=== PATIENT | male | born 1940 | race Caucasian/White ===

== ENCOUNTER → 2018-03-04 12:34 | Outpatient (CLI) | payer MEDICARE, OTHER, SELFPAY ==
[2018-03-04 13:47] LABS: Alanine Aminotransferase 23 IU/L (21-72); Albumin 4.6 g/dL (3.5-5.0); Albumin Globulin Ratio 1.2 (1.0-2.8); Alkaline Phosphatase 116 U/L (38-126); Aspartate Aminotransferase 23 IU/L (17-59); BUN Creatinine Ratio 22.9 (6-22); Bilirubin Total 0.7 mg/dL (0.2-1.3); Calcium 9.7 mg/dL (8.4-10.2); Estimated Glomerular Filt Rate > 60.0 mL/min (>60); Globulin 3.7 g/dL (1.7-4.1); Glucose 103 mg/dL (80-110); HEMOLYSIS 37 (0-50); Sodium 141 mmol/L (137-145); Total Protein 8.3 g/dL (6.3-8.2)
== END ==
PROVIDERS: Family Provider Family Medicine; PCP Family Medicine; Visit Provider Internal Medicine Hematology & Oncology
DX: C61 Malignant neoplasm of prostate (principal)
CPT/HCPCS: 80053; 84153

== ENCOUNTER → 2018-06-02 14:11 | Outpatient (CLI) | payer MEDICARE, OTHER, SELFPAY ==
[2018-06-02 14:32] LABS: Add Manual Diff / Slide Review NO; Basophils Percent Auto 0.5 % (0-2); Eosinophils Percent Auto 0.3 % (2-4); Hematocrit 40.7 % (41-53); Hemoglobin 13.4 g/dL (13.5-17.5); Lymphocytes Percent Auto 27.8 % (25-40); Mean Corpuscular HGB Conc 32.9 % (30-36); Mean Corpuscular Hemoglobin 27.4 PG (26-34); Mean Corpuscular Volume 83.4 fL (80-100); Monocytes Percent Auto 8.3 % (3-14); Neutrophils Absolute Auto 7200 /uL (3000-5900); Neutrophils Percent Auto 63.1 % (50-75); Platelet Count 360 X10^3/uL (150-400); Red Blood Cell Count 4.88 X10^6/uL (4.5-5.9); Red Cell Distribution Width 14.8 % (11.6-14.8); White Blood Cell Count 11.4 X10^3/uL (4.5-11.0)
[2018-06-02 15:26] LABS: Alanine Aminotransferase 16 IU/L (21-72); Albumin 4.4 g/dL (3.5-5.0); Albumin Globulin Ratio 1.2 (1.0-2.8); Alkaline Phosphatase 127 U/L (38-126); Aspartate Aminotransferase 19 IU/L (17-59); BUN Creatinine Ratio 21.3 (6-22); Bilirubin Total 0.3 mg/dL (0.2-1.3); Blood Urea Nitrogen 17 mg/dL (9-20); Calcium 9.3 mg/dL (8.4-10.2); Carbon Dioxide 27 mmol/L (22-32); Chloride 101 mmol/L (98-107); Estimated Glomerular Filt Rate > 60.0 mL/min (>60); Globulin 3.6 g/dL (1.7-4.1); Glucose 83 mg/dL (80-110); HEMOLYSIS < 15 (0-50); Potassium 4.1 mmol/L (3.4-5.1); Sodium 140 mmol/L (137-145)
[2018-06-06 15:59] LABS: Albumin 3.7 g/dL (3.8-4.8); Alpha 1 Globulin 0.4 g/dL (0.2-0.3); Alpha 2 Globulin 1.1 g/dL (0.5-0.9); Beta 1 Globulin 0.6 g/dL (0.4-0.6); Protein, Total 7.3 g/dL (6.1-8.1)
== END ==
PROVIDERS: Internal Medicine Hematology & Oncology; Family Provider Family Medicine; PCP Family Medicine; Visit Provider Nurse Practitioner Gerontology
DX: C61 Malignant neoplasm of prostate (principal)
CPT/HCPCS: 36415; 80053; 84153; 84155; 84165; 85025

== ENCOUNTER → 2018-06-25 10:56 | Outpatient (CLI) | payer MEDICARE, OTHER, SELFPAY ==
--- NOTE | 2018-06-25 11:04 | DI.NM.S_ITS ---
PROCEDURE: [place] BONE SCAN WHOLE BODY RADIOPHARMACEUTICAL: 21.5 mCi Tc-99m MDP IV. INDICATIONS: PROSTATE CANCER TECHNIQUE: Delayed whole-body scintigrams were obtained approximately 3-4 hours after intravenous injection of radiotracer. Anterior and posterior views were acquired from vertex to feet. COMPARISON: [facility], CT, CT HARVEY, 11/04/2017, 15:06. [place], [place], BONE SCAN WHOLE BODY, 07/27/2016, 13:03. [place], BONE SCAN WHOLE BODY, 12/28/2016, 14:29. [facility], CT, CHEST/ABD/PEL WITH CONTRAST, 10/09/2017, 12:02. [place], BONE SCAN WHOLE BODY, 10/09/2017, 14:55. FINDINGS: Again noted are foci of increased uptake involving the right distal clavicle, T8 vertebral body, right sacrum consistent with metastasis. The right sacral lesion is more intense. The right clavicular lesion and lesion involving the T8 vertebra are stable. Increased activity in left eighth and ninth ribs are again noted, which was seen on prior examinations and thought to be most likely related to rib fracture. No lesions are identified in skull, sternum, scapulae, bony pelvis, and visualized shafts of the long bones. There is increased uptake in cervical, thoracic and lumbar spine with distribution indistinguishable from degenerative disc and facet disease; early metastasis to spine could be obscured by degenerative changes. There are foci of increased periarticular activity involving shoulders bilaterally, wrists and hands bilaterally, right knee and both feet, compatible with degenerative/arthritic changes. There is normal soft tissue uptake. IMPRESSION: 1. Suspicious bone lesions are again noted involving the distal right clavicle, T8 vertebral body and the right sacrum. The right sacral lesion appears more intense compared to the last exam. The right distal clavicular lesion and T8 lesion are stable. 2. Suspect rib fractures involving the left eighth and ninth ribs. Dictated by: Heidi Latif M.D. on 06/25/2018 at 17:34 Approved by: Heidi Latif M.D. on 06/26/2018 at 11:56
[2018-06-25 12:09] LABS: Add Manual Diff / Slide Review NO; Basophils Percent Auto 0.8 % (0-2); Eosinophils Percent Auto 0.2 % (2-4); Hematocrit 42.5 % (41-53); Lymphocytes Percent Auto 23.3 % (25-40); Mean Corpuscular HGB Conc 32.9 % (30-36); Mean Corpuscular Hemoglobin 27.4 PG (26-34); Mean Corpuscular Volume 83.3 fL (80-100); Monocytes Percent Auto 9.9 % (3-14); Neutrophils Absolute Auto 6700 /uL (3000-5900); Neutrophils Percent Auto 65.8 % (50-75); Platelet Count 330 X10^3/uL (150-400); Red Cell Distribution Width 15.1 % (11.6-14.8); White Blood Cell Count 10.3 X10^3/uL (4.5-11.0)
[2018-06-25 12:26] LABS: Alanine Aminotransferase 18 IU/L (21-72); Albumin 4.6 g/dL (3.5-5.0); Albumin Globulin Ratio 1.4 (1.0-2.8); Alkaline Phosphatase 121 U/L (38-126); Aspartate Aminotransferase 18 IU/L (17-59); Bilirubin Total 0.5 mg/dL (0.2-1.3); Blood Urea Nitrogen 18 mg/dL (9-20); Calcium 10.2 mg/dL (8.4-10.2); Carbon Dioxide 27 mmol/L (22-32); Chloride 103 mmol/L (98-107); Estimated Glomerular Filt Rate > 60.0 mL/min (>60); Globulin 3.2 g/dL (1.7-4.1); Glucose 106 mg/dL (80-110); HEMOLYSIS < 15 (0-50); Potassium 4.8 mmol/L (3.4-5.1); Sodium 144 mmol/L (137-145); Total Protein 7.8 g/dL (6.3-8.2)
== END ==
PROVIDERS: Family Provider Family Medicine; PCP Family Medicine; Visit Provider Nurse Practitioner Gerontology
DX: C61 Malignant neoplasm of prostate (principal); M89.9 Disorder of bone, unspecified
CPT/HCPCS: 36415; 78306; 80053; 84153; 85025; A9503

== ENCOUNTER → 2018-08-26 12:24 | Outpatient (CLI) | payer MEDICARE, OTHER, SELFPAY ==
[2018-08-26 13:56] LABS: Alanine Aminotransferase 18 IU/L (21-72); Albumin 4.7 g/dL (3.5-5.0); Albumin Globulin Ratio 1.5 (1.0-2.8); Alkaline Phosphatase 97 U/L (38-126); Aspartate Aminotransferase 23 IU/L (17-59); BUN Creatinine Ratio 15.6 (6-22); Bilirubin Total 0.5 mg/dL (0.2-1.3); Blood Urea Nitrogen 14 mg/dL (9-20); Calcium 9.4 mg/dL (8.4-10.2); Carbon Dioxide 26 mmol/L (22-32); Chloride 101 mmol/L (98-107); Estimated Glomerular Filt Rate > 60.0 mL/min (>60); Globulin 3.2 g/dL (1.7-4.1); Glucose 98 mg/dL (80-110); HEMOLYSIS < 15 (0-50); Potassium 4.4 mmol/L (3.4-5.1); Sodium 143 mmol/L (137-145); Total Protein 7.9 g/dL (6.3-8.2)
[2018-08-26 13:58] LABS: Add Manual Diff / Slide Review NO; Basophils Percent Auto 0.5 % (0-2); Eosinophils Percent Auto 0.3 % (2-4); Hematocrit 42.1 % (41-53); Hemoglobin 13.7 g/dL (13.5-17.5); Mean Corpuscular HGB Conc 32.6 % (30-36); Mean Corpuscular Hemoglobin 27.7 PG (26-34); Mean Corpuscular Volume 84.7 fL (80-100); Monocytes Percent Auto 9.4 % (3-14); Neutrophils Absolute Auto 7900 /uL (3000-5900); Neutrophils Percent Auto 70.8 % (50-75); Platelet Count 319 X10^3/uL (150-400); Red Blood Cell Count 4.97 X10^6/uL (4.5-5.9); Red Cell Distribution Width 14.6 % (11.6-14.8); White Blood Cell Count 11.1 X10^3/uL (4.5-11.0)
== END ==
PROVIDERS: Family Provider Family Medicine; PCP Family Medicine
DX: C61 Malignant neoplasm of prostate (principal); M81.0 Age-related osteoporosis without current pathological fracture; Z87.891 Personal history of nicotine dependence
CPT/HCPCS: 36415; 77080; 80053; 84153; 85025

== ENCOUNTER → 2018-10-24 12:47 | Outpatient (CLI) | payer MEDICARE, OTHER, SELFPAY ==
--- NOTE | 2018-10-24 14:21 | DI.CT.S_ITS ---
PROCEDURE: CT ABDOMEN PELVIS W CON INDICATIONS: Kidney cancer TECHNIQUE: After the administration of oral and intravenous contrast, 5 mm thick sections acquired from the diaphragms to the symphysis. 5 mm thick coronal and sagittal reformats were performed. For radiation dose reduction, the following was used: automated exposure control, adjustment of mA and/or kV according to patient size. COMPARISON: [facility], CT, CHEST/ABD/PEL WITH CONTRAST, 10/09/2017, 12:02. FINDINGS: Image quality: Excellent. ABDOMEN: Lung bases: Mild bibasilar dependent atelectasis are noted posteriorly. Heart size is mildly enlarged, no pericardial effusion. Solid organs: Liver is normal in size and enhancement. Mild hepatic steatosis is seen. Gallbladder is distended and is within normal limits.. Biliary system is non-dilated. Pancreas enhances normally. Spleen is normal in size and enhancement. No adrenal nodules. Left kidney is normal in size and enhancement, without hydronephrosis. Small left renal cortical cyst is again seen and unchanged. Again noted are 2 exophytic renal masses involving posterior cortex of upper pole right kidney and posterior lateral cortex of mid pole right kidney with surrounding fatty halo suggestive of prior ablation. Both lesions now measures approximately 1.5 cm in size and are significantly smaller compared to 2.6 and 2.4 cm in size on previous study. No hydronephrosis is seen. Tiny nonobstructing 2-3 mm right renal calculi are seen. Peritoneum and bowel: Stomach, small bowel, and colon loops are normal in caliber and wall thickness. No free fluid or air. Small hiatal hernia is seen. Sigmoid diverticulosis is noted, no CT evidence of acute diverticulitis. Nodes and vessels: No retroperitoneal or mesenteric adenopathy. Aorta and inferior vena cava are normal in caliber. Miscellaneous: No ventral hernias. PELVIS: Genitourinary: Very mild diffuse bladder wall thickening is seen, no discrete bladder wall mass is identified. There is prior prostatectomy. Miscellaneous: No inguinal hernias or adenopathy. Bones: No definite lytic or blastic bony lesion is identified. Possible metastatic lesion involving the right sacrum is not definitely appreciated on this study. No vertebral body compression fractures. IMPRESSION: 1. Interval further decrease in size of patient's known exophytic right renal masses as described above consistent with treated tumors from previous ablation. No evidence of local recurrence is seen. 2. No gross metastatic disease is seen in abdomen or pelvis. 3. No definite lytic or blastic bony lesion is seen. No obvious sacral lesion is noted. Dictated by: Romel Leal M.D. on 10/24/2018 at 16:57 Approved by: Romel Leal M.D. on 10/24/2018 at 16:58
== END ==
PROVIDERS: PCP Family Medicine
DX: C61 Malignant neoplasm of prostate (principal); N17.9 Acute kidney failure, unspecified; Z85.528 Personal history of other malignant neoplasm of kidney
CPT/HCPCS: 74177; Q9967

== ENCOUNTER → 2018-12-17 16:00 | Outpatient (CLI) | payer MEDICARE, OTHER, SELFPAY | PROVIDERS: Family Provider Family Medicine; PCP Family Medicine | DX: C61 Malignant neoplasm of prostate (principal) | CPT/HCPCS: 36415; 80053; 84153; 85025 ==

== ENCOUNTER → 2019-04-09 08:50 | Outpatient (CLI) | payer MEDICARE, OTHER, SELFPAY ==
--- NOTE | 2019-04-09 08:54 | DI.NM.S_ITS ---
PROCEDURE: [place] BONE SCAN WHOLE BODY RADIOPHARMACEUTICAL: 21.9 mCi Tc-99m MDP IV. INDICATIONS: f/u prostate cancer TECHNIQUE: Delayed whole-body scintigrams were obtained approximately 3-4 hours after intravenous injection of radiotracer. Anterior and posterior views were acquired from vertex to feet. COMPARISON: [facility], CT, CT ABDOMEN PELVIS W CON, 10/24/2018, 14:19. [facility], CT, CHEST/ABD/PEL WITH CONTRAST, 10/09/2017, 12:02. [place], [place], BONE SCAN WHOLE BODY, 10/09/2017, 14:55. [place], [place], [place] CONSULT OUTPATIENT PLANNING, 11/06/2017, 13:07. [place], [place] BONE SCAN WHOLE BODY, 06/25/2018, 14:17. [facility], CT, CT ABDOMEN PELVIS W CON, 04/09/2019, 10:32. FINDINGS: There are foci of increased uptake involving the right distal clavicle, T8 vertebra, sacrum, and right anterior seventh rib, consistent with metastasis. The right seventh rib lesion is new. The T8 lesion and right sacral lesion demonstrate increased size and intensity. The right clavicular lesion appears less conspicuous. Previously seen left eighth and ninth rib lesions no longer take up MDP, consistent with healed fractures. IMPRESSION: Overall worsening of disease since the last bone scan. Dictated by: Heidi Latif M.D. on 04/09/2019 at 13:55 Approved by: Heidi Latif M.D. on 04/09/2019 at 14:06
--- NOTE | 2019-04-09 09:40 | DI.CT.S_ITS ---
PROCEDURE: CT ABDOMEN PELVIS W CON INDICATIONS: Restaging prostate cancer TECHNIQUE: After the administration of oral and intravenous contrast, 5 mm thick sections acquired from the diaphragms to the symphysis. 5 mm thick coronal and sagittal reformats were performed. For radiation dose reduction, the following was used: automated exposure control, adjustment of mA and/or kV according to patient size. COMPARISON: Outside Facility, [place], CT ABDOMEN W/WO CONTRAST, 10/21/2015, 12:54. Outside Facility, [place], CT ABDOMEN WITH CONTRAST, 07/24/2016, 13:49. [facility], CT, KIDNEY/ URETER/BLADDER, 01/25/2017, 11:15. [facility], CT, CHEST/ABD/PEL WITH CONTRAST, 10/09/2017, 12:02. [facility], [place], [place] BONE SCAN WHOLE BODY, 04/09/2019, 12:27. [facility], CT, CT ABDOMEN PELVIS W CON, 10/24/2018, 14:19. FINDINGS: Image quality: Excellent. ABDOMEN: Lung bases: Lung bases are clear. Heart size is normal. Solid organs: Liver is normal in size and enhancement. Gallbladder is free of calculus or inflammation. Biliary system is non-dilated. Pancreas enhances normally. Spleen is normal in size and enhancement. No adrenal nodules. Kidneys are asymmetric in size and enhancement, with the postprocedural distortion of the right renal cortex at its upper margin and its upper lateral margin suggestive of prior possible ablation of renal tumors in those areas, without hydronephrosis. Peritoneum and bowel: Stomach, small bowel, and colon loops are normal in caliber and wall thickness. No free fluid or air. Nodes and vessels: No retroperitoneal or mesenteric adenopathy. Aorta and inferior vena cava are normal in caliber. Miscellaneous: No ventral hernias. PELVIS: Genitourinary: Bladder wall thickness is normal. Miscellaneous: No inguinal hernias or adenopathy. Bones: No suspicious bony lesions. No vertebral body compression fractures. IMPRESSION: No adenopathy is seen, no osteoblastic bone lesion is identified over the visualized axial and appendicular skeleton. The right kidney is relatively small when compared to the normal appearing left kidney in this patient who appears to have undergone prior possible ablation procedures for 2 separate masses involving the right kidney with reference to the prior earliest available CT scanning from October of 2015. Please correlate clinically. There is no evidence of adenopathy or osseous metastatic disease related to the clinically reported prior prostate carcinoma. Dictated by: Domingo Esquivel M.D. on 04/09/2019 at 13:55 Approved by: Domingo Esquivel M.D. on 04/09/2019 at 14:04
== END ==
PROVIDERS: Family Provider Family Medicine; PCP Family Medicine
DX: C61 Malignant neoplasm of prostate (principal); M89.9 Disorder of bone, unspecified
CPT/HCPCS: 36415; 74177; 78306; 80053; 84153; 85025; A9503; Q9967

== ENCOUNTER → 2019-04-09 09:00 | Outpatient (CLI) | payer MEDICARE, OTHER, SELFPAY ==
[2019-04-09 09:18] LABS: Add Manual Diff / Slide Review NO; Basophils Absolute Auto 100 /uL (0-100); Basophils Percent Auto 0.7 % (0-2); Eosinophils Absolute Auto 100 /uL (0-450); Eosinophils Percent Auto 0.7 % (2-4); Hematocrit 40.5 % (41-53); Hemoglobin 13.5 g/dL (13.5-17.5); Lymphocytes Absolute Auto 2300 /uL (1100-4500); Lymphocytes Percent Auto 26.3 % (25-40); Mean Corpuscular HGB Conc 33.4 % (30-36); Mean Corpuscular Hemoglobin 28.6 PG (26-34); Mean Corpuscular Volume 85.9 fL (80-100); Monocytes Absolute Auto 800 /uL (0-900); Monocytes Percent Auto 9.5 % (3-14); Neutrophils Absolute Auto 5400 /uL (1500-7000); Neutrophils Percent Auto 62.8 % (50-75); Platelet Count 310 X10^3/uL (150-400); Red Blood Cell Count 4.72 X10^6/uL (4.5-5.9); Red Cell Distribution Width 14.5 % (11.6-14.8); White Blood Cell Count 8.7 X10^3/uL (4.5-11.0)
[2019-04-09 09:32] LABS: Alanine Aminotransferase 14 IU/L (21-72); Albumin 4.5 g/dL (3.5-5.0); Albumin Globulin Ratio 1.3 (1.0-2.8); Alkaline Phosphatase 90 U/L (38-126); Aspartate Aminotransferase 18 IU/L (17-59); BUN Creatinine Ratio 21.3 (6-22); Bilirubin Total 0.4 mg/dL (0.2-1.3); Blood Urea Nitrogen 17 mg/dL (9-20); Calcium 9.2 mg/dL (8.4-10.2); Carbon Dioxide 21 mmol/L (22-32); Chloride 106 mmol/L (98-107); Estimated Glomerular Filt Rate > 60.0 mL/min (>60); Globulin 3.6 g/dL (1.7-4.1); Glucose 103 mg/dL (80-110); HEMOLYSIS < 15 (0-50); Potassium 4.2 mmol/L (3.4-5.1); Sodium 141 mmol/L (137-145); Total Protein 8.1 g/dL (6.3-8.2)
[2019-04-09 10:01] LABS: Prostate Specific Antigen 5.42 ng/mL (0.10-4.00)
== END ==
PROVIDERS: Family Provider Family Medicine; PCP Family Medicine
DX: C61 Malignant neoplasm of prostate (principal)
CPT/HCPCS: 36415; 80053; 84153; 85025

== ENCOUNTER → 2019-07-20 13:51 | Outpatient (CLI) | payer MEDICARE, OTHER, SELFPAY ==
[2019-07-20 14:15] LABS: Add Manual Diff / Slide Review NO; Basophils Absolute Auto 100 /uL (0-100); Basophils Percent Auto 0.6 % (0-2); Eosinophils Absolute Auto 0 /uL (0-450); Eosinophils Percent Auto 0.2 % (2-4); Hematocrit 41.4 % (41-53); Hemoglobin 13.5 g/dL (13.5-17.5); Lymphocytes Absolute Auto 1200 /uL (1100-4500); Lymphocytes Percent Auto 13.6 % (25-40); Mean Corpuscular HGB Conc 32.7 % (30-36); Mean Corpuscular Volume 88.7 fL (80-100); Monocytes Absolute Auto 900 /uL (0-900); Monocytes Percent Auto 10.8 % (3-14); Neutrophils Absolute Auto 6400 /uL (1500-7000); Neutrophils Percent Auto 74.8 % (50-75); Platelet Count 271 X10^3/uL (150-400); Red Blood Cell Count 4.67 X10^6/uL (4.5-5.9); Red Cell Distribution Width 14.5 % (11.6-14.8); White Blood Cell Count 8.6 X10^3/uL (4.5-11.0)
[2019-07-20 14:26] LABS: Alanine Aminotransferase 18 IU/L (21-72); Albumin 4.4 g/dL (3.5-5.0); Albumin Globulin Ratio 1.3 (1.0-2.8); Alkaline Phosphatase 77 U/L (38-126); Aspartate Aminotransferase 25 IU/L (17-59); BUN Creatinine Ratio 21.1 (6-22); Bilirubin Total 0.4 mg/dL (0.2-1.3); Blood Urea Nitrogen 19 mg/dL (9-20); Calcium 9.4 mg/dL (8.4-10.2); Carbon Dioxide 26 mmol/L (22-32); Chloride 101 mmol/L (98-107); Estimated Glomerular Filt Rate > 60.0 mL/min (>60); Globulin 3.3 g/dL (1.7-4.1); Glucose 113 mg/dL (80-110); HEMOLYSIS < 15 (0-50); Potassium 4.1 mmol/L (3.4-5.1); Sodium 139 mmol/L (137-145); Total Protein 7.7 g/dL (6.3-8.2)
[2019-07-20 14:57] LABS: Prostate Specific Antigen 4.17 ng/mL (0.10-4.00)
== END ==
PROVIDERS: PCP Family Medicine
DX: C61 Malignant neoplasm of prostate (principal)
CPT/HCPCS: 36415; 80053; 84153; 85025

== ENCOUNTER → 2019-12-16 13:36 | Outpatient (CLI) | payer MEDICARE, OTHER, SELFPAY ==
[2019-12-16 13:55] LABS: Add Manual Diff / Slide Review NO; Basophils Absolute Auto 100 /uL (0-100); Eosinophils Absolute Auto 0 /uL (0-450); Eosinophils Percent Auto 0.4 % (2-4); Hemoglobin 14.6 g/dL (13.5-17.5); Lymphocytes Absolute Auto 1500 /uL (1100-4500); Lymphocytes Percent Auto 16.7 % (25-40); Mean Corpuscular HGB Conc 33.8 % (30-36); Mean Corpuscular Hemoglobin 29.2 PG (26-34); Mean Corpuscular Volume 86.5 fL (80-100); Monocytes Absolute Auto 900 /uL (0-900); Monocytes Percent Auto 9.9 % (3-14); Neutrophils Absolute Auto 6500 /uL (1500-7000); Platelet Count 288 X10^3/uL (150-400); Red Blood Cell Count 4.98 X10^6/uL (4.5-5.9)
[2019-12-16 14:06] LABS: Alanine Aminotransferase 21 IU/L (<50); Albumin 4.8 g/dL (3.5-5.0); Albumin Globulin Ratio 1.3 (1.0-2.8); Alkaline Phosphatase 84 U/L (38-126); Aspartate Aminotransferase 29 IU/L (17-59); Bilirubin Total 0.5 mg/dL (0.2-1.3); Blood Urea Nitrogen 18 mg/dL (9-20); Calcium 9.9 mg/dL (8.4-10.2); Carbon Dioxide 26 mmol/L (22-32); Chloride 101 mmol/L (98-107); Estimated Glomerular Filt Rate > 60.0 mL/min (>60); Globulin 3.7 g/dL (1.7-4.1); Glucose 112 mg/dL (80-110); HEMOLYSIS < 15 (0-50); Potassium 4.7 mmol/L (3.4-5.1); Sodium 141 mmol/L (137-145); Total Protein 8.5 g/dL (6.3-8.2)
[2019-12-16 14:36] LABS: Prostate Specific Antigen 3.64 ng/mL (0.10-4.00)
== END ==
PROVIDERS: PCP Family Medicine; Referring Provider Internal Medicine Hematology & Oncology; Visit Provider Internal Medicine Hematology & Oncology
DX: C61 Malignant neoplasm of prostate (principal)
CPT/HCPCS: 36415; 80053; 84153; 85025

== ENCOUNTER → 2020-03-08 13:23 | Outpatient (CLI) | payer MEDICARE, OTHER, SELFPAY ==
[2020-03-08 14:41] LABS: Add Manual Diff / Slide Review NO; Basophils Absolute Auto 0 /uL (0-100); Basophils Percent Auto 0.5 % (0-2); Eosinophils Absolute Auto 0 /uL (0-450); Eosinophils Percent Auto 0.3 % (2-4); Hematocrit 39.8 % (41-53); Hemoglobin 13.3 g/dL (13.5-17.5); Lymphocytes Absolute Auto 1300 /uL (1100-4500); Lymphocytes Percent Auto 15.4 % (25-40); Mean Corpuscular HGB Conc 33.4 % (30-36); Mean Corpuscular Hemoglobin 29.3 PG (26-34); Mean Corpuscular Volume 87.9 fL (80-100); Monocytes Absolute Auto 1000 /uL (0-900); Monocytes Percent Auto 11.5 % (3-14); Neutrophils Absolute Auto 6100 /uL (1500-7000); Neutrophils Percent Auto 72.3 % (50-75); Platelet Count 293 X10^3/uL (150-400); Red Blood Cell Count 4.53 X10^6/uL (4.5-5.9); Red Cell Distribution Width 15.5 % (11.6-14.8); White Blood Cell Count 8.4 X10^3/uL (4.5-11.0)
[2020-03-08 14:53] LABS: Alanine Aminotransferase 17 IU/L (<50); Albumin 4.4 g/dL (3.5-5.0); Albumin Globulin Ratio 1.4 (1.0-2.8); Alkaline Phosphatase 93 U/L (38-126); Aspartate Aminotransferase 24 IU/L (17-59); BUN Creatinine Ratio 19.4 (6-22); Bilirubin Total 0.4 mg/dL (0.2-1.3); Blood Urea Nitrogen 18 mg/dL (9-20); Calcium 9.7 mg/dL (8.4-10.2); Carbon Dioxide 23 mmol/L (22-32); Chloride 103 mmol/L (98-107); Estimated Glomerular Filt Rate > 60.0 mL/min (>60); Globulin 3.2 g/dL (1.7-4.1); Glucose 100 mg/dL (80-110); HEMOLYSIS < 15 (0-50); Potassium 4.4 mmol/L (3.4-5.1); Sodium 139 mmol/L (137-145); Total Protein 7.6 g/dL (6.3-8.2)
[2020-03-08 15:23] LABS: Prostate Specific Antigen 5.08 ng/mL (0.10-4.00)
== END ==
PROVIDERS: PCP Family Medicine; Referring Provider Internal Medicine Hematology & Oncology; Visit Provider Internal Medicine Hematology & Oncology
DX: C61 Malignant neoplasm of prostate (principal)
CPT/HCPCS: 36415; 80053; 84153; 85025

== ENCOUNTER → 2020-10-31 09:00 | Outpatient (CLI) | payer MEDICARE, OTHER, SELFPAY ==
--- NOTE | 2020-10-31 09:03 | DI.NM.S_ITS ---
PROCEDURE: [place] BONE SCAN WHOLE BODY RADIOPHARMACEUTICAL: 21.8 mCi Tc-99m MDP IV. INDICATIONS: Prostate CA, increasing PSA, right-sided low back pain TECHNIQUE: Delayed whole-body scintigrams were obtained approximately 3-4 hours after intravenous injection of radiotracer. Anterior and posterior views were acquired from vertex to feet. COMPARISON: [facility], CT, CT ABDOMEN PELVIS W CON, 04/09/2019, 10:32. [place], [place] CONSULT OUTPATIENT PLANNING, 11/06/2017, 13:07. [place], [place] BONE SCAN WHOLE BODY, 06/25/2018, 14:17. [place], [place], BONE SCAN WHOLE BODY, 10/09/2017, 14:55. [place], [place], BONE SCAN WHOLE BODY, 12/28/2016, 14:29. [place], [place], BONE SCAN WHOLE BODY, 07/27/2016, 13:03. [place], [place] BONE SCAN WHOLE BODY, 04/09/2019, 12:27. [facility], CT, CT CHEST ABD PEL W CON, 10/31/2020, 10:24. FINDINGS: There are multiple foci of abnormal uptake involving the skull, cervical spine (T7), thoracic spine (T3, T8 and T12), lumbar spine (L3, ?L5), multiple ribs bilaterally, left distal clavicle or acromion, left iliac bone, the proximal right femur, and mid to distal left femoral shaft, consistent with metastases. Compared with the last bone scan, majority of the bone lesions are new except the lesions in T8 and the right anterior 7th rib. IMPRESSION: Significant worsening of osseous metastasis. Dictated by: Heidi Latif M.D. on 10/31/2020 at 14:38 Approved by: Heidi Latif M.D. on 10/31/2020 at 17:29
--- NOTE | 2020-10-31 10:10 | DI.CT.S_ITS ---
PROCEDURE: CT CHEST ABD PEL W CON INDICATIONS: Prostate CA, increasing PSA, right-sided low back pain TECHNIQUE: After the administration of oral and intravenous contrast, 5 mm thick sections acquired from the lung apices to the symphysis. 5 mm coronal and sagittal reformats were performed, with additional 7 mm coronal MIP reformats through the lungs. For radiation dose reduction, the following was used: automated exposure control, adjustment of mA and/or kV according to patient size. COMPARISON: [facility], CT, CT ABDOMEN PELVIS W CON, 04/09/2019, 10:32. [facility], CT, KIDNEY/ URETER/BLADDER, 01/25/2017, 11:15. [facility], CT, CHEST/ABD/PEL WITH CONTRAST, 10/09/2017, 12:02. FINDINGS: Image quality: Excellent. CHEST: Lungs and pleura: Since the prior CT of the chest in 2016 the patient has developed bronchiectasis in the right lower lobe medially in the azygoesophageal recess. No pleural effusions or pneumothorax. Subpleural peripheral airspace opacities are new compared to the prior CT. No focal consolidation or mass. Mediastinum: Heart size is normal. No pericardial effusion. No mediastinal adenopathy by size criteria. The thoracic aorta has atherosclerotic calcifications with no aneurysmal dilatation. Esophagus is normal in caliber. There is a small hiatal hernia. Chest wall: No axillary or supraclavicular adenopathy by size criteria. Thyroid gland is normal . ABDOMEN: Solid organs: Liver: The liver has no mass or intrahepatic biliary ductal dilatation. The portal vein and hepatic veins are patent. Biliary: The gallbladder has no gallstones, pericholecystic fluid, gallbladder wall thickening, or surrounding inflammatory change. Pancreas: The pancreas has no mass or ductal dilatation. There is no surrounding inflammation. Spleen: Normal size. There are no masses. Adrenals: No hypertrophy or nodules. Kidneys: The left kidney has a normal appearance. Postprocedural changes of the right kidney are seen, likely related to a prior ablation or partial resection. Bowel: There is a small hiatal hernia. The esophagus is otherwise normal with a normal caliber. The small bowel has a normal caliber and appearance. The terminal ileum is normal. The large bowel has a normal caliber and appearance. The appendix is normal. No free fluid or air. Nodes and vessels: No retroperitoneal or mesenteric adenopathy by size criteria. Aorta and inferior vena cava are normal in size. Abdominal wall: No abdominal wall mass or hernia. PELVIS: Genitourinary: The bladder has no wall thickening or mass. No bladder calcifications. Miscellaneous: No inguinal hernias or adenopathy. BONES: C7, T1, T3, L3, and the lower sacrum have areas of new sclerosis. Multiple ribs have new areas of sclerosis. The left hemipelvis has new areas of sclerosis. These findings are consistent with . . . . IMPRESSION: 1. Multiple vertebral, rib, and left hemipelvis sclerotic osseous lesions consistent with prostate metastatic disease. 2. Interval development of right medial basilar bronchiectasis and diffuse peripheral ground-glass opacities. This is new compared to the prior CT on 04/09/2019 and is likely due to interval development of an atypical infectious process such as MARYAM, post infectious pulmonary parenchymal changes, among other allergic, autoimmune, and atypical processes. If the patient is symptomatic, bronchoscopy might be helpful. Dictated by: Kaleb Andrews M.D. on 10/31/2020 at 11:06 Approved by: Kaleb Andrews M.D. on 10/31/2020 at 11:32
== END ==
PROVIDERS: PCP Family Medicine; Referring Provider Family Medicine; Visit Provider Internal Medicine
DX: C61 Malignant neoplasm of prostate (principal); C79.51 Secondary malignant neoplasm of bone; R97.21 Rising PSA following treatment for malignant neoplasm of prostate; M54.5 Low back pain; J47.9 Bronchiectasis, uncomplicated
CPT/HCPCS: 71260; 74177; 78306; A9503; Q9967

== ENCOUNTER → 2020-12-24 11:02 | Outpatient (CLI) | payer MEDICARE, OTHER, SELFPAY ==
[2020-12-24 11:53] LABS: Add Manual Diff / Slide Review NO; Basophils Absolute Auto 0 /uL (0-100); Basophils Percent Auto 0.5 % (0-2); Eosinophils Absolute Auto 100 /uL (0-450); Hematocrit 40.1 % (41-53); Hemoglobin 13.1 g/dL (13.5-17.5); Lymphocytes Absolute Auto 1300 /uL (1100-4500); Lymphocytes Percent Auto 20.1 % (25-40); Mean Corpuscular HGB Conc 32.7 % (30-36); Mean Corpuscular Hemoglobin 28.9 PG (26-34); Mean Corpuscular Volume 88.4 fL (80-100); Monocytes Absolute Auto 600 /uL (0-900); Monocytes Percent Auto 9.5 % (3-14); Neutrophils Absolute Auto 4500 /uL (1500-7000); Neutrophils Percent Auto 68.9 % (50-75); Platelet Count 297 X10^3/uL (150-400); Red Blood Cell Count 4.53 X10^6/uL (4.5-5.9); Red Cell Distribution Width 15.2 % (11.6-14.8); White Blood Cell Count 6.5 X10^3/uL (4.5-11.0)
[2020-12-24 12:07] LABS: Alanine Aminotransferase 12 IU/L (<50); Albumin 4.4 g/dL (3.5-5.0); Albumin Globulin Ratio 1.3 (1.0-2.8); Alkaline Phosphatase 77 U/L (38-126); Aspartate Aminotransferase 22 IU/L (17-59); BUN Creatinine Ratio 22.1 (6-22); Bilirubin Total 0.4 mg/dL (0.2-1.3); Blood Urea Nitrogen 17 mg/dL (9-20); Calcium 9.2 mg/dL (8.4-10.2); Carbon Dioxide 22 mmol/L (22-32); Chloride 103 mmol/L (98-107); Estimated Glomerular Filt Rate > 60.0 mL/min (>60); Globulin 3.4 g/dL (1.7-4.1); Glucose 110 mg/dL (80-110); HEMOLYSIS < 15 (0-50); Potassium 3.9 mmol/L (3.4-5.1); Sodium 137 mmol/L (137-145); Total Protein 7.8 g/dL (6.3-8.2)
== END ==
PROVIDERS: PCP Family Medicine; Referring Provider Internal Medicine; Visit Provider Internal Medicine
DX: C61 Malignant neoplasm of prostate (principal)
CPT/HCPCS: 36415; 80053; 84153; 85025

== ENCOUNTER → 2021-01-03 15:41 | Outpatient (CLI) | payer MEDICARE, OTHER, SELFPAY ==
[2021-01-03 16:08] LABS: COVID19 -Nasal RAPID Negative (Negative)
== END ==
PROVIDERS: PCP Family Medicine; Visit Provider Specialist
DX: Z20.822 Contact with and (suspected) exposure to COVID-19 (principal)
CPT/HCPCS: 87635

== ENCOUNTER 2021-01-04 07:17 | Day surgery (SDC) | payer MEDICARE, OTHER, SELFPAY ==
[2021-01-04] VITALS (7 sets, daily range): BP systolic 133–164; BP diastolic 76–86; PULSE 70–94; RESP 10–16; TEMP 35.8–36.4; O2SAT 95–99; BMI 29.9
--- NOTE | 2021-01-04 | DI.RAD.S_ITS ---
PROCEDURE: XR CHEST 1V INDICATIONS: PORT PLACEMENT TECHNIQUE: One view of the chest was acquired. COMPARISON: [facility], CT, CHEST/ABD/PEL WITH CONTRAST, 10/09/2017, 12:02. [facility], CT, CT CHEST ABD PEL W CON, 10/31/2020, 10:24. FINDINGS: Surgical changes and devices: Left-sided port with the catheter tip projecting over the superior 1/3 of the SVC. Lungs and pleura: Patchy mild airspace opacity bilaterally. This was also seen on CT from October 2020. No pleural effusions or pneumothorax. Mediastinum: Mediastinal contours appear normal. Heart size is normal. Bones and chest wall: Right sclerotic rib lesion is again seen. Overlying soft tissues appear unremarkable. IMPRESSION: Left-sided port with the catheter tip projecting over the superior 1/3 of the SVC. No pneumothorax. Mild patchy airspace opacity bilaterally. This was also seen on prior CT from October 2020. Suspect infectious/inflammatory etiology. Sclerotic right rib lesion is again seen. Dictated by: Shade Fenton M.D. on 01/04/2021 at 10:42 Approved by: Shade Fenton M.D. on 01/04/2021 at 10:46
[2021-01-04] MEDS: LACTATED RINGERS 1,000 ML 42 ML IV (09:00)
--- NOTE | 2021-01-04 09:21 | P.HP_ITS ---
History of Present Illness History of Present Illness Date Patient Seen: 01/04/21 Time Patient Seen: 09:05 Chief complaint: SDC Narrative: Patient is a gentleman with metastatic prostate cancer who will begin chemotherapy soon. I was asked to place a Port-A-Cath. Patient History Medical History (Updated 01/04/21 @ 09:23 by Js Julio MD) Hypertension Family & Social History Social History: household members spouse Tobacco & Substance use: Smoking Status Former smoker alcohol intake former Substance Use Type does not use Meds Home Medications and Allergies Home Medications Medication Instructions Recorded Confirmed Type Artificial Tears(pvalch-povid) 1 drp OPHTH PRN PRN #30 ml 07/23/16 01/04/21 History PreserVision AREDS-2 1 ea PO BID #0 07/23/16 01/04/21 History allopurinol See Rx Instructions .ROUTE 07/23/16 01/04/21 History .COMPLEX #30 tab cholecalciferol (vitamin D3) 2,000 iu PO BID #0 07/23/16 01/04/21 History [Vitamin D3] hydrochlorothiazide See Rx Instructions .ROUTE 06/05/17 01/04/21 History .COMPLEX #0 hydrocortisone [Hydrocream] 1 appful TOPICAL QDAY PRN #0 12/30/17 01/04/21 History atorvastatin 10 mg PO DAILY 10/28/18 01/04/21 History Lupron Depot (6 Month) 30 mg [id number] 04/22/19 01/04/21 History psyllium [Fiber Smooth] 1 tbsp PO DAILY 09/16/19 01/04/21 History acetaminophen 325 - 650 mg PO Q6HP PRN 12/29/19 01/04/21 History enzalutamide 160 mg PO Q24H #120 cap 04/05/20 01/04/21 Rx omega-3 fatty acids [[place] 3] 1,000 mg PO BID 11/01/20 01/04/21 History ondansetron HCl 8 mg PO Q8H PRN #30 tab 12/27/20 01/04/21 Rx prednisone 10 mg PO DAILY #30 tab 12/27/20 01/04/21 Rx Allergies Allergy/AdvReac Type Severity Reaction Status Date / Time No Known Drug Allergies Allergy Verified 01/04/21 07:43 Review of Systems Review of Systems Narrative: Patient has postnasal drip. Causes and cough. No recent infections in his lungs. No heart problems he is aware of. Does have a history kidney stones. ROS: Yes All systems reviewed with the patient and are negative except as otherwise documented Exam Vital Signs (past 8 hours): - 01/04/21 07:59 Temperature 97.6 F Pulse Rate 94 H Respiratory Rate 16 Blood Pressure 164/86 H Pulse Oximetry 99 Oxygen Delivery Method Room Air Narrative Exam Narrative: Pleasant cooperative patient no apparent distress. Lungs are clear to auscultation. No rales or rhonchi. Heart regular rate and rhythm no murmur gallop. Abdomen is soft nontender without mass. No obvious hernias. Patient is alert and oriented x3. Assessment & Plan Assessment & Plan narrative: Patient with metastatic prostate cancer about to begin chemotherapy. I have talked to him about placement of a port. Uses left side is he is right-side dominant. The skin over the areas fine. The nature of the port in the operation the risks of bleeding infection which is ongoing, lung collapse and DVT with possible PE were all discussed. He appears to understand wishes to proceed. Quality MIPS - Admit Advanced Care Plan / Current Medications Measures: #47 ? Advanced Care Plan Clinician documentation instruction: document at admission. [] I confirmed that the patient's Advance Care Plan is present, code status is documented, or surrogate decision maker is listed in the patient?s medical record. [SATISFIES MIPS PERFORMANCE] If Yes, Stop Here [] The patient?s Advance Care plan is not present because: (select) [MIPS PERFORMANCE EXCEPTION/EXCLUSION] [] I confirmed today that the patient does not wish or was not able to name a surrogate decision maker or provide an Advance Care Plan. [] Hospice care is currently being provided or has been provided this calendar year [] I did NOT confirm today the presence of an Advance Care Plan or surrogate decision maker documented within the patient's medical record. [DOES NOT SATISFY MIPS PERFORMANCE] #130 - Documentation of Current Medications in the Medical Record Clinician documentation instruction: use macro the first time you see a patient. [] I have utilized all available immediate resources to obtain, update, or review the patient?s current medications. [SATISFIES MIPS PERFORMANCE] If Yes, Stop Here [] The patient is not eligible for medication reconciliation; the patient is in an emergent medical situation where delaying treatment would jeopardize the patient?s health. [MIPS PERFORMANCE EXCEPTION/EXCLUSION] [] I did NOT confirm, update or review the patient's current list of medications today. [DOES NOT SATISFY MIPS PERFORMANCE] MIPS - CL Central Venous Catheter Placement Measure: #76 ? Prevention of Central Venous Catheter (CVC) ? Related Bloodstream Infection Clinician documentation instruction: use macro every time you place a central line. [] All elements of Maximal Sterile Barrier Technique, including hand hygiene, skin prep, and sterile ultrasound technique (if used) were followed. [SATISFIES MIPS PERFORMANCE] If Yes, Stop Here [] If ?No?, the medical reason all elements were NOT used for medical reason [] (ex. emergent condition). [] Maximal Sterile Barrier Technique was not followed, no reason provided [DOES NOT SATISFY MIPS PERFORMANCE] MIPS - DC Heart Failure Measures: #5 - Heart Failure (HF): Angiotensin-Converting Enzyme (MARGO) Inhibitor or Angiotensin Receptor Siobhan (ARB) Therapy for Left Ventricular Systolic Dysfunction (LVSD) and #8 - Heart Failure (HF): Beta-Siobhan Therapy for Left Ventricular Systolic Dysfunction (LVSD) Clinician documentation instruction: use macro at every CHF discharge. [] The patient has current or prior documentation of left ventricular ejection fraction (LVEF) less than 40%, or moderate or severely depressed left ventricular systolic function. Answer both: [SATISFIES MIPS PERFORMANCE] [] The patient was prescribed or already taking an Angiotensin-Converting Enzyme (MARGO) Inhibitor, or Angiotensin Receptor Siobhan (ARB). [] The patient was prescribed or already taking a beta-siobhan. If Yes to Both, Stop Here [] Patient not prescribed/taking: [MIPS PERFORMANCE EXCEPTION/EXCLUSION] [] MARGO or ARB for medical/patient/system reason(s) including [] (ex. allergy, intolerance, contraindication) [] Beta-siobhan for medical/patient/system reason(s) including [] (ex. allergy, intolerance, contraindication) [] Patient not prescribed/taking: [DOES NOT SATISFY MIPS PERFORMANCE] [] MARGO or ARB, no reason given [] Beta-siobhan, no reason given
--- NOTE | 2021-01-04 09:25 | PM.PREOP ---
Pre-operative Note COVID-19 COVID-19 status: Negative Result date/Date tested (Pos, Neg/Pending): 01/03/21 Interval Note History & Physical reviewed/Exam performed by Physician: Yes Changes to H&P: No
[2021-01-04] MEDS: CEFAZOLIN 2 GM/100 ML FROZ.PIGGY IV (09:29)
[2021-01-04] MEDS: LIDOCAINE 1% 30 ML INJ (10:06)
[2021-01-04] MEDS: HEPARIN 5,000 UNIT, SODIUM CHLORIDE 0.9% 50 ML IV (10:08)
--- NOTE | 2021-01-04 10:33 | P.OP_ITS ---
Operative Date/Time/Diagnoses Date of procedure: 01/04/21 Time of procedure: 10:33 Pre-op diagnosis: Metastatic prostate cancer Post-op diagnosis: same Procedure & Clinicians Procedure: Placement of left subclavian Port-A-Cath Same procedure as scheduled: Yes Indications: Need for IV access for chemotherapy Surgeon: Js Julio Click Yes if Unassisted: Yes Anesthesia Type: General Operative Notes Findings: Tip in the SVC. No evidence of pneumothorax. Closure Type: primary Specimen(s): none sent Prosthetic devices, grafts, tissues, transplants, or devices: Regular Port-A-Cath Applied: catheter Estimated Blood Loss (mL): 5 Blood products transfused: none Procedure in detail: Patient was placed supine on the operating room table and underwent general LMA anesthesia. He was prepped and draped in the usual fashion. Local anesthetic was infiltrated in field block fashion teeth left clavicle. Transverse incision was made. Pocket was created inferior to the incision to hold the port. Needle was inserted into the subclavian vein and a guidewire passed. The needle was removed. Fluoroscopy revealed that the wire was going in the appropriate direction. Catheter was put together with the port and tapered to appropriate length. Dilator and introducer were passed over the guidewire and the guidewire and dilator removed leaving the introducer in place. Catheter was passed through the introducer which was then peeled away. The port was then aspirated and flushed with heparinized saline. It was fixed to the chest wall was sutures of 2-0 silk. The subQ was closed with interrupted 3- 0 Vicryl and skin was closed with 4-0 Vicryl subcuticular stitch and Steri- Strips. Dressing was applied the patient was awakened extubated and taken the recovery room good condition. Complications: none Post-operative Condition: stable Disposition: PACU
== END 2021-01-04 11:09 | disposition home or self-care (01) ==
PROVIDERS: PCP Family Medicine; Referring Provider Specialist; Visit Provider Specialist
PROC: (CPT 36561; principal; 2021-01-04 08:45)
DX: C61 Malignant neoplasm of prostate (principal); I10 Essential (primary) hypertension
CPT/HCPCS: 36561; 71045; C1788; J0690; J1100; J1644; J2250; J2405; J2704; J3010

== ENCOUNTER → 2021-05-18 09:11 | Outpatient (CLI) | payer MEDICARE, OTHER, SELFPAY ==
--- NOTE | 2021-05-18 09:14 | DI.NM.S_ITS ---
PROCEDURE: [place] BONE SCAN WHOLE BODY RADIOPHARMACEUTICAL: 20.6 mCi Tc-99m MDP IV. INDICATIONS: prostate cancer restaging TECHNIQUE: Delayed whole-body scintigrams were obtained approximately 3-4 hours after intravenous injection of radiotracer. Anterior and posterior views were acquired from vertex to feet. COMPARISON: [place], [place], [place] BONE SCAN WHOLE BODY, 10/31/2020, 13:03. FINDINGS: Multifocal hypermetabolic foci within the bilateral ribs, and femora, consistent with metastatic disease, as before. Presumably degenerative uptake of radiotracer at the bilateral shoulder joints. Hypermetabolic focus within the left pelvis posteriorly, as before. IMPRESSION: No significant change in moderate degree of bony metastatic disease. Dictated by: Anayeli Friedman M.D. on 05/18/2021 at 14:04 Approved by: Anayeli Friedman M.D. on 05/18/2021 at 14:05
--- NOTE | 2021-05-18 11:22 | DI.CT.S_ITS ---
PROCEDURE: CT CHEST ABD PEL W CON INDICATIONS: prostate cancer post treatmetn evaluation TECHNIQUE: After the administration of oral and intravenous contrast, axial sections acquired from the supraclavicular neck to the pubic symphysis. Coronal and sagittal reformats were performed. For radiation dose reduction, the following was used: automated exposure control, adjustment of mA and/or kV according to patient size. COMPARISON: [facility], CT, CT ABDOMEN PELVIS W CON, 04/09/2019, 10:32. CT, CT ABDOMEN PELVIS W CON, 10/24/2018, 14:19. Outside Facility, RG, CT ABDOMEN WITH CONTRAST, 07/24/2016, 13:49. [facility], CT, CT CHEST ABD PEL W CON, 10/31/2020, 10:24. [facility], CT, CHEST/ABD/PEL WITH CONTRAST, 10/09/2017, 12:02. FINDINGS: Image quality: Excellent. CHEST: Lower Neck: No enlarged lymph nodes. Thyroid: Within normal limits. Axillae: No enlarged lymph nodes. Chest Wall: Unremarkable. Lungs and Airways: No consolidation or suspicious nodules. Stable appearing cylindrical and varicoid bronchiectasis seen at the medial right lung base and to a lesser degree extending into the right middle lobe. Minimal alveolar scarring appears present bilaterally, consistent with post inflammatory change. Pleura: No pneumothorax or pleural effusions. Heart: Heart size is normal. No pericardial effusion. Thoracic Vessels: The aorta and pulmonary arteries demonstrate normal size. Mediastinum and Ada: No enlarged lymph nodes. Esophagus: No wall thickening. No hiatal hernia. ABDOMEN: Liver: Unremarkable. Gallbladder: Unremarkable. Biliary ducts: Unremarkable. Pancreas: Unremarkable. Spleen: Unremarkable. Adrenal Glands: Unremarkable. Kidneys and Ureters: Distortion at the posterior border of the right kidney is present, showing evolution of postprocedural change at 2 separate posterior right renal cortex margins. This has diminished in size from the findings of 2016 and 2017. . Note is made of a small nonobstructive calculus within the lower 3rd collecting system of the right kidney. No adjacent inflammation is found. Stomach and Bowel: Stomach, small bowel loops, and colon are unremarkable. Peritoneum: No abnormal intraperitoneal fluid. No free air. Ventral Wall: No hernia. Abdominal Nodes: No retroperitoneal or mesenteric adenopathy by size criteria. Vessels: Aorta and inferior vena cava are normal in size. PELVIS: Pelvic Organs: There is significant change in appearance of the prostate region, where asymmetric slight increased radiodensity at the right posterior prostate was present in September of 2017 but this area now shows a posterior extension of soft tissue measuring approximately 3.1 cm transverse and 4.5 cm AP abutting and possibly invading the right lateral lower rectal wall in that area (please refer to prior 2017 series 2, image 118 versus current series 3, image 116). Bladder: Unremarkable. Pelvic Nodes: No enlarged lymph nodes. Miscellaneous: No inguinal hernias are seen. Bones: Multifocal osteoblastic metastatic bone lesions involving the spine and ribs, and portions of the pelvis, have not appreciably worsened from the comparison study 10/31/20. IMPRESSION: 1. Stable appearance of right lower lobe and right middle lobe medial cylindrical and varicoid bronchiectasis, and also stable appearance of a small degree of alveolar scarring likely reflecting prior inflammatory events within the lungs bilaterally. No pulmonary metastatic disease is seen. 2. The right posterior renal cortex is distorted by prior treatment for reported renal cell carcinoma. A growing mass lesion in this area is not seen. The postoperative change has diminished in size over multiple years and no new lesion is suspected. 3. There is a significant concern for presence of recurrent a mass lesion at the prostate bed, on the right. An ovoid soft tissue mass in this area impinges against the right lateral wall of the low rectum and is likely a manifestation of recurrent tumor in this area. MR scanning with contrast is recommended targeted to this area to provide best anatomic detail. 4. Osteoblastic bone lesions have been present over time to include the spine, ribs and portions of the pelvis. The pattern of metastatic disease does not appear to have worsened from October of this year. Dictated by: Domingo Esquivel M.D. on 05/18/2021 at 15:48 Approved by: Domingo Esquivel M.D. on 05/18/2021 at 16:06
== END ==
PROVIDERS: PCP Family Medicine; Referring Provider Internal Medicine Medical Oncology; Visit Provider Internal Medicine Medical Oncology
DX: C61 Malignant neoplasm of prostate (principal); C79.51 Secondary malignant neoplasm of bone; J47.9 Bronchiectasis, uncomplicated
CPT/HCPCS: 71260; 74177; 78306; A9503

== ENCOUNTER 2021-11-28 16:23 | Observation (INO) | payer MEDICARE, OTHER, SELFPAY ==
[2021-11-28] VITALS (19 sets, daily range): BP systolic 103–181; BP diastolic 52–86; PULSE 78–107; RESP 14–26; TEMP 36.4–36.5; O2SAT 97–100; BMI 29.7
--- NOTE | 2021-11-28 16:31 | DI.RAD.S_ITS ---
PROCEDURE: XR CHEST 1V INDICATIONS: chest pain TECHNIQUE: One view of the chest was acquired. COMPARISON: [facility], CT, CT CHEST ABD PEL W CON, 05/18/2021, 10:19. [facility], CR, XR CHEST 1V, 01/04/2021, 10:28. FINDINGS: Surgical changes and devices: There is a stable left-sided chest port. Lungs and pleura: Low lung volumes are noted. This causes a crowded appearance to the lung markings and limits evaluation. Generalized interstitial prominence can be seen. Mediastinum: Mediastinal contours appear normal. Heart size is mildly to moderate enlarged. Atherosclerotic calcification of the aortic arch is noted. Bones and chest wall: The previously seen bone lesions are not well seen by plain film. Age-appropriate bony degenerative changes are seen. Overlying soft tissues appear unremarkable. IMPRESSION: Low lung volumes with interstitial prominence. Please consider pulmonary edema in this patient with cardiomegaly. Differential diagnosis would include atypical infiltrate (including COVID pneumonia) however. Dictated by: Parker Mercedes M.D. on 11/28/2021 at 16:03 Approved by: Parker Mercedes M.D. on 11/28/2021 at 16:08
[2021-11-28] MEDS: ASPIRIN 81 MG CHEW TAB 324 MG PO (16:40)
--- NOTE | 2021-11-28 16:44 | ED.CHESTPAIN ---
HPI - Chest Pain <Orville Ch PA-C - Last Filed: 11/30/21 12:04> General Chief Complaint: Chest Pain Stated Complaint: CHEST PAIN Time Seen by Provider: 11/28/21 16:43 Source: patient Mode of arrival: Ambulatory History of Present Illness HPI narrative: 81-year-old male who presents to the ED complaining of left-sided chest pain that started around 12:00 p.m. today. He reports he was drinking coffee with his friends socially visiting and the pain started has gotten progressively worse over the last few hours he denies any syncope denies any diaphoresis he denies any nausea vomiting diarrhea any fever cough congestion no associated shortness of breath pain is constant nothing seems to make it better nothing seems to make it worse he describes the pain to be a heaviness pressure sensation. He denies any prior cardiac history. Related Data Home Medications Medication Instructions Recorded Confirmed allopurinol 300 mg tablet See Rx Instructions .ROUTE 07/23/16 11/28/21 .COMPLEX #30 tab cholecalciferol (vitamin D3) 50 2,000 iu PO BID #0 07/23/16 11/28/21 mcg (2,000 unit) capsule (Vitamin D3) polyvinyl alcohol-povidone 0.5 1 drp OPHTH PRN PRN #30 ml 07/23/16 11/28/21 %-0.6 % eye drops (Artificial Tears (polyvinyl alcohol/povidone)) vit C 250 mg-vit E 90 mg-zinc 40 1 ea PO BID #0 07/23/16 11/28/21 mg-copper 1 [id number] capsule (PreserVision AREDS-2) hydrochlorothiazide 25 mg tablet See Rx Instructions .ROUTE 06/05/17 11/28/21 .COMPLEX #0 hydrocortisone 1 % topical cream 1 appful TOPICAL QDAY PRN #0 12/30/17 11/28/21 (Hydrocream) atorvastatin 10 mg tablet 10 mg PO DAILY 10/28/18 11/28/21 Lupron Depot (6 Month) 30 mg [id number] 04/22/19 11/28/21 acetaminophen 325 mg tablet 325 - 650 mg PO Q6HP PRN 12/29/19 11/28/21 omega-3 fatty acids 1,000 mg PO BID 11/01/20 11/28/21 denosumab 120 mg/1.7 mL (70 mg/mL) 120 mg SUBCUT Q4W 11/28/21 11/28/21 subcutaneous solution (Xgeva) Allergies Allergy/AdvReac Type Severity Reaction Status Date / Time No Known Drug Allergies Allergy Verified 01/04/21 07:43 Review of Systems <Orville Ch PA-C - Last Filed: 11/30/21 12:04> Review of Systems ROS Unobtainable: All systems reviewed & are unremarkable except as noted in HPI and below Constitutional Constitutional: Denies chills, Denies fatigue, Denies fever(s), Denies frequent falls, Denies lethargy and Denies weakness Eyes Eyes: Denies change in vision, Denies eye discharge, Denies irritation and Denies loss of vision ENT Ears, Nose, Mouth, and Throat: Denies change in voice, Denies dizziness, Denies neck pain, Denies sore throat and Denies throat swelling Cardiovascular Cardiovascular: Reports as per HPI, Reports chest pain, Denies irregular heart rhythm, Denies lightheadedness, Denies palpitations, Denies dyspnea, Denies dyspnea on exertion and Denies orthopnea Respiratory Respiratory: Denies cough, Denies dyspnea, Denies dyspnea on exertion and Denies wheezing Gastrointestinal Gastrointestinal: Denies abdominal pain, Denies change in bowel habits, Denies diarrhea, Denies nausea and Denies vomiting Genitourinary Genitourinary: Denies hematuria, Denies flank pain, Denies urinary incontinence and Denies urinary urgency Musculoskeletal Musculoskeletal: Denies back pain, Denies muscle weakness, Denies neck pain, Denies numbness and Denies tingling Integumentary/Breasts Skin/Breast: Denies pruritus, Denies erythema, Denies rash and Denies wounds Neurologic Neurologic: Denies behavioral changes, Denies confusion, Denies dizziness, Denies frequent falls, Denies loss of vision, Denies numbness, Denies tingling and Denies weakness Psychiatric Psychiatric: Denies anxiety, Denies behavioral changes, Denies confusion, Denies depression, Denies homicidal ideation and Denies suicidal ideation Endocrine Endocrine: Denies fatigue, Denies flushing and Denies palpitations Hematologic/Lymphatic Hematologic/Lymphatic: Denies easy bruising Allergic/Immunologic Allergic/Immunologic: Denies urticaria, Denies throat swelling and Denies wheezing Patient History <Orville Ch PA-C - Last Filed: 11/30/21 12:04> Medical History (Updated 11/28/21 @ 23:33 by SANDIP Sommer) Acute renal failure 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 History of kidney cancer Hypertension Recurrent prostate cancer Vomiting Surgical History (Updated 11/28/21 @ 23:33 by SANDIP Sommer) History of transurethral resection of prostate Family History (Updated 11/28/21 @ 23:34 by SANDIP Sommer) Father Myocardial infarction Mother Small cell lung cancer in adult Sister Cancer of kidney Social History household members: spouse Smoking Status: Former smoker alcohol intake: current Smoking Status: Former smoker Substance Use Type: does not use Exam <Orville Ch PA-C - Last Filed: 11/30/21 12:04> Initial Vital Signs Initial Vital Signs: Vital Signs Temperature 97.7 F 11/28/21 16:26 Pulse Rate 107 H 11/28/21 16:26 Respiratory Rate 22 11/28/21 16:26 Blood Pressure 181/86 H 11/28/21 16:26 Pulse Oximetry 99 11/28/21 16:26 Const General: cooperative, healthy appearing and comfortable Nutritional Appearance: average body habitus Orientation: Orientation [facility] Head: normal to inspection Ears: hearing grossly normal bilaterally Nose: external nose normal, nares normal and nasal mucous membranes and turbinates normal Face and sinus: normal facial exam and face symmetric Mouth: oral mucosae normal Teeth and gingiva: dentition normal Eyes General: appearance normal, both eyes and all related structures Pupils: PERRL Chest Chest: normal inspection of the chest and normal palpation of entire chest wall Resp Effort & Inspection: normal respiratory effort and able to speak in complete sentences Auscultation: clear to auscultation bilaterally Percussion: percussion normal Cardio Palpation: normal PMI Rate: regular rate Rhythm: regular rhythm Heart Sounds: S1 normal and S2 normal GI Inspection: normal to inspection Palpation: soft Percussion: normal to percussion Auscultation: normal bowel sounds <Jay Garcia DO - Last Filed: 11/29/21 07:31> Initial Vital Signs Initial Vital Signs: Vital Signs Temperature 97.7 F 11/28/21 16:26 Pulse Rate 107 H 11/28/21 16:26 Respiratory Rate 11/28/21 16:26 Blood Pressure 181/86 H 11/28/21 16:26 Pulse Oximetry 99 11/28/21 16:26 <Sherlyn Moscoso DO - Last Filed: 11/29/21 03:43> Initial Vital Signs Initial Vital Signs: Vital Signs Temperature 97.7 F 11/28/21 16:26 Pulse Rate 107 H 11/28/21 16:26 Respiratory Rate 11/28/21 16:26 Blood Pressure 181/86 H 11/28/21 16:26 Pulse Oximetry 99 11/28/21 16:26 Scores <Orville Ch PA-C - Last Filed: 11/30/21 12:04> PERC Score Age greater than or equal to 50 years: Yes Heart rate greater than or equal to 100 bpm: Yes Room Air O2 Sat less than 95%: No Unilateral leg swelling: No Recent trauma or surgery: No Hemoptysis: No Prior PE or DVT: No Hormone Use: No Total PERC Score: 2 Wells' Criteria for PE Clinical signs and symptoms of DVT: No PE is #1 Dx or equally likely: No Heart rate > 100: Yes Immobilization at least 3 days or surg in previous 4 weeks: No History of PE or DVT: No Hemoptysis: No Malignancy w/Treatment within 6 months or palliative: No Wells' PE Score total: 1.5 <Jay Garcia DO - Last Filed: 11/29/21 07:31> PERC Score Total PERC Score: 2 Wells' Criteria for PE Wells' PE Score total: 1.5 <Sherlyn Moscoso DO - Last Filed: 11/29/21 03:43> PERC Score Total PERC Score: 2 Wells' Criteria for PE Wells' PE Score total: 1.5 Course <ASHLY Cortez Last Filed: 11/30/21 12:04> Orders Ordered: Acetaminophen (Acetaminophen 325 Mg Tablet) 650 mg PO Q6HR PRN PRN Reason: Fever/Mild Pain (1-3) Allopurinol (Allopurinol 300 Mg Tablet) 300 mg PO SEEINSTR [facility] Artificial Tears (Polyvinyl Alcohol Drops) 1 drops EYE-BOTH PRN PRN PRN Reason: Dry Eye(s) Aspirin (Aspirin Ec 81 Mg Tablet) 81 mg PO DAILY [facility] Last Admin: 11/30/21 10:10 Dose: 81 mg Documented by: Admin: 11/29/21 09:25 Dose: 81 mg Documented by: JENNI Atorvastatin Calcium (Atorvastatin 20 Mg Tablet) 40 mg PO BEDTIME [facility] Last Admin: 11/29/21 20:51 Dose: 40 mg Documented by: NOLBERTO Enoxaparin Sodium (Enoxaparin 40 Mg/0.4 Ml Syringe) 40 mg SUBCUT DAILY [facility] Last Admin: 11/30/21 10:09 Dose: 40 mg Documented by: Admin: 11/29/21 09:25 Dose: 40 mg Documented by: JENNI Lutein (Vit C/E/Zn/Coppr/Lutein/Zeaxan Capsule) 1 cap PO BID [facility] Last Admin: 11/30/21 10:09 Dose: 1 cap Documented by: Admin: 11/29/21 20:51 Dose: 1 cap Documented by: Admin: 11/29/21 09:25 Dose: 1 cap Documented by: JENNI Morphine Sulfate (Morphine 2 Mg/Ml Inj) 2 mg IV Q5MIN PRN PRN Reason: Chest Pain Naloxone HCl (Naloxone 0.4 Mg/Ml Vial) 0.2 mg IV Q2MIN PRN PRN Reason: Opiate Reversal Nitroglycerin (Nitroglycerin 0.4 Mg Sl Tab) 0.4 mg SL [id number] PRN PRN Reason: Chest Pain Nitroglycerin (Nitroglycerin 0.4 Mg Sl Tab) 0.4 mg SL [id number] PRN PRN Reason: Chest Pain Stored In Pharmacy 0 each PO . [facility] Ondansetron HCl (Ondansetron 4 Mg/2 Ml Inj) 4 mg IV Q6HR PRN PRN Reason: Nausea And Vomiting Sodium Chloride (Sodium Chloride 0.9% Flush) 10 ml IV PRN PRN PRN Reason: Flush Sodium Chloride (Sodium Chloride 0.9% Flush) 10 ml IV BID [facility] Last Admin: 11/30/21 10:11 Dose: 10 ml Documented by: Admin: 11/29/21 20:51 Dose: 10 ml Documented by: NOLBERTO Discontinued Medications Aspirin (Aspirin 81 Mg Chew Tab) 324 mg PO NOW ONE Stop: 11/28/21 16:32 Last Admin: 11/28/21 16:40 Dose: 324 mg Documented by: SHARON Aspirin (Aspirin 81 Mg Chew Tab) 324 mg PO NOW ONE Stop: 11/28/21 16:48 Last Admin: 11/28/21 17:26 Dose: Not Given Documented by: SHARON Nitroglycerin (Nitroglycerin 0.4 Mg Sl Tab) 0.4 mg SL [id number] PRN PRN Reason: Chest Pain Last Admin: 11/28/21 17:31 Dose: 0.4 mg Documented by: Admin: 11/28/21 17:15 Dose: 0.4 mg Documented by: Admin: 11/28/21 17:00 Dose: 0.4 mg Documented by: SHARON Vital Signs Vital signs: Vital Signs - 8 hr 11/28/21 19:45 11/28/21 20:00 11/28/21 20:15 Pulse Rate 85 86 86 Respiratory Rate 17 16 17 Pulse Oximetry 99 99 98 11/28/21 20:30 11/28/21 20:45 11/28/21 21:00 Pulse Rate 84 83 83 Respiratory Rate 15 15 14 Pulse Oximetry 98 98 98 <Jay Garcia DO - Last Filed: 11/29/21 07:31> Orders Ordered: Acetaminophen (Acetaminophen 325 Mg Tablet) 650 mg PO Q6HR PRN PRN Reason: Fever/Mild Pain (1-3) Allopurinol (Allopurinol 300 Mg Tablet) 300 mg PO SEEINSTR [facility] Artificial Tears (Polyvinyl Alcohol Drops) 1 drops EYE-BOTH PRN PRN PRN Reason: Dry Eye(s) Aspirin (Aspirin Ec 81 Mg Tablet) 81 mg PO DAILY [facility] Last Admin: 11/30/21 10:10 Dose: 81 mg Documented by: Admin: 11/29/21 09:25 Dose: 81 mg Documented by: JENNI Atorvastatin Calcium (Atorvastatin 20 Mg Tablet) 40 mg PO BEDTIME [facility] Last Admin: 11/29/21 20:51 Dose: 40 mg Documented by: NOLBERTO Enoxaparin Sodium (Enoxaparin 40 Mg/0.4 Ml Syringe) 40 mg SUBCUT DAILY [facility] Last Admin: 11/30/21 10:09 Dose: 40 mg Documented by: Admin: 11/29/21 09:25 Dose: 40 mg Documented by: JENIN Lutein (Vit C/E/Zn/Coppr/Lutein/Zeaxan Capsule) 1 cap PO BID [facility] Last Admin: 11/30/21 10:09 Dose: 1 cap Documented by: Admin: 11/29/21 20:51 Dose: 1 cap Documented by: Admin: 11/29/21 09:25 Dose: 1 cap Documented by: JENNI Morphine Sulfate (Morphine 2 Mg/Ml Inj) 2 mg IV Q5MIN PRN PRN Reason: Chest Pain Naloxone HCl (Naloxone 0.4 Mg/Ml Vial) 0.2 mg IV Q2MIN PRN PRN Reason: Opiate Reversal Nitroglycerin (Nitroglycerin 0.4 Mg Sl Tab) 0.4 mg SL [id number] PRN PRN Reason: Chest Pain Nitroglycerin (Nitroglycerin 0.4 Mg Sl Tab) 0.4 mg SL [id number] PRN PRN Reason: Chest Pain Stored In Pharmacy 0 each PO . [facility] Ondansetron HCl (Ondansetron 4 Mg/2 Ml Inj) 4 mg IV Q6HR PRN PRN Reason: Nausea And Vomiting Sodium Chloride (Sodium Chloride 0.9% Flush) 10 ml IV PRN PRN PRN Reason: Flush Sodium Chloride (Sodium Chloride 0.9% Flush) 10 ml IV BID [facility] Last Admin: 11/30/21 10:11 Dose: 10 ml Documented by: Admin: 11/29/21 20:51 Dose: 10 ml Documented by: NOLBERTO Discontinued Medications Aspirin (Aspirin 81 Mg Chew Tab) 324 mg PO NOW ONE Stop: 11/28/21 16:32 Last Admin: 11/28/21 16:40 Dose: 324 mg Documented by: SHARON Aspirin (Aspirin 81 Mg Chew Tab) 324 mg PO NOW ONE Stop: 11/28/21 16:48 Last Admin: 11/28/21 17:26 Dose: Not Given Documented by: SHARON Nitroglycerin (Nitroglycerin 0.4 Mg Sl Tab) 0.4 mg SL [id number] PRN PRN Reason: Chest Pain Last Admin: 11/28/21 17:31 Dose: 0.4 mg Documented by: Admin: 11/28/21 17:15 Dose: 0.4 mg Documented by: Admin: 11/28/21 17:00 Dose: 0.4 mg Documented by: SHARON Vital Signs Vital signs: Vital Signs - 8 hr 11/28/21 19:45 11/28/21 20:00 11/28/21 20:15 Pulse Rate 85 86 86 Respiratory Rate 17 16 17 Pulse Oximetry 99 99 98 11/28/21 20:30 11/28/21 20:45 11/28/21 21:00 Pulse Rate 84 83 83 Respiratory Rate 15 15 14 Pulse Oximetry 98 98 98 <Sherlyn Moscoso, - Last Filed: 11/29/21 03:43> Orders Ordered: Acetaminophen (Acetaminophen 325 Mg Tablet) 650 mg PO Q6HR PRN PRN Reason: Fever/Mild Pain (1-3) Allopurinol (Allopurinol 300 Mg Tablet) 300 mg PO SEEINSTR [facility] Artificial Tears (Polyvinyl Alcohol Drops) 1 drops EYE-BOTH PRN PRN PRN Reason: Dry Eye(s) Aspirin (Aspirin Ec 81 Mg Tablet) 81 mg PO DAILY [facility] Last Admin: 11/30/21 10:10 Dose: 81 mg Documented by: Admin: 11/29/21 09:25 Dose: 81 mg Documented by: JENNI Atorvastatin Calcium (Atorvastatin 20 Mg Tablet) 40 mg PO BEDTIME [facility] Last Admin: 11/29/21 20:51 Dose: 40 mg Documented by: NOLBERTO Enoxaparin Sodium (Enoxaparin 40 Mg/0.4 Ml Syringe) 40 mg SUBCUT DAILY [facility] Last Admin: 11/30/21 10:09 Dose: 40 mg Documented by: Admin: 11/29/21 09:25 Dose: 40 mg Documented by: JENNI Lutein (Vit C/E/Zn/Coppr/Lutein/Zeaxan Capsule) 1 cap PO BID [facility] Last Admin: 11/30/21 10:09 Dose: 1 cap Documented by: Admin: 11/29/21 20:51 Dose: 1 cap Documented by: Admin: 11/29/21 09:25 Dose: 1 cap Documented by: JENNI Morphine Sulfate (Morphine 2 Mg/Ml Inj) 2 mg IV Q5MIN PRN PRN Reason: Chest Pain Naloxone HCl (Naloxone 0.4 Mg/Ml Vial) 0.2 mg IV Q2MIN PRN PRN Reason: Opiate Reversal Nitroglycerin (Nitroglycerin 0.4 Mg Sl Tab) 0.4 mg SL [id number] PRN PRN Reason: Chest Pain Nitroglycerin (Nitroglycerin 0.4 Mg Sl Tab) 0.4 mg SL [id number] PRN PRN Reason: Chest Pain Stored In Pharmacy 0 each PO . [facility] Ondansetron HCl (Ondansetron 4 Mg/2 Ml Inj) 4 mg IV Q6HR PRN PRN Reason: Nausea And Vomiting Sodium Chloride (Sodium Chloride 0.9% Flush) 10 ml IV PRN PRN PRN Reason: Flush Sodium Chloride (Sodium Chloride 0.9% Flush) 10 ml IV BID [facility] Last Admin: 11/30/21 10:11 Dose: 10 ml Documented by: Admin: 11/29/21 20:51 Dose: 10 ml Documented by: NOLBERTO Discontinued Medications Aspirin (Aspirin 81 Mg Chew Tab) 324 mg PO NOW ONE Stop: 11/28/21 16:32 Last Admin: 11/28/21 16:40 Dose: 324 mg Documented by: SHARON Aspirin (Aspirin 81 Mg Chew Tab) 324 mg PO NOW ONE Stop: 11/28/21 16:48 Last Admin: 11/28/21 17:26 Dose: Not Given Documented by: SHARON Nitroglycerin (Nitroglycerin 0.4 Mg Sl Tab) 0.4 mg SL [id number] PRN PRN Reason: Chest Pain Last Admin: 11/28/21 17:31 Dose: 0.4 mg Documented by: Admin: 11/28/21 17:15 Dose: 0.4 mg Documented by: Admin: 11/28/21 17:00 Dose: 0.4 mg Documented by: SHARON Consultations Consultation #1: Dr. Euceda, recommends trending of troponins, echo in the a.m. and stress testing. Time: 20:55 Consultation #2: NICKI Manjarrez, accepts for observation. Discussed recommendations from cardiology. Vital Signs Vital signs: Vital Signs - 8 hr 11/28/21 19:45 11/28/21 20:00 11/28/21 20:15 Pulse Rate 85 86 86 Respiratory Rate 17 16 17 Pulse Oximetry 99 99 98 11/28/21 20:30 11/28/21 20:45 11/28/21 21:00 Pulse Rate 84 83 83 Respiratory Rate 15 15 14 Pulse Oximetry 98 98 98 MDM - Chest Pain <Orville Ch PA-C - Last Filed: 11/30/21 12:04> Lab Data Result diagrams: 11/30/21 07:06 11/30/21 07:06 Labs: Lab Results 11/28/21 11/28/21 11/28/21 Range/Units 16:40 16:40 16:40 WBC 12.6 H (4.5-11.0) X10^3/uL RBC 4.76 (4.5-5.9) X10^6/uL Hgb 13.2 L (13.5-17.5) g/dL Hct 40.3 L (41-53) % MCV 84.6 (80-100) fL MCH 27.8 (26-34) PG MCHC 32.8 (30-36) % RDW 16.5 H (11.6-14.8) % Plt Count 238 (150-400) X10^3/uL Neut % (Auto) 82.7 H (50-75) % Lymph % (Auto) 7.4 L (25-40) % Norman % (Auto) 9.4 (3-14) % Eos % (Auto) 0.1 L (2-4) % Baso % (Auto) 0.4 (0-2) % Neut # (Auto) 80765 H (3640-1156) /uL Lymph # (Auto) 900 L (4857-6965) /uL Norman # (Auto) 1200 H (0-900) /uL Eos # (Auto) 0 (0-450) /uL Baso # (Auto) 0 (0-100) /uL PT 11.7 (10.1-12.7) SECONDS INR 1.0 (0.9-1.3) APTT 37 H (26.4-36.2) SECONDS D-Dimer (<230) ng/mL Sodium 140 (137-145) mmol/L Potassium 3.7 (3.4-5.1) mmol/L Chloride 100 (98-107) mmol/L Carbon Dioxide 32 (22-32) mmol/L BUN 18 (9-20) mg/dL Creatinine 1.03 (0.66-1.25) mg/dL Estimated GFR > 60.0 (>60) mL/min BUN/Creatinine Ratio 17.5 (6-22) Glucose 108 (80-110) mg/dL Hemoglobin A1c (4.0-6.0) % Calcium 9.4 (8.4-10.2) mg/dL Magnesium 2.0 (1.6-2.3) mg/dL Total Bilirubin 0.5 (0.2-1.3) mg/dL AST 25 (17-59) IU/L ALT 15 (<50) IU/L Alkaline Phosphatase 104 (38-126) U/L Total Creatine Kinase 51 L (55-170) U/L CK-MB (CK-2) TNP CK-MB (CK-2) Rel Index TNP Troponin I < 0.012 (0.01-0.034) ng/mL NT-Pro-B Natriuret Pep 92 (<450) pg/mL Total Protein 8.0 (6.3-8.2) g/dL Albumin 4.6 (3.5-5.0) g/dL Globulin 3.4 (1.7-4.1) g/dL Albumin/Globulin Ratio 1.4 (1.0-2.8) Lipase 92 (23-300) U/L SARS-CoV-2 (PCR) (Negative) 11/28/21 11/28/21 11/28/21 Range/Units 16:40 16:40 17:21 WBC (4.5-11.0) X10^3/uL RBC (4.5-5.9) X10^6/uL Hgb (13.5-17.5) g/dL Hct (41-53) % MCV (80-100) fL MCH (26-34) PG MCHC (30-36) % RDW (11.6-14.8) % Plt Count (150-400) X10^3/uL Neut % (Auto) (50-75) % Lymph % (Auto) (25-40) % Norman % (Auto) (3-14) % Eos % (Auto) (2-4) % Baso % (Auto) (0-2) % Neut # (Auto) (6215-8868) /uL Lymph # (Auto) (1351-9909) /uL Norman # (Auto) (0-900) /uL Eos # (Auto) (0-450) /uL Baso # (Auto) (0-100) /uL PT (10.1-12.7) SECONDS INR (0.9-1.3) APTT (26.4-36.2) SECONDS D-Dimer 563 H (<230) ng/mL Sodium (137-145) mmol/L Potassium (3.4-5.1) mmol/L Chloride (98-107) mmol/L Carbon Dioxide (22-32) mmol/L BUN (9-20) mg/dL Creatinine (0.66-1.25) mg/dL Estimated GFR (>60) mL/min BUN/Creatinine Ratio (6-22) Glucose (80-110) mg/dL Hemoglobin A1c 5.7 (4.0-6.0) % Calcium (8.4-10.2) mg/dL Magnesium (1.6-2.3) mg/dL Total Bilirubin (0.2-1.3) mg/dL AST (17-59) IU/L ALT (<50) IU/L Alkaline Phosphatase (38-126) U/L Total Creatine Kinase (55-170) U/L CK-MB (CK-2) CK-MB (CK-2) Rel Index Troponin I (0.01-0.034) ng/mL NT-Pro-B Natriuret Pep (<450) pg/mL Total Protein (6.3-8.2) g/dL Albumin (3.5-5.0) g/dL Globulin (1.7-4.1) g/dL Albumin/Globulin Ratio (1.0-2.8) Lipase (23-300) U/L SARS-CoV-2 (PCR) Negative (Negative) 11/28/21 Range/Units 19:37 WBC (4.5-11.0) X10^3/uL RBC (4.5-5.9) X10^6/uL Hgb (13.5-17.5) g/dL Hct (41-53) % MCV (80-100) fL MCH (26-34) PG MCHC (30-36) % RDW (11.6-14.8) % Plt Count (150-400) X10^3/uL Neut % (Auto) (50-75) % Lymph % (Auto) (25-40) % Norman % (Auto) (3-14) % Eos % (Auto) (2-4) % Baso % (Auto) (0-2) % Neut # (Auto) (5993-0862) /uL Lymph # (Auto) (9835-8543) /uL Norman # (Auto) (0-900) /uL Eos # (Auto) (0-450) /uL Baso # (Auto) (0-100) /uL PT (10.1-12.7) SECONDS INR (0.9-1.3) APTT (26.4-36.2) SECONDS D-Dimer (<230) ng/mL Sodium (137-145) mmol/L Potassium (3.4-5.1) mmol/L Chloride (98-107) mmol/L Carbon Dioxide (22-32) mmol/L BUN (9-20) mg/dL Creatinine (0.66-1.25) mg/dL Estimated GFR (>60) mL/min BUN/Creatinine Ratio (6-22) Glucose (80-110) mg/dL Hemoglobin A1c (4.0-6.0) % Calcium (8.4-10.2) mg/dL Magnesium (1.6-2.3) mg/dL Total Bilirubin (0.2-1.3) mg/dL AST (17-59) IU/L ALT (<50) IU/L Alkaline Phosphatase (38-126) U/L Total Creatine Kinase 45 L (55-170) U/L CK-MB (CK-2) TNP CK-MB (CK-2) Rel Index TNP Troponin I < 0.012 (0.01-0.034) ng/mL NT-Pro-B Natriuret Pep (<450) pg/mL Total Protein (6.3-8.2) g/dL Albumin (3.5-5.0) g/dL Globulin (1.7-4.1) g/dL Albumin/Globulin Ratio (1.0-2.8) Lipase (23-300) U/L SARS-CoV-2 (PCR) (Negative) <Jay Garcia DO - Last Filed: 11/29/21 07:31> Lab Data Labs: Lab Results 11/28/21 11/28/21 11/28/21 Range/Units 16:40 16:40 16:40 WBC 12.6 H (4.5-11.0) X10^3/uL RBC 4.76 (4.5-5.9) X10^6/uL Hgb 13.2 L (13.5-17.5) g/dL Hct 40.3 L (41-53) % MCV 84.6 (80-100) fL MCH 27.8 (26-34) PG MCHC 32.8 (30-36) % RDW 16.5 H (11.6-14.8) % Plt Count 238 (150-400) X10^3/uL Neut % (Auto) 82.7 H (50-75) % Lymph % (Auto) 7.4 L (25-40) % Norman % (Auto) 9.4 (3-14) % Eos % (Auto) 0.1 L (2-4) % Baso % (Auto) 0.4 (0-2) % Neut # (Auto) 93060 H (2548-3373) /uL Lymph # (Auto) 900 L (5429-2225) /uL Norman # (Auto) 1200 H (0-900) /uL Eos # (Auto) 0 (0-450) /uL Baso # (Auto) 0 (0-100) /uL PT 11.7 (10.1-12.7) SECONDS INR 1.0 (0.9-1.3) APTT 37 H (26.4-36.2) SECONDS D-Dimer (<230) ng/mL Sodium 140 (137-145) mmol/L Potassium 3.7 (3.4-5.1) mmol/L Chloride 100 (98-107) mmol/L Carbon Dioxide 32 (22-32) mmol/L BUN 18 (9-20) mg/dL Creatinine 1.03 (0.66-1.25) mg/dL Estimated GFR > 60.0 (>60) mL/min BUN/Creatinine Ratio 17.5 (6-22) Glucose 108 (80-110) mg/dL Hemoglobin A1c (4.0-6.0) % Calcium 9.4 (8.4-10.2) mg/dL Magnesium 2.0 (1.6-2.3) mg/dL Total Bilirubin 0.5 (0.2-1.3) mg/dL AST 25 (17-59) IU/L ALT 15 (<50) IU/L Alkaline Phosphatase 104 (38-126) U/L Total Creatine Kinase 51 L (55-170) U/L CK-MB (CK-2) TNP CK-MB (CK-2) Rel Index TNP Troponin I < 0.012 (0.01-0.034) ng/mL NT-Pro-B Natriuret Pep 92 (<450) pg/mL Total Protein 8.0 (6.3-8.2) g/dL Albumin 4.6 (3.5-5.0) g/dL Globulin 3.4 (1.7-4.1) g/dL Albumin/Globulin Ratio 1.4 (1.0-2.8) Lipase 92 (23-300) U/L SARS-CoV-2 (PCR) (Negative) 11/28/21 11/28/21 11/28/21 Range/Units 16:40 16:40 17:21 WBC (4.5-11.0) X10^3/uL RBC (4.5-5.9) X10^6/uL Hgb (13.5-17.5) g/dL Hct (41-53) % MCV (80-100) fL MCH (26-34) PG MCHC (30-36) % RDW (11.6-14.8) % Plt Count (150-400) X10^3/uL Neut % (Auto) (50-75) % Lymph % (Auto) (25-40) % Norman % (Auto) (3-14) % Eos % (Auto) (2-4) % Baso % (Auto) (0-2) % Neut # (Auto) (1749-8491) /uL Lymph # (Auto) (7749-7690) /uL Norman # (Auto) (0-900) /uL Eos # (Auto) (0-450) /uL Baso # (Auto) (0-100) /uL PT (10.1-12.7) SECONDS INR (0.9-1.3) APTT (26.4-36.2) SECONDS D-Dimer 563 H (<230) ng/mL Sodium (137-145) mmol/L Potassium (3.4-5.1) mmol/L Chloride (98-107) mmol/L Carbon Dioxide (22-32) mmol/L BUN (9-20) mg/dL Creatinine (0.66-1.25) mg/dL Estimated GFR (>60) mL/min BUN/Creatinine Ratio (6-22) Glucose (80-110) mg/dL Hemoglobin A1c 5.7 (4.0-6.0) % Calcium (8.4-10.2) mg/dL Magnesium (1.6-2.3) mg/dL Total Bilirubin (0.2-1.3) mg/dL AST (17-59) IU/L ALT (<50) IU/L Alkaline Phosphatase (38-126) U/L Total Creatine Kinase (55-170) U/L CK-MB (CK-2) CK-MB (CK-2) Rel Index Troponin I (0.01-0.034) ng/mL NT-Pro-B Natriuret Pep (<450) pg/mL Total Protein (6.3-8.2) g/dL Albumin (3.5-5.0) g/dL Globulin (1.7-4.1) g/dL Albumin/Globulin Ratio (1.0-2.8) Lipase (23-300) U/L SARS-CoV-2 (PCR) Negative (Negative) 11/28/21 Range/Units 19:37 WBC (4.5-11.0) X10^3/uL RBC (4.5-5.9) X10^6/uL Hgb (13.5-17.5) g/dL Hct (41-53) % MCV (80-100) fL MCH (26-34) PG MCHC (30-36) % RDW (11.6-14.8) % Plt Count (150-400) X10^3/uL Neut % (Auto) (50-75) % Lymph % (Auto) (25-40) % Norman % (Auto) (3-14) % Eos % (Auto) (2-4) % Baso % (Auto) (0-2) % Neut # (Auto) (4344-5154) /uL Lymph # (Auto) (5775-7248) /uL Norman # (Auto) (0-900) /uL Eos # (Auto) (0-450) /uL Baso # (Auto) (0-100) /uL PT (10.1-12.7) SECONDS INR (0.9-1.3) APTT (26.4-36.2) SECONDS D-Dimer (<230) ng/mL Sodium (137-145) mmol/L Potassium (3.4-5.1) mmol/L Chloride (98-107) mmol/L Carbon Dioxide (22-32) mmol/L BUN (9-20) mg/dL Creatinine (0.66-1.25) mg/dL Estimated GFR (>60) mL/min BUN/Creatinine Ratio (6-22) Glucose (80-110) mg/dL Hemoglobin A1c (4.0-6.0) % Calcium (8.4-10.2) mg/dL Magnesium (1.6-2.3) mg/dL Total Bilirubin (0.2-1.3) mg/dL AST (17-59) IU/L ALT (<50) IU/L Alkaline Phosphatase (38-126) U/L Total Creatine Kinase 45 L (55-170) U/L CK-MB (CK-2) TNP CK-MB (CK-2) Rel Index TNP Troponin I < 0.012 (0.01-0.034) ng/mL NT-Pro-B Natriuret Pep (<450) pg/mL Total Protein (6.3-8.2) g/dL Albumin (3.5-5.0) g/dL Globulin (1.7-4.1) g/dL Albumin/Globulin Ratio (1.0-2.8) Lipase (23-300) U/L SARS-CoV-2 (PCR) (Negative) <Sherlyn Moscoso, DO - Last Filed: 11/29/21 03:43> Lab Data Labs: Lab Results 11/28/21 11/28/21 11/28/21 Range/Units 16:40 16:40 16:40 WBC 12.6 H (4.5-11.0) X10^3/uL RBC 4.76 (4.5-5.9) X10^6/uL Hgb 13.2 L (13.5-17.5) g/dL Hct 40.3 L (41-53) % MCV 84.6 (80-100) fL MCH 27.8 (26-34) PG MCHC 32.8 (30-36) % RDW 16.5 H (11.6-14.8) % Plt Count 238 (150-400) X10^3/uL Neut % (Auto) 82.7 H (50-75) % Lymph % (Auto) 7.4 L (25-40) % Norman % (Auto) 9.4 (3-14) % Eos % (Auto) 0.1 L (2-4) % Baso % (Auto) 0.4 (0-2) % Neut # (Auto) 81024 H (8408-9087) /uL Lymph # (Auto) 900 L (4599-0233) /uL Norman # (Auto) 1200 H (0-900) /uL Eos # (Auto) 0 (0-450) /uL Baso # (Auto) 0 (0-100) /uL PT 11.7 (10.1-12.7) SECONDS INR 1.0 (0.9-1.3) APTT 37 H (26.4-36.2) SECONDS D-Dimer (<230) ng/mL Sodium 140 (137-145) mmol/L Potassium 3.7 (3.4-5.1) mmol/L Chloride 100 (98-107) mmol/L Carbon Dioxide 32 (22-32) mmol/L BUN 18 (9-20) mg/dL Creatinine 1.03 (0.66-1.25) mg/dL Estimated GFR > 60.0 (>60) mL/min BUN/Creatinine Ratio 17.5 (6-22) Glucose 108 (80-110) mg/dL Hemoglobin A1c (4.0-6.0) % Calcium 9.4 (8.4-10.2) mg/dL Magnesium 2.0 (1.6-2.3) mg/dL Total Bilirubin 0.5 (0.2-1.3) mg/dL AST 25 (17-59) IU/L ALT 15 (<50) IU/L Alkaline Phosphatase 104 (38-126) U/L Total Creatine Kinase 51 L (55-170) U/L CK-MB (CK-2) TNP CK-MB (CK-2) Rel Index TNP Troponin I < 0.012 (0.01-0.034) ng/mL NT-Pro-B Natriuret Pep 92 (<450) pg/mL Total Protein 8.0 (6.3-8.2) g/dL Albumin 4.6 (3.5-5.0) g/dL Globulin 3.4 (1.7-4.1) g/dL Albumin/Globulin Ratio 1.4 (1.0-2.8) Lipase 92 (23-300) U/L SARS-CoV-2 (PCR) (Negative) 11/28/21 11/28/21 11/28/21 Range/Units 16:40 16:40 17:21 WBC (4.5-11.0) X10^3/uL RBC (4.5-5.9) X10^6/uL Hgb (13.5-17.5) g/dL Hct (41-53) % MCV (80-100) fL MCH (26-34) PG MCHC (30-36) % RDW (11.6-14.8) % Plt Count (150-400) X10^3/uL Neut % (Auto) (50-75) % Lymph % (Auto) (25-40) % Norman % (Auto) (3-14) % Eos % (Auto) (2-4) % Baso % (Auto) (0-2) % Neut # (Auto) (0105-0388) /uL Lymph # (Auto) (4560-6846) /uL Norman # (Auto) (0-900) /uL Eos # (Auto) (0-450) /uL Baso # (Auto) (0-100) /uL PT (10.1-12.7) SECONDS INR (0.9-1.3) APTT (26.4-36.2) SECONDS D-Dimer 563 H (<230) ng/mL Sodium (137-145) mmol/L Potassium (3.4-5.1) mmol/L Chloride (98-107) mmol/L Carbon Dioxide (22-32) mmol/L BUN (9-20) mg/dL Creatinine (0.66-1.25) mg/dL Estimated GFR (>60) mL/min BUN/Creatinine Ratio (6-22) Glucose (80-110) mg/dL Hemoglobin A1c 5.7 (4.0-6.0) % Calcium (8.4-10.2) mg/dL Magnesium (1.6-2.3) mg/dL Total Bilirubin (0.2-1.3) mg/dL AST (17-59) IU/L ALT (<50) IU/L Alkaline Phosphatase (38-126) U/L Total Creatine Kinase (55-170) U/L CK-MB (CK-2) CK-MB (CK-2) Rel Index Troponin I (0.01-0.034) ng/mL NT-Pro-B Natriuret Pep (<450) pg/mL Total Protein (6.3-8.2) g/dL Albumin (3.5-5.0) g/dL Globulin (1.7-4.1) g/dL Albumin/Globulin Ratio (1.0-2.8) Lipase (23-300) U/L SARS-CoV-2 (PCR) Negative (Negative) 11/28/21 Range/Units 19:37 WBC (4.5-11.0) X10^3/uL RBC (4.5-5.9) X10^6/uL Hgb (13.5-17.5) g/dL Hct (41-53) % MCV (80-100) fL MCH (26-34) PG MCHC (30-36) % RDW (11.6-14.8) % Plt Count (150-400) X10^3/uL Neut % (Auto) (50-75) % Lymph % (Auto) (25-40) % Norman % (Auto) (3-14) % Eos % (Auto) (2-4) % Baso % (Auto) (0-2) % Neut # (Auto) (6604-5002) /uL Lymph # (Auto) (6577-6127) /uL Norman # (Auto) (0-900) /uL Eos # (Auto) (0-450) /uL Baso # (Auto) (0-100) /uL PT (10.1-12.7) SECONDS INR (0.9-1.3) APTT (26.4-36.2) SECONDS D-Dimer (<230) ng/mL Sodium (137-145) mmol/L Potassium (3.4-5.1) mmol/L Chloride (98-107) mmol/L Carbon Dioxide (22-32) mmol/L BUN (9-20) mg/dL Creatinine (0.66-1.25) mg/dL Estimated GFR (>60) mL/min BUN/Creatinine Ratio (6-22) Glucose (80-110) mg/dL Hemoglobin A1c (4.0-6.0) % Calcium (8.4-10.2) mg/dL Magnesium (1.6-2.3) mg/dL Total Bilirubin (0.2-1.3) mg/dL AST (17-59) IU/L ALT (<50) IU/L Alkaline Phosphatase (38-126) U/L Total Creatine Kinase 45 L (55-170) U/L CK-MB (CK-2) TNP CK-MB (CK-2) Rel Index TNP Troponin I < 0.012 (0.01-0.034) ng/mL NT-Pro-B Natriuret Pep (<450) pg/mL Total Protein (6.3-8.2) g/dL Albumin (3.5-5.0) g/dL Globulin (1.7-4.1) g/dL Albumin/Globulin Ratio (1.0-2.8) Lipase (23-300) U/L SARS-CoV-2 (PCR) (Negative) Imaging Data CT scan - chest: Radiologist's Impression: Launch?[place] [address] CT Scan Report Signed Patient: Harley Beard MR#: [id number] : 1940 Acct:[id number] Age/Sex: 81 / M Date of Service: 11/28/21 Loc: ED Accession Number: [id number] ?? Procedure: CT angio chest PE protocol Ordering Provider: Orville Ch P.A-C PROCEDURE:? CT ANGIO CHEST PE PROTOCOL ? INDICATIONS:? chest pain ? TECHNIQUE:? After the administration of intravenous contrast, 2 mm thick sections acquired from the pulmonary apices to the posterior costophrenic angles.? 3-dimensional maximum intensity projection (MIP) coronal and sagittal reformats were then acquired through the thorax.? For radiation dose reduction, the following was used:? automated exposure control, adjustment of mA and/or kV according to patient size.? ? COMPARISON:? [facility], CT, CT CHEST ABD PEL W CON, 05/18/2021, 10:19. ? FINDINGS:? Image quality:? Excellent.? ? Pulmonary arteries:? Pulmonary arteries are normal in size, and demonstrate no intraluminal filling defects to suggest central pulmonary embolism.? ? Lungs and pleura:? Scattered chronic reticular markings and bronchiectasis in both lungs do not appear significantly changed when compared to the CT from 05/18/2021 given differences in level of inspiration.? Low lung volumes are noted on the current exam.? No acute consolidation is seen. ? Mediastinum:? Heart size is mildly enlarged, without pericardial effusion.? Moderate coronary artery calcifications.? No mediastinal or hilar adenopathy.? Thoracic aorta is normal in caliber and enhancement.? Esophagus is normal in caliber, without hiatal hernia.? ? Bones and chest wall:? Mild bilateral gynecomastia.? 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 Bilateral healed rib fractures are seen.? No axillary or supraclavicular adenopathy.? ? Abdomen:? Visualized upper abdominal solid organs appear normal in the early arterial phase of enhancement.? ? IMPRESSION:? 1. No acute pulmonary embolus. 2. Stable chronic reticulations and bronchiectasis in both lungs.? Mildly low lung volumes are seen. 3. Mild cardiomegaly.? Coronary artery atherosclerotic calcifications are present. 4. 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 ? ? Dictated by: Oscar Hendrickson M.D. on 11/28/2021 at 19:50 ? ? Approved by: Oscar Hendrickson M.D. on 11/28/2021 at 19:57?? ECG Data Attestation: I personally reviewed and interpreted this ECG as follows: Interpretation: Sinus rhythm, rate of 90 6p are 176 QRS of 90 QTC 459. Q-waves in 3 and AVF. Patient appears up some depression in 1 aVL. No elevation appreciated. EKG 2. Does not show any new acute changes but has persistent ST depression in 1 in aVL. As well as Q-waves in 3 and AVF. MDM Narrative Medical decision making narrative: Patient signed out to to myself by CJ Ch/Jose. Patient seen and evaluated. Accepted by hospitalist. Patient came in with complaint of chest pain, had improvement with nitro. Patient does not have known coronary artery disease but does have a history of prostate cancer receives Lupron. CTA shows no PE or clear cause of chest pain. Troponin x2 were negative but EKG does show Q-waves as well as ST depression no dynamic changes and no elevation. Case discussed with cardiology who recommends serial troponins, echo in the a.m. and stress testing. Patient excepted by hospitalist. Discharge Plan Departure Patient Disposition: Admitted as Observation Clinical Impression: Chest pain Admit Date/Time: 11/28/21 21:02 Admit Provider: Melinda Manjarrez
[2021-11-28 17:00] LABS: Add Manual Diff / Slide Review NO; Basophils Absolute Auto 0 /uL (0-100); Basophils Percent Auto 0.4 % (0-2); Eosinophils Absolute Auto 0 /uL (0-450); Eosinophils Percent Auto 0.1 % (2-4); Hematocrit 40.3 % (41-53); Hemoglobin 13.2 g/dL (13.5-17.5); Lymphocytes Absolute Auto 900 /uL (1100-4500); Lymphocytes Percent Auto 7.4 % (25-40); Mean Corpuscular HGB Conc 32.8 % (30-36); Mean Corpuscular Hemoglobin 27.8 PG (26-34); Mean Corpuscular Volume 84.6 fL (80-100); Monocytes Absolute Auto 1200 /uL (0-900); Monocytes Percent Auto 9.4 % (3-14); Neutrophils Absolute Auto 10400 /uL (1500-7000); Neutrophils Percent Auto 82.7 % (50-75); Platelet Count 238 X10^3/uL (150-400); Red Blood Cell Count 4.76 X10^6/uL (4.5-5.9); Red Cell Distribution Width 16.5 % (11.6-14.8); White Blood Cell Count 12.6 X10^3/uL (4.5-11.0)
[2021-11-28] MEDS: NITROGLYCERIN 0.4 MG SL TAB SL ×3 (17:00→17:31)
[2021-11-28 17:15] LABS: Alanine Aminotransferase 15 IU/L (<50); Albumin 4.6 g/dL (3.5-5.0); Albumin Globulin Ratio 1.4 (1.0-2.8); Alkaline Phosphatase 104 U/L (38-126); Aspartate Aminotransferase 25 IU/L (17-59); BUN Creatinine Ratio 17.5 (6-22); Bilirubin Total 0.5 mg/dL (0.2-1.3); Blood Urea Nitrogen 18 mg/dL (9-20); Calcium 9.4 mg/dL (8.4-10.2); Carbon Dioxide 32 mmol/L (22-32); Chloride 100 mmol/L (98-107); Creatine Kinase 51 U/L (55-170); Estimated Glomerular Filt Rate > 60.0 mL/min (>60); Globulin 3.4 g/dL (1.7-4.1); Glucose 108 mg/dL (80-110); HEMOLYSIS < 15 (0-50); Lipase 92 U/L (23-300); Potassium 3.7 mmol/L (3.4-5.1); Sodium 140 mmol/L (137-145)
[2021-11-28 17:16] LABS: Prothrombin Time 11.7 SECONDS (10.1-12.7)
[2021-11-28 17:18] LABS: PTT Partial Thromboplastin Tim 37 SECONDS (26.4-36.2)
[2021-11-28 17:27] LABS: NT-proBNP (BNP-Adult 18+) 92 pg/mL (<450); Troponin I < 0.012 ng/mL (0.01-0.034)
[2021-11-28 17:49] LABS: COVID19 -Nasal RAPID Negative (Negative)
[2021-11-28 18:01] LABS: D Dimer 563 ng/mL (<230)
--- NOTE | 2021-11-28 19:03 | DI.CT.S_ITS ---
PROCEDURE: CT ANGIO CHEST PE PROTOCOL INDICATIONS: chest pain TECHNIQUE: After the administration of intravenous contrast, 2 mm thick sections acquired from the pulmonary apices to the posterior costophrenic angles. 3-dimensional maximum intensity projection (MIP) coronal and sagittal reformats were then acquired through the thorax. For radiation dose reduction, the following was used: automated exposure control, adjustment of mA and/or kV according to patient size. COMPARISON: [facility], CT, CT CHEST ABD PEL W CON, 05/18/2021, 10:19. FINDINGS: Image quality: Excellent. Pulmonary arteries: Pulmonary arteries are normal in size, and demonstrate no intraluminal filling defects to suggest central pulmonary embolism. Lungs and pleura: Scattered chronic reticular markings and bronchiectasis in both lungs do not appear significantly changed when compared to the CT from 05/18/2021 given differences in level of inspiration. Low lung volumes are noted on the current exam. No acute consolidation is seen. Mediastinum: Heart size is mildly enlarged, without pericardial effusion. Moderate coronary artery calcifications. No mediastinal or hilar adenopathy. Thoracic aorta is normal in caliber and enhancement. Esophagus is normal in caliber, without hiatal hernia. Bones and chest wall: Mild bilateral gynecomastia. 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 Bilateral healed rib fractures are seen. No axillary or supraclavicular adenopathy. Abdomen: Visualized upper abdominal solid organs appear normal in the early arterial phase of enhancement. IMPRESSION: 1. No acute pulmonary embolus. 2. Stable chronic reticulations and bronchiectasis in both lungs. Mildly low lung volumes are seen. 3. Mild cardiomegaly. Coronary artery atherosclerotic calcifications are present. 4. Diffuse osteoblastic metastases have mildly increased in size and number when compared to the CT from 05/18/2021. Dictated by: Oscar Hendrickson M.D. on 11/28/2021 at 19:50 Approved by: Oscar Hendrickson M.D. on 11/28/2021 at 19:57
[2021-11-28 20:08] LABS: Creatine Kinase 45 U/L (55-170)
[2021-11-28 20:20] LABS: Troponin I < 0.012 ng/mL (0.01-0.034)
--- NOTE | 2021-11-28 22:20 | DI.ECHO.S_ITS ---
[facility] +---------+ : : [address] : : : : [id number] : : : : Phone: [phone] Echocardiogram Report + + :Name: RAMON BECKFORD Study Date: 11/29/2021 Height: 70 in : :[facility] ReadingLocation: Weight: 207 lb : : Gender: Male BSA: 2.1 m2 : :: 1940 Age: 81 yrs BP: 129/79 mmHg: :Reason For Study: CHEST PAIN : :Ordering Physician: Lavon COATSformed By: Renata Mcdonald : :Referring: KAMI COATS : + + Interpretation Summary The ejection fraction is estimated to be 55-60%. There are no obvious focal wall motion abnormalities noted but poor endocardial definition reduces the sensitivity for the detection of such. There is no hemodynamically significant valvular aortic stenosis. There is no pericardial effusion. Procedure: A two-dimensional transthoracic echocardiogram with color flow and Doppler was performed. There is no prior echocardiogram noted for this patient. The study quality was technically difficult. A contrast injection of Definity was performed to improve assessment of LV function. The patient was in sinus rhythm with heart rates between 74-79 bpm during the exam. Left Ventricle: The left ventricle is normal in size and wall thickness. The ejection fraction is estimated to be 55-60%. There are no obvious focal wall motion abnormalities noted but poor endocardial definition reduces the sensitivity for the detection of such. Right Ventricle: The right ventricle is normal in size and function. Atria: The left atrial size is normal. Right atrial size is normal. There is no Doppler evidence for an interatrial shunt. Mitral Valve: The mitral valve is normal in structure and function. There is trace mitral regurgitation. Aortic Valve: The aortic valve is mildly calcified. There is mildly reduced leaflet mobility. There is no hemodynamically significant valvular aortic stenosis. No aortic regurgitation is present. Tricuspid Valve: The tricuspid valve is normal in structure and function. There is trace tricuspid regurgitation. The right ventricular systolic pressure is estimated to be at least 21 mmHg based on an estimated right atrial pressure of 3 mm Hg. Pulmonic Valve: The pulmonic valve is not well visualized. There is no pulmonic valvular regurgitation. Great Vessels: The aortic root is normal size. The dimensions of the ascending aorta are normal. The IVC is of normal diameter and collapses greater than 50% with a sniff. This suggests a low right atrial pressure of 3 mm Hg. Pericardium/ Pleura There is no pericardial effusion. There is no pleural effusion. MMode/2D Measurements & Calculations LVIDd: 4.2 cm LVOT diam: 2.1 cm LVIDs: 3.0 cm Ao root diam: 2.9 cm FS: 28.5 % asc Aorta Diam: 3.1 cm IVSd: 0.73 cm Ao Arch Diam (Prox Trans): 2.2 cm LVPWd: 1.1 cm LV carbone. diameter/BSA (cm/m^2): 2.0 LV sys. diameter/BSA (cm/m^2): 1.4 LA A2 area: 18.8 cm2 RA long axis: 4.8 cm LA A4 area: 16.0 cm2 RA area: 11.2 cm2 LA length (vol): 4.5 cm RA vol: 21.9 ml LA vol: 56.5 ml RA : 10.3 ml/m2 LA vol index: 26.7 ml/m2 IVC diam: 1.4 cm RVD1 (basal): 3.4 cm TAPSE: 1.9 cm Doppler Measurements & Calculations Ao V2 max: 170.4 cm/sec LVOT Max Alonso: 105.7 cm/sec Ao V2 mean: 116.1 cm/sec LV V1 max P.5 mmHg Ao max P.6 mmHg LV V1 VTI: 20.8 cm Ao mean P.1 mmHg JOE(I,D): 1.9 cm2 Ao V2 VTI: 37.1 cm JOE(V,D): 2.1 cm2 sev ratio: 0.56 JOE indexed to BSA (cm^2/m^2): 0.91 MV E max alonso: 81.4 cm/sec TR max alonso: 210.0 cm/sec MV A max alonso: 81.8 cm/sec TR max P.6 mmHg MV E/A: 1.00 PA V2 max: 94.6 cm/sec Med Peak E' Alonso: 5.5 cm/sec PA V2 mean: 64.0 cm/sec E/E' med: 14.9 PA mean P.9 mmHg Lat Peak E' Alonso: 8.3 cm/sec PA pr(Accel): 37.9 mmHg E/E' lat: 9.8 E/e' average: 12.3 MV dec time: 0.22 sec SVLVOT): 71.2 ml Reading Physician:09:54 AM
--- NOTE | 2021-11-28 23:20 | P.HP_ITS ---
History of Present Illness History of Present Illness Date Patient Seen: 11/28/21 Time Patient Seen: 22:00 Chief complaint: CHEST PAIN Narrative: Harley Beard is an 81-year-old male, currently undergoing treatment for prostate cancer, dyslipidemia, and a history of tumors on his kidney who presented with what ended up being chest pain for the past day. He states that it started in the morning with an itch or tickling sensation on his chest, then it spread and became a day a dull pain or ache. He then stated that the pain radiated from both ears to the bottom of the sternum. He denies having any jaw pain and states it is more of a constant dull ache as opposed to throbbing. He denies any sweats but did have chills, denies nausea vomiting or shortness of breath. He states that when he breathes deeply it made things worse. Now he states that the pain feels like a band across his chest. He does have bilateral upper and lower extremity tingling which is chronic and longstanding. Due to the patient's current malignancy status, they did a CTA of his chest which indicated the following: ? 1. No acute pulmonary embolus. 2. Stable chronic reticulations and bronchiectasis in both lungs.? Mildly low lung volumes are seen. 3. Mild cardiomegaly.? Coronary artery atherosclerotic calcifications are present. 4. 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 He is afebrile, blood pressure 132/74, heart rate 92, respiratory rate 18, oxygen saturation of 100% on room air, he weighs 94 kg with a BMI of 29.7. He does have a mildly elevated white count of 12.6, his hemoglobin is 13.2 and hematocrit 40.3, does have a left shift of 10,400 neutrophils, platelet count 238, D-dimer was mildly elevated at 563 though the age adjusted believe it is normal chemistries are within normal limits, proBNP was within normal limits and COVID-19 PCR is negative. 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 History of kidney cancer Hypertension Recurrent prostate cancer Vomiting Surgical History (Updated 11/28/21 @ 23:33 by SANDIP Sommer) History of transurethral resection of prostate Family & Social History Family History (Updated 11/28/21 @ 23:34 by SANDIP Sommer) Father Myocardial infarction Mother Small cell lung cancer in adult Sister Cancer of kidney Social History: household members spouse Prior Living Arrangements House Safety & Behavioral: Feels Safe in Current Yes Environment Been Physically Hurt or No Threatened By a Person Suicidal Ideation Description None Suicide Plan Description No Plan Tobacco & Substance use: Smoking Status Former smoker alcohol intake current alcohol intake frequency holiday/special occasion Substance Use Type does not use Meds Home Medications and Allergies Home Medications Medication Instructions Recorded Confirmed Type allopurinol 300 mg tablet See Rx Instructions .ROUTE 07/23/16 11/28/21 History .COMPLEX #30 tab cholecalciferol (vitamin D3) 50 2,000 iu PO BID #0 07/23/16 11/28/21 History mcg (2,000 unit) capsule (Vitamin D3) polyvinyl alcohol-povidone 0.5 1 drp OPHTH PRN PRN #30 ml 07/23/16 11/28/21 History %-0.6 % eye drops (Artificial Tears (polyvinyl alcohol/povidone)) vit C 250 mg-vit E 90 mg-zinc 40 1 ea PO BID #0 07/23/16 11/28/21 History mg-copper 1 ly-lcfcjw-[id number] capsule (PreserVision AREDS-2) hydrochlorothiazide 25 mg tablet See Rx Instructions .ROUTE 06/05/17 11/28/21 History .COMPLEX #0 hydrocortisone 1 % topical cream 1 appful TOPICAL QDAY PRN #0 12/30/17 11/28/21 History (Hydrocream) atorvastatin 10 mg tablet 10 mg PO DAILY 10/28/18 11/28/21 History Lupron Depot (6 Month) 30 mg [id number] 04/22/19 11/28/21 History acetaminophen 325 mg tablet 325 - 650 mg PO Q6HP PRN 12/29/19 11/28/21 History omega-3 fatty acids 1,000 mg PO BID 11/01/20 11/28/21 History denosumab 120 mg/1.7 mL (70 mg/mL) 120 mg SUBCUT Q4W 11/28/21 11/28/21 History subcutaneous solution (Xgeva) Allergies Allergy/AdvReac Type Severity Reaction Status Date / Time No Known Drug Allergies Allergy Verified 01/04/21 07:43 Review of Systems Review of Systems ROS: Yes All systems reviewed with the patient and are negative except as otherwise documented Exam Vital Signs (past 8 hours): - 11/28/21 16:26 11/28/21 17:15 11/28/21 17:31 Temperature 97.7 F Pulse Rate 107 H 78 92 H Respiratory Rate 22 16 Blood Pressure 181/86 H 150/78 H 133/54 L Pulse Oximetry 99 98 11/28/21 17:45 11/28/21 18:00 11/28/21 18:15 Temperature Pulse Rate 93 H 90 87 Respiratory Rate 19 26 H 16 Blood Pressure 116/55 L 106/54 L 108/59 L Pulse Oximetry 97 98 99 11/28/21 18:30 11/28/21 18:45 11/28/21 19:00 Temperature Pulse Rate 85 85 87 Respiratory Rate 19 18 21 Blood Pressure 103/52 L 103/52 L 117/55 L Pulse Oximetry 98 98 98 11/28/21 19:22 11/28/21 19:30 11/28/21 19:45 Temperature Pulse Rate 89 86 85 Respiratory Rate 19 17 Blood Pressure Pulse Oximetry 99 99 11/28/21 20:00 11/28/21 20:15 11/28/21 20:30 Temperature Pulse Rate 86 86 84 Respiratory Rate 16 17 15 Blood Pressure Pulse Oximetry 99 98 98 11/28/21 20:45 11/28/21 21:00 11/28/21 21:15 Temperature Pulse Rate 83 83 86 Respiratory Rate 15 14 23 Blood Pressure Pulse Oximetry 98 98 98 11/28/21 21:25 Temperature 97.5 F L Pulse Rate 92 H Respiratory Rate 18 Blood Pressure 132/74 Pulse Oximetry 100 Oxygen Delivery Method Room Air Narrative Exam Narrative: Gen: Alert, oriented, well-developed 81y.o. male, appears younger than stated age HEENT: normocephalic, atraumatic, conjunctiva clear, sclera non-icteric, oral mucosa pink and moist Neck: supple, full ROM, no JVD, trachea is midline Resp: Lungs CTA, non-labored breathing CV: RRR, bilateral grade 1 to 2/6 systolic murmurs Abd: soft, non-tender, normoactive BTs Skin: no lesions or rashes, dry and intact Neuro: Alert and oriented X 4 w/no focal deficits. Speech clear and coherent. Extremities: moves all 4 extremities, is ambulatory, negative Christen?s sign Psyche: normal mood and affect. Objective Labs Result Diagrams: 11/28/21 16:40 11/28/21 16:40 Labs: Laboratory Results - last 24 hr 11/28/21 11/28/21 11/28/21 16:40 16:40 16:40 WBC 12.6 H RBC 4.76 Hgb 13.2 L Hct 40.3 L MCV 84.6 MCH 27.8 MCHC 32.8 RDW 16.5 H Plt Count 238 Neut % (Auto) 82.7 H Lymph % (Auto) 7.[address] [place] % (Auto) 9.4 Eos % (Auto) 0.1 L Baso % (Auto) 0.4 Neut # (Auto) 38400 H Lymph # (Auto) [address] [place] # (Auto) 1200 H Eos # (Auto) 0 Baso # (Auto) 0 PT 11.7 INR 1.0 APTT 37 H D-Dimer Sodium 140 Potassium 3.7 Chloride 100 Carbon Dioxide 32 BUN 18 Creatinine 1.03 Estimated GFR > 60.0 BUN/Creatinine Ratio 17.5 Glucose 108 Calcium 9.4 Magnesium 2.0 Total Bilirubin 0.5 AST 25 ALT 15 Alkaline Phosphatase 104 Total Creatine Kinase 51 L CK-MB (CK-2) TNP CK-MB (CK-2) Rel Index TNP Troponin I < 0.012 NT-Pro-B Natriuret Pep 92 Total Protein 8.0 Albumin 4.6 Globulin 3.4 Albumin/Globulin Ratio 1.4 Lipase 92 SARS-CoV-2 (PCR) 11/28/21 11/28/21 11/28/21 16:40 17:21 19:37 WBC RBC Hgb Hct MCV MCH MCHC RDW Plt Count Neut % (Auto) Lymph % (Auto) [place] % (Auto) Eos % (Auto) Baso % (Auto) Neut # (Auto) Lymph # (Auto) [place] # (Auto) Eos # (Auto) Baso # (Auto) PT INR APTT D-Dimer 563 H Sodium Potassium Chloride Carbon Dioxide BUN Creatinine Estimated GFR BUN/Creatinine Ratio Glucose Calcium Magnesium Total Bilirubin AST ALT Alkaline Phosphatase Total Creatine Kinase 45 L CK-MB (CK-2) TNP CK-MB (CK-2) Rel Index TNP Troponin I < 0.012 NT-Pro-B Natriuret Pep Total Protein Albumin Globulin Albumin/Globulin Ratio Lipase SARS-CoV-2 (PCR) Negative Assessment & Plan Assessment & Plan narrative: Harley Beard will be placed in observation for further evaluation of chest pain responsive to nitroglycerin. 1. Chest pain r/o ACS, acute, present on admission * Echo in am * Pharmacological stress test * Start ASA 81 mg * Received nitro X 1 in the ED and his symptoms resolved * EKG shows questionable ischemic changes * Trend troponin X 1, 3rd 1 is pending * Given increase in size of bone metastases, pain as a source could be suspect. 2. Hypertension * Start beta-siobhan after he has undergone stress testing 3. HLD * Lipid panel, pending * Increased home dose of atorvastatin from 10 mg p.o. in the evenings to atorvastatin 40 mg po at bedtime 4. Prostate cancer, chronic * Patient uses denosumab, q 4 weeks and is mid-radha * Patient takes lupron q 6 months, unknown when last taken Risk stratification ? Fasting lipid panel scheduled for 0500 labs ? A1c pending VTE Prophylaxis: Wells risk score 1 Enoxaparin 40 mg subQ once daily Bilateral SCDs Patient is placed into observation as his stay is not expected to exceed 2 midnights. FEN: IV fluids: saline lock, diet: heart healthy, labs: CBC, C/BMP, liver enzymes, [facility] None Dispo: home Code status: Limited code, intubation okay as discussed with the patient who identifies as his surrogate and POA. [X] I have utilized all available immediate resources to obtain, update, or review of the patient's current medications COVID-19 COVID-19 status: Negative Result date/Date tested (Pos, Neg/Pending): 11/28/21 Time Spent With Patient Critical Care time: I spent a total of [] minutes of critical care time on this patient's care today; this time is exclusive of procedural time. Scores Mathew' Criteria for PE Clinical signs and symptoms of DVT: No PE is #1 Dx or equally likely: No Heart rate > 100: No Immobilization at least 3 days or surg in previous 4 weeks: No History of PE or DVT: No Hemoptysis: No Malignancy w/Treatment within 6 months or palliative: Yes Mathew' PE Score total: 1 Quality VTE Deep Vein Thrombosis/Pulmonary Embolism Present on Admission: No MIPS - Admit I confirm the patient?s Advance Care Plan is present, Code status is documented, Surrogate decision maker is in patient?s record [If Yes, STOP here]: Yes MIPS - DC The patient has current or prior documentation of left ventricular ejection fraction (LVEF) less than 40%, or moderate or severely depressed left ventricular systolic function.: No
[2021-11-29] VITALS (8 sets, daily range): BP systolic 128–148; BP diastolic 71–83; PULSE 76–87; RESP 14–16; TEMP 36.4–36.9; O2SAT 97–99
--- NOTE | 2021-11-29 | DI.NM.S_ITS ---
PROCEDURE: NM RICHA PERF SPECT R&S PHARM Rest and pharmacological stress myocardial perfusion SPECT with gated imaging and ejection fraction RADIOPHARMACEUTICAL: 11.4 mCi Tc-99m tetrafosmin IV at rest and 25.6 mCi Tc-99m tetrafosmin IV at peak effect of pharmacological stress. [id number] was performed. INDICATIONS: chest pain TECHNIQUE: Radiopharmaceutical was injected at peak stress test, and also at rest. SPECT images were obtained. SPECT myocardial perfusion images were displayed in short axis, horizontal long axis, and vertical long axis views. Gated images were reviewed using [employer] software. COMPARISON: None. CARDIAC STRESS: A pharmacologic stress test was performed under the supervision of an attending staff, using an infusion of lexiscan 0.4mg IV X1. Hemodynamic data: There is normal blood pressure and heart rate response to pharmacologic stress. Symptoms: The patient denied anginal chest pain. Aminophylline: none EKG: No diagnostic changes of ischemia; no ectopy. FINDINGS: Raw data: There is good myocardial uptake of radiotracer. No significant motion artifacts. Jagc-ex-awnyq ratio is 0.33 (normal is less than 0.38 for tetrafosmin tracer). Left ventricle function: Gated images demonstrate normal left ventricular wall thickening. No segmental wall motion abnormalities. No transient ischemic dilation; TID is 1.0 (normal less than 1.3). Left ventricle resting end diastolic volume is 81 mL. Left ventricle stress ejection fraction is 77%; normal range is above 45%. Myocardial perfusion: There is normal distribution of activity in the right and left ventricular myocardium. No fixed or reversible perfusion defects. IMPRESSION: Low risk, normal pharmaceutical nuclear stress test 1) No perfusion evidence of ischemia or infarction. 2) Normal left ventricular size, wall motion, and systolic function (EF post stress 77%). 3) No ECG evidence of ischemia. 4) No angina during the study. 5) No prior nuclear stress test available for comparison. Dictated by: Ced Malhotra MD on 11/30/2021 at 14:13 Approved by: Ced Malhotra MD on 11/30/2021 at 14:15
[2021-11-29 00:10] LABS: Hemoglobin A1C% w Est Avg Glu 5.7 % (4.0-6.0)
[2021-11-29 02:16] LABS: Troponin I < 0.012 ng/mL (0.01-0.034)
[2021-11-29 05:18] LABS: Add Manual Diff / Slide Review NO; Basophils Absolute Auto 0 /uL (0-100); Basophils Percent Auto 0.4 % (0-2); Eosinophils Absolute Auto 0 /uL (0-450); Eosinophils Percent Auto 0.2 % (2-4); Hematocrit 34.9 % (41-53); Hemoglobin 11.7 g/dL (13.5-17.5); Lymphocytes Absolute Auto 800 /uL (1100-4500); Lymphocytes Percent Auto 11.8 % (25-40); Mean Corpuscular HGB Conc 33.4 % (30-36); Mean Corpuscular Hemoglobin 27.9 PG (26-34); Mean Corpuscular Volume 83.4 fL (80-100); Monocytes Absolute Auto 900 /uL (0-900); Monocytes Percent Auto 13.4 % (3-14); Neutrophils Absolute Auto 5000 /uL (1500-7000); Neutrophils Percent Auto 74.2 % (50-75); Platelet Count 208 X10^3/uL (150-400); Red Blood Cell Count 4.18 X10^6/uL (4.5-5.9); Red Cell Distribution Width 16.3 % (11.6-14.8); White Blood Cell Count 6.8 X10^3/uL (4.5-11.0)
[2021-11-29 05:23] LABS: Alanine Aminotransferase 12 IU/L (<50); Albumin 3.9 g/dL (3.5-5.0); Albumin Globulin Ratio 1.4 (1.0-2.8); Alkaline Phosphatase 88 U/L (38-126); Aspartate Aminotransferase 21 IU/L (17-59); BUN Creatinine Ratio 21.1 (6-22); Bilirubin Total 0.5 mg/dL (0.2-1.3); Bilirubin Unconjugated 0.6 mg/dL (0.0-1.1); Blood Urea Nitrogen 16 mg/dL (9-20); Calcium 8.6 mg/dL (8.4-10.2); Carbon Dioxide 26 mmol/L (22-32); Chloride 105 mmol/L (98-107); Estimated Glomerular Filt Rate > 60.0 mL/min (>60); Globulin 2.8 g/dL (1.7-4.1); Glucose 101 mg/dL (80-110); HEMOLYSIS < 15 (0-50); Magnesium 2.1 mg/dL (1.6-2.3); Potassium 3.6 mmol/L (3.4-5.1); Sodium 137 mmol/L (137-145); Total Protein 6.7 g/dL (6.3-8.2)
[2021-11-29 07:57] LABS: Troponin I < 0.012 ng/mL (0.01-0.034)
[2021-11-29] MEDS: ASPIRIN EC 81 MG TABLET PO (09:25)
[2021-11-29] MEDS: VIT C/E/ZN/COPPR/LUTEIN/ZEAXAN CAPSULE 1 CAP PO ×2 (09:25→20:51)
[2021-11-29] MEDS: ENOXAPARIN 40 MG/0.4 ML SYRINGE SUBCUT (09:25)
[2021-11-29 14:13] LABS: Troponin I < 0.012 ng/mL (0.01-0.034)
--- NOTE | 2021-11-29 14:19 | P.PN_ITS ---
Subjective Subjective Interval history: The patient denies any personal hx of MT's. He notes his father of an MT at age 60. His brother developed an MT in his 70's. The patient has a remote tobacco smoking history. He denies ever having a stress test before. Exam Vital Signs (past 8 hours): - 11/29/21 07:46 11/29/21 09:30 11/29/21 11:54 Temperature 97.6 F 97.5 F L Pulse Rate 80 76 Respiratory Rate 16 16 Blood Pressure 129/74 138/75 Pulse Oximetry 97 98 99 Oxygen Delivery Method Room Air Oxygen Flow Rate 0 Const Other: Patient sitting up in bed comfortably upon my entering the room, in no apparent, acute distress. Eyes Other: No scleral icterus appreciated. Neck Other: No carotid bruits appreciated. Chest Other: Reproducible CP with palpation of chest wall. Resp Other: Lungs clear to auscultation bilaterally. Cardio Other: RRR, S1 and S2 heart sounds normal. No extra heart sounds or murmurs appreciated. GI Other: Soft, non-distended, non-tender, bowel sounds present. Skin Other: No grossly abnormal skin lesions appreciated. Extrem Other: Palpable and equally steady radial and dorsalis pedis pulses bilaterally. Objective Labs Result Diagrams: 11/29/21 04:30 11/29/21 04:30 Labs: Laboratory Results - last 24 hr 11/28/21 11/28/21 11/28/21 16:40 16:40 16:40 WBC 12.6 H RBC 4.76 Hgb 13.2 L Hct 40.3 L MCV 84.6 MCH 27.8 MCHC 32.8 RDW 16.5 H Plt Count 238 Neut % (Auto) 82.7 H Lymph % (Auto) 7.4 L [place] % (Auto) 9.4 Eos % (Auto) 0.1 L Baso % (Auto) 0.4 Neut # (Auto) 76405 H Lymph # (Auto) 900 L [place] # (Auto) 1200 H Eos # (Auto) 0 Baso # (Auto) 0 PT 11.7 INR 1.0 APTT 37 H D-Dimer Sodium 140 Potassium 3.7 Chloride 100 Carbon Dioxide 32 BUN 18 Creatinine 1.03 Estimated GFR > 60.0 BUN/Creatinine Ratio 17.5 Glucose 108 Hemoglobin A1c Calcium 9.4 Magnesium 2.0 Total Bilirubin 0.5 Conjugated Bilirubin Unconjugated Bilirubin AST 25 ALT 15 Alkaline Phosphatase 104 Total Creatine Kinase 51 L CK-MB (CK-2) TNP CK-MB (CK-2) Rel Index TNP Troponin I < 0.012 NT-Pro-B Natriuret Pep 92 Total Protein 8.0 Albumin 4.6 Globulin 3.4 Albumin/Globulin Ratio 1.4 Lipase 92 TSH SARS-CoV-2 (PCR) 11/28/21 11/28/21 11/28/21 16:40 16:40 17:21 WBC RBC Hgb Hct MCV MCH MCHC RDW Plt Count Neut % (Auto) Lymph % (Auto) [place] % (Auto) Eos % (Auto) Baso % (Auto) Neut # (Auto) Lymph # (Auto) [place] # (Auto) Eos # (Auto) Baso # (Auto) PT INR APTT D-Dimer 563 H Sodium Potassium Chloride Carbon Dioxide BUN Creatinine Estimated GFR BUN/Creatinine Ratio Glucose Hemoglobin A1c 5.7 Calcium Magnesium Total Bilirubin Conjugated Bilirubin Unconjugated Bilirubin AST ALT Alkaline Phosphatase Total Creatine Kinase CK-MB (CK-2) CK-MB (CK-2) Rel Index Troponin I NT-Pro-B Natriuret Pep Total Protein Albumin Globulin Albumin/Globulin Ratio Lipase TSH SARS-CoV-2 (PCR) Negative 11/28/21 11/29/21 11/29/21 19:37 01:20 04:30 WBC 6.8 RBC 4.18 L Hgb 11.7 L Hct 34.9 L MCV 83.4 MCH 27.9 MCHC 33.4 RDW 16.3 H Plt Count 208 Neut % (Auto) 74.2 Lymph % (Auto) 11.8 L [place] % (Auto) 13.4 Eos % (Auto) 0.2 L Baso % (Auto) 0.4 Neut # (Auto) 5000 Lymph # (Auto) 800 L [place] # (Auto) 900 Eos # (Auto) 0 Baso # (Auto) 0 PT INR APTT D-Dimer Sodium Potassium Chloride Carbon Dioxide BUN Creatinine Estimated GFR BUN/Creatinine Ratio Glucose Hemoglobin A1c Calcium Magnesium Total Bilirubin Conjugated Bilirubin Unconjugated Bilirubin AST ALT Alkaline Phosphatase Total Creatine Kinase 45 L CK-MB (CK-2) TNP CK-MB (CK-2) Rel Index TNP Troponin I < 0.012 < 0.012 NT-Pro-B Natriuret Pep Total Protein Albumin Globulin Albumin/Globulin Ratio Lipase TSH SARS-CoV-2 (PCR) 11/29/21 11/29/21 11/29/21 04:30 04:30 07:24 WBC RBC Hgb Hct MCV MCH MCHC RDW Plt Count Neut % (Auto) Lymph % (Auto) [place] % (Auto) Eos % (Auto) Baso % (Auto) Neut # (Auto) Lymph # (Auto) [place] # (Auto) Eos # (Auto) Baso # (Auto) PT INR APTT D-Dimer Sodium 137 Potassium 3.6 Chloride 105 Carbon Dioxide 26 BUN 16 Creatinine 0.76 Estimated GFR > 60.0 BUN/Creatinine Ratio 21.1 Glucose 101 Hemoglobin A1c Calcium 8.6 Magnesium 2.1 Total Bilirubin 0.5 Conjugated Bilirubin 0.0 Unconjugated Bilirubin 0.6 AST 21 ALT 12 Alkaline Phosphatase 88 Total Creatine Kinase CK-MB (CK-2) CK-MB (CK-2) Rel Index Troponin I < 0.012 NT-Pro-B Natriuret Pep Total Protein 6.7 Albumin 3.9 Globulin 2.8 Albumin/Globulin Ratio 1.4 Lipase TSH 1.90 SARS-CoV-2 (PCR) 11/29/21 13:41 WBC RBC Hgb Hct MCV MCH MCHC RDW Plt Count Neut % (Auto) Lymph % (Auto) [place] % (Auto) Eos % (Auto) Baso % (Auto) Neut # (Auto) Lymph # (Auto) [place] # (Auto) Eos # (Auto) Baso # (Auto) PT INR APTT D-Dimer Sodium Potassium Chloride Carbon Dioxide BUN Creatinine Estimated GFR BUN/Creatinine Ratio Glucose Hemoglobin A1c Calcium Magnesium Total Bilirubin Conjugated Bilirubin Unconjugated Bilirubin AST ALT Alkaline Phosphatase Total Creatine Kinase CK-MB (CK-2) CK-MB (CK-2) Rel Index Troponin I < 0.012 NT-Pro-B Natriuret Pep Total Protein Albumin Globulin Albumin/Globulin Ratio Lipase TSH SARS-CoV-2 (PCR) [facility] Medical History (Updated 11/28/21 @ 23:33 by ASNDIP Sommer) Acute renal failure 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 1. Atypical CP, rule-out ACS, acute, present on admission * Echocardiogram, pharmacologic stress test pending 2. Hypertension * Start beta-siobhan after he has undergone stress testing 3. Hyperlipidemia * Lipid panel, pending * Increased home dose of atorvastatin 4. Prostate cancer, chronic, undergoing active treatment * Patient uses denosumab, every 4 weeks and is mid-cydle * Patient takes lupron every 6 months, unknown when last taken VTE prophylaxis: Lovenox 40 mg daily Code status: Limited code, intubation okay as discussed with the patient?Proxy: as his surrogate and POA I have utilized all available immediate resources to obtain, update, or review of the patient's current medications Time Spent With Patient Critical Care time: I spent a total of [] minutes of critical care time on this patient's care today; this time is exclusive of procedural time. Quality VTE Deep Vein Thrombosis/Pulmonary Embolism Present on Admission: No
--- NOTE | 2021-11-29 15:08 | CM.DANOTE ---
Patient is an 81 yo male who was admitted on 11/28/21 for Chest pain. Pt has [employer] and [employer] for insurance and his PCP is Dr. Davon Oquendo. EMR was reviewed. Per MD, pt currently getting prostrate CA tx and admitted for chest pain r/o and to have Echo and Stress Test prior to d/c. SW met bedside with pt and explained role and he confirms he lives in [place] with his and is independent at baseline and sees Dr. Azevedo Oncologist for his prostrate cancer. Pt has no recent hx of admission to the hospital and denies any hx of HH or SNF. Pt states he has not completed DPOA or living will pwk but informally would be his spouse as they do not have any children or much extended family. Pt preference is home today if possible but now aware that his Echo was completed but not read yet this morning and stress test cannot be completed until tomorrow. Pt states his friend plans to provide transport home at d/c. Plan: SW to follow for Echo results today and stress test tomorrow to confirm safe d/c home and any further identified needs. MEMO Greene Discharge Planning/Care Management CM Discharge Assessment Start: 11/29/21 15:07 Freq: Status: Active Protocol: Document 11/29/21 15:07 BF (Rec: 11/29/21 15:08 [id number]) Discharge Planning Assessment Assigned Mold Maker Helper MEMO Winters DPOA/Assigned Designee Name informally spouse Maria Ines Contact Information [phone] Advance Directives? No Advance Directives on File No History Provided By Patient,Medical Record Has Patient been admitted in last 30 No days? Prior Living Arrangements House Household Members spouse Type of transporation used prior to Drives own vehicle admit Independent with ADL's Yes Is patient alert and oriented? Yes Caregiver for Another No Barriers to Discharge No Discharge Plan Home Transportation Arrangement Friend plans to transport home Referrals Initiated None needed Whiteboard Updated in Patient Room with Yes name and ext. # of Mold Maker Helper Review Status In Process Please Provide Date Initial DC 11/29/21 Assessment Was Performed Next Review Type Continued Stay Review
[2021-11-29] MEDS: ATORVASTATIN 20 MG TABLET 40 MG PO (20:51)
[2021-11-29] MEDS: SODIUM CHLORIDE 0.9% FLUSH 10 ML IV (20:51)
[2021-11-29 21:10] LABS: Troponin I < 0.012 ng/mL (0.01-0.034)
[2021-11-30 04:51] VITALS: BP 133/79; PULSE 78; RESP 18; TEMP 36.4; O2SAT 99
[2021-11-30 07:34] LABS: Add Manual Diff / Slide Review NO; Basophils Absolute Auto 0 /uL (0-100); Basophils Percent Auto 0.4 % (0-2); Eosinophils Absolute Auto 0 /uL (0-450); Eosinophils Percent Auto 0.7 % (2-4); Hematocrit 34.6 % (41-53); Hemoglobin 11.6 g/dL (13.5-17.5); Lymphocytes Absolute Auto 900 /uL (1100-4500); Lymphocytes Percent Auto 13.1 % (25-40); Mean Corpuscular HGB Conc 33.6 % (30-36); Mean Corpuscular Hemoglobin 28.1 PG (26-34); Mean Corpuscular Volume 83.7 fL (80-100); Monocytes Absolute Auto 800 /uL (0-900); Monocytes Percent Auto 12.8 % (3-14); Neutrophils Absolute Auto 4800 /uL (1500-7000); Platelet Count 219 X10^3/uL (150-400); Red Blood Cell Count 4.14 X10^6/uL (4.5-5.9); Red Cell Distribution Width 16.1 % (11.6-14.8); White Blood Cell Count 6.5 X10^3/uL (4.5-11.0)
[2021-11-30 07:45] LABS: Alanine Aminotransferase 11 IU/L (<50); Albumin 3.8 g/dL (3.5-5.0); Albumin Globulin Ratio 1.3 (1.0-2.8); Alkaline Phosphatase 89 U/L (38-126); Aspartate Aminotransferase 20 IU/L (17-59); BUN Creatinine Ratio 25.7 (6-22); Bilirubin Total 0.5 mg/dL (0.2-1.3); Bilirubin Unconjugated 0.5 mg/dL (0.0-1.1); Blood Urea Nitrogen 18 mg/dL (9-20); Calcium 8.8 mg/dL (8.4-10.2); Carbon Dioxide 26 mmol/L (22-32); Chloride 106 mmol/L (98-107); Estimated Glomerular Filt Rate > 60.0 mL/min (>60); Glucose 99 mg/dL (80-110); HEMOLYSIS < 15 (0-50); Magnesium 2.3 mg/dL (1.6-2.3); Potassium 4.2 mmol/L (3.4-5.1); Sodium 138 mmol/L (137-145); Total Protein 6.8 g/dL (6.3-8.2)
[2021-11-30 08:23] VITALS: BP 133/79; PULSE 77; RESP 14; TEMP 36.3; O2SAT 97
[2021-11-30 09:10] VITALS: O2SAT 96
[2021-11-30] MEDS: VIT C/E/ZN/COPPR/LUTEIN/ZEAXAN CAPSULE 1 CAP PO (10:09)
[2021-11-30] MEDS: ENOXAPARIN 40 MG/0.4 ML SYRINGE SUBCUT (10:09)
[2021-11-30] MEDS: ASPIRIN EC 81 MG TABLET PO (10:10)
[2021-11-30] MEDS: SODIUM CHLORIDE 0.9% FLUSH 10 ML IV (10:11)
[2021-11-30 12:00] VITALS: BP 161/78; PULSE 75; RESP 14; TEMP 36.4; O2SAT 99
--- NOTE | 2021-11-30 13:05 | PM.TREADMILL ---
Cardiac Stress Test Report Referral & Results Date Patient Seen: 11/30/21 Time Patient Seen: 13:05 Requesting provider: Melinda Manjarrez Indication: chest pain Rest ECG: Sinus rhythm Procedure Note: After Lexiscan injection had minimal dyspnea and no chest discomfort No significant ST changes after Lexiscan injection No ectopy Impression: Normal Lexiscan injection Please note: Actual ECG tracings can be found in the PACS system.
--- NOTE | 2021-11-30 15:01 | P.PN_ITS ---
Subjective Subjective Interval history: The patient denies any recurrence of his CP overnight or this morning. He reports overall resolution of his symptoms but with occasional right shoulder pain. Exam Vital Signs (past 8 hours): - 11/30/21 08:23 11/30/21 09:10 11/30/21 12:00 Temperature 97.4 F L 97.5 F L Pulse Rate 77 75 Respiratory Rate 14 14 Blood Pressure 133/79 161/78 H Pulse Oximetry 97 96 99 Oxygen Delivery Method Room Air Oxygen Flow Rate 0 Narrative Exam Narrative: Const Other: Patient sitting up in bed comfortably upon my entering the room, in no apparent, acute distress. Eyes Other: No scleral icterus appreciated. Neck Other: No carotid bruits appreciated. Chest Other: Reproducible CP with palpation of chest wall. Resp Other: Lungs clear to auscultation bilaterally. Cardio Other: RRR, S1 and S2 heart sounds normal. No extra heart sounds or murmurs appreciated. GI Other: Soft, non-distended, non-tender, bowel sounds present. Skin Other: No grossly abnormal skin lesions appreciated. Extrem Other: Palpable and equally steady radial and dorsalis pedis pulses bilaterally. Objective Labs Result Diagrams: 11/30/21 07:06 11/30/21 07:06 Labs: Laboratory Results - last 24 hr 11/29/21 11/30/21 11/30/21 20:35 07:06 07:06 WBC 6.5 RBC 4.14 L Hgb 11.6 L Hct 34.6 L MCV 83.7 MCH 28.1 MCHC 33.6 RDW 16.1 H Plt Count 219 Neut % (Auto) 73.0 Lymph % (Auto) 13.1 L [place] % (Auto) 12.8 Eos % (Auto) 0.7 L Baso % (Auto) 0.4 Neut # (Auto) 4800 Lymph # (Auto) 900 L [place] # (Auto) 800 Eos # (Auto) 0 Baso # (Auto) 0 Sodium 138 Potassium 4.2 Chloride 106 Carbon Dioxide 26 BUN 18 Creatinine 0.70 Estimated GFR > 60.0 BUN/Creatinine Ratio 25.7 H Glucose 99 Calcium 8.8 Magnesium 2.3 Total Bilirubin 0.5 Conjugated Bilirubin 0.0 Unconjugated Bilirubin 0.5 AST 20 ALT 11 Alkaline Phosphatase 89 Troponin I < 0.012 Total Protein 6.8 Albumin 3.8 Globulin 3.0 Albumin/Globulin Ratio 1.3 PFSH Medical History (Updated 11/28/21 @ 23:33 by SANDIP Sommer) Acute renal failure 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 1. Atypical CP, rule-out ACS, acute, present on admission * Echocardiogram, pharmacologic stress test pending 2. Hypertension * Start beta-siobhan after he has undergone stress testing 3. Hyperlipidemia * Lipid panel, pending * Increased home dose of atorvastatin 4. Prostate cancer, chronic, undergoing active treatment * Patient uses denosumab, every 4 weeks and is mid-cycle * Patient takes lupron every 6 months, unknown when last taken VTE prophylaxis: Lovenox 40 mg daily Code status: Limited code, intubation OK as discussed with the patient?Proxy: as his surrogate and POA I have utilized all available immediate resources to obtain, update, or review of the patient's current medications Time Spent With Patient Critical Care time: I spent a total of [] minutes of critical care time on this patient's care today; this time is exclusive of procedural time. Quality VTE Deep Vein Thrombosis/Pulmonary Embolism Present on Admission: No MIPS - Admit I confirm the patient?s Advance Care Plan is present, Code status is documented, Surrogate decision maker is in patient?s record [If Yes, STOP here]: Yes
--- NOTE | 2021-11-30 15:43 | P.DS_ITS ---
History of Present Illness History of Present Illness Chief complaint: CHEST PAIN Narrative: Harley Beard is an 81-year-old male, currently undergoing treatment for prostate cancer, dyslipidemia, and a history of tumors on his kidney who presented with what ended up being chest pain for the past day.? He states that it started in the morning with an itch or tickling sensation on his chest, then it spread and became a day a dull pain or ache.? He then stated that the pain radiated from both ears to the bottom of the sternum.? He denies having any jaw pain and states it is more of a constant dull ache as opposed to throbbing.? He denies any sweats but did have chills, denies nausea vomiting or shortness of breath.? He states that when he breathes deeply it made things worse.? Now he states that the pain feels like a band across his chest.? He does have bilateral upper and lower extremity tingling which is chronic and longstanding. Due to the patient's current malignancy status, they did a CTA of his chest which indicated the following: ? 1. No acute pulmonary embolus. 2. Stable chronic reticulations and bronchiectasis in both lungs.? Mildly low lung? volumes are seen. 3. Mild cardiomegaly.? Coronary artery atherosclerotic calcifications are present. 4. 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 He is afebrile, blood pressure 132/74, heart rate 92, respiratory rate 18, oxygen saturation of 100% on room air, he weighs 94 kg with a BMI of 29.7.? He does have a mildly elevated white count of 12.6, his hemoglobin is 13.2 and hematocrit 40.3, does have a left shift of 10,400 neutrophils, platelet count 238, D-dimer was mildly elevated at 563 though the age adjusted believe it is normal chemistries are within normal limits, proBNP was within normal limits and COVID-19 PCR is negative. Written by admitting provider. Discharge Providers Provider Date of admission: 11/28/21 21:02 Discharge Date: 11/30/21 Primary care physician: Davon Oquendo MD Discharge provider: Kennedy Mccrary MD Summary Hospital Course Discharge Diagnosis: Harley Beard was placed in observation for further evaluation of atypical CP. 1. Atypical CP, rule-out ACS, acute, present on admission * Echocardiogram and myocardial perfusion study unremarkable for reversible ischemia 2. Hypertension * Continue home hydrochlorothiazide 25 mg daily 3. Hyperlipidemia * Continue home atorvastatin 4. Prostate cancer, chronic, undergoing active treatment * Patient uses denosumab, every 4 weeks and is mid-cycle * Patient takes lupron every 6 months, unknown when last taken Exam Vital Signs (past 8 hours): - 11/30/21 08:23 11/30/21 09:10 11/30/21 12:00 Temperature 97.4 F L 97.5 F L Pulse Rate 77 75 Respiratory Rate 14 14 Blood Pressure 133/79 161/78 H Pulse Oximetry 97 96 99 Oxygen Delivery Method Room Air Oxygen Flow Rate 0 Objective Labs Result Diagrams: 11/30/21 07:06 11/30/21 07:06 Labs: Laboratory Results - last 24 hr 11/29/21 11/30/21 11/30/21 20:35 07:06 07:06 WBC 6.5 RBC 4.14 L Hgb 11.6 L Hct 34.6 L MCV 83.7 MCH 28.1 MCHC 33.6 RDW 16.1 H Plt Count 219 Neut % (Auto) 73.0 Lymph % (Auto) 13.1 L [place] % (Auto) 12.8 Eos % (Auto) 0.7 L Baso % (Auto) 0.4 Neut # (Auto) 4800 Lymph # (Auto) 900 L [place] # (Auto) 800 Eos # (Auto) 0 Baso # (Auto) 0 Sodium 138 Potassium 4.2 Chloride 106 Carbon Dioxide 26 BUN 18 Creatinine 0.70 Estimated GFR > 60.0 BUN/Creatinine Ratio 25.7 H Glucose 99 Calcium 8.8 Magnesium 2.3 Total Bilirubin 0.5 Conjugated Bilirubin 0.0 Unconjugated Bilirubin 0.5 AST 20 ALT 11 Alkaline Phosphatase 89 Troponin I < 0.012 Total Protein 6.8 Albumin 3.8 Globulin 3.0 Albumin/Globulin Ratio 1.3 PFSH Medical History (Updated 11/28/21 @ 23:33 by SANDIP Sommer) Acute renal failure 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 1. Atypical CP, rule-out ACS, acute, present on admission * Echocardiogram and myocardial perfusion study unremarkable for reversible ischemia 2. Hypertension * Continue home hydrochlorothiazide 25 mg daily 3. Hyperlipidemia * Continue home atorvastatin 4. Prostate cancer, chronic, undergoing active treatment * Patient uses denosumab, every 4 weeks and is mid-cycle * Patient takes lupron every 6 months, unknown when last taken Discharge Plan Discharge Plan Patient Disposition: Home Discharge orders & Medications Prescriptions: Continued allopurinol 300 MG tablet See Rx Instructions .ROUTE .COMPLEX Qty: 30 0RF Label Comments: PT TAKES M,W,F Rx Instructions: 300 mg orally cholecalciferol (vitamin D3) [Vitamin D3] 2,000 UNIT capsule 2,000 iu PO BID Qty: 0 0RF PreserVision AREDS-2 1 EACH capsule 1 ea PO BID Qty: 0 0RF Artificial Tears(pvalch-povid) 15 ML drops 1 drp OPHTH PRN PRN (Reason: DRY EYE) Qty: 30 0RF hydrochlorothiazide 25 MG tablet See Rx Instructions .ROUTE .COMPLEX Qty: 0 0RF Label Comments: PT TAKES M,W,F Rx Instructions: 25 mg orally hydrocortisone [Hydrocream] 1 % Cream 1 appful Topical QDAY PRN (Reason: Rash) Qty: 0 0RF atorvastatin 10 mg Tablet 10 mg PO DAILY 0RF Lupron Dep[place] (6 Month) 30 mg 30 mg [id number] 0RF acetaminophen 325 MG tablet 325 - 650 mg PO Q6HP PRN (Reason: Pain (Scale Score 1-3)) 0RF omega-3 fatty acids Capsule 1,000 mg PO BID 0RF Xgeva 120 mg/1.7 mL (70 mg/mL) Solution 120 mg SUBCUT Q4W 0RF Follow up/Referrals: Davon Oquendo MD [Primary Care Provider] - Discharge Data Primary Care Provider: Davon Oquendo Attending Provider: Manjarrez,Melinda Quality VTE Deep Vein Thrombosis/Pulmonary Embolism Present on Admission: No
--- NOTE | 2021-11-30 17:32 | PC.NURSE ---
Pt is A&OX3, VSS, afebrile on RA. He is NSR with BBB, 1 deg AVB on telemetry. He denies any substernal or chest pain. His Stress test is completed and he is cleared for discharge home this afternoon. He is escorted by the WOOL HANDLER with his friend via wheelchair to private vehicle
== END 2021-11-30 16:20 | disposition home or self-care (01) ==
LOC: ED 20:19 → AC 21:03
PROVIDERS: Emergency Medicine; Physician Assistant; Admitting Provider Nurse Practitioner Family; Emergency Provider Emergency Medicine; PCP Family Medicine; Visit Provider Nurse Practitioner Family
DX: R07.9 Chest pain, unspecified (principal); C61 Malignant neoplasm of prostate; E78.5 Hyperlipidemia, unspecified; I10 Essential (primary) hypertension; N18.9 Chronic kidney disease, unspecified; Z20.822 Contact with and (suspected) exposure to COVID-19
CPT/HCPCS: 36415; 71045; 71275; 78452; 80048; 80053; 80076; 82550; 83036; 83690; 83735; 83880; 84443; 84484; 85025; 85379; 85610; 85730; 87635; 93005; 93010; 93017; 93306; 94762; 96372; 99284; C9803; G0378; A9502; J1650; J2785; Q9957

== ENCOUNTER → 2021-12-06 13:18 | Outpatient (CLI) | payer MEDICARE, OTHER, SELFPAY ==
[2021-11-28 21:05] VITALS: BMI 29.7
--- NOTE | 2021-12-06 | DI.RAD.S_ITS ---
PROCEDURE: XR SHOULDER RT MIN 2V INDICATIONS: RIGHT SHOULDER PAIN TECHNIQUE: 2 views of the shoulder were acquired. COMPARISON: [facility], [place], [place] BONE SCAN WHOLE BODY, 05/18/2021, 12:57. [facility], [place], XR CHEST 1V, 11/28/2021, 16:40. [facility], CT, CT ANGIO CHEST PE PROTOCOL, 11/28/2021, 19:17. FINDINGS: Bones: No fractures or dislocations. There is an unchanged appearance of sclerosis within the distal right clavicle. No pathologic fracture. Acromioclavicular degenerative narrowing are present. Visualized ribs appear intact. Soft tissues: No suspicious soft tissue calcifications. IMPRESSION: Unchanged appearance of sclerosis within the distal right clavicle suspicious for metastatic disease. Dictated by: Tanya Wheatley M.D. on 12/06/2021 at 15:27 Approved by: Tanya Wheatley M.D. on 12/06/2021 at 15:54
== END ==
PROVIDERS: PCP Family Medicine; Referring Provider Family Medicine; Visit Provider Family Medicine
DX: M25.511 Pain in right shoulder (principal)
CPT/HCPCS: 73030

== ENCOUNTER → 2022-03-16 08:56 | Outpatient (CLI) | payer MEDICARE, OTHER, SELFPAY ==
[2021-11-28 21:05] VITALS: BMI 29.7
--- NOTE | 2022-03-16 08:57 | DI.NM.S_ITS ---
PROCEDURE: [place] BONE SCAN WHOLE BODY RADIOPHARMACEUTICAL: 19.9 mCi Tc-99m MDP IV. INDICATIONS: prostate cancer TECHNIQUE: Delayed whole-body scintigrams were obtained approximately 3-4 hours after intravenous injection of radiotracer. Anterior and posterior views were acquired from vertex to feet. COMPARISON: [place], [place], [place] BONE SCAN WHOLE BODY, 05/18/2021, 12:57. FINDINGS: There is an increased, severe degree of multifocal metastatic disease within the calvarium, cervical, thoracic, and lumbar spine, bilateral iliac wings, left clavicle, and bilateral femora. Increased uptake is seen within the right humerus. Kidneys are normal in position. IMPRESSION: Increased, severe degree of bony metastatic disease. Dictated by: Anayeli Friedman M.D. on 03/16/2022 at 13:29 Approved by: Anayeli Friedman M.D. on 03/16/2022 at 13:32
== END ==
PROVIDERS: PCP Family Medicine; Referring Provider Internal Medicine Medical Oncology; Visit Provider Internal Medicine Medical Oncology
DX: C61 Malignant neoplasm of prostate (principal); C79.51 Secondary malignant neoplasm of bone
CPT/HCPCS: 78306; A9503

== ENCOUNTER → 2022-09-24 08:22 | Outpatient (CLI) | payer MEDICARE, OTHER, SELFPAY ==
[2021-11-28 21:05] VITALS: BMI 29.7
--- NOTE | 2022-09-24 | DI.NM.S_ITS ---
PROCEDURE: [place] BONE SCAN WHOLE BODY RADIOPHARMACEUTICAL: 21.2 mCi Tc-99m MDP IV. 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 Anterior and posterior views were acquired from vertex to feet. COMPARISON: [place], [place] BONE SCAN WHOLE BODY, 06/25/2018, 14:17. [place] BONE SCAN WHOLE BODY, 04/09/2019, 12:27. [place] BONE SCAN WHOLE BODY, 10/31/2020, 13:03. [place] BONE SCAN WHOLE BODY, 05/18/2021, 12:57. [facility], CT, CT CHEST ABD PEL W CON, 09/24/2022, 9:16. [place] BONE SCAN WHOLE BODY, 03/16/2022, 12:13. FINDINGS: There are innumerable foci of abnormal uptake involving the skull, cervical, thoracic and lumbar spine, sacrum, sternum, multiple ribs bilaterally, clavicles bilaterally, scapulae bilaterally, bony pelvis, humeri bilaterally and prximal femurs bilaterally, compatible with extensive osseous metastatic disease. Compared to the prior examination, there is slight interval worsening of disease. IMPRESSION: Progressive worsening of metastatic disease. Dictated by: Heidi Latif M.D. on 09/24/2022 at 16:23 Approved by: Heidi Latif M.D. on 09/24/2022 at 16:28
--- NOTE | 2022-09-24 | DI.CT.S_ITS ---
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 Coronal and sagittal reformats were performed. For radiation dose reduction, the following was used: automated exposure control, adjustment of mA and/or kV according to patient size. COMPARISON: [facility], CT, CT CHEST ABD PEL W CON, 10/31/2020, 10:24. [facility], CT, CT ANGIO CHEST PE PROTOCOL, 11/28/2021, 19:17. [facility], CT, CT CHEST ABD PEL W CON, 05/18/2021, 10:19. FINDINGS: Image quality: Excellent. CHEST: Lower Neck: No enlarged lymph nodes. Thyroid: Unremarkable. Axillae: There are bilateral axillary lymph nodes, some of which meet the pathologic size criteria of greater than 1 cm in diameter. These are new when compared with the CT dated November 28, 2021. Chest Wall: There is a left Port-A-Cath, the tip of which is at the confluence of the brachiocephalic veins. Lungs and Airways: Mild interlobular septal thickening is present which appears increased from the study dated November 28, 2021 suggesting mild pulmonary edema. No acute airspace consolidation or new pulmonary mass lesions. Pleura: No pneumothorax or pleural effusions. Heart: Heart size is normal. No pericardial effusion. Thoracic Vessels: The aorta and pulmonary arteries demonstrate normal size. Scattered atheromatous calcifications are present within the aortic arch. Mediastinum and Ada: There is an enlarged pretracheal lymph node which measures 1.2 cm in diameter and is new when compared with the study dated November 28, 2021. No hilar adenopathy. Esophagus: No wall thickening. No hiatal hernia. ABDOMEN: Liver: Unremarkable. Gallbladder: Unremarkable. Biliary ducts: Unremarkable. Pancreas: Unremarkable. Spleen: Unremarkable. Adrenal Glands: Unremarkable. Kidneys and Ureters: Right upper pole centrally hypodense peripherally enhancing exophytic lesion off the upper pole of the right kidney is unchanged from the study dated October 31, 2020. Low-density cortical cysts are present within the left kidney. Nonobstructing calculi are present within the lower pole of the right kidney. Cortical scarring is also present within the midpole of the right kidney. No hydronephrosis. No left nephrolithiasis. Stomach and Bowel: Stomach, small bowel loops, and colon are unremarkable. There are scattered sigmoid diverticula. No evidence for diverticulitis. The appendix is thin walled and gas filled. Peritoneum: No abnormal intraperitoneal fluid. No free air. Ventral Wall: No hernia. Abdominal Nodes: There are multiple enlarged retroperitoneal lymph nodes measuring up to 1.5 cm in short axis diameter. There are bilateral common iliac chain lymph nodes. Vessels: Aorta and inferior vena cava are normal in size. There are scattered atheromatous calcifications throughout the aorta and iliac arteries bilaterally. PELVIS: Pelvic Organs: Unremarkable. Bladder: Decompressed. Pelvic Nodes: 2 soft tissue mass lesions are present within the left aspect of the mesorectal fat (series 2/image 107). More inferiorly, a previously visualized soft tissue mass is slightly decreased in size from the CT dated May 18, 2021. 3 fiducial markers are now present in this region. Miscellaneous: No inguinal hernias are seen. Bones: Multiple sclerotic lesions are redemonstrated. A previously visualized sclerotic lesion within the right anterior 3rd rib now demonstrates an expansile soft tissue mass. A similar lesion is present within the anterior aspect of the left 5th rib which is increased in size when compared with thoracic, lumbar, and sacral spine, many of which are new when compared with the prior chest CT dated September 27, 2022. No compression deformities are visualized. A sclerotic lesion within the sternum has also increased in size. Multiple mixed sclerotic and lytic lesions within the pelvis are also new when compared with the prior CT dated May 18, 2021. IMPRESSION: 1. Multiple findings suggesting progression of disease when compared with the prior CT of the chest abdomen and pelvis dated May 18, [address] dated November 28, 2021. These include: 1. Axillary, mediastinal and retroperitoneal adenopathy. 2. New soft tissue mass within the left mesorectal fat. 3. Extensive new sclerotic and lytic bony metastases as well as some soft tissue expansion of the rib metastases. Dictated by: Sarah Goetz M.D. on 09/24/2022 at 10:14 Approved by: Sarah Goetz M.D. on 09/24/2022 at 10:37
== END ==
PROVIDERS: PCP Family Medicine; Referring Provider Radiology Radiation Oncology; Visit Provider Radiology Radiation Oncology
DX: C61 Malignant neoplasm of prostate (principal); C79.51 Secondary malignant neoplasm of bone; R59.1 Generalized enlarged lymph nodes; R22.2 Localized swelling, mass and lump, trunk
CPT/HCPCS: 71260; 74177; 78306; A9503; Q9967

== ENCOUNTER 2022-10-12 11:17 | Emergency (ER) | payer MEDICARE, OTHER, SELFPAY ==
[2021-11-28 21:05] VITALS: BMI 29.7
[2022-10-12] VITALS (41 sets, daily range): BP systolic 143–172; BP diastolic 63–81; PULSE 82–112; RESP 15–28; TEMP 36.7; O2SAT 92–100; BMI 22.5
--- NOTE | 2022-10-12 12:24 | DI.CT.S_ITS ---
PROCEDURE: CT KIDNEY URETER BLADDER (KUB) INDICATIONS: urinary obstruction? TECHNIQUE: Axial sections were acquired from the lung bases to the pubic symphysis. Coronal and sagittal reformats were performed. For radiation dose reduction, the following was used: automated exposure control, adjustment of mA and/or kV according to patient size. COMPARISON: [facility], CT, CT CHEST ABD PEL W CON, 09/24/2022, 9:16. [facility], CT, KIDNEY/ URETER/BLADDER, 01/25/2017, 11:15. FINDINGS: Image quality: Good Noncontrast imaging is suboptimal for evaluation of the patient's no malignancy. Lower chest: Scattered scarring and atelectasis. Coronary calcifications and valvular/annular calcifications are present. Solid organs: Liver is unremarkable. Gallbladder is unremarkable. No pathologic dilation of the biliary tree or pancreatic duct. No splenomegaly. No adrenal nodules. Unchanged right upper pole low-density renal lesion compared to prior. Moderate right hydronephrosis. There is a nonobstructing stone at the lower pole as previously seen, however in the distal ureter, there is an obstructing 3-4 millimeters stone. The location of obstruction is at the soft tissue masses around the peritoneal reflection. No left hydronephrosis. Under distended bladder wall thickening and perivesicular stranding. Vessels and lymph nodes: No abdominal aortic aneurysm. Retroperitoneal and pelvic adenopathy better assessed on prior imaging. Bowel and peritoneum: No bowel obstruction. No pathologic ascites. There is wall thickening of the rectum, not well evaluated on this study, in addition to perirectal/sigmoid soft tissue mass along the right peritoneal reflection, better characterized on prior imaging. Colonic diverticula. Body wall: Anterior abdominal wall suspected injection granulomas. Pelvis: As above. Prostate radiation markers. Bones: Diffuse metastatic disease. IMPRESSION: New right moderate hydronephrosis secondary to an obstructing distal ureter stone measuring about 4 millimeters. 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 A percutaneous nephrostomy may be necessary for decompression even if the stone passes. Perivesicular stranding, correlate with urinalysis. Diffuse soft tissue and osseous metastatic disease better characterized on prior contrast-enhanced images. Other findings as above. Dictated by: Pernell Hale M.D. on 10/12/2022 at 13:58 Approved by: Pernell Hale M.D. on 10/12/2022 at 14:06
[2022-10-12 13:17] LABS: Appearance Urine UA CLOUDY; Bilirubin Urine UA NEGATIVE (NEGATIVE); Color Urine UA YELLOW; Glucose Urine UA NEGATIVE (Negative); Ketones Urine UA TRACE (NEGATIVE); Leukocyte Esterase Urine UA 2+ (NEGATIVE); Nitrite Urine UA NEGATIVE (Negative); Occult Blood Urine UA 2+ (Negative); Protein Urine UA 2+ (Negative); Specific Gravity Urine UA 1.025 (1.000-1.035); Urobilinogen Urine UA 0.2 E.U./dL (0.2)
[2022-10-12 14:22] LABS: Bacteria Urine Many (>30); Culture Indicated Urine Specimen Cultured; RBC Urine 1-5/HPF (0-5/HPF); Squamous Epithelial Cell Urine None Seen (0-5/HPF); WBC Urine >100/HPF (0-5/HPF)
--- NOTE | 2022-10-12 14:56 | ED.SEPSIS ---
HPI - Sepsis <Jay Garcia DO - Last Filed: 10/16/22 10:33> General Chief Complaint: Urogenital-Male Mode of arrival: Wheelchair Source: patient Limitations: no limitations Evaluation Sepsis Screen: No Definite Risk Sepsis Infection Criteria Present: None Narrative: 82-year-old male former smoker with history of kidney stones and prostate cancer presents with his in the chief complaint of about 1 week of suprapubic discomfort as well as subjective fever and chills. He has had dysuria, frequency and urgency. He denies any dizziness, weakness or lightheadedness. He denies any chest pain or shortness of breath. He denies nausea, vomiting or diarrhea. Review of Systems <Jay Garcia DO - Last Filed: 10/16/22 10:33> Review of Systems Narrative: GENERAL: See HPI HEENT: Denies sinus pain, ear pain, sore throat, difficulty swallowing, dizziness. RESPIRATORY: Denies dyspnea, cough, wheezing, hemoptysis, sputum. CARDIOVASCULAR: Denies chest pain, palpitations, orthopnea, edema, GASTROINTESTINAL: See HPI : See HPI MUSCULOSKELETAL: denies weakness, joint pain, or bony pain SKIN: Denies rash, skin lesions, or other NEUROLOGIC: Denies weakness, headache, numbness, change in speech, confusion, seizures, incoordination. PSYCHIATRIC: No concerning psychosocial issues. 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 History of kidney cancer Hydronephrosis, right Hypertension Recurrent prostate cancer Right ureteral calculus Vomiting Surgical History History of transurethral resection of prostate Family History Father Myocardial infarction Mother Small cell lung cancer in adult Sister Cancer of kidney Social History marital status: number of children: 0 household members: spouse Smoking Status: Former smoker alcohol intake: current Smoking Status: Former smoker alcohol intake frequency: holidays/special occasions only Substance Use Type: does not use Exam <Jay Garcia, DO - Last Filed: 10/16/22 10:33> Narrative Exam Narrative: GENERAL: [82] year old patient appears stated age. Well-developed patient, in mild distress. HEAD: Atraumatic. Normocephalic. EYES: Pupils equal round and reactive. Extraocular motions intact. No scleral icterus. No injection or drainage. ENT: Nose without bleeding, purulent drainage. Throat without erythema, tonsillar hypertrophy or exudate. Airway patent. NECK: Trachea midline. Non tender CARDIOVASCULAR: Regular rate and rhythm without murmurs, gallops, or rubs. RESPIRATORY: Clear to auscultation. Breath sounds equal bilaterally. No wheezes, rales, or rhonchi. GASTROINTESTINAL: Abdomen soft, non-tender, nondistended. EXTREMITIES: No edema or joint tenderness. BACK: Nontender without deformity or crepitance. No flank tenderness. NEURO: AOx3. SKIN: No rash or erythema of visible areas Initial Vital Signs Initial Vital Signs: Vital Signs Temperature 98.1 F 10/12/22 11:57 Pulse Rate 88 10/12/22 11:57 Respiratory Rate 16 10/12/22 11:57 Blood Pressure 152/66 H 10/12/22 11:57 Pulse Oximetry 99 10/12/22 11:57 Oxygen Delivery Method 10/12/22 11:57 <Quinton Solorio, DO - Last Filed: 10/16/22 20:04> Initial Vital Signs Initial Vital Signs: Vital Signs Temperature 98.1 F 10/12/22 11:57 Pulse Rate 88 10/12/22 11:57 Respiratory Rate 16 10/12/22 11:57 Blood Pressure 152/66 H 10/12/22 11:57 Pulse Oximetry 99 10/12/22 11:57 Oxygen Delivery Method 10/12/22 11:57 <Melanie Phoenix, DO - Last Filed: 10/19/22 07:23> Initial Vital Signs Initial Vital Signs: Vital Signs Temperature 98.1 F 10/12/22 11:57 Pulse Rate 88 10/12/22 11:57 Respiratory Rate 16 10/12/22 11:57 Blood Pressure 152/66 H 10/12/22 11:57 Pulse Oximetry 99 10/12/22 11:57 Oxygen Delivery Method 10/12/22 11:57 <Sherlyn Moscoso DO - Last Filed: 10/22/22 07:58> Initial Vital Signs Initial Vital Signs: Vital Signs Temperature 98.1 F 10/12/22 11:57 Pulse Rate 88 10/12/22 11:57 Respiratory Rate 16 10/12/22 11:57 Blood Pressure 152/66 H 10/12/22 11:57 Pulse Oximetry 99 10/12/22 11:57 Oxygen Delivery Method 10/12/22 11:57 <Frankie Turpin MD - Last Filed: 10/24/22 22:11> Initial Vital Signs Initial Vital Signs: Vital Signs Temperature 98.1 F 10/12/22 11:57 Pulse Rate 88 10/12/22 11:57 Respiratory Rate 16 10/12/22 11:57 Blood Pressure 152/66 H 10/12/22 11:57 Pulse Oximetry 99 10/12/22 11:57 Oxygen Delivery Method 10/12/22 11:57 Course <Jay Garcia DO - Last Filed: 10/16/22 10:33> Orders Ordered: Discontinued Medications Acetaminophen (Acetaminophen 325 Mg Tablet) 650 mg PO Q6HR PRN PRN Reason: Pain, Moderate (4-6) Last Admin: 10/13/22 18:09 Dose: 650 mg Documented By: VIVEK Enoxaparin Sodium (Enoxaparin 40 Mg/0.4 Ml Syringe) 40 mg SUBCUT DAILY [facility] Last Admin: 10/15/22 08:46 Dose: 40 mg Documented By: Admin: 10/14/22 08:47 Dose: 40 mg Documented By: Admin: 10/13/22 12:21 Dose: 40 mg Documented By: ATA Ceftriaxone Sodium 2,000 mg/ (Sodium Chloride) 100 mls @ 200 mls/hr IV NOW ONE Stop: 10/12/22 14:58 Last Infusion: 10/12/22 16:04 Dose: 0 mls/hr Documented By: Admin: 10/12/22 15:27 Dose: 200 mls/hr Documented By: DION Ceftriaxone Sodium 1,000 mg/ (Sodium Chloride) 100 mls @ 200 mls/hr IV DAILY [facility] Last Infusion: 10/15/22 09:25 Dose: 0 mls/hr Documented By: Admin: 10/15/22 08:45 Dose: 200 mls/hr Documented By: Infusion: 10/14/22 09:26 Dose: 0 mls/hr Documented By: Admin: 10/14/22 08:47 Dose: 200 mls/hr Documented By: Infusion: 10/13/22 16:40 Dose: 0 mls/hr Documented By: Admin: 10/13/22 16:14 Dose: 200 mls/hr Documented By: ATA Sodium Chloride (Normal Saline 0.9%) 1,000 mls @ 1,000 mls/hr IV BOLUS ONE Stop: 10/13/22 18:24 Last Infusion: 10/13/22 19:39 Dose: 0 mls/hr Documented By: Admin: 10/13/22 18:03 Dose: 1,000 mls/hr Documented By: VIVEK Sodium Chloride (Normal Saline 0.9%) 1,000 mls @ 150 mls/hr IV CONT [facility] Last Infusion: 10/14/22 04:12 Dose: 0 mls/hr Documented By: Admin: 10/13/22 19:46 Dose: 150 mls/hr Documented By: LEEROY Ketorolac Tromethamine (Ketorolac 30 Mg/Ml Vial) 15 mg IV NOW ONE Stop: 10/12/22 15:05 Last Admin: 10/12/22 15:27 Dose: 15 mg Documented By: DION Morphine Sulfate (Morphine 4 Mg/Ml Inj) 4 mg IV NOW ONE Stop: 10/12/22 18:10 Last Admin: 10/12/22 18:22 Dose: 4 mg Documented By: LAURE Morphine Sulfate (Morphine 2 Mg/Ml Inj) 2 mg IV Q4HR PRN PRN Reason: Pain, Moderate (4-6) Last Admin: 10/13/22 18:11 Dose: 2 mg Documented By: VIVEK Tamsulosin HCl (Tamsulosin 0.4 Mg Capsule) 0.4 mg PO NOW ONE Stop: 10/12/22 15:05 Last Admin: 10/12/22 15:27 Dose: 0.4 mg Documented By: DION Consultations Consultation #1: discussed with Dr. Stover, Urology, given patient's history presentation, urine results, elevated lactate and imaging he recommends continued treatment with fluids, antibiotics and transferred to a facility with ability to perform urologic intervention or Interventional Radiology. Vital Signs Vital signs: Vital Signs - 8 hr 10/15/22 06:15 10/15/22 06:30 10/15/22 06:45 Pulse Rate 96 H 90 92 H Respiratory Rate 23 19 Blood Pressure Pulse Oximetry 98 98 97 10/15/22 07:00 10/15/22 07:00 10/15/22 07:15 Pulse Rate 84 87 Respiratory Rate 16 21 Blood Pressure 144/67 H Pulse Oximetry 97 98 10/15/22 07:30 10/15/22 07:45 10/15/22 08:00 Pulse Rate 90 97 H Respiratory Rate 17 25 H Blood Pressure 162/74 H Pulse Oximetry 98 97 10/15/22 08:00 10/15/22 08:15 10/15/22 08:30 Pulse Rate 90 90 94 H Respiratory Rate 17 19 22 Blood Pressure Pulse Oximetry 10/15/22 08:45 10/15/22 09:00 10/15/22 09:15 Pulse Rate 96 H 93 H 89 Respiratory Rate 13 17 15 Blood Pressure Pulse Oximetry 10/15/22 09:30 10/15/22 09:45 10/15/22 10:00 Pulse Rate 91 H 88 Respiratory Rate 19 17 Blood Pressure 145/68 H Pulse Oximetry 10/15/22 10:00 10/15/22 10:18 10/15/22 10:30 Pulse Rate 92 H 98 H 86 Respiratory Rate 17 22 18 Blood Pressure Pulse Oximetry 10/15/22 10:45 10/15/22 11:00 10/15/22 11:15 Pulse Rate 85 86 100 H Respiratory Rate 16 16 33 H Blood Pressure Pulse Oximetry 10/15/22 11:30 10/15/22 11:45 10/15/22 12:00 Pulse Rate 85 84 91 H Respiratory Rate 16 16 39 H Blood Pressure Pulse Oximetry 10/15/22 12:15 10/15/22 12:30 10/15/22 12:45 Pulse Rate 89 89 91 H Respiratory Rate 19 17 18 Blood Pressure Pulse Oximetry 10/15/22 13:00 10/15/22 13:15 Pulse Rate 90 90 Respiratory Rate 23 16 Blood Pressure Pulse Oximetry <Quinton Solorio DO - Last Filed: 10/16/22 20:04> Orders Ordered: Discontinued Medications Acetaminophen (Acetaminophen 325 Mg Tablet) 650 mg PO Q6HR PRN PRN Reason: Pain, Moderate (4-6) Last Admin: 10/13/22 18:09 Dose: 650 mg Documented By: VIVEK Enoxaparin Sodium (Enoxaparin 40 Mg/0.4 Ml Syringe) 40 mg SUBCUT DAILY [facility] Last Admin: 10/15/22 08:46 Dose: 40 mg Documented By: MLKvng Admin: 10/14/22 08:47 Dose: 40 mg Documented By: Admin: 10/13/22 12:21 Dose: 40 mg Documented By: ATA Ceftriaxone Sodium 2,000 mg/ (Sodium Chloride) 100 mls @ 200 mls/hr IV NOW ONE Stop: 10/12/22 14:58 Last Infusion: 10/12/22 16:04 Dose: 0 mls/hr Documented By: Admin: 10/12/22 15:27 Dose: 200 mls/hr Documented By: DION Ceftriaxone Sodium 1,000 mg/ (Sodium Chloride) 100 mls @ 200 mls/hr IV DAILY [facility] Last Infusion: 10/15/22 09:25 Dose: 0 mls/hr Documented By: Admin: 10/15/22 08:45 Dose: 200 mls/hr Documented By: MLKvng Infusion: 10/14/22 09:26 Dose: 0 mls/hr Documented By: Admin: 10/14/22 08:47 Dose: 200 mls/hr Documented By: Infusion: 10/13/22 16:40 Dose: 0 mls/hr Documented By: Admin: 10/13/22 16:14 Dose: 200 mls/hr Documented By: ATA Sodium Chloride (Normal Saline 0.9%) 1,000 mls @ 1,000 mls/hr IV BOLUS ONE Stop: 10/13/22 18:24 Last Infusion: 10/13/22 19:39 Dose: 0 mls/hr Documented By: Admin: 10/13/22 18:03 Dose: 1,000 mls/hr Documented By: VVIEK Sodium Chloride (Normal Saline 0.9%) 1,000 mls @ 150 mls/hr IV CONT [facility] Last Infusion: 10/14/22 04:12 Dose: 0 mls/hr Documented By: Admin: 10/13/22 19:46 Dose: 150 mls/hr Documented By: LEEROY Ketorolac Tromethamine (Ketorolac 30 Mg/Ml Vial) 15 mg IV NOW ONE Stop: 10/12/22 15:05 Last Admin: 10/12/22 15:27 Dose: 15 mg Documented By: DION Morphine Sulfate (Morphine 4 Mg/Ml Inj) 4 mg IV NOW ONE Stop: 10/12/22 18:10 Last Admin: 10/12/22 18: Dose: 4 mg Documented By: LAURE Morphine Sulfate (Morphine 2 Mg/Ml Inj) 2 mg IV Q4HR PRN PRN Reason: Pain, Moderate (4-6) Last Admin: 10/13/22 18:11 Dose: 2 mg Documented By: VIVEK Tamsulosin HCl (Tamsulosin 0.4 Mg Capsule) 0.4 mg PO NOW ONE Stop: 10/12/22 15:05 Last Admin: 10/12/22 15:27 Dose: 0.4 mg Documented By: DION Vital Signs Vital signs: Vital Signs - 8 hr 10/15/22 06:15 10/15/22 06:30 10/15/22 06:45 Pulse Rate 96 H 90 92 H Respiratory Rate 23 19 Blood Pressure Pulse Oximetry 98 98 97 10/15/22 07:00 10/15/22 07:00 10/15/22 07:15 Pulse Rate 84 87 Respiratory Rate 16 21 Blood Pressure 144/67 H Pulse Oximetry 97 98 10/15/22 07:30 10/15/22 07:45 10/15/22 08:00 Pulse Rate 90 97 H Respiratory Rate 17 25 H Blood Pressure 162/74 H Pulse Oximetry 98 97 10/15/22 08:00 10/15/22 08:15 10/15/22 08:30 Pulse Rate 90 90 94 H Respiratory Rate 17 19 22 Blood Pressure Pulse Oximetry 10/15/22 08:45 10/15/22 09:00 10/15/22 09:15 Pulse Rate 96 H 93 H 89 Respiratory Rate 13 17 15 Blood Pressure Pulse Oximetry 10/15/22 09:30 10/15/22 09:45 10/15/22 10:00 Pulse Rate 91 H 88 Respiratory Rate 19 17 Blood Pressure 145/68 H Pulse Oximetry 10/15/22 10:00 10/15/22 10:18 10/15/22 10:30 Pulse Rate 92 H 98 H 86 Respiratory Rate 17 22 18 Blood Pressure Pulse Oximetry 10/15/22 10:45 10/15/22 11:00 10/15/22 11:15 Pulse Rate 85 86 100 H Respiratory Rate 16 16 33 H Blood Pressure Pulse Oximetry 10/15/22 11:30 10/15/22 11:45 10/15/22 12:00 Pulse Rate 85 84 91 H Respiratory Rate 16 16 39 H Blood Pressure Pulse Oximetry 10/15/22 12:15 10/15/22 12:30 10/15/22 12:45 Pulse Rate 89 89 91 H Respiratory Rate 19 17 18 Blood Pressure Pulse Oximetry 10/15/22 13:00 10/15/22 13:15 Pulse Rate 90 90 Respiratory Rate 23 16 Blood Pressure Pulse Oximetry <Melanie Phoenix, DO - Last Filed: 10/19/22 07:23> Orders Ordered: Discontinued Medications Acetaminophen (Acetaminophen 325 Mg Tablet) 650 mg PO Q6HR PRN PRN Reason: Pain, Moderate (4-6) Last Admin: 10/13/22 18:09 Dose: 650 mg Documented By: VIVEK Enoxaparin Sodium (Enoxaparin 40 Mg/0.4 Ml Syringe) 40 mg SUBCUT DAILY [facility] Last Admin: 10/15/22 08:46 Dose: 40 mg Documented By: Admin: 10/14/22 08:47 Dose: 40 mg Documented By: Admin: 10/13/22 12:21 Dose: 40 mg Documented By: ATA Ceftriaxone Sodium 2,000 mg/ (Sodium Chloride) 100 mls @ 200 mls/hr IV NOW ONE Stop: 10/12/22 14:58 Last Infusion: 10/12/22 16:04 Dose: 0 mls/hr Documented By: Admin: 10/12/22 15:27 Dose: 200 mls/hr Documented By: DION Ceftriaxone Sodium 1,000 mg/ (Sodium Chloride) 100 mls @ 200 mls/hr IV DAILY [facility] Last Infusion: 10/15/22 09:25 Dose: 0 mls/hr Documented By: Admin: 10/15/22 08:45 Dose: 200 mls/hr Documented By: Infusion: 10/14/22 09:26 Dose: 0 mls/hr Documented By: Admin: 10/14/22 08:47 Dose: 200 mls/hr Documented By: Infusion: 10/13/22 16:40 Dose: 0 mls/hr Documented By: Admin: 10/13/22 16:14 Dose: 200 mls/hr Documented By: ATA Sodium Chloride (Normal Saline 0.9%) 1,000 mls @ 1,000 mls/hr IV BOLUS ONE Stop: 10/13/22 18:24 Last Infusion: 10/13/22 19:39 Dose: 0 mls/hr Documented By: Admin: 10/13/22 18:03 Dose: 1,000 mls/hr Documented By: VIVEK Sodium Chloride (Normal Saline 0.9%) 1,000 mls @ 150 mls/hr IV CONT [facility] Last Infusion: 10/14/22 04:12 Dose: 0 mls/hr Documented By: Admin: 10/13/22 19:46 Dose: 150 mls/hr Documented By: LEEROY Ketorolac Tromethamine (Ketorolac 30 Mg/Ml Vial) 15 mg IV NOW ONE Stop: 10/12/22 15:05 Last Admin: 10/12/22 15:27 Dose: 15 mg Documented By: DION Morphine Sulfate (Morphine 4 Mg/Ml Inj) 4 mg IV NOW ONE Stop: 10/12/22 18:10 Last Admin: 10/12/22 18:22 Dose: 4 mg Documented By: LAURE Morphine Sulfate (Morphine 2 Mg/Ml Inj) 2 mg IV Q4HR PRN PRN Reason: Pain, Moderate (4-6) Last Admin: 10/13/22 18:11 Dose: 2 mg Documented By: VIVEK Tamsulosin HCl (Tamsulosin 0.4 Mg Capsule) 0.4 mg PO NOW ONE Stop: 10/12/22 15:05 Last Admin: 10/12/22 15:27 Dose: 0.4 mg Documented By: DION Vital Signs Vital signs: Vital Signs - 8 hr 10/15/22 06:15 10/15/22 06:30 10/15/22 06:45 Pulse Rate 96 H 90 92 H Respiratory Rate 23 19 Blood Pressure Pulse Oximetry 98 98 97 10/15/22 07:00 10/15/22 07:00 10/15/22 07:15 Pulse Rate 84 87 Respiratory Rate 16 21 Blood Pressure 144/67 H Pulse Oximetry 97 98 10/15/22 07:30 10/15/22 07:45 10/15/22 08:00 Pulse Rate 90 97 H Respiratory Rate 17 25 H Blood Pressure 162/74 H Pulse Oximetry 98 97 10/15/22 08:00 10/15/22 08:15 10/15/22 08:30 Pulse Rate 90 90 94 H Respiratory Rate 17 19 22 Blood Pressure Pulse Oximetry 10/15/22 08:45 10/15/22 09:00 10/15/22 09:15 Pulse Rate 96 H 93 H 89 Respiratory Rate 13 17 15 Blood Pressure Pulse Oximetry 10/15/22 09:30 10/15/22 09:45 10/15/22 10:00 Pulse Rate 91 H 88 Respiratory Rate 19 17 Blood Pressure 145/68 H Pulse Oximetry 10/15/22 10:00 10/15/22 10:18 10/15/22 10:30 Pulse Rate 92 H 98 H 86 Respiratory Rate 17 22 18 Blood Pressure Pulse Oximetry 10/15/22 10:45 10/15/22 11:00 10/15/22 11:15 Pulse Rate 85 86 100 H Respiratory Rate 16 16 33 H Blood Pressure Pulse Oximetry 10/15/22 11:30 10/15/22 11:45 10/15/22 12:00 Pulse Rate 85 84 91 H Respiratory Rate 16 16 39 H Blood Pressure Pulse Oximetry 10/15/22 12:15 10/15/22 12:30 10/15/22 12:45 Pulse Rate 89 89 91 H Respiratory Rate 19 17 18 Blood Pressure Pulse Oximetry 10/15/22 13:00 10/15/22 13:15 Pulse Rate 90 90 Respiratory Rate 23 16 Blood Pressure Pulse Oximetry <Sherlyn Moscoso, DO - Last Filed: 10/22/22 07:58> Orders Ordered: Discontinued Medications Acetaminophen (Acetaminophen 325 Mg Tablet) 650 mg PO Q6HR PRN PRN Reason: Pain, Moderate (4-6) Last Admin: 10/13/22 18:09 Dose: 650 mg Documented By: VIVEK Enoxaparin Sodium (Enoxaparin 40 Mg/0.4 Ml Syringe) 40 mg SUBCUT DAILY [facility] Last Admin: 10/15/22 08:46 Dose: 40 mg Documented By: Admin: 10/14/22 08:47 Dose: 40 mg Documented By: Admin: 10/13/22 12:21 Dose: 40 mg Documented By: ATA Ceftriaxone Sodium 2,000 mg/ (Sodium Chloride) 100 mls @ 200 mls/hr IV NOW ONE Stop: 10/12/22 14:58 Last Infusion: 10/12/22 16:04 Dose: 0 mls/hr Documented By: Admin: 10/12/22 15:27 Dose: 200 mls/hr Documented By: DION Ceftriaxone Sodium 1,000 mg/ (Sodium Chloride) 100 mls @ 200 mls/hr IV DAILY [facility] Last Infusion: 10/15/22 09:25 Dose: 0 mls/hr Documented By: MLvKng Admin: 10/15/22 08:45 Dose: 200 mls/hr Documented By: Infusion: 10/14/22 09:26 Dose: 0 mls/hr Documented By: Admin: 10/14/22 08:47 Dose: 200 mls/hr Documented By: Infusion: 10/13/22 16:40 Dose: 0 mls/hr Documented By: MLKvng Admin: 10/13/22 16:14 Dose: 200 mls/hr Documented By: ATA Sodium Chloride (Normal Saline 0.9%) 1,000 mls @ 1,000 mls/hr IV BOLUS ONE Stop: 10/13/22 18:24 Last Infusion: 10/13/22 19:39 Dose: 0 mls/hr Documented By: Admin: 10/13/22 18:03 Dose: 1,000 mls/hr Documented By: VIVEK Sodium Chloride (Normal Saline 0.9%) 1,000 mls @ 150 mls/hr IV CONT [facility] Last Infusion: 10/14/22 04:12 Dose: 0 mls/hr Documented By: Admin: 10/13/22 19:46 Dose: 150 mls/hr Documented By: LEEROY Ketorolac Tromethamine (Ketorolac 30 Mg/Ml Vial) 15 mg IV NOW ONE Stop: 10/12/22 15:05 Last Admin: 10/12/22 15:27 Dose: 15 mg Documented By: DION Morphine Sulfate (Morphine 4 Mg/Ml Inj) 4 mg IV NOW ONE Stop: 10/12/22 18:10 Last Admin: 10/12/22 18:22 Dose: 4 mg Documented By: LAURE Morphine Sulfate (Morphine 2 Mg/Ml Inj) 2 mg IV Q4HR PRN PRN Reason: Pain, Moderate (4-6) Last Admin: 10/13/22 18:11 Dose: 2 mg Documented By: VIVEK Tamsulosin HCl (Tamsulosin 0.4 Mg Capsule) 0.4 mg PO NOW ONE Stop: 10/12/22 15:05 Last Admin: 10/12/22 15:27 Dose: 0.4 mg Documented By: CTS Vital Signs Vital signs: Vital Signs - 8 hr 10/15/22 06:15 10/15/22 06:30 10/15/22 06:45 Pulse Rate 96 H 90 92 H Respiratory Rate 23 19 Blood Pressure Pulse Oximetry 98 98 97 10/15/22 07:00 10/15/22 07:00 10/15/22 07:15 Pulse Rate 84 87 Respiratory Rate 16 21 Blood Pressure 144/67 H Pulse Oximetry 97 98 10/15/22 07:30 10/15/22 07:45 10/15/22 08:00 Pulse Rate 90 97 H Respiratory Rate 17 25 H Blood Pressure 162/74 H Pulse Oximetry 98 97 10/15/22 08:00 10/15/22 08:15 10/15/22 08:30 Pulse Rate 90 90 94 H Respiratory Rate 17 19 22 Blood Pressure Pulse Oximetry 10/15/22 08:45 10/15/22 09:00 10/15/22 09:15 Pulse Rate 96 H 93 H 89 Respiratory Rate 13 17 15 Blood Pressure Pulse Oximetry 10/15/22 09:30 10/15/22 09:45 10/15/22 10:00 Pulse Rate 91 H 88 Respiratory Rate 19 17 Blood Pressure 145/68 H Pulse Oximetry 10/15/22 10:00 10/15/22 10:18 10/15/22 10:30 Pulse Rate 92 H 98 H 86 Respiratory Rate 17 22 18 Blood Pressure Pulse Oximetry 10/15/22 10:45 10/15/22 11:00 10/15/22 11:15 Pulse Rate 85 86 100 H Respiratory Rate 16 16 33 H Blood Pressure Pulse Oximetry 10/15/22 11:30 10/15/22 11:45 10/15/22 12:00 Pulse Rate 85 84 91 H Respiratory Rate 16 16 39 H Blood Pressure Pulse Oximetry 10/15/22 12:15 10/15/22 12:30 10/15/22 12:45 Pulse Rate 89 89 91 H Respiratory Rate 19 17 18 Blood Pressure Pulse Oximetry 10/15/22 13:00 10/15/22 13:15 Pulse Rate 90 90 Respiratory Rate 23 16 Blood Pressure Pulse Oximetry <Frankie Turpin MD - Last Filed: 10/24/22 22:11> Course Course Narrative: October 15, 2022 at 7:[address] Moscoso, patient is on waiting list for transfer for urological needs. Labs are pending this morning. One of 2 blood cultures is positive. Patient currently on cefepime. May need to call Urology for update today as patient will be on 3rd dose of antibiotics. Has been hemodynamically stable. Pain is controlled. Exam is reassuring. Orders Ordered: Discontinued Medications Acetaminophen (Acetaminophen 325 Mg Tablet) 650 mg PO Q6HR PRN PRN Reason: Pain, Moderate (4-6) Last Admin: 10/13/22 18:09 Dose: 650 mg Documented By: VIVEK Enoxaparin Sodium (Enoxaparin 40 Mg/0.4 Ml Syringe) 40 mg SUBCUT DAILY [facility] Last Admin: 10/15/22 08:46 Dose: 40 mg Documented By: MLKvng Admin: 10/14/22 08:47 Dose: 40 mg Documented By: Admin: 10/13/22 12:21 Dose: 40 mg Documented By: ATA Ceftriaxone Sodium 2,000 mg/ (Sodium Chloride) 100 mls @ 200 mls/hr IV NOW ONE Stop: 10/12/22 14:58 Last Infusion: 10/12/22 16:04 Dose: 0 mls/hr Documented By: Admin: 10/12/22 15:27 Dose: 200 mls/hr Documented By: CTS Ceftriaxone Sodium 1,000 mg/ (Sodium Chloride) 100 mls @ 200 mls/hr IV DAILY [facility] Last Infusion: 10/15/22 09:25 Dose: 0 mls/hr Documented By: Admin: 10/15/22 08:45 Dose: 200 mls/hr Documented By: Infusion: 10/14/22 09:26 Dose: 0 mls/hr Documented By: Admin: 10/14/22 08:47 Dose: 200 mls/hr Documented By: Infusion: 10/13/22 16:40 Dose: 0 mls/hr Documented By: Admin: 10/13/22 16:14 Dose: 200 mls/hr Documented By: ATA Sodium Chloride (Normal Saline 0.9%) 1,000 mls @ 1,000 mls/hr IV BOLUS ONE Stop: 10/13/22 18:24 Last Infusion: 10/13/22 19:39 Dose: 0 mls/hr Documented By: Admin: 10/13/22 18:03 Dose: 1,000 mls/hr Documented By: VIVEK Sodium Chloride (Normal Saline 0.9%) 1,000 mls @ 150 mls/hr IV CONT [facility] Last Infusion: 10/14/22 04:12 Dose: 0 mls/hr Documented By: Admin: 10/13/22 19:46 Dose: 150 mls/hr Documented By: LEEROY Ketorolac Tromethamine (Ketorolac 30 Mg/Ml Vial) 15 mg IV NOW ONE Stop: 10/12/22 15:05 Last Admin: 10/12/22 15:27 Dose: 15 mg Documented By: DION Morphine Sulfate (Morphine 4 Mg/Ml Inj) 4 mg IV NOW ONE Stop: 10/12/22 18:10 Last Admin: 10/12/22 18:22 Dose: 4 mg Documented By: LAURE Morphine Sulfate (Morphine 2 Mg/Ml Inj) 2 mg IV Q4HR PRN PRN Reason: Pain, Moderate (4-6) Last Admin: 10/13/22 18:11 Dose: 2 mg Documented By: VIVEK Tamsulosin HCl (Tamsulosin 0.4 Mg Capsule) 0.4 mg PO NOW ONE Stop: 10/12/22 15:05 Last Admin: 10/12/22 15:27 Dose: 0.4 mg Documented By: DION Vital Signs Vital signs: Vital Signs - 8 hr 10/15/22 06:15 10/15/22 06:30 10/15/22 06:45 Pulse Rate 96 H 90 92 H Respiratory Rate 23 19 Blood Pressure Pulse Oximetry 98 98 97 10/15/22 07:00 10/15/22 07:00 10/15/22 07:15 Pulse Rate 84 87 Respiratory Rate 16 21 Blood Pressure 144/67 H Pulse Oximetry 97 98 10/15/22 07:30 10/15/22 07:45 10/15/22 08:00 Pulse Rate 90 97 H Respiratory Rate 17 25 H Blood Pressure 162/74 H Pulse Oximetry 98 97 10/15/22 08:00 10/15/22 08:15 10/15/22 08:30 Pulse Rate 90 90 94 H Respiratory Rate 17 19 22 Blood Pressure Pulse Oximetry 10/15/22 08:45 10/15/22 09:00 10/15/22 09:15 Pulse Rate 96 H 93 H 89 Respiratory Rate 13 17 15 Blood Pressure Pulse Oximetry 10/15/22 09:30 10/15/22 09:45 10/15/22 10:00 Pulse Rate 91 H 88 Respiratory Rate 19 17 Blood Pressure 145/68 H Pulse Oximetry 10/15/22 10:00 10/15/22 10:18 10/15/22 10:30 Pulse Rate 92 H 98 H 86 Respiratory Rate 17 22 18 Blood Pressure Pulse Oximetry 10/15/22 10:45 10/15/22 11:00 10/15/22 11:15 Pulse Rate 85 86 100 H Respiratory Rate 16 16 33 H Blood Pressure Pulse Oximetry 10/15/22 11:30 10/15/22 11:45 10/15/22 12:00 Pulse Rate 85 84 91 H Respiratory Rate 16 16 39 H Blood Pressure Pulse Oximetry 10/15/22 12:15 10/15/22 12:30 10/15/22 12:45 Pulse Rate 89 89 91 H Respiratory Rate 19 17 18 Blood Pressure Pulse Oximetry 10/15/22 13:00 10/15/22 13:15 Pulse Rate 90 90 Respiratory Rate 23 16 Blood Pressure Pulse Oximetry Sepsis Evaluation (ED) <Jay Garcia DO - Last Filed: 10/16/22 10:33> Triage Screening Sepsis Screen: No Definite Risk Level 1 - Infection Sepsis Infection Criteria Present: None Response It is my opinion that his patient have a likely infectious etiology for meeting sepsis criteria: Does Fluid calculation based on 30 mL/kg within 1hr of criteria: ABW used Antibiotics initiated within 1 hr of Sepis dx: Yes Tissue Perfusion Reassessed within 6 hrs of infusion start time: No MDM - Sepsis <DO Josh Damian Last Filed: 10/16/22 10:33> Lab Data Result diagrams: 10/15/22 08:10 10/15/22 08:10 Labs: Lab Results 10/12/22 10/12/22 10/12/22 Range/Units 12:49 14:35 14:35 WBC (4.5-11.0) X10^3/uL RBC (4.5-5.9) X10^6/uL Hgb (13.5-17.5) g/dL Hct (41-53) % MCV (80-100) fL MCH (26-34) PG MCHC (30-36) % RDW (11.6-14.8) % Plt Count (150-400) X10^3/uL Neut % (Auto) (50-75) % Lymph % (Auto) (25-40) % Luna % (Auto) (3-14) % Eos % (Auto) (2-4) % Baso % (Auto) (0-2) % Neut # (Auto) (0789-5942) /uL Lymph # (Auto) (4233-9428) /uL Luna # (Auto) (0-900) /uL Eos # (Auto) (0-450) /uL Baso # (Auto) (0-100) /uL Total Counted Seg Neutrophils % (38-70) % Band Neutrophils % (3-7) % Lymphocytes % (Manual) (25-45) % Atypical Lymphs % ( - 0) % Monocytes % (Manual) (2-11) % Eosinophils % (Manual) (2-4) % Neutrophils # (Manual) (5740-5843) /uL WBC Morphology Comment Platelet Estimate RBC Morphology Hypochromasia Anisocytosis Microcytosis Sodium (137-145) mmol/L Potassium (3.4-5.1) mmol/L Chloride (98-107) mmol/L Carbon Dioxide (22-32) mmol/L BUN (9-20) mg/dL Creatinine (0.66-1.25) mg/dL Estimated GFR (>60) mL/min BUN/Creatinine Ratio (6-22) Glucose (80-110) mg/dL Lactate (0.7-2.1) mmol/L Calcium (8.4-10.2) mg/dL Magnesium (1.6-2.3) mg/dL Total Bilirubin (0.2-1.3) mg/dL AST (17-59) IU/L ALT (<50) IU/L Alkaline Phosphatase (38-126) U/L Total Creatine Kinase 99 (55-170) U/L CK-MB (CK-2) TNP CK-MB (CK-2) Rel Index TNP Troponin I < 0.012 (0.01-0.034) ng/mL C-Reactive Protein (<1.0) mg/dL Total Protein (6.3-8.2) g/dL Albumin (3.5-5.0) g/dL Globulin (1.7-4.1) g/dL Albumin/Globulin Ratio (1.0-2.8) Lipase (23-300) U/L Urine Color Yellow Urine Appearance Cloudy Urine pH 6.0 (4.5-8.0) Ur Specific [place] 1.025 (1.000-1.035) Urine Protein 2+ H (Negative) Urine Glucose (UA) Negative (Negative) g/dL Urine Ketones Trace H (NEGATIVE) Urine Occult Blood 2+ H (Negative) Urine Nitrate Negative (Negative) Urine Bilirubin Negative (NEGATIVE) Urine Urobilinogen 0.2 (0.2) E.U./dL Ur Leukocyte Esterase 2+ H (NEGATIVE) Urine RBC 1-5/hpf (0-5/HPF) Urine WBC >100/hpf H (0-5/HPF) Ur Squamous Epith Cells None seen (0-5/HPF) Urine Bacteria Many (>30) H (None) Ur Culture Indicated? Specimen cultured A. baumannii (PCR) Not detected (Not Detect) Natali albicans (PCR) Not detected (Not Detect) C. glabrata (PCR) Not detected (Not Detect) C. krusei (PCR) Not detected (Not Detect) C. parapsilosis (PCR) Not detected (Not Detect) C. tropicalis (PCR) Not detected (Not Detect) SARS-CoV-2 (PCR) (Negative) Enterobacteriac sp PCR Not detected (Not Detect) E. cloacae complex PCR Not detected (Not Detect) Enterococcus sp PCR Not detected (Not Detect) E. coli (PCR) Not detected (Not Detect) H. influenzae (PCR) Not detected (Not Detect) Influenza A (RT-PCR) (NEGATIVE) Influenza B (RT-PCR) (NEGATIVE) Klebsiella oxytoca PCR Not detected (Not Detect) Klebsiella pneumoniae Not detected (Not Detect) List. monocytogenes PCR Not detected (Not Detect) N. meningitidis (PCR) Not detected (Not Detect) Proteus species (PCR) Not detected (Not Detect) RSV (PCR) (Negative) Serratia marcescens PCR Not detected (Not Detect) Staphylococcus sp PCR Detected H (Not Detect) Staph aureus (PCR) Not detected (Not Detect) mecA-Methicil Res Gene Not detected (Not Detect) Streptococcus sp PCR Not detected (Not Detect) Group A Strep (PCR) Not detected (Not Detect) Strep agalactiae (PCR) Not detected (Not Detect) Strep pneumoniae (PCR) Not detected (Not Detect) P. aeruginosa (PCR) Not detected (Not Detect) Saritha/B-Vanco Res Genes Not Reportable KPC-Carbap Res Gene PCR Not Reportable 10/12/22 10/12/22 10/12/22 Range/Units 14:52 14:52 14:52 WBC 8.2 (4.5-11.0) X10^3/uL RBC 3.87 L (4.5-5.9) X10^6/uL Hgb 9.7 L (13.5-17.5) g/dL Hct 29.4 L (41-53) % MCV 76.0 L (80-100) fL MCH 25.0 L (26-34) PG MCHC 32.9 (30-36) % RDW 20.6 H (11.6-14.8) % Plt Count 290 (150-400) X10^3/uL Neut % (Auto) 82.1 H (50-75) % Lymph % (Auto) 6.8 L (25-40) % Luna % (Auto) 10.3 (3-14) % Eos % (Auto) 0.2 L (2-4) % Baso % (Auto) 0.6 (0-2) % Neut # (Auto) 6800 (0788-4064) /uL Lymph # (Auto) 600 L (0838-2939) /uL Luna # (Auto) 800 (0-900) /uL Eos # (Auto) 0 (0-450) /uL Baso # (Auto) 100 (0-100) /uL Total Counted Seg Neutrophils % (38-70) % Band Neutrophils % (3-7) % Lymphocytes % (Manual) (25-45) % Atypical Lymphs % ( - 0) % Monocytes % (Manual) (2-11) % Eosinophils % (Manual) (2-4) % Neutrophils # (Manual) (1458-3404) /uL WBC Morphology Comment Platelet Estimate Adequate on smear RBC Morphology See below Hypochromasia Anisocytosis 1+ H Microcytosis Sodium 136 L (137-145) mmol/L Potassium 3.9 (3.4-5.1) mmol/L Chloride 99 (98-107) mmol/L Carbon Dioxide 24 (22-32) mmol/L BUN 11 (9-20) mg/dL Creatinine 0.52 L (0.66-1.25) mg/dL Estimated GFR > 60 (>60) mL/min BUN/Creatinine Ratio 21.2 (6-22) Glucose 102 (80-110) mg/dL Lactate 2.4 H (0.7-2.1) mmol/L Calcium 7.7 L (8.4-10.2) mg/dL Magnesium 2.5 H (1.6-2.3) mg/dL Total Bilirubin 0.3 (0.2-1.3) mg/dL AST 34 (17-59) IU/L ALT 24 (<50) IU/L Alkaline Phosphatase 252 H (38-126) U/L Total Creatine Kinase (55-170) U/L CK-MB (CK-2) CK-MB (CK-2) Rel Index Troponin I (0.01-0.034) ng/mL C-Reactive Protein 5.1 H (<1.0) mg/dL Total Protein 6.7 (6.3-8.2) g/dL Albumin 3.5 (3.5-5.0) g/dL Globulin 3.2 (1.7-4.1) g/dL Albumin/Globulin Ratio 1.1 (1.0-2.8) Lipase 56 (23-300) U/L Urine Color Urine Appearance Urine pH (4.5-8.0) Ur Specific [place] (1.000-1.035) Urine Protein (Negative) Urine Glucose (UA) (Negative) g/dL Urine Ketones (NEGATIVE) Urine Occult Blood (Negative) Urine Nitrate (Negative) Urine Bilirubin (NEGATIVE) Urine Urobilinogen (0.2) E.U./dL Ur Leukocyte Esterase (NEGATIVE) Urine RBC (0-5/HPF) Urine WBC (0-5/HPF) Ur Squamous Epith Cells (0-5/HPF) Urine Bacteria (None) Ur Culture Indicated? A. baumannii (PCR) (Not Detect) Natali albicans (PCR) (Not Detect) C. glabrata (PCR) (Not Detect) C. krusei (PCR) (Not Detect) C. parapsilosis (PCR) (Not Detect) C. tropicalis (PCR) (Not Detect) SARS-CoV-2 (PCR) (Negative) Enterobacteriac sp PCR (Not Detect) E. cloacae complex PCR (Not Detect) Enterococcus sp PCR (Not Detect) E. coli (PCR) (Not Detect) H. influenzae (PCR) (Not Detect) Influenza A (RT-PCR) (NEGATIVE) Influenza B (RT-PCR) (NEGATIVE) Klebsiella oxytoca PCR (Not Detect) Klebsiella pneumoniae (Not Detect) List. monocytogenes PCR (Not Detect) N. meningitidis (PCR) (Not Detect) Proteus species (PCR) (Not Detect) RSV (PCR) (Negative) Serratia marcescens PCR (Not Detect) Staphylococcus sp PCR (Not Detect) Staph aureus (PCR) (Not Detect) mecA-Methicil Res Gene (Not Detect) Streptococcus sp PCR (Not Detect) Group A Strep (PCR) (Not Detect) Strep agalactiae (PCR) (Not Detect) Strep pneumoniae (PCR) (Not Detect) P. aeruginosa (PCR) (Not Detect) Saritha/B-Vanco Res Genes KPC-Carbap Res Gene PCR 10/12/22 10/12/22 10/13/22 Range/Units 14:52 17:45 09:20 WBC Cancelled (4.5-11.0) X10^3/uL RBC Cancelled (4.5-5.9) X10^6/uL Hgb Cancelled (13.5-17.5) g/dL Hct Cancelled (41-53) % MCV Cancelled (80-100) fL MCH Cancelled (26-34) PG MCHC Cancelled (30-36) % RDW Cancelled (11.6-14.8) % Plt Count Cancelled (150-400) X10^3/uL Neut % (Auto) Cancelled (50-75) % Lymph % (Auto) Cancelled (25-40) % Luna % (Auto) Cancelled (3-14) % Eos % (Auto) Cancelled (2-4) % Baso % (Auto) Cancelled (0-2) % Neut # (Auto) Cancelled (3617-0308) /uL Lymph # (Auto) Cancelled (3696-5735) /uL Luna # (Auto) Cancelled (0-900) /uL Eos # (Auto) Cancelled (0-450) /uL Baso # (Auto) Cancelled (0-100) /uL Total Counted Seg Neutrophils % (38-70) % Band Neutrophils % (3-7) % Lymphocytes % (Manual) (25-45) % Atypical Lymphs % ( - 0) % Monocytes % (Manual) (2-11) % Eosinophils % (Manual) (2-4) % Neutrophils # (Manual) (9242-4910) /uL WBC Morphology Comment Platelet Estimate RBC Morphology Hypochromasia Anisocytosis Microcytosis Sodium (137-145) mmol/L Potassium (3.4-5.1) mmol/L Chloride (98-107) mmol/L Carbon Dioxide (22-32) mmol/L BUN (9-20) mg/dL Creatinine (0.66-1.25) mg/dL Estimated GFR (>60) mL/min BUN/Creatinine Ratio (6-22) Glucose (80-110) mg/dL Lactate 2.2 H (0.7-2.1) mmol/L Calcium (8.4-10.2) mg/dL Magnesium (1.6-2.3) mg/dL Total Bilirubin (0.2-1.3) mg/dL AST (17-59) IU/L ALT (<50) IU/L Alkaline Phosphatase (38-126) U/L Total Creatine Kinase (55-170) U/L CK-MB (CK-2) CK-MB (CK-2) Rel Index Troponin I (0.01-0.034) ng/mL C-Reactive Protein (<1.0) mg/dL Total Protein (6.3-8.2) g/dL Albumin (3.5-5.0) g/dL Globulin (1.7-4.1) g/dL Albumin/Globulin Ratio (1.0-2.8) Lipase (23-300) U/L Urine Color Urine Appearance Urine pH (4.5-8.0) Ur Specific [place] (1.000-1.035) Urine Protein (Negative) Urine Glucose (UA) (Negative) g/dL Urine Ketones (NEGATIVE) Urine Occult Blood (Negative) Urine Nitrate (Negative) Urine Bilirubin (NEGATIVE) Urine Urobilinogen (0.2) E.U./dL Ur Leukocyte Esterase (NEGATIVE) Urine RBC (0-5/HPF) Urine WBC (0-5/HPF) Ur Squamous Epith Cells (0-5/HPF) Urine Bacteria (None) Ur Culture Indicated? A. baumannii (PCR) (Not Detect) Natali albicans (PCR) (Not Detect) C. glabrata (PCR) (Not Detect) C. krusei (PCR) (Not Detect) C. parapsilosis (PCR) (Not Detect) C. tropicalis (PCR) (Not Detect) SARS-CoV-2 (PCR) Negative (Negative) Enterobacteriac sp PCR (Not Detect) E. cloacae complex PCR (Not Detect) Enterococcus sp PCR (Not Detect) E. coli (PCR) (Not Detect) H. influenzae (PCR) (Not Detect) Influenza A (RT-PCR) Flu a negative (NEGATIVE) Influenza B (RT-PCR) Flu b negative (NEGATIVE) Klebsiella oxytoca PCR (Not Detect) Klebsiella pneumoniae (Not Detect) List. monocytogenes PCR (Not Detect) N. meningitidis (PCR) (Not Detect) Proteus species (PCR) (Not Detect) RSV (PCR) Negative (Negative) Serratia marcescens PCR (Not Detect) Staphylococcus sp PCR (Not Detect) Staph aureus (PCR) (Not Detect) mecA-Methicil Res Gene (Not Detect) Streptococcus sp PCR (Not Detect) Group A Strep (PCR) (Not Detect) Strep agalactiae (PCR) (Not Detect) Strep pneumoniae (PCR) (Not Detect) P. aeruginosa (PCR) (Not Detect) Saritha/B-Vanco Res Genes KPC-Carbap Res Gene PCR 10/13/22 10/13/22 10/13/22 Range/Units 09:20 09:20 14:30 WBC 9.5 (4.5-11.0) X10^3/uL RBC 3.49 L (4.5-5.9) X10^6/uL Hgb 8.5 L (13.5-17.5) g/dL Hct 26.4 L (41-53) % MCV 75.6 L (80-100) fL MCH 24.4 L (26-34) PG MCHC 32.3 (30-36) % RDW 20.5 H (11.6-14.8) % Plt Count 269 (150-400) X10^3/uL Neut % (Auto) 81.0 H (50-75) % Lymph % (Auto) 5.4 L (25-40) % Luna % (Auto) 13.1 (3-14) % Eos % (Auto) 0.1 L (2-4) % Baso % (Auto) 0.4 (0-2) % Neut # (Auto) 7700 H (9679-0635) /uL Lymph # (Auto) 500 L (1031-4561) /uL Luna # (Auto) 1200 H (0-900) /uL Eos # (Auto) 0 (0-450) /uL Baso # (Auto) 0 (0-100) /uL Total Counted Seg Neutrophils % (38-70) % Band Neutrophils % (3-7) % Lymphocytes % (Manual) (25-45) % Atypical Lymphs % ( - 0) % Monocytes % (Manual) (2-11) % Eosinophils % (Manual) (2-4) % Neutrophils # (Manual) (9706-4786) /uL WBC Morphology Comment Platelet Estimate RBC Morphology See below Hypochromasia Anisocytosis 2+ H Microcytosis 1+ H Sodium Cancelled (137-145) mmol/L Potassium Cancelled (3.4-5.1) mmol/L Chloride Cancelled (98-107) mmol/L Carbon Dioxide Cancelled (22-32) mmol/L BUN Cancelled (9-20) mg/dL Creatinine Cancelled (0.66-1.25) mg/dL Estimated GFR Cancelled (>60) mL/min BUN/Creatinine Ratio Cancelled (6-22) Glucose Cancelled (80-110) mg/dL Lactate Cancelled (0.7-2.1) mmol/L Calcium Cancelled (8.4-10.2) mg/dL Magnesium (1.6-2.3) mg/dL Total Bilirubin (0.2-1.3) mg/dL AST (17-59) IU/L ALT (<50) IU/L Alkaline Phosphatase (38-126) U/L Total Creatine Kinase (55-170) U/L CK-MB (CK-2) CK-MB (CK-2) Rel Index Troponin I (0.01-0.034) ng/mL C-Reactive Protein (<1.0) mg/dL Total Protein (6.3-8.2) g/dL Albumin (3.5-5.0) g/dL Globulin (1.7-4.1) g/dL Albumin/Globulin Ratio (1.0-2.8) Lipase (23-300) U/L Urine Color Urine Appearance Urine pH (4.5-8.0) Ur Specific [place] (1.000-1.035) Urine Protein (Negative) Urine Glucose (UA) (Negative) g/dL Urine Ketones (NEGATIVE) Urine Occult Blood (Negative) Urine Nitrate (Negative) Urine Bilirubin (NEGATIVE) Urine Urobilinogen (0.2) E.U./dL Ur Leukocyte Esterase (NEGATIVE) Urine RBC (0-5/HPF) Urine WBC (0-5/HPF) Ur Squamous Epith Cells (0-5/HPF) Urine Bacteria (None) Ur Culture Indicated? A. baumannii (PCR) (Not Detect) Natali albicans (PCR) (Not Detect) C. glabrata (PCR) (Not Detect) C. krusei (PCR) (Not Detect) C. parapsilosis (PCR) (Not Detect) C. tropicalis (PCR) (Not Detect) SARS-CoV-2 (PCR) (Negative) Enterobacteriac sp PCR (Not Detect) E. cloacae complex PCR (Not Detect) Enterococcus sp PCR (Not Detect) E. coli (PCR) (Not Detect) H. influenzae (PCR) (Not Detect) Influenza A (RT-PCR) (NEGATIVE) Influenza B (RT-PCR) (NEGATIVE) Klebsiella oxytoca PCR (Not Detect) Klebsiella pneumoniae (Not Detect) List. monocytogenes PCR (Not Detect) N. meningitidis (PCR) (Not Detect) Proteus species (PCR) (Not Detect) RSV (PCR) (Negative) Serratia marcescens PCR (Not Detect) Staphylococcus sp PCR (Not Detect) Staph aureus (PCR) (Not Detect) mecA-Methicil Res Gene (Not Detect) Streptococcus sp PCR (Not Detect) Group A Strep (PCR) (Not Detect) Strep agalactiae (PCR) (Not Detect) Strep pneumoniae (PCR) (Not Detect) P. aeruginosa (PCR) (Not Detect) Saritha/B-Vanco Res Genes KPC-Carbap Res Gene PCR 10/13/22 10/13/22 10/13/22 Range/Units 14:30 14:30 17:30 WBC (4.5-11.0) X10^3/uL RBC (4.5-5.9) X10^6/uL Hgb (13.5-17.5) g/dL Hct (41-53) % MCV (80-100) fL MCH (26-34) PG MCHC (30-36) % RDW (11.6-14.8) % Plt Count (150-400) X10^3/uL Neut % (Auto) (50-75) % Lymph % (Auto) (25-40) % Luna % (Auto) (3-14) % Eos % (Auto) (2-4) % Baso % (Auto) (0-2) % Neut # (Auto) (1740-6700) /uL Lymph # (Auto) (1686-6452) /uL Luna # (Auto) (0-900) /uL Eos # (Auto) (0-450) /uL Baso # (Auto) (0-100) /uL Total Counted Seg Neutrophils % (38-70) % Band Neutrophils % (3-7) % Lymphocytes % (Manual) (25-45) % Atypical Lymphs % ( - 0) % Monocytes % (Manual) (2-11) % Eosinophils % (Manual) (2-4) % Neutrophils # (Manual) (7788-1573) /uL WBC Morphology Comment Platelet Estimate RBC Morphology Hypochromasia Anisocytosis Microcytosis Sodium 130 L (137-145) mmol/L Potassium 4.0 (3.4-5.1) mmol/L Chloride 96 L (98-107) mmol/L Carbon Dioxide 22 (22-32) mmol/L BUN 10 (9-20) mg/dL Creatinine 0.53 L (0.66-1.25) mg/dL Estimated GFR > 60 (>60) mL/min BUN/Creatinine Ratio 18.9 (6-22) Glucose 104 (80-110) mg/dL Lactate 3.1 H 2.6 H (0.7-2.1) mmol/L Calcium 7.0 L (8.4-10.2) mg/dL Magnesium (1.6-2.3) mg/dL Total Bilirubin (0.2-1.3) mg/dL AST (17-59) IU/L ALT (<50) IU/L Alkaline Phosphatase (38-126) U/L Total Creatine Kinase (55-170) U/L CK-MB (CK-2) CK-MB (CK-2) Rel Index Troponin I (0.01-0.034) ng/mL C-Reactive Protein (<1.0) mg/dL Total Protein (6.3-8.2) g/dL Albumin (3.5-5.0) g/dL Globulin (1.7-4.1) g/dL Albumin/Globulin Ratio (1.0-2.8) Lipase (23-300) U/L Urine Color Urine Appearance Urine pH (4.5-8.0) Ur Specific [place] (1.000-1.035) Urine Protein (Negative) Urine Glucose (UA) (Negative) g/dL Urine Ketones (NEGATIVE) Urine Occult Blood (Negative) Urine Nitrate (Negative) Urine Bilirubin (NEGATIVE) Urine Urobilinogen (0.2) E.U./dL Ur Leukocyte Esterase (NEGATIVE) Urine RBC (0-5/HPF) Urine WBC (0-5/HPF) Ur Squamous Epith Cells (0-5/HPF) Urine Bacteria (None) Ur Culture Indicated? A. baumannii (PCR) (Not Detect) Natali albicans (PCR) (Not Detect) C. glabrata (PCR) (Not Detect) C. krusei (PCR) (Not Detect) C. parapsilosis (PCR) (Not Detect) C. tropicalis (PCR) (Not Detect) SARS-CoV-2 (PCR) (Negative) Enterobacteriac sp PCR (Not Detect) E. cloacae complex PCR (Not Detect) Enterococcus sp PCR (Not Detect) E. coli (PCR) (Not Detect) H. influenzae (PCR) (Not Detect) Influenza A (RT-PCR) (NEGATIVE) Influenza B (RT-PCR) (NEGATIVE) Klebsiella oxytoca PCR (Not Detect) Klebsiella pneumoniae (Not Detect) List. monocytogenes PCR (Not Detect) N. meningitidis (PCR) (Not Detect) Proteus species (PCR) (Not Detect) RSV (PCR) (Negative) Serratia marcescens PCR (Not Detect) Staphylococcus sp PCR (Not Detect) Staph aureus (PCR) (Not Detect) mecA-Methicil Res Gene (Not Detect) Streptococcus sp PCR (Not Detect) Group A Strep (PCR) (Not Detect) Strep agalactiae (PCR) (Not Detect) Strep pneumoniae (PCR) (Not Detect) P. aeruginosa (PCR) (Not Detect) Saritha/B-Vanco Res Genes KPC-Carbap Res Gene PCR 10/13/22 10/14/22 10/14/22 Range/Units 18:37 08:42 08:42 WBC 7.8 (4.5-11.0) X10^3/uL RBC 3.49 L (4.5-5.9) X10^6/uL Hgb 8.3 L 8.6 L (13.5-17.5) g/dL Hct 25.1 L 26.6 L (41-53) % MCV 76.1 L (80-100) fL MCH 24.5 L (26-34) PG MCHC 32.2 (30-36) % RDW 21.0 H (11.6-14.8) % Plt Count 274 (150-400) X10^3/uL Neut % (Auto) 79.9 H (50-75) % Lymph % (Auto) 7.0 L (25-40) % Luna % (Auto) 12.3 (3-14) % Eos % (Auto) 0.2 L (2-4) % Baso % (Auto) 0.6 (0-2) % Neut # (Auto) 6300 (6931-2960) /uL Lymph # (Auto) 500 L (0600-6621) /uL Luna # (Auto) 1000 H (0-900) /uL Eos # (Auto) 0 (0-450) /uL Baso # (Auto) 0 (0-100) /uL Total Counted Seg Neutrophils % (38-70) % Band Neutrophils % (3-7) % Lymphocytes % (Manual) (25-45) % Atypical Lymphs % ( - 0) % Monocytes % (Manual) (2-11) % Eosinophils % (Manual) (2-4) % Neutrophils # (Manual) (1442-2548) /uL WBC Morphology Comment Platelet Estimate RBC Morphology See below Hypochromasia Anisocytosis 2+ H Microcytosis 1+ H Sodium 134 L (137-145) mmol/L Potassium 3.6 (3.4-5.1) mmol/L Chloride 101 (98-107) mmol/L Carbon Dioxide 21 L (22-32) mmol/L BUN 8 L (9-20) mg/dL Creatinine 0.45 L (0.66-1.25) mg/dL Estimated GFR > 60 (>60) mL/min BUN/Creatinine Ratio 17.8 (6-22) Glucose 102 (80-110) mg/dL Lactate (0.7-2.1) mmol/L Calcium 6.7 L (8.4-10.2) mg/dL Magnesium (1.6-2.3) mg/dL Total Bilirubin (0.2-1.3) mg/dL AST (17-59) IU/L ALT (<50) IU/L Alkaline Phosphatase (38-126) U/L Total Creatine Kinase (55-170) U/L CK-MB (CK-2) CK-MB (CK-2) Rel Index Troponin I (0.01-0.034) ng/mL C-Reactive Protein (<1.0) mg/dL Total Protein (6.3-8.2) g/dL Albumin (3.5-5.0) g/dL Globulin (1.7-4.1) g/dL Albumin/Globulin Ratio (1.0-2.8) Lipase (23-300) U/L Urine Color Urine Appearance Urine pH (4.5-8.0) Ur Specific [place] (1.000-1.035) Urine Protein (Negative) Urine Glucose (UA) (Negative) g/dL Urine Ketones (NEGATIVE) Urine Occult Blood (Negative) Urine Nitrate (Negative) Urine Bilirubin (NEGATIVE) Urine Urobilinogen (0.2) E.U./dL Ur Leukocyte Esterase (NEGATIVE) Urine RBC (0-5/HPF) Urine WBC (0-5/HPF) Ur Squamous Epith Cells (0-5/HPF) Urine Bacteria (None) Ur Culture Indicated? A. baumannii (PCR) (Not Detect) Natali albicans (PCR) (Not Detect) C. glabrata (PCR) (Not Detect) C. krusei (PCR) (Not Detect) C. parapsilosis (PCR) (Not Detect) C. tropicalis (PCR) (Not Detect) SARS-CoV-2 (PCR) (Negative) Enterobacteriac sp PCR (Not Detect) E. cloacae complex PCR (Not Detect) Enterococcus sp PCR (Not Detect) E. coli (PCR) (Not Detect) H. influenzae (PCR) (Not Detect) Influenza A (RT-PCR) (NEGATIVE) Influenza B (RT-PCR) (NEGATIVE) Klebsiella oxytoca PCR (Not Detect) Klebsiella pneumoniae (Not Detect) List. monocytogenes PCR (Not Detect) N. meningitidis (PCR) (Not Detect) Proteus species (PCR) (Not Detect) RSV (PCR) (Negative) Serratia marcescens PCR (Not Detect) Staphylococcus sp PCR (Not Detect) Staph aureus (PCR) (Not Detect) mecA-Methicil Res Gene (Not Detect) Streptococcus sp PCR (Not Detect) Group A Strep (PCR) (Not Detect) Strep agalactiae (PCR) (Not Detect) Strep pneumoniae (PCR) (Not Detect) P. aeruginosa (PCR) (Not Detect) Saritha/B-Vanco Res Genes KPC-Carbap Res Gene PCR 10/14/22 10/14/22 10/14/22 Range/Units 08:42 18:30 18:30 WBC 7.9 (4.5-11.0) X10^3/uL RBC 3.53 L (4.5-5.9) X10^6/uL Hgb 8.7 L (13.5-17.5) g/dL Hct 26.9 L (41-53) % MCV 76.1 L (80-100) fL MCH 24.7 L (26-34) PG MCHC 32.4 (30-36) % RDW 20.7 H (11.6-14.8) % Plt Count 279 (150-400) X10^3/uL Neut % (Auto) 78.7 H (50-75) % Lymph % (Auto) 8.8 L (25-40) % Luna % (Auto) 11.7 (3-14) % Eos % (Auto) 0.3 L (2-4) % Baso % (Auto) 0.5 (0-2) % Neut # (Auto) 6200 (4656-4552) /uL Lymph # (Auto) 700 L (8125-0652) /uL Luna # (Auto) 900 (0-900) /uL Eos # (Auto) 0 (0-450) /uL Baso # (Auto) 0 (0-100) /uL Total Counted Seg Neutrophils % (38-70) % Band Neutrophils % (3-7) % Lymphocytes % (Manual) (25-45) % Atypical Lymphs % ( - 0) % Monocytes % (Manual) (2-11) % Eosinophils % (Manual) (2-4) % Neutrophils # (Manual) (5214-9895) /uL WBC Morphology Comment Not Reportable Platelet Estimate RBC Morphology See below Hypochromasia 1+ H Anisocytosis 1+ H Microcytosis Sodium 133 L (137-145) mmol/L Potassium 4.4 (3.4-5.1) mmol/L Chloride 99 (98-107) mmol/L Carbon Dioxide 22 (22-32) mmol/L BUN 13 (9-20) mg/dL Creatinine 0.49 L (0.66-1.25) mg/dL Estimated GFR > 60 (>60) mL/min BUN/Creatinine Ratio 26.5 H (6-22) Glucose 109 (80-110) mg/dL Lactate 1.9 (0.7-2.1) mmol/L Calcium 7.9 L (8.4-10.2) mg/dL Magnesium (1.6-2.3) mg/dL Total Bilirubin 0.2 (0.2-1.3) mg/dL AST 44 (17-59) IU/L ALT 23 (<50) IU/L Alkaline Phosphatase 240 H (38-126) U/L Total Creatine Kinase (55-170) U/L CK-MB (CK-2) CK-MB (CK-2) Rel Index Troponin I (0.01-0.034) ng/mL C-Reactive Protein (<1.0) mg/dL Total Protein 6.2 L (6.3-8.2) g/dL Albumin 3.1 L (3.5-5.0) g/dL Globulin 3.1 (1.7-4.1) g/dL Albumin/Globulin Ratio 1.0 (1.0-2.8) Lipase (23-300) U/L Urine Color Urine Appearance Urine pH (4.5-8.0) Ur Specific [place] (1.000-1.035) Urine Protein (Negative) Urine Glucose (UA) (Negative) g/dL Urine Ketones (NEGATIVE) Urine Occult Blood (Negative) Urine Nitrate (Negative) Urine Bilirubin (NEGATIVE) Urine Urobilinogen (0.2) E.U./dL Ur Leukocyte Esterase (NEGATIVE) Urine RBC (0-5/HPF) Urine WBC (0-5/HPF) Ur Squamous Epith Cells (0-5/HPF) Urine Bacteria (None) Ur Culture Indicated? A. baumannii (PCR) (Not Detect) Natali albicans (PCR) (Not Detect) C. glabrata (PCR) (Not Detect) C. krusei (PCR) (Not Detect) C. parapsilosis (PCR) (Not Detect) C. tropicalis (PCR) (Not Detect) SARS-CoV-2 (PCR) (Negative) Enterobacteriac sp PCR (Not Detect) E. cloacae complex PCR (Not Detect) Enterococcus sp PCR (Not Detect) E. coli (PCR) (Not Detect) H. influenzae (PCR) (Not Detect) Influenza A (RT-PCR) (NEGATIVE) Influenza B (RT-PCR) (NEGATIVE) Klebsiella oxytoca PCR (Not Detect) Klebsiella pneumoniae (Not Detect) List. monocytogenes PCR (Not Detect) N. meningitidis (PCR) (Not Detect) Proteus species (PCR) (Not Detect) RSV (PCR) (Negative) Serratia marcescens PCR (Not Detect) Staphylococcus sp PCR (Not Detect) Staph aureus (PCR) (Not Detect) mecA-Methicil Res Gene (Not Detect) Streptococcus sp PCR (Not Detect) Group A Strep (PCR) (Not Detect) Strep agalactiae (PCR) (Not Detect) Strep pneumoniae (PCR) (Not Detect) P. aeruginosa (PCR) (Not Detect) Saritha/B-Vanco Res Genes KPC-Carbap Res Gene PCR 10/15/22 10/15/22 Range/Units 08:10 08:10 WBC 8.9 (4.5-11.0) X10^3/uL RBC 3.49 L (4.5-5.9) X10^6/uL Hgb 8.5 L (13.5-17.5) g/dL Hct 26.7 L (41-53) % MCV 76.6 L (80-100) fL MCH 24.4 L (26-34) PG MCHC 31.8 (30-36) % RDW 21.3 H (11.6-14.8) % Plt Count 310 (150-400) X10^3/uL Neut % (Auto) Not Reportable (50-75) % Lymph % (Auto) Not Reportable (25-40) % Luna % (Auto) Not Reportable (3-14) % Eos % (Auto) Not Reportable (2-4) % Baso % (Auto) Not Reportable (0-2) % Neut # (Auto) (0481-6402) /uL Lymph # (Auto) Not Reportable (6471-0741) /uL Luna # (Auto) Not Reportable (0-900) /uL Eos # (Auto) (0-450) /uL Baso # (Auto) Not Reportable (0-100) /uL Total Counted 100 Seg Neutrophils % 66.0 (38-70) % Band Neutrophils % 9.0 H (3-7) % Lymphocytes % (Manual) 16.0 L (25-45) % Atypical Lymphs % 2.0 H ( - 0) % Monocytes % (Manual) 6.0 (2-11) % Eosinophils % (Manual) 1.0 L (2-4) % Neutrophils # (Manual) 6675 H (1426-4697) /uL WBC Morphology Comment Platelet Estimate RBC Morphology Not Reportable Hypochromasia Anisocytosis 2+ H Microcytosis Sodium 133 L (137-145) mmol/L Potassium 4.0 (3.4-5.1) mmol/L Chloride 99 (98-107) mmol/L Carbon Dioxide 22 (22-32) mmol/L BUN 9 (9-20) mg/dL Creatinine 0.44 L (0.66-1.25) mg/dL Estimated GFR > 60 (>60) mL/min BUN/Creatinine Ratio 20.5 (6-22) Glucose 93 (80-110) mg/dL Lactate (0.7-2.1) mmol/L Calcium 7.6 L (8.4-10.2) mg/dL Magnesium (1.6-2.3) mg/dL Total Bilirubin 0.3 (0.2-1.3) mg/dL AST 39 (17-59) IU/L ALT 22 (<50) IU/L Alkaline Phosphatase 223 H (38-126) U/L Total Creatine Kinase (55-170) U/L CK-MB (CK-2) CK-MB (CK-2) Rel Index Troponin I (0.01-0.034) ng/mL C-Reactive Protein (<1.0) mg/dL Total Protein 6.1 L (6.3-8.2) g/dL Albumin 3.1 L (3.5-5.0) g/dL Globulin 3.0 (1.7-4.1) g/dL Albumin/Globulin Ratio 1.0 (1.0-2.8) Lipase (23-300) U/L Urine Color Urine Appearance Urine pH (4.5-8.0) Ur Specific [place] (1.000-1.035) Urine Protein (Negative) Urine Glucose (UA) (Negative) g/dL Urine Ketones (NEGATIVE) Urine Occult Blood (Negative) Urine Nitrate (Negative) Urine Bilirubin (NEGATIVE) Urine Urobilinogen (0.2) E.U./dL Ur Leukocyte Esterase (NEGATIVE) Urine RBC (0-5/HPF) Urine WBC (0-5/HPF) Ur Squamous Epith Cells (0-5/HPF) Urine Bacteria (None) Ur Culture Indicated? A. baumannii (PCR) (Not Detect) Natali albicans (PCR) (Not Detect) C. glabrata (PCR) (Not Detect) C. krusei (PCR) (Not Detect) C. parapsilosis (PCR) (Not Detect) C. tropicalis (PCR) (Not Detect) SARS-CoV-2 (PCR) (Negative) Enterobacteriac sp PCR (Not Detect) E. cloacae complex PCR (Not Detect) Enterococcus sp PCR (Not Detect) E. coli (PCR) (Not Detect) H. influenzae (PCR) (Not Detect) Influenza A (RT-PCR) (NEGATIVE) Influenza B (RT-PCR) (NEGATIVE) Klebsiella oxytoca PCR (Not Detect) Klebsiella pneumoniae (Not Detect) List. monocytogenes PCR (Not Detect) N. meningitidis (PCR) (Not Detect) Proteus species (PCR) (Not Detect) RSV (PCR) (Negative) Serratia marcescens PCR (Not Detect) Staphylococcus sp PCR (Not Detect) Staph aureus (PCR) (Not Detect) mecA-Methicil Res Gene (Not Detect) Streptococcus sp PCR (Not Detect) Group A Strep (PCR) (Not Detect) Strep agalactiae (PCR) (Not Detect) Strep pneumoniae (PCR) (Not Detect) P. aeruginosa (PCR) (Not Detect) Saritha/B-Vanco Res Genes KPC-Carbap Res Gene PCR Urine Dip Bedside Urine Glucose Negative Bedside Urine Bilirubin - Negative Bedside Urine Ketone - Negative Urine Specific [place] 1.025 Bedside Urine Occult Blood +/- Bedside Urine pH 6 Bedside Urine Protein +++ 300 Bedside Urine Urobilinogen - Negative Bedside Urine Nitrite - Negative Bedside Urine Leukocytes ++ [address] scan - abdomen/pelvis: Radiologist's Impression: [address] [address] [address] Scan Report Signed Patient: Harley Beard MR#: [id number] : 1940 Acct:[id number] Age/Sex: 82 / M Date of Service: 10/12/22 Loc: ED Accession Number: [id number] ?? Procedure: CT kidney ureter bladder (KUB) Ordering Provider: Linesy Munguia PROCEDURE:? CT KIDNEY URETER BLADDER (KUB) ? INDICATIONS:? urinary obstruction? ? TECHNIQUE:? Axial sections were acquired from the lung bases to the pubic symphysis.? Coronal and sagittal reformats were performed.? For radiation dose reduction, the following was used: ?automated exposure control, adjustment of mA and/or kV according to patient size.? ? COMPARISON:? [facility], CT, CT CHEST ABD PEL W CON, 09/24/2022, 9:16.? [facility], CT, KIDNEY/ URETER/BLADDER, 01/25/2017, 11:15. ? FINDINGS:? Image quality:? Good Noncontrast imaging is suboptimal for evaluation of the patient's no malignancy. ? Lower chest:? Scattered scarring and atelectasis.? Coronary calcifications and valvular/annular calcifications are present. ? Solid organs:? Liver is unremarkable.? Gallbladder is unremarkable.? No pathologic dilation of the biliary tree or pancreatic duct.? No splenomegaly.? No adrenal nodules.? ? Unchanged right upper pole low-density renal lesion compared to prior.? Moderate right hydronephrosis.? There is a nonobstructing stone at the lower pole as previously seen, however in the distal ureter, there is an obstructing 3-4 millimeters stone.? The location of obstruction is at the soft tissue masses around the peritoneal reflection. No left hydronephrosis. Under distended bladder wall thickening and perivesicular stranding. ? Vessels and lymph nodes:? No abdominal aortic aneurysm.? Retroperitoneal and pelvic adenopathy better assessed on prior imaging. ? Bowel and peritoneum:? No bowel obstruction.? No pathologic ascites.? There is wall thickening of the rectum, not well evaluated on this study, in addition to perirectal/sigmoid soft tissue mass along the right peritoneal reflection, better characterized on prior imaging.? Colonic diverticula. ? Body wall:? Anterior abdominal wall suspected injection granulomas. ? Pelvis:? As above.? Prostate radiation markers. ? Bones:? Diffuse metastatic disease. ? IMPRESSION:? New right moderate hydronephrosis secondary to an obstructing distal ureter stone measuring about 4 millimeters.? The level of obstruction also involves the malignant soft tissue mass adjacent to the sigmoid colon along the peritoneal reflection, which may also contribute to the hydronephrosis.? A percutaneous nephrostomy may be necessary for decompression even if the stone passes. Perivesicular stranding, correlate with urinalysis. ? Diffuse soft tissue and osseous metastatic disease better characterized on prior contrast-enhanced images.? Other findings as above. ? Dictated by: Pernell Hale M.D. on 10/12/2022 at 13:58 ? ? Approved by: Pernell Hale M.D. on 10/12/2022 at 14:06 ? [facility] [place] Narrative Medical decision making narrative: 82-year-old male with history of prostate CA and kidney stones presents with about a week of increasing suprapubic discomfort and classic urinary symptoms including dysuria, frequency and urgency. He is had fever and shaking chills and meets septic criteria. He has been hemodynamically stable but urine is very convincing in the setting of a CT KUB demonstrating stone with hydronephrosis. I have discussed with on-call Urology at the [facility] who sure the opinion that in addition to fluid resuscitation antibiotics patient will need to be transferred to a facility with Urology and likely Interventional Radiology. Patient and family are aware of the diagnosis and plan, patient will be signed out to Dr. Solorio for final disposition. We are currently waiting call back from [facility] <Quinton Solorio, DO - Last Filed: 10/16/22 20:04> Lab Data Labs: Lab Results 10/12/22 10/12/22 10/12/22 Range/Units 12:49 14:35 14:35 WBC (4.5-11.0) X10^3/uL RBC (4.5-5.9) X10^6/uL Hgb (13.5-17.5) g/dL Hct (41-53) % MCV (80-100) fL MCH (26-34) PG MCHC (30-36) % RDW (11.6-14.8) % Plt Count (150-400) X10^3/uL Neut % (Auto) (50-75) % Lymph % (Auto) (25-40) % Luna % (Auto) (3-14) % Eos % (Auto) (2-4) % Baso % (Auto) (0-2) % Neut # (Auto) (9435-1345) /uL Lymph # (Auto) (8230-2149) /uL Luna # (Auto) (0-900) /uL Eos # (Auto) (0-450) /uL Baso # (Auto) (0-100) /uL Total Counted Seg Neutrophils % (38-70) % Band Neutrophils % (3-7) % Lymphocytes % (Manual) (25-45) % Atypical Lymphs % ( - 0) % Monocytes % (Manual) (2-11) % Eosinophils % (Manual) (2-4) % Neutrophils # (Manual) (7132-3978) /uL WBC Morphology Comment Platelet Estimate RBC Morphology Hypochromasia Anisocytosis Microcytosis Sodium (137-145) mmol/L Potassium (3.4-5.1) mmol/L Chloride (98-107) mmol/L Carbon Dioxide (22-32) mmol/L BUN (9-20) mg/dL Creatinine (0.66-1.25) mg/dL Estimated GFR (>60) mL/min BUN/Creatinine Ratio (6-22) Glucose (80-110) mg/dL Lactate (0.7-2.1) mmol/L Calcium (8.4-10.2) mg/dL Magnesium (1.6-2.3) mg/dL Total Bilirubin (0.2-1.3) mg/dL AST (17-59) IU/L ALT (<50) IU/L Alkaline Phosphatase (38-126) U/L Total Creatine Kinase 99 (55-170) U/L CK-MB (CK-2) TNP CK-MB (CK-2) Rel Index TNP Troponin I < 0.012 (0.01-0.034) ng/mL C-Reactive Protein (<1.0) mg/dL Total Protein (6.3-8.2) g/dL Albumin (3.5-5.0) g/dL Globulin (1.7-4.1) g/dL Albumin/Globulin Ratio (1.0-2.8) Lipase (23-300) U/L Urine Color Yellow Urine Appearance Cloudy Urine pH 6.0 (4.5-8.0) Ur Specific [place] 1.025 (1.000-1.035) Urine Protein 2+ H (Negative) Urine Glucose (UA) Negative (Negative) g/dL Urine Ketones Trace H (NEGATIVE) Urine Occult Blood 2+ H (Negative) Urine Nitrate Negative (Negative) Urine Bilirubin Negative (NEGATIVE) Urine Urobilinogen 0.2 (0.2) E.U./dL Ur Leukocyte Esterase 2+ H (NEGATIVE) Urine RBC 1-5/hpf (0-5/HPF) Urine WBC >100/hpf H (0-5/HPF) Ur Squamous Epith Cells None seen (0-5/HPF) Urine Bacteria Many (>30) H (None) Ur Culture Indicated? Specimen cultured A. baumannii (PCR) Not detected (Not Detect) Natali albicans (PCR) Not detected (Not Detect) C. glabrata (PCR) Not detected (Not Detect) C. krusei (PCR) Not detected (Not Detect) C. parapsilosis (PCR) Not detected (Not Detect) C. tropicalis (PCR) Not detected (Not Detect) SARS-CoV-2 (PCR) (Negative) Enterobacteriac sp PCR Not detected (Not Detect) E. cloacae complex PCR Not detected (Not Detect) Enterococcus sp PCR Not detected (Not Detect) E. coli (PCR) Not detected (Not Detect) H. influenzae (PCR) Not detected (Not Detect) Influenza A (RT-PCR) (NEGATIVE) Influenza B (RT-PCR) (NEGATIVE) Klebsiella oxytoca PCR Not detected (Not Detect) Klebsiella pneumoniae Not detected (Not Detect) List. monocytogenes PCR Not detected (Not Detect) N. meningitidis (PCR) Not detected (Not Detect) Proteus species (PCR) Not detected (Not Detect) RSV (PCR) (Negative) Serratia marcescens PCR Not detected (Not Detect) Staphylococcus sp PCR Detected H (Not Detect) Staph aureus (PCR) Not detected (Not Detect) mecA-Methicil Res Gene Not detected (Not Detect) Streptococcus sp PCR Not detected (Not Detect) Group A Strep (PCR) Not detected (Not Detect) Strep agalactiae (PCR) Not detected (Not Detect) Strep pneumoniae (PCR) Not detected (Not Detect) P. aeruginosa (PCR) Not detected (Not Detect) Saritha/B-Vanco Res Genes Not Reportable KPC-Carbap Res Gene PCR Not Reportable 10/12/22 10/12/22 10/12/22 Range/Units 14:52 14:52 14:52 WBC 8.2 (4.5-11.0) X10^3/uL RBC 3.87 L (4.5-5.9) X10^6/uL Hgb 9.7 L (13.5-17.5) g/dL Hct 29.4 L (41-53) % MCV 76.0 L (80-100) fL MCH 25.0 L (26-34) PG MCHC 32.9 (30-36) % RDW 20.6 H (11.6-14.8) % Plt Count 290 (150-400) X10^3/uL Neut % (Auto) 82.1 H (50-75) % Lymph % (Auto) 6.8 L (25-40) % Luna % (Auto) 10.3 (3-14) % Eos % (Auto) 0.2 L (2-4) % Baso % (Auto) 0.6 (0-2) % Neut # (Auto) 6800 (1525-2083) /uL Lymph # (Auto) 600 L (7077-9689) /uL Luna # (Auto) 800 (0-900) /uL Eos # (Auto) 0 (0-450) /uL Baso # (Auto) 100 (0-100) /uL Total Counted Seg Neutrophils % (38-70) % Band Neutrophils % (3-7) % Lymphocytes % (Manual) (25-45) % Atypical Lymphs % ( - 0) % Monocytes % (Manual) (2-11) % Eosinophils % (Manual) (2-4) % Neutrophils # (Manual) (7439-6205) /uL WBC Morphology Comment Platelet Estimate Adequate on smear RBC Morphology See below Hypochromasia Anisocytosis 1+ H Microcytosis Sodium 136 L (137-145) mmol/L Potassium 3.9 (3.4-5.1) mmol/L Chloride 99 (98-107) mmol/L Carbon Dioxide 24 (22-32) mmol/L BUN 11 (9-20) mg/dL Creatinine 0.52 L (0.66-1.25) mg/dL Estimated GFR > 60 (>60) mL/min BUN/Creatinine Ratio 21.2 (6-22) Glucose 102 (80-110) mg/dL Lactate 2.4 H (0.7-2.1) mmol/L Calcium 7.7 L (8.4-10.2) mg/dL Magnesium 2.5 H (1.6-2.3) mg/dL Total Bilirubin 0.3 (0.2-1.3) mg/dL AST 34 (17-59) IU/L ALT 24 (<50) IU/L Alkaline Phosphatase 252 H (38-126) U/L Total Creatine Kinase (55-170) U/L CK-MB (CK-2) CK-MB (CK-2) Rel Index Troponin I (0.01-0.034) ng/mL C-Reactive Protein 5.1 H (<1.0) mg/dL Total Protein 6.7 (6.3-8.2) g/dL Albumin 3.5 (3.5-5.0) g/dL Globulin 3.2 (1.7-4.1) g/dL Albumin/Globulin Ratio 1.1 (1.0-2.8) Lipase 56 (23-300) U/L Urine Color Urine Appearance Urine pH (4.5-8.0) Ur Specific [place] (1.000-1.035) Urine Protein (Negative) Urine Glucose (UA) (Negative) g/dL Urine Ketones (NEGATIVE) Urine Occult Blood (Negative) Urine Nitrate (Negative) Urine Bilirubin (NEGATIVE) Urine Urobilinogen (0.2) E.U./dL Ur Leukocyte Esterase (NEGATIVE) Urine RBC (0-5/HPF) Urine WBC (0-5/HPF) Ur Squamous Epith Cells (0-5/HPF) Urine Bacteria (None) Ur Culture Indicated? A. baumannii (PCR) (Not Detect) Natali albicans (PCR) (Not Detect) C. glabrata (PCR) (Not Detect) C. krusei (PCR) (Not Detect) C. parapsilosis (PCR) (Not Detect) C. tropicalis (PCR) (Not Detect) SARS-CoV-2 (PCR) (Negative) Enterobacteriac sp PCR (Not Detect) E. cloacae complex PCR (Not Detect) Enterococcus sp PCR (Not Detect) E. coli (PCR) (Not Detect) H. influenzae (PCR) (Not Detect) Influenza A (RT-PCR) (NEGATIVE) Influenza B (RT-PCR) (NEGATIVE) Klebsiella oxytoca PCR (Not Detect) Klebsiella pneumoniae (Not Detect) List. monocytogenes PCR (Not Detect) N. meningitidis (PCR) (Not Detect) Proteus species (PCR) (Not Detect) RSV (PCR) (Negative) Serratia marcescens PCR (Not Detect) Staphylococcus sp PCR (Not Detect) Staph aureus (PCR) (Not Detect) mecA-Methicil Res Gene (Not Detect) Streptococcus sp PCR (Not Detect) Group A Strep (PCR) (Not Detect) Strep agalactiae (PCR) (Not Detect) Strep pneumoniae (PCR) (Not Detect) P. aeruginosa (PCR) (Not Detect) Saritha/B-Vanco Res Genes KPC-Carbap Res Gene PCR 10/12/22 10/12/22 10/13/22 Range/Units 14:52 17:45 09:20 WBC Cancelled (4.5-11.0) X10^3/uL RBC Cancelled (4.5-5.9) X10^6/uL Hgb Cancelled (13.5-17.5) g/dL Hct Cancelled (41-53) % MCV Cancelled (80-100) fL MCH Cancelled (26-34) PG MCHC Cancelled (30-36) % RDW Cancelled (11.6-14.8) % Plt Count Cancelled (150-400) X10^3/uL Neut % (Auto) Cancelled (50-75) % Lymph % (Auto) Cancelled (25-40) % Luna % (Auto) Cancelled (3-14) % Eos % (Auto) Cancelled (2-4) % Baso % (Auto) Cancelled (0-2) % Neut # (Auto) Cancelled (2474-6317) /uL Lymph # (Auto) Cancelled (4893-3487) /uL Luna # (Auto) Cancelled (0-900) /uL Eos # (Auto) Cancelled (0-450) /uL Baso # (Auto) Cancelled (0-100) /uL Total Counted Seg Neutrophils % (38-70) % Band Neutrophils % (3-7) % Lymphocytes % (Manual) (25-45) % Atypical Lymphs % ( - 0) % Monocytes % (Manual) (2-11) % Eosinophils % (Manual) (2-4) % Neutrophils # (Manual) (3433-8413) /uL WBC Morphology Comment Platelet Estimate RBC Morphology Hypochromasia Anisocytosis Microcytosis Sodium (137-145) mmol/L Potassium (3.4-5.1) mmol/L Chloride (98-107) mmol/L Carbon Dioxide (22-32) mmol/L BUN (9-20) mg/dL Creatinine (0.66-1.25) mg/dL Estimated GFR (>60) mL/min BUN/Creatinine Ratio (6-22) Glucose (80-110) mg/dL Lactate 2.2 H (0.7-2.1) mmol/L Calcium (8.4-10.2) mg/dL Magnesium (1.6-2.3) mg/dL Total Bilirubin (0.2-1.3) mg/dL AST (17-59) IU/L ALT (<50) IU/L Alkaline Phosphatase (38-126) U/L Total Creatine Kinase (55-170) U/L CK-MB (CK-2) CK-MB (CK-2) Rel Index Troponin I (0.01-0.034) ng/mL C-Reactive Protein (<1.0) mg/dL Total Protein (6.3-8.2) g/dL Albumin (3.5-5.0) g/dL Globulin (1.7-4.1) g/dL Albumin/Globulin Ratio (1.0-2.8) Lipase (23-300) U/L Urine Color Urine Appearance Urine pH (4.5-8.0) Ur Specific [place] (1.000-1.035) Urine Protein (Negative) Urine Glucose (UA) (Negative) g/dL Urine Ketones (NEGATIVE) Urine Occult Blood (Negative) Urine Nitrate (Negative) Urine Bilirubin (NEGATIVE) Urine Urobilinogen (0.2) E.U./dL Ur Leukocyte Esterase (NEGATIVE) Urine RBC (0-5/HPF) Urine WBC (0-5/HPF) Ur Squamous Epith Cells (0-5/HPF) Urine Bacteria (None) Ur Culture Indicated? A. baumannii (PCR) (Not Detect) Natali albicans (PCR) (Not Detect) C. glabrata (PCR) (Not Detect) C. krusei (PCR) (Not Detect) C. parapsilosis (PCR) (Not Detect) C. tropicalis (PCR) (Not Detect) SARS-CoV-2 (PCR) Negative (Negative) Enterobacteriac sp PCR (Not Detect) E. cloacae complex PCR (Not Detect) Enterococcus sp PCR (Not Detect) E. coli (PCR) (Not Detect) H. influenzae (PCR) (Not Detect) Influenza A (RT-PCR) Flu a negative (NEGATIVE) Influenza B (RT-PCR) Flu b negative (NEGATIVE) Klebsiella oxytoca PCR (Not Detect) Klebsiella pneumoniae (Not Detect) List. monocytogenes PCR (Not Detect) N. meningitidis (PCR) (Not Detect) Proteus species (PCR) (Not Detect) RSV (PCR) Negative (Negative) Serratia marcescens PCR (Not Detect) Staphylococcus sp PCR (Not Detect) Staph aureus (PCR) (Not Detect) mecA-Methicil Res Gene (Not Detect) Streptococcus sp PCR (Not Detect) Group A Strep (PCR) (Not Detect) Strep agalactiae (PCR) (Not Detect) Strep pneumoniae (PCR) (Not Detect) P. aeruginosa (PCR) (Not Detect) Saritha/B-Vanco Res Genes KPC-Carbap Res Gene PCR 10/13/22 10/13/22 10/13/22 Range/Units 09:20 09:20 14:30 WBC 9.5 (4.5-11.0) X10^3/uL RBC 3.49 L (4.5-5.9) X10^6/uL Hgb 8.5 L (13.5-17.5) g/dL Hct 26.4 L (41-53) % MCV 75.6 L (80-100) fL MCH 24.4 L (26-34) PG MCHC 32.3 (30-36) % RDW 20.5 H (11.6-14.8) % Plt Count 269 (150-400) X10^3/uL Neut % (Auto) 81.0 H (50-75) % Lymph % (Auto) 5.4 L (25-40) % Luna % (Auto) 13.1 (3-14) % Eos % (Auto) 0.1 L (2-4) % Baso % (Auto) 0.4 (0-2) % Neut # (Auto) 7700 H (6964-9459) /uL Lymph # (Auto) 500 L (8300-7113) /uL Luna # (Auto) 1200 H (0-900) /uL Eos # (Auto) 0 (0-450) /uL Baso # (Auto) 0 (0-100) /uL Total Counted Seg Neutrophils % (38-70) % Band Neutrophils % (3-7) % Lymphocytes % (Manual) (25-45) % Atypical Lymphs % ( - 0) % Monocytes % (Manual) (2-11) % Eosinophils % (Manual) (2-4) % Neutrophils # (Manual) (1465-7160) /uL WBC Morphology Comment Platelet Estimate RBC Morphology See below Hypochromasia Anisocytosis 2+ H Microcytosis 1+ H Sodium Cancelled (137-145) mmol/L Potassium Cancelled (3.4-5.1) mmol/L Chloride Cancelled (98-107) mmol/L Carbon Dioxide Cancelled (22-32) mmol/L BUN Cancelled (9-20) mg/dL Creatinine Cancelled (0.66-1.25) mg/dL Estimated GFR Cancelled (>60) mL/min BUN/Creatinine Ratio Cancelled (6-22) Glucose Cancelled (80-110) mg/dL Lactate Cancelled (0.7-2.1) mmol/L Calcium Cancelled (8.4-10.2) mg/dL Magnesium (1.6-2.3) mg/dL Total Bilirubin (0.2-1.3) mg/dL AST (17-59) IU/L ALT (<50) IU/L Alkaline Phosphatase (38-126) U/L Total Creatine Kinase (55-170) U/L CK-MB (CK-2) CK-MB (CK-2) Rel Index Troponin I (0.01-0.034) ng/mL C-Reactive Protein (<1.0) mg/dL Total Protein (6.3-8.2) g/dL Albumin (3.5-5.0) g/dL Globulin (1.7-4.1) g/dL Albumin/Globulin Ratio (1.0-2.8) Lipase (23-300) U/L Urine Color Urine Appearance Urine pH (4.5-8.0) Ur Specific [place] (1.000-1.035) Urine Protein (Negative) Urine Glucose (UA) (Negative) g/dL Urine Ketones (NEGATIVE) Urine Occult Blood (Negative) Urine Nitrate (Negative) Urine Bilirubin (NEGATIVE) Urine Urobilinogen (0.2) E.U./dL Ur Leukocyte Esterase (NEGATIVE) Urine RBC (0-5/HPF) Urine WBC (0-5/HPF) Ur Squamous Epith Cells (0-5/HPF) Urine Bacteria (None) Ur Culture Indicated? A. baumannii (PCR) (Not Detect) Natali albicans (PCR) (Not Detect) C. glabrata (PCR) (Not Detect) C. krusei (PCR) (Not Detect) C. parapsilosis (PCR) (Not Detect) C. tropicalis (PCR) (Not Detect) SARS-CoV-2 (PCR) (Negative) Enterobacteriac sp PCR (Not Detect) E. cloacae complex PCR (Not Detect) Enterococcus sp PCR (Not Detect) E. coli (PCR) (Not Detect) H. influenzae (PCR) (Not Detect) Influenza A (RT-PCR) (NEGATIVE) Influenza B (RT-PCR) (NEGATIVE) Klebsiella oxytoca PCR (Not Detect) Klebsiella pneumoniae (Not Detect) List. monocytogenes PCR (Not Detect) N. meningitidis (PCR) (Not Detect) Proteus species (PCR) (Not Detect) RSV (PCR) (Negative) Serratia marcescens PCR (Not Detect) Staphylococcus sp PCR (Not Detect) Staph aureus (PCR) (Not Detect) mecA-Methicil Res Gene (Not Detect) Streptococcus sp PCR (Not Detect) Group A Strep (PCR) (Not Detect) Strep agalactiae (PCR) (Not Detect) Strep pneumoniae (PCR) (Not Detect) P. aeruginosa (PCR) (Not Detect) Saritha/B-Vanco Res Genes KPC-Carbap Res Gene PCR 10/13/22 10/13/22 10/13/22 Range/Units 14:30 14:30 17:30 WBC (4.5-11.0) X10^3/uL RBC (4.5-5.9) X10^6/uL Hgb (13.5-17.5) g/dL Hct (41-53) % MCV (80-100) fL MCH (26-34) PG MCHC (30-36) % RDW (11.6-14.8) % Plt Count (150-400) X10^3/uL Neut % (Auto) (50-75) % Lymph % (Auto) (25-40) % Luna % (Auto) (3-14) % Eos % (Auto) (2-4) % Baso % (Auto) (0-2) % Neut # (Auto) (2525-6124) /uL Lymph # (Auto) (5730-1891) /uL Luna # (Auto) (0-900) /uL Eos # (Auto) (0-450) /uL Baso # (Auto) (0-100) /uL Total Counted Seg Neutrophils % (38-70) % Band Neutrophils % (3-7) % Lymphocytes % (Manual) (25-45) % Atypical Lymphs % ( - 0) % Monocytes % (Manual) (2-11) % Eosinophils % (Manual) (2-4) % Neutrophils # (Manual) (7212-2596) /uL WBC Morphology Comment Platelet Estimate RBC Morphology Hypochromasia Anisocytosis Microcytosis Sodium 130 L (137-145) mmol/L Potassium 4.0 (3.4-5.1) mmol/L Chloride 96 L (98-107) mmol/L Carbon Dioxide 22 (22-32) mmol/L BUN 10 (9-20) mg/dL Creatinine 0.53 L (0.66-1.25) mg/dL Estimated GFR > 60 (>60) mL/min BUN/Creatinine Ratio 18.9 (6-22) Glucose 104 (80-110) mg/dL Lactate 3.1 H 2.6 H (0.7-2.1) mmol/L Calcium 7.0 L (8.4-10.2) mg/dL Magnesium (1.6-2.3) mg/dL Total Bilirubin (0.2-1.3) mg/dL AST (17-59) IU/L ALT (<50) IU/L Alkaline Phosphatase (38-126) U/L Total Creatine Kinase (55-170) U/L CK-MB (CK-2) CK-MB (CK-2) Rel Index Troponin I (0.01-0.034) ng/mL C-Reactive Protein (<1.0) mg/dL Total Protein (6.3-8.2) g/dL Albumin (3.5-5.0) g/dL Globulin (1.7-4.1) g/dL Albumin/Globulin Ratio (1.0-2.8) Lipase (23-300) U/L Urine Color Urine Appearance Urine pH (4.5-8.0) Ur Specific [place] (1.000-1.035) Urine Protein (Negative) Urine Glucose (UA) (Negative) g/dL Urine Ketones (NEGATIVE) Urine Occult Blood (Negative) Urine Nitrate (Negative) Urine Bilirubin (NEGATIVE) Urine Urobilinogen (0.2) E.U./dL Ur Leukocyte Esterase (NEGATIVE) Urine RBC (0-5/HPF) Urine WBC (0-5/HPF) Ur Squamous Epith Cells (0-5/HPF) Urine Bacteria (None) Ur Culture Indicated? A. baumannii (PCR) (Not Detect) Natali albicans (PCR) (Not Detect) C. glabrata (PCR) (Not Detect) C. krusei (PCR) (Not Detect) C. parapsilosis (PCR) (Not Detect) C. tropicalis (PCR) (Not Detect) SARS-CoV-2 (PCR) (Negative) Enterobacteriac sp PCR (Not Detect) E. cloacae complex PCR (Not Detect) Enterococcus sp PCR (Not Detect) E. coli (PCR) (Not Detect) H. influenzae (PCR) (Not Detect) Influenza A (RT-PCR) (NEGATIVE) Influenza B (RT-PCR) (NEGATIVE) Klebsiella oxytoca PCR (Not Detect) Klebsiella pneumoniae (Not Detect) List. monocytogenes PCR (Not Detect) N. meningitidis (PCR) (Not Detect) Proteus species (PCR) (Not Detect) RSV (PCR) (Negative) Serratia marcescens PCR (Not Detect) Staphylococcus sp PCR (Not Detect) Staph aureus (PCR) (Not Detect) mecA-Methicil Res Gene (Not Detect) Streptococcus sp PCR (Not Detect) Group A Strep (PCR) (Not Detect) Strep agalactiae (PCR) (Not Detect) Strep pneumoniae (PCR) (Not Detect) P. aeruginosa (PCR) (Not Detect) Saritha/B-Vanco Res Genes KPC-Carbap Res Gene PCR 10/13/22 10/14/22 10/14/22 Range/Units 18:37 08:42 08:42 WBC 7.8 (4.5-11.0) X10^3/uL RBC 3.49 L (4.5-5.9) X10^6/uL Hgb 8.3 L 8.6 L (13.5-17.5) g/dL Hct 25.1 L 26.6 L (41-53) % MCV 76.1 L (80-100) fL MCH 24.5 L (26-34) PG MCHC 32.2 (30-36) % RDW 21.0 H (11.6-14.8) % Plt Count 274 (150-400) X10^3/uL Neut % (Auto) 79.9 H (50-75) % Lymph % (Auto) 7.0 L (25-40) % Luna % (Auto) 12.3 (3-14) % Eos % (Auto) 0.2 L (2-4) % Baso % (Auto) 0.6 (0-2) % Neut # (Auto) 6300 (3469-7208) /uL Lymph # (Auto) 500 L (7048-4671) /uL Luna # (Auto) 1000 H (0-900) /uL Eos # (Auto) 0 (0-450) /uL Baso # (Auto) 0 (0-100) /uL Total Counted Seg Neutrophils % (38-70) % Band Neutrophils % (3-7) % Lymphocytes % (Manual) (25-45) % Atypical Lymphs % ( - 0) % Monocytes % (Manual) (2-11) % Eosinophils % (Manual) (2-4) % Neutrophils # (Manual) (7434-7639) /uL WBC Morphology Comment Platelet Estimate RBC Morphology See below Hypochromasia Anisocytosis 2+ H Microcytosis 1+ H Sodium 134 L (137-145) mmol/L Potassium 3.6 (3.4-5.1) mmol/L Chloride 101 (98-107) mmol/L Carbon Dioxide 21 L (22-32) mmol/L BUN 8 L (9-20) mg/dL Creatinine 0.45 L (0.66-1.25) mg/dL Estimated GFR > 60 (>60) mL/min BUN/Creatinine Ratio 17.8 (6-22) Glucose 102 (80-110) mg/dL Lactate (0.7-2.1) mmol/L Calcium 6.7 L (8.4-10.2) mg/dL Magnesium (1.6-2.3) mg/dL Total Bilirubin (0.2-1.3) mg/dL AST (17-59) IU/L ALT (<50) IU/L Alkaline Phosphatase (38-126) U/L Total Creatine Kinase (55-170) U/L CK-MB (CK-2) CK-MB (CK-2) Rel Index Troponin I (0.01-0.034) ng/mL C-Reactive Protein (<1.0) mg/dL Total Protein (6.3-8.2) g/dL Albumin (3.5-5.0) g/dL Globulin (1.7-4.1) g/dL Albumin/Globulin Ratio (1.0-2.8) Lipase (23-300) U/L Urine Color Urine Appearance Urine pH (4.5-8.0) Ur Specific [place] (1.000-1.035) Urine Protein (Negative) Urine Glucose (UA) (Negative) g/dL Urine Ketones (NEGATIVE) Urine Occult Blood (Negative) Urine Nitrate (Negative) Urine Bilirubin (NEGATIVE) Urine Urobilinogen (0.2) E.U./dL Ur Leukocyte Esterase (NEGATIVE) Urine RBC (0-5/HPF) Urine WBC (0-5/HPF) Ur Squamous Epith Cells (0-5/HPF) Urine Bacteria (None) Ur Culture Indicated? A. baumannii (PCR) (Not Detect) Natali albicans (PCR) (Not Detect) C. glabrata (PCR) (Not Detect) C. krusei (PCR) (Not Detect) C. parapsilosis (PCR) (Not Detect) C. tropicalis (PCR) (Not Detect) SARS-CoV-2 (PCR) (Negative) Enterobacteriac sp PCR (Not Detect) E. cloacae complex PCR (Not Detect) Enterococcus sp PCR (Not Detect) E. coli (PCR) (Not Detect) H. influenzae (PCR) (Not Detect) Influenza A (RT-PCR) (NEGATIVE) Influenza B (RT-PCR) (NEGATIVE) Klebsiella oxytoca PCR (Not Detect) Klebsiella pneumoniae (Not Detect) List. monocytogenes PCR (Not Detect) N. meningitidis (PCR) (Not Detect) Proteus species (PCR) (Not Detect) RSV (PCR) (Negative) Serratia marcescens PCR (Not Detect) Staphylococcus sp PCR (Not Detect) Staph aureus (PCR) (Not Detect) mecA-Methicil Res Gene (Not Detect) Streptococcus sp PCR (Not Detect) Group A Strep (PCR) (Not Detect) Strep agalactiae (PCR) (Not Detect) Strep pneumoniae (PCR) (Not Detect) P. aeruginosa (PCR) (Not Detect) Saritha/B-Vanco Res Genes KPC-Carbap Res Gene PCR 10/14/22 10/14/22 10/14/22 Range/Units 08:42 18:30 18:30 WBC 7.9 (4.5-11.0) X10^3/uL RBC 3.53 L (4.5-5.9) X10^6/uL Hgb 8.7 L (13.5-17.5) g/dL Hct 26.9 L (41-53) % MCV 76.1 L (80-100) fL MCH 24.7 L (26-34) PG MCHC 32.4 (30-36) % RDW 20.7 H (11.6-14.8) % Plt Count 279 (150-400) X10^3/uL Neut % (Auto) 78.7 H (50-75) % Lymph % (Auto) 8.8 L (25-40) % Luna % (Auto) 11.7 (3-14) % Eos % (Auto) 0.3 L (2-4) % Baso % (Auto) 0.5 (0-2) % Neut # (Auto) 6200 (9523-2906) /uL Lymph # (Auto) 700 L (6654-5772) /uL Luna # (Auto) 900 (0-900) /uL Eos # (Auto) 0 (0-450) /uL Baso # (Auto) 0 (0-100) /uL Total Counted Seg Neutrophils % (38-70) % Band Neutrophils % (3-7) % Lymphocytes % (Manual) (25-45) % Atypical Lymphs % ( - 0) % Monocytes % (Manual) (2-11) % Eosinophils % (Manual) (2-4) % Neutrophils # (Manual) (6971-3716) /uL WBC Morphology Comment Not Reportable Platelet Estimate RBC Morphology See below Hypochromasia 1+ H Anisocytosis 1+ H Microcytosis Sodium 133 L (137-145) mmol/L Potassium 4.4 (3.4-5.1) mmol/L Chloride 99 (98-107) mmol/L Carbon Dioxide 22 (22-32) mmol/L BUN 13 (9-20) mg/dL Creatinine 0.49 L (0.66-1.25) mg/dL Estimated GFR > 60 (>60) mL/min BUN/Creatinine Ratio 26.5 H (6-22) Glucose 109 (80-110) mg/dL Lactate 1.9 (0.7-2.1) mmol/L Calcium 7.9 L (8.4-10.2) mg/dL Magnesium (1.6-2.3) mg/dL Total Bilirubin 0.2 (0.2-1.3) mg/dL AST 44 (17-59) IU/L ALT 23 (<50) IU/L Alkaline Phosphatase 240 H (38-126) U/L Total Creatine Kinase (55-170) U/L CK-MB (CK-2) CK-MB (CK-2) Rel Index Troponin I (0.01-0.034) ng/mL C-Reactive Protein (<1.0) mg/dL Total Protein 6.2 L (6.3-8.2) g/dL Albumin 3.1 L (3.5-5.0) g/dL Globulin 3.1 (1.7-4.1) g/dL Albumin/Globulin Ratio 1.0 (1.0-2.8) Lipase (23-300) U/L Urine Color Urine Appearance Urine pH (4.5-8.0) Ur Specific [place] (1.000-1.035) Urine Protein (Negative) Urine Glucose (UA) (Negative) g/dL Urine Ketones (NEGATIVE) Urine Occult Blood (Negative) Urine Nitrate (Negative) Urine Bilirubin (NEGATIVE) Urine Urobilinogen (0.2) E.U./dL Ur Leukocyte Esterase (NEGATIVE) Urine RBC (0-5/HPF) Urine WBC (0-5/HPF) Ur Squamous Epith Cells (0-5/HPF) Urine Bacteria (None) Ur Culture Indicated? A. baumannii (PCR) (Not Detect) Natali albicans (PCR) (Not Detect) C. glabrata (PCR) (Not Detect) C. krusei (PCR) (Not Detect) C. parapsilosis (PCR) (Not Detect) C. tropicalis (PCR) (Not Detect) SARS-CoV-2 (PCR) (Negative) Enterobacteriac sp PCR (Not Detect) E. cloacae complex PCR (Not Detect) Enterococcus sp PCR (Not Detect) E. coli (PCR) (Not Detect) H. influenzae (PCR) (Not Detect) Influenza A (RT-PCR) (NEGATIVE) Influenza B (RT-PCR) (NEGATIVE) Klebsiella oxytoca PCR (Not Detect) Klebsiella pneumoniae (Not Detect) List. monocytogenes PCR (Not Detect) N. meningitidis (PCR) (Not Detect) Proteus species (PCR) (Not Detect) RSV (PCR) (Negative) Serratia marcescens PCR (Not Detect) Staphylococcus sp PCR (Not Detect) Staph aureus (PCR) (Not Detect) mecA-Methicil Res Gene (Not Detect) Streptococcus sp PCR (Not Detect) Group A Strep (PCR) (Not Detect) Strep agalactiae (PCR) (Not Detect) Strep pneumoniae (PCR) (Not Detect) P. aeruginosa (PCR) (Not Detect) Saritha/B-Vanco Res Genes KPC-Carbap Res Gene PCR 10/15/22 10/15/22 Range/Units 08:10 08:10 WBC 8.9 (4.5-11.0) X10^3/uL RBC 3.49 L (4.5-5.9) X10^6/uL Hgb 8.5 L (13.5-17.5) g/dL Hct 26.7 L (41-53) % MCV 76.6 L (80-100) fL MCH 24.4 L (26-34) PG MCHC 31.8 (30-36) % RDW 21.3 H (11.6-14.8) % Plt Count 310 (150-400) X10^3/uL Neut % (Auto) Not Reportable (50-75) % Lymph % (Auto) Not Reportable (25-40) % Luna % (Auto) Not Reportable (3-14) % Eos % (Auto) Not Reportable (2-4) % Baso % (Auto) Not Reportable (0-2) % Neut # (Auto) (9050-3139) /uL Lymph # (Auto) Not Reportable (4669-6215) /uL Luna # (Auto) Not Reportable (0-900) /uL Eos # (Auto) (0-450) /uL Baso # (Auto) Not Reportable (0-100) /uL Total Counted 100 Seg Neutrophils % 66.0 (38-70) % Band Neutrophils % 9.0 H (3-7) % Lymphocytes % (Manual) 16.0 L (25-45) % Atypical Lymphs % 2.0 H ( - 0) % Monocytes % (Manual) 6.0 (2-11) % Eosinophils % (Manual) 1.0 L (2-4) % Neutrophils # (Manual) 6675 H (4374-6691) /uL WBC Morphology Comment Platelet Estimate RBC Morphology Not Reportable Hypochromasia Anisocytosis 2+ H Microcytosis Sodium 133 L (137-145) mmol/L Potassium 4.0 (3.4-5.1) mmol/L Chloride 99 (98-107) mmol/L Carbon Dioxide 22 (22-32) mmol/L BUN 9 (9-20) mg/dL Creatinine 0.44 L (0.66-1.25) mg/dL Estimated GFR > 60 (>60) mL/min BUN/Creatinine Ratio 20.5 (6-22) Glucose 93 (80-110) mg/dL Lactate (0.7-2.1) mmol/L Calcium 7.6 L (8.4-10.2) mg/dL Magnesium (1.6-2.3) mg/dL Total Bilirubin 0.3 (0.2-1.3) mg/dL AST 39 (17-59) IU/L ALT 22 (<50) IU/L Alkaline Phosphatase 223 H (38-126) U/L Total Creatine Kinase (55-170) U/L CK-MB (CK-2) CK-MB (CK-2) Rel Index Troponin I (0.01-0.034) ng/mL C-Reactive Protein (<1.0) mg/dL Total Protein 6.1 L (6.3-8.2) g/dL Albumin 3.1 L (3.5-5.0) g/dL Globulin 3.0 (1.7-4.1) g/dL Albumin/Globulin Ratio 1.0 (1.0-2.8) Lipase (23-300) U/L Urine Color Urine Appearance Urine pH (4.5-8.0) Ur Specific [place] (1.000-1.035) Urine Protein (Negative) Urine Glucose (UA) (Negative) g/dL Urine Ketones (NEGATIVE) Urine Occult Blood (Negative) Urine Nitrate (Negative) Urine Bilirubin (NEGATIVE) Urine Urobilinogen (0.2) E.U./dL Ur Leukocyte Esterase (NEGATIVE) Urine RBC (0-5/HPF) Urine WBC (0-5/HPF) Ur Squamous Epith Cells (0-5/HPF) Urine Bacteria (None) Ur Culture Indicated? A. baumannii (PCR) (Not Detect) Natali albicans (PCR) (Not Detect) C. glabrata (PCR) (Not Detect) C. krusei (PCR) (Not Detect) C. parapsilosis (PCR) (Not Detect) C. tropicalis (PCR) (Not Detect) SARS-CoV-2 (PCR) (Negative) Enterobacteriac sp PCR (Not Detect) E. cloacae complex PCR (Not Detect) Enterococcus sp PCR (Not Detect) E. coli (PCR) (Not Detect) H. influenzae (PCR) (Not Detect) Influenza A (RT-PCR) (NEGATIVE) Influenza B (RT-PCR) (NEGATIVE) Klebsiella oxytoca PCR (Not Detect) Klebsiella pneumoniae (Not Detect) List. monocytogenes PCR (Not Detect) N. meningitidis (PCR) (Not Detect) Proteus species (PCR) (Not Detect) RSV (PCR) (Negative) Serratia marcescens PCR (Not Detect) Staphylococcus sp PCR (Not Detect) Staph aureus (PCR) (Not Detect) mecA-Methicil Res Gene (Not Detect) Streptococcus sp PCR (Not Detect) Group A Strep (PCR) (Not Detect) Strep agalactiae (PCR) (Not Detect) Strep pneumoniae (PCR) (Not Detect) P. aeruginosa (PCR) (Not Detect) Saritha/B-Vanco Res Genes KPC-Carbap Res Gene PCR Urine Dip Bedside Urine Glucose Negative Bedside Urine Bilirubin - Negative Bedside Urine Ketone - Negative Urine Specific [place] 1.025 Bedside Urine Occult Blood +/- Bedside Urine pH 6 Bedside Urine Protein +++ 300 Bedside Urine Urobilinogen - Negative Bedside Urine Nitrite - Negative Bedside Urine Leukocytes ++ 125 Esterase Imaging Data repeat CT abd/pelvis: Radiologist's Impression: [address] [address] [address] Scan Report Signed Patient: Harley Beard MR#: [id number] : 1940 Acct:[id number] Age/Sex: 82 / M Date of Service: 10/13/22 Loc: ED Accession Number: [id number] ?? Procedure: CT abdomen pelvis w con Ordering Provider: Melanie Phoenix D.O. PROCEDURE:? CT ABDOMEN PELVIS W CON ? INDICATIONS:? h/h drop right kidney stone ? TECHNIQUE:? After the administration of intravenous contrast, axial sections acquired from the lung bases to the pubic symphysis.? Coronal and sagittal reformats were performed.? For radiation dose reduction, the following was used:? automated exposure control, adjustment of mA and/or kV according to patient size.? ? COMPARISON:? [facility], CT, CT KIDNEY URETER BLADDER (KUB), 10/12/2022, 13:14. ? FINDINGS:? Right ureteral calculus is unchanged in size and position.? Right hydroureteronephrosis is also unchanged.? No new abnormality in the remainder of the exam. ? ? IMPRESSION:? No significant change from previous exam.? Mid right ureteral calculus and right hydroureteronephrosis are similar.? ? ? Dictated by: Herberth Bowers M.D. on 10/13/2022 at 18:40 ? ? Approved by: Herberth Bowers M.D. on 10/13/2022 at 18:42?? MDM Narrative Medical decision making narrative: 82-year-old male with history of prostate CA and kidney stones presents with about a week of increasing suprapubic discomfort and classic urinary symptoms including dysuria, frequency and urgency. He is had fever and shaking chills and meets septic criteria. He has been hemodynamically stable but urine is very convincing in the setting of a CT KUB demonstrating stone with hydronephrosis. I have discussed with on-call Urology at the [facility] who sure the opinion that in addition to fluid resuscitation antibiotics patient will need to be transferred to a facility with Urology and likely Interventional Radiology. Patient and family are aware of the diagnosis and plan, patient will be signed out to Dr. Solorio for final disposition. We are currently waiting call back from [facility] Dr Solorio: overnight 10/12-10/13 received turned over. Review patient's history and physical exam and workup up to this point. Reviewed his radiologic studies. Patient is stable. Received antibiotics. [facility] states that they can not take the patient's secondary to crowding. Attempted to contact multiple other places with urologic capability however there still is no bed availability. Morning labs ordered. Antibiotics scheduled. Will continue to monitor. Care turned over to Dr. Phoenix at change of shift to continue to observe until disposition can be made. 10/13/22 [place]-patient signed out to me by Dr. Solorio. I have seen evaluated patient myself. He has been up to the restroom multiple times. Awaiting placement for presumed sepsis obstructing kidney stone. Patient remains afebrile here in the emergency department. Urinalysis does show Gram-negative bacilli. He is no leukocytosis he is hemodynamically stable. 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 Patient is on multiple wait lists. Urology is not available here at this hospital of [facility] neurology has already been consulted. Patient overall appears well. Blood work this morning is stable. At this time due to critical bed shortage the stability of the patient we will go ahead and order him diet Lovenox for DVT prophylaxis. He is getting Rocephin daily for infection. Awaiting for culture and sensitivity. Dr solorio 10/13-10/14: Assumed care of patient. Reviewed patient's [address] scan this evening is the same as prior. He continues to be stable. Continues to be on antibiotics. Is on DVT prophylaxis. Continues to need transfer for urologic intervention that we do not have available here at this facility. There was no bed availability. We will continue to keep an emergency department. Care turned over to Dr. Phoenix to disposition. <Melanie Phoenix, DO - Last Filed: 10/19/22 07:23> Lab Data Labs: Lab Results 10/12/22 10/12/22 10/12/22 Range/Units 12:49 14:35 14:35 WBC (4.5-11.0) X10^3/uL RBC (4.5-5.9) X10^6/uL Hgb (13.5-17.5) g/dL Hct (41-53) % MCV (80-100) fL MCH (26-34) PG MCHC (30-36) % RDW (11.6-14.8) % Plt Count (150-400) X10^3/uL Neut % (Auto) (50-75) % Lymph % (Auto) (25-40) % Luna % (Auto) (3-14) % Eos % (Auto) (2-4) % Baso % (Auto) (0-2) % Neut # (Auto) (7598-5947) /uL Lymph # (Auto) (4488-1689) /uL Luna # (Auto) (0-900) /uL Eos # (Auto) (0-450) /uL Baso # (Auto) (0-100) /uL Total Counted Seg Neutrophils % (38-70) % Band Neutrophils % (3-7) % Lymphocytes % (Manual) (25-45) % Atypical Lymphs % ( - 0) % Monocytes % (Manual) (2-11) % Eosinophils % (Manual) (2-4) % Neutrophils # (Manual) (4804-0582) /uL WBC Morphology Comment Platelet Estimate RBC Morphology Hypochromasia Anisocytosis Microcytosis Sodium (137-145) mmol/L Potassium (3.4-5.1) mmol/L Chloride (98-107) mmol/L Carbon Dioxide (22-32) mmol/L BUN (9-20) mg/dL Creatinine (0.66-1.25) mg/dL Estimated GFR (>60) mL/min BUN/Creatinine Ratio (6-22) Glucose (80-110) mg/dL Lactate (0.7-2.1) mmol/L Calcium (8.4-10.2) mg/dL Magnesium (1.6-2.3) mg/dL Total Bilirubin (0.2-1.3) mg/dL AST (17-59) IU/L ALT (<50) IU/L Alkaline Phosphatase (38-126) U/L Total Creatine Kinase 99 (55-170) U/L CK-MB (CK-2) TNP CK-MB (CK-2) Rel Index TNP Troponin I < 0.012 (0.01-0.034) ng/mL C-Reactive Protein (<1.0) mg/dL Total Protein (6.3-8.2) g/dL Albumin (3.5-5.0) g/dL Globulin (1.7-4.1) g/dL Albumin/Globulin Ratio (1.0-2.8) Lipase (23-300) U/L Urine Color Yellow Urine Appearance Cloudy Urine pH 6.0 (4.5-8.0) Ur Specific [place] 1.025 (1.000-1.035) Urine Protein 2+ H (Negative) Urine Glucose (UA) Negative (Negative) g/dL Urine Ketones Trace H (NEGATIVE) Urine Occult Blood 2+ H (Negative) Urine Nitrate Negative (Negative) Urine Bilirubin Negative (NEGATIVE) Urine Urobilinogen 0.2 (0.2) E.U./dL Ur Leukocyte Esterase 2+ H (NEGATIVE) Urine RBC 1-5/hpf (0-5/HPF) Urine WBC >100/hpf H (0-5/HPF) Ur Squamous Epith Cells None seen (0-5/HPF) Urine Bacteria Many (>30) H (None) Ur Culture Indicated? Specimen cultured A. baumannii (PCR) Not detected (Not Detect) Natali albicans (PCR) Not detected (Not Detect) C. glabrata (PCR) Not detected (Not Detect) C. krusei (PCR) Not detected (Not Detect) C. parapsilosis (PCR) Not detected (Not Detect) C. tropicalis (PCR) Not detected (Not Detect) SARS-CoV-2 (PCR) (Negative) Enterobacteriac sp PCR Not detected (Not Detect) E. cloacae complex PCR Not detected (Not Detect) Enterococcus sp PCR Not detected (Not Detect) E. coli (PCR) Not detected (Not Detect) H. influenzae (PCR) Not detected (Not Detect) Influenza A (RT-PCR) (NEGATIVE) Influenza B (RT-PCR) (NEGATIVE) Klebsiella oxytoca PCR Not detected (Not Detect) Klebsiella pneumoniae Not detected (Not Detect) List. monocytogenes PCR Not detected (Not Detect) N. meningitidis (PCR) Not detected (Not Detect) Proteus species (PCR) Not detected (Not Detect) RSV (PCR) (Negative) Serratia marcescens PCR Not detected (Not Detect) Staphylococcus sp PCR Detected H (Not Detect) Staph aureus (PCR) Not detected (Not Detect) mecA-Methicil Res Gene Not detected (Not Detect) Streptococcus sp PCR Not detected (Not Detect) Group A Strep (PCR) Not detected (Not Detect) Strep agalactiae (PCR) Not detected (Not Detect) Strep pneumoniae (PCR) Not detected (Not Detect) P. aeruginosa (PCR) Not detected (Not Detect) Saritha/B-Vanco Res Genes Not Reportable KPC-Carbap Res Gene PCR Not Reportable 10/12/22 10/12/22 10/12/22 Range/Units 14:52 14:52 14:52 WBC 8.2 (4.5-11.0) X10^3/uL RBC 3.87 L (4.5-5.9) X10^6/uL Hgb 9.7 L (13.5-17.5) g/dL Hct 29.4 L (41-53) % MCV 76.0 L (80-100) fL MCH 25.0 L (26-34) PG MCHC 32.9 (30-36) % RDW 20.6 H (11.6-14.8) % Plt Count 290 (150-400) X10^3/uL Neut % (Auto) 82.1 H (50-75) % Lymph % (Auto) 6.8 L (25-40) % Luna % (Auto) 10.3 (3-14) % Eos % (Auto) 0.2 L (2-4) % Baso % (Auto) 0.6 (0-2) % Neut # (Auto) 6800 (1217-1774) /uL Lymph # (Auto) 600 L (9567-1000) /uL Luna # (Auto) 800 (0-900) /uL Eos # (Auto) 0 (0-450) /uL Baso # (Auto) 100 (0-100) /uL Total Counted Seg Neutrophils % (38-70) % Band Neutrophils % (3-7) % Lymphocytes % (Manual) (25-45) % Atypical Lymphs % ( - 0) % Monocytes % (Manual) (2-11) % Eosinophils % (Manual) (2-4) % Neutrophils # (Manual) (9130-1233) /uL WBC Morphology Comment Platelet Estimate Adequate on smear RBC Morphology See below Hypochromasia Anisocytosis 1+ H Microcytosis Sodium 136 L (137-145) mmol/L Potassium 3.9 (3.4-5.1) mmol/L Chloride 99 (98-107) mmol/L Carbon Dioxide 24 (22-32) mmol/L BUN 11 (9-20) mg/dL Creatinine 0.52 L (0.66-1.25) mg/dL Estimated GFR > 60 (>60) mL/min BUN/Creatinine Ratio 21.2 (6-22) Glucose 102 (80-110) mg/dL Lactate 2.4 H (0.7-2.1) mmol/L Calcium 7.7 L (8.4-10.2) mg/dL Magnesium 2.5 H (1.6-2.3) mg/dL Total Bilirubin 0.3 (0.2-1.3) mg/dL AST 34 (17-59) IU/L ALT 24 (<50) IU/L Alkaline Phosphatase 252 H (38-126) U/L Total Creatine Kinase (55-170) U/L CK-MB (CK-2) CK-MB (CK-2) Rel Index Troponin I (0.01-0.034) ng/mL C-Reactive Protein 5.1 H (<1.0) mg/dL Total Protein 6.7 (6.3-8.2) g/dL Albumin 3.5 (3.5-5.0) g/dL Globulin 3.2 (1.7-4.1) g/dL Albumin/Globulin Ratio 1.1 (1.0-2.8) Lipase 56 (23-300) U/L Urine Color Urine Appearance Urine pH (4.5-8.0) Ur Specific [place] (1.000-1.035) Urine Protein (Negative) Urine Glucose (UA) (Negative) g/dL Urine Ketones (NEGATIVE) Urine Occult Blood (Negative) Urine Nitrate (Negative) Urine Bilirubin (NEGATIVE) Urine Urobilinogen (0.2) E.U./dL Ur Leukocyte Esterase (NEGATIVE) Urine RBC (0-5/HPF) Urine WBC (0-5/HPF) Ur Squamous Epith Cells (0-5/HPF) Urine Bacteria (None) Ur Culture Indicated? A. baumannii (PCR) (Not Detect) Natali albicans (PCR) (Not Detect) C. glabrata (PCR) (Not Detect) C. krusei (PCR) (Not Detect) C. parapsilosis (PCR) (Not Detect) C. tropicalis (PCR) (Not Detect) SARS-CoV-2 (PCR) (Negative) Enterobacteriac sp PCR (Not Detect) E. cloacae complex PCR (Not Detect) Enterococcus sp PCR (Not Detect) E. coli (PCR) (Not Detect) H. influenzae (PCR) (Not Detect) Influenza A (RT-PCR) (NEGATIVE) Influenza B (RT-PCR) (NEGATIVE) Klebsiella oxytoca PCR (Not Detect) Klebsiella pneumoniae (Not Detect) List. monocytogenes PCR (Not Detect) N. meningitidis (PCR) (Not Detect) Proteus species (PCR) (Not Detect) RSV (PCR) (Negative) Serratia marcescens PCR (Not Detect) Staphylococcus sp PCR (Not Detect) Staph aureus (PCR) (Not Detect) mecA-Methicil Res Gene (Not Detect) Streptococcus sp PCR (Not Detect) Group A Strep (PCR) (Not Detect) Strep agalactiae (PCR) (Not Detect) Strep pneumoniae (PCR) (Not Detect) P. aeruginosa (PCR) (Not Detect) Saritha/B-Vanco Res Genes KPC-Carbap Res Gene PCR 10/12/22 10/12/22 10/13/22 Range/Units 14:52 17:45 09:20 WBC Cancelled (4.5-11.0) X10^3/uL RBC Cancelled (4.5-5.9) X10^6/uL Hgb Cancelled (13.5-17.5) g/dL Hct Cancelled (41-53) % MCV Cancelled (80-100) fL MCH Cancelled (26-34) PG MCHC Cancelled (30-36) % RDW Cancelled (11.6-14.8) % Plt Count Cancelled (150-400) X10^3/uL Neut % (Auto) Cancelled (50-75) % Lymph % (Auto) Cancelled (25-40) % Luna % (Auto) Cancelled (3-14) % Eos % (Auto) Cancelled (2-4) % Baso % (Auto) Cancelled (0-2) % Neut # (Auto) Cancelled (2512-7354) /uL Lymph # (Auto) Cancelled (6635-6883) /uL Luna # (Auto) Cancelled (0-900) /uL Eos # (Auto) Cancelled (0-450) /uL Baso # (Auto) Cancelled (0-100) /uL Total Counted Seg Neutrophils % (38-70) % Band Neutrophils % (3-7) % Lymphocytes % (Manual) (25-45) % Atypical Lymphs % ( - 0) % Monocytes % (Manual) (2-11) % Eosinophils % (Manual) (2-4) % Neutrophils # (Manual) (1679-7954) /uL WBC Morphology Comment Platelet Estimate RBC Morphology Hypochromasia Anisocytosis Microcytosis Sodium (137-145) mmol/L Potassium (3.4-5.1) mmol/L Chloride (98-107) mmol/L Carbon Dioxide (22-32) mmol/L BUN (9-20) mg/dL Creatinine (0.66-1.25) mg/dL Estimated GFR (>60) mL/min BUN/Creatinine Ratio (6-22) Glucose (80-110) mg/dL Lactate 2.2 H (0.7-2.1) mmol/L Calcium (8.4-10.2) mg/dL Magnesium (1.6-2.3) mg/dL Total Bilirubin (0.2-1.3) mg/dL AST (17-59) IU/L ALT (<50) IU/L Alkaline Phosphatase (38-126) U/L Total Creatine Kinase (55-170) U/L CK-MB (CK-2) CK-MB (CK-2) Rel Index Troponin I (0.01-0.034) ng/mL C-Reactive Protein (<1.0) mg/dL Total Protein (6.3-8.2) g/dL Albumin (3.5-5.0) g/dL Globulin (1.7-4.1) g/dL Albumin/Globulin Ratio (1.0-2.8) Lipase (23-300) U/L Urine Color Urine Appearance Urine pH (4.5-8.0) Ur Specific [place] (1.000-1.035) Urine Protein (Negative) Urine Glucose (UA) (Negative) g/dL Urine Ketones (NEGATIVE) Urine Occult Blood (Negative) Urine Nitrate (Negative) Urine Bilirubin (NEGATIVE) Urine Urobilinogen (0.2) E.U./dL Ur Leukocyte Esterase (NEGATIVE) Urine RBC (0-5/HPF) Urine WBC (0-5/HPF) Ur Squamous Epith Cells (0-5/HPF) Urine Bacteria (None) Ur Culture Indicated? A. baumannii (PCR) (Not Detect) Natali albicans (PCR) (Not Detect) C. glabrata (PCR) (Not Detect) C. krusei (PCR) (Not Detect) C. parapsilosis (PCR) (Not Detect) C. tropicalis (PCR) (Not Detect) SARS-CoV-2 (PCR) Negative (Negative) Enterobacteriac sp PCR (Not Detect) E. cloacae complex PCR (Not Detect) Enterococcus sp PCR (Not Detect) E. coli (PCR) (Not Detect) H. influenzae (PCR) (Not Detect) Influenza A (RT-PCR) Flu a negative (NEGATIVE) Influenza B (RT-PCR) Flu b negative (NEGATIVE) Klebsiella oxytoca PCR (Not Detect) Klebsiella pneumoniae (Not Detect) List. monocytogenes PCR (Not Detect) N. meningitidis (PCR) (Not Detect) Proteus species (PCR) (Not Detect) RSV (PCR) Negative (Negative) Serratia marcescens PCR (Not Detect) Staphylococcus sp PCR (Not Detect) Staph aureus (PCR) (Not Detect) mecA-Methicil Res Gene (Not Detect) Streptococcus sp PCR (Not Detect) Group A Strep (PCR) (Not Detect) Strep agalactiae (PCR) (Not Detect) Strep pneumoniae (PCR) (Not Detect) P. aeruginosa (PCR) (Not Detect) Saritha/B-Vanco Res Genes KPC-Carbap Res Gene PCR 10/13/22 10/13/22 10/13/22 Range/Units 09:20 09:20 14:30 WBC 9.5 (4.5-11.0) X10^3/uL RBC 3.49 L (4.5-5.9) X10^6/uL Hgb 8.5 L (13.5-17.5) g/dL Hct 26.4 L (41-53) % MCV 75.6 L (80-100) fL MCH 24.4 L (26-34) PG MCHC 32.3 (30-36) % RDW 20.5 H (11.6-14.8) % Plt Count 269 (150-400) X10^3/uL Neut % (Auto) 81.0 H (50-75) % Lymph % (Auto) 5.4 L (25-40) % Luna % (Auto) 13.1 (3-14) % Eos % (Auto) 0.1 L (2-4) % Baso % (Auto) 0.4 (0-2) % Neut # (Auto) 7700 H (4842-9659) /uL Lymph # (Auto) 500 L (3361-9637) /uL Luna # (Auto) 1200 H (0-900) /uL Eos # (Auto) 0 (0-450) /uL Baso # (Auto) 0 (0-100) /uL Total Counted Seg Neutrophils % (38-70) % Band Neutrophils % (3-7) % Lymphocytes % (Manual) (25-45) % Atypical Lymphs % ( - 0) % Monocytes % (Manual) (2-11) % Eosinophils % (Manual) (2-4) % Neutrophils # (Manual) (9563-7415) /uL WBC Morphology Comment Platelet Estimate RBC Morphology See below Hypochromasia Anisocytosis 2+ H Microcytosis 1+ H Sodium Cancelled (137-145) mmol/L Potassium Cancelled (3.4-5.1) mmol/L Chloride Cancelled (98-107) mmol/L Carbon Dioxide Cancelled (22-32) mmol/L BUN Cancelled (9-20) mg/dL Creatinine Cancelled (0.66-1.25) mg/dL Estimated GFR Cancelled (>60) mL/min BUN/Creatinine Ratio Cancelled (6-22) Glucose Cancelled (80-110) mg/dL Lactate Cancelled (0.7-2.1) mmol/L Calcium Cancelled (8.4-10.2) mg/dL Magnesium (1.6-2.3) mg/dL Total Bilirubin (0.2-1.3) mg/dL AST (17-59) IU/L ALT (<50) IU/L Alkaline Phosphatase (38-126) U/L Total Creatine Kinase (55-170) U/L CK-MB (CK-2) CK-MB (CK-2) Rel Index Troponin I (0.01-0.034) ng/mL C-Reactive Protein (<1.0) mg/dL Total Protein (6.3-8.2) g/dL Albumin (3.5-5.0) g/dL Globulin (1.7-4.1) g/dL Albumin/Globulin Ratio (1.0-2.8) Lipase (23-300) U/L Urine Color Urine Appearance Urine pH (4.5-8.0) Ur Specific [place] (1.000-1.035) Urine Protein (Negative) Urine Glucose (UA) (Negative) g/dL Urine Ketones (NEGATIVE) Urine Occult Blood (Negative) Urine Nitrate (Negative) Urine Bilirubin (NEGATIVE) Urine Urobilinogen (0.2) E.U./dL Ur Leukocyte Esterase (NEGATIVE) Urine RBC (0-5/HPF) Urine WBC (0-5/HPF) Ur Squamous Epith Cells (0-5/HPF) Urine Bacteria (None) Ur Culture Indicated? A. baumannii (PCR) (Not Detect) Natali albicans (PCR) (Not Detect) C. glabrata (PCR) (Not Detect) C. krusei (PCR) (Not Detect) C. parapsilosis (PCR) (Not Detect) C. tropicalis (PCR) (Not Detect) SARS-CoV-2 (PCR) (Negative) Enterobacteriac sp PCR (Not Detect) E. cloacae complex PCR (Not Detect) Enterococcus sp PCR (Not Detect) E. coli (PCR) (Not Detect) H. influenzae (PCR) (Not Detect) Influenza A (RT-PCR) (NEGATIVE) Influenza B (RT-PCR) (NEGATIVE) Klebsiella oxytoca PCR (Not Detect) Klebsiella pneumoniae (Not Detect) List. monocytogenes PCR (Not Detect) N. meningitidis (PCR) (Not Detect) Proteus species (PCR) (Not Detect) RSV (PCR) (Negative) Serratia marcescens PCR (Not Detect) Staphylococcus sp PCR (Not Detect) Staph aureus (PCR) (Not Detect) mecA-Methicil Res Gene (Not Detect) Streptococcus sp PCR (Not Detect) Group A Strep (PCR) (Not Detect) Strep agalactiae (PCR) (Not Detect) Strep pneumoniae (PCR) (Not Detect) P. aeruginosa (PCR) (Not Detect) Saritha/B-Vanco Res Genes KPC-Carbap Res Gene PCR 10/13/22 10/13/22 10/13/22 Range/Units 14:30 14:30 17:30 WBC (4.5-11.0) X10^3/uL RBC (4.5-5.9) X10^6/uL Hgb (13.5-17.5) g/dL Hct (41-53) % MCV (80-100) fL MCH (26-34) PG MCHC (30-36) % RDW (11.6-14.8) % Plt Count (150-400) X10^3/uL Neut % (Auto) (50-75) % Lymph % (Auto) (25-40) % Luna % (Auto) (3-14) % Eos % (Auto) (2-4) % Baso % (Auto) (0-2) % Neut # (Auto) (5351-0211) /uL Lymph # (Auto) (5570-8490) /uL Luna # (Auto) (0-900) /uL Eos # (Auto) (0-450) /uL Baso # (Auto) (0-100) /uL Total Counted Seg Neutrophils % (38-70) % Band Neutrophils % (3-7) % Lymphocytes % (Manual) (25-45) % Atypical Lymphs % ( - 0) % Monocytes % (Manual) (2-11) % Eosinophils % (Manual) (2-4) % Neutrophils # (Manual) (7639-2693) /uL WBC Morphology Comment Platelet Estimate RBC Morphology Hypochromasia Anisocytosis Microcytosis Sodium 130 L (137-145) mmol/L Potassium 4.0 (3.4-5.1) mmol/L Chloride 96 L (98-107) mmol/L Carbon Dioxide 22 (22-32) mmol/L BUN 10 (9-20) mg/dL Creatinine 0.53 L (0.66-1.25) mg/dL Estimated GFR > 60 (>60) mL/min BUN/Creatinine Ratio 18.9 (6-22) Glucose 104 (80-110) mg/dL Lactate 3.1 H 2.6 H (0.7-2.1) mmol/L Calcium 7.0 L (8.4-10.2) mg/dL Magnesium (1.6-2.3) mg/dL Total Bilirubin (0.2-1.3) mg/dL AST (17-59) IU/L ALT (<50) IU/L Alkaline Phosphatase (38-126) U/L Total Creatine Kinase (55-170) U/L CK-MB (CK-2) CK-MB (CK-2) Rel Index Troponin I (0.01-0.034) ng/mL C-Reactive Protein (<1.0) mg/dL Total Protein (6.3-8.2) g/dL Albumin (3.5-5.0) g/dL Globulin (1.7-4.1) g/dL Albumin/Globulin Ratio (1.0-2.8) Lipase (23-300) U/L Urine Color Urine Appearance Urine pH (4.5-8.0) Ur Specific [place] (1.000-1.035) Urine Protein (Negative) Urine Glucose (UA) (Negative) g/dL Urine Ketones (NEGATIVE) Urine Occult Blood (Negative) Urine Nitrate (Negative) Urine Bilirubin (NEGATIVE) Urine Urobilinogen (0.2) E.U./dL Ur Leukocyte Esterase (NEGATIVE) Urine RBC (0-5/HPF) Urine WBC (0-5/HPF) Ur Squamous Epith Cells (0-5/HPF) Urine Bacteria (None) Ur Culture Indicated? A. baumannii (PCR) (Not Detect) Natali albicans (PCR) (Not Detect) C. glabrata (PCR) (Not Detect) C. krusei (PCR) (Not Detect) C. parapsilosis (PCR) (Not Detect) C. tropicalis (PCR) (Not Detect) SARS-CoV-2 (PCR) (Negative) Enterobacteriac sp PCR (Not Detect) E. cloacae complex PCR (Not Detect) Enterococcus sp PCR (Not Detect) E. coli (PCR) (Not Detect) H. influenzae (PCR) (Not Detect) Influenza A (RT-PCR) (NEGATIVE) Influenza B (RT-PCR) (NEGATIVE) Klebsiella oxytoca PCR (Not Detect) Klebsiella pneumoniae (Not Detect) List. monocytogenes PCR (Not Detect) N. meningitidis (PCR) (Not Detect) Proteus species (PCR) (Not Detect) RSV (PCR) (Negative) Serratia marcescens PCR (Not Detect) Staphylococcus sp PCR (Not Detect) Staph aureus (PCR) (Not Detect) mecA-Methicil Res Gene (Not Detect) Streptococcus sp PCR (Not Detect) Group A Strep (PCR) (Not Detect) Strep agalactiae (PCR) (Not Detect) Strep pneumoniae (PCR) (Not Detect) P. aeruginosa (PCR) (Not Detect) Saritha/B-Vanco Res Genes KPC-Carbap Res Gene PCR 10/13/22 10/14/22 10/14/22 Range/Units 18:37 08:42 08:42 WBC 7.8 (4.5-11.0) X10^3/uL RBC 3.49 L (4.5-5.9) X10^6/uL Hgb 8.3 L 8.6 L (13.5-17.5) g/dL Hct 25.1 L 26.6 L (41-53) % MCV 76.1 L (80-100) fL MCH 24.5 L (26-34) PG MCHC 32.2 (30-36) % RDW 21.0 H (11.6-14.8) % Plt Count 274 (150-400) X10^3/uL Neut % (Auto) 79.9 H (50-75) % Lymph % (Auto) 7.0 L (25-40) % Luna % (Auto) 12.3 (3-14) % Eos % (Auto) 0.2 L (2-4) % Baso % (Auto) 0.6 (0-2) % Neut # (Auto) 6300 (3506-3919) /uL Lymph # (Auto) 500 L (3769-1402) /uL Luna # (Auto) 1000 H (0-900) /uL Eos # (Auto) 0 (0-450) /uL Baso # (Auto) 0 (0-100) /uL Total Counted Seg Neutrophils % (38-70) % Band Neutrophils % (3-7) % Lymphocytes % (Manual) (25-45) % Atypical Lymphs % ( - 0) % Monocytes % (Manual) (2-11) % Eosinophils % (Manual) (2-4) % Neutrophils # (Manual) (2779-2903) /uL WBC Morphology Comment Platelet Estimate RBC Morphology See below Hypochromasia Anisocytosis 2+ H Microcytosis 1+ H Sodium 134 L (137-145) mmol/L Potassium 3.6 (3.4-5.1) mmol/L Chloride 101 (98-107) mmol/L Carbon Dioxide 21 L (22-32) mmol/L BUN 8 L (9-20) mg/dL Creatinine 0.45 L (0.66-1.25) mg/dL Estimated GFR > 60 (>60) mL/min BUN/Creatinine Ratio 17.8 (6-22) Glucose 102 (80-110) mg/dL Lactate (0.7-2.1) mmol/L Calcium 6.7 L (8.4-10.2) mg/dL Magnesium (1.6-2.3) mg/dL Total Bilirubin (0.2-1.3) mg/dL AST (17-59) IU/L ALT (<50) IU/L Alkaline Phosphatase (38-126) U/L Total Creatine Kinase (55-170) U/L CK-MB (CK-2) CK-MB (CK-2) Rel Index Troponin I (0.01-0.034) ng/mL C-Reactive Protein (<1.0) mg/dL Total Protein (6.3-8.2) g/dL Albumin (3.5-5.0) g/dL Globulin (1.7-4.1) g/dL Albumin/Globulin Ratio (1.0-2.8) Lipase (23-300) U/L Urine Color Urine Appearance Urine pH (4.5-8.0) Ur Specific [place] (1.000-1.035) Urine Protein (Negative) Urine Glucose (UA) (Negative) g/dL Urine Ketones (NEGATIVE) Urine Occult Blood (Negative) Urine Nitrate (Negative) Urine Bilirubin (NEGATIVE) Urine Urobilinogen (0.2) E.U./dL Ur Leukocyte Esterase (NEGATIVE) Urine RBC (0-5/HPF) Urine WBC (0-5/HPF) Ur Squamous Epith Cells (0-5/HPF) Urine Bacteria (None) Ur Culture Indicated? A. baumannii (PCR) (Not Detect) Natali albicans (PCR) (Not Detect) C. glabrata (PCR) (Not Detect) C. krusei (PCR) (Not Detect) C. parapsilosis (PCR) (Not Detect) C. tropicalis (PCR) (Not Detect) SARS-CoV-2 (PCR) (Negative) Enterobacteriac sp PCR (Not Detect) E. cloacae complex PCR (Not Detect) Enterococcus sp PCR (Not Detect) E. coli (PCR) (Not Detect) H. influenzae (PCR) (Not Detect) Influenza A (RT-PCR) (NEGATIVE) Influenza B (RT-PCR) (NEGATIVE) Klebsiella oxytoca PCR (Not Detect) Klebsiella pneumoniae (Not Detect) List. monocytogenes PCR (Not Detect) N. meningitidis (PCR) (Not Detect) Proteus species (PCR) (Not Detect) RSV (PCR) (Negative) Serratia marcescens PCR (Not Detect) Staphylococcus sp PCR (Not Detect) Staph aureus (PCR) (Not Detect) mecA-Methicil Res Gene (Not Detect) Streptococcus sp PCR (Not Detect) Group A Strep (PCR) (Not Detect) Strep agalactiae (PCR) (Not Detect) Strep pneumoniae (PCR) (Not Detect) P. aeruginosa (PCR) (Not Detect) Saritha/B-Vanco Res Genes KPC-Carbap Res Gene PCR 10/14/22 10/14/22 10/14/22 Range/Units 08:42 18:30 18:30 WBC 7.9 (4.5-11.0) X10^3/uL RBC 3.53 L (4.5-5.9) X10^6/uL Hgb 8.7 L (13.5-17.5) g/dL Hct 26.9 L (41-53) % MCV 76.1 L (80-100) fL MCH 24.7 L (26-34) PG MCHC 32.4 (30-36) % RDW 20.7 H (11.6-14.8) % Plt Count 279 (150-400) X10^3/uL Neut % (Auto) 78.7 H (50-75) % Lymph % (Auto) 8.8 L (25-40) % Luna % (Auto) 11.7 (3-14) % Eos % (Auto) 0.3 L (2-4) % Baso % (Auto) 0.5 (0-2) % Neut # (Auto) 6200 (4884-5691) /uL Lymph # (Auto) 700 L (3690-7312) /uL Luna # (Auto) 900 (0-900) /uL Eos # (Auto) 0 (0-450) /uL Baso # (Auto) 0 (0-100) /uL Total Counted Seg Neutrophils % (38-70) % Band Neutrophils % (3-7) % Lymphocytes % (Manual) (25-45) % Atypical Lymphs % ( - 0) % Monocytes % (Manual) (2-11) % Eosinophils % (Manual) (2-4) % Neutrophils # (Manual) (1141-4860) /uL WBC Morphology Comment Not Reportable Platelet Estimate RBC Morphology See below Hypochromasia 1+ H Anisocytosis 1+ H Microcytosis Sodium 133 L (137-145) mmol/L Potassium 4.4 (3.4-5.1) mmol/L Chloride 99 (98-107) mmol/L Carbon Dioxide 22 (22-32) mmol/L BUN 13 (9-20) mg/dL Creatinine 0.49 L (0.66-1.25) mg/dL Estimated GFR > 60 (>60) mL/min BUN/Creatinine Ratio 26.5 H (6-22) Glucose 109 (80-110) mg/dL Lactate 1.9 (0.7-2.1) mmol/L Calcium 7.9 L (8.4-10.2) mg/dL Magnesium (1.6-2.3) mg/dL Total Bilirubin 0.2 (0.2-1.3) mg/dL AST 44 (17-59) IU/L ALT 23 (<50) IU/L Alkaline Phosphatase 240 H (38-126) U/L Total Creatine Kinase (55-170) U/L CK-MB (CK-2) CK-MB (CK-2) Rel Index Troponin I (0.01-0.034) ng/mL C-Reactive Protein (<1.0) mg/dL Total Protein 6.2 L (6.3-8.2) g/dL Albumin 3.1 L (3.5-5.0) g/dL Globulin 3.1 (1.7-4.1) g/dL Albumin/Globulin Ratio 1.0 (1.0-2.8) Lipase (23-300) U/L Urine Color Urine Appearance Urine pH (4.5-8.0) Ur Specific [place] (1.000-1.035) Urine Protein (Negative) Urine Glucose (UA) (Negative) g/dL Urine Ketones (NEGATIVE) Urine Occult Blood (Negative) Urine Nitrate (Negative) Urine Bilirubin (NEGATIVE) Urine Urobilinogen (0.2) E.U./dL Ur Leukocyte Esterase (NEGATIVE) Urine RBC (0-5/HPF) Urine WBC (0-5/HPF) Ur Squamous Epith Cells (0-5/HPF) Urine Bacteria (None) Ur Culture Indicated? A. baumannii (PCR) (Not Detect) Natali albicans (PCR) (Not Detect) C. glabrata (PCR) (Not Detect) C. krusei (PCR) (Not Detect) C. parapsilosis (PCR) (Not Detect) C. tropicalis (PCR) (Not Detect) SARS-CoV-2 (PCR) (Negative) Enterobacteriac sp PCR (Not Detect) E. cloacae complex PCR (Not Detect) Enterococcus sp PCR (Not Detect) E. coli (PCR) (Not Detect) H. influenzae (PCR) (Not Detect) Influenza A (RT-PCR) (NEGATIVE) Influenza B (RT-PCR) (NEGATIVE) Klebsiella oxytoca PCR (Not Detect) Klebsiella pneumoniae (Not Detect) List. monocytogenes PCR (Not Detect) N. meningitidis (PCR) (Not Detect) Proteus species (PCR) (Not Detect) RSV (PCR) (Negative) Serratia marcescens PCR (Not Detect) Staphylococcus sp PCR (Not Detect) Staph aureus (PCR) (Not Detect) mecA-Methicil Res Gene (Not Detect) Streptococcus sp PCR (Not Detect) Group A Strep (PCR) (Not Detect) Strep agalactiae (PCR) (Not Detect) Strep pneumoniae (PCR) (Not Detect) P. aeruginosa (PCR) (Not Detect) Saritha/B-Vanco Res Genes KPC-Carbap Res Gene PCR 10/15/22 10/15/22 Range/Units 08:10 08:10 WBC 8.9 (4.5-11.0) X10^3/uL RBC 3.49 L (4.5-5.9) X10^6/uL Hgb 8.5 L (13.5-17.5) g/dL Hct 26.7 L (41-53) % MCV 76.6 L (80-100) fL MCH 24.4 L (26-34) PG MCHC 31.8 (30-36) % RDW 21.3 H (11.6-14.8) % Plt Count 310 (150-400) X10^3/uL Neut % (Auto) Not Reportable (50-75) % Lymph % (Auto) Not Reportable (25-40) % Luna % (Auto) Not Reportable (3-14) % Eos % (Auto) Not Reportable (2-4) % Baso % (Auto) Not Reportable (0-2) % Neut # (Auto) (9158-4240) /uL Lymph # (Auto) Not Reportable (5620-4871) /uL Luna # (Auto) Not Reportable (0-900) /uL Eos # (Auto) (0-450) /uL Baso # (Auto) Not Reportable (0-100) /uL Total Counted 100 Seg Neutrophils % 66.0 (38-70) % Band Neutrophils % 9.0 H (3-7) % Lymphocytes % (Manual) 16.0 L (25-45) % Atypical Lymphs % 2.0 H ( - 0) % Monocytes % (Manual) 6.0 (2-11) % Eosinophils % (Manual) 1.0 L (2-4) % Neutrophils # (Manual) 6675 H (1564-7047) /uL WBC Morphology Comment Platelet Estimate RBC Morphology Not Reportable Hypochromasia Anisocytosis 2+ H Microcytosis Sodium 133 L (137-145) mmol/L Potassium 4.0 (3.4-5.1) mmol/L Chloride 99 (98-107) mmol/L Carbon Dioxide 22 (22-32) mmol/L BUN 9 (9-20) mg/dL Creatinine 0.44 L (0.66-1.25) mg/dL Estimated GFR > 60 (>60) mL/min BUN/Creatinine Ratio 20.5 (6-22) Glucose 93 (80-110) mg/dL Lactate (0.7-2.1) mmol/L Calcium 7.6 L (8.4-10.2) mg/dL Magnesium (1.6-2.3) mg/dL Total Bilirubin 0.3 (0.2-1.3) mg/dL AST 39 (17-59) IU/L ALT 22 (<50) IU/L Alkaline Phosphatase 223 H (38-126) U/L Total Creatine Kinase (55-170) U/L CK-MB (CK-2) CK-MB (CK-2) Rel Index Troponin I (0.01-0.034) ng/mL C-Reactive Protein (<1.0) mg/dL Total Protein 6.1 L (6.3-8.2) g/dL Albumin 3.1 L (3.5-5.0) g/dL Globulin 3.0 (1.7-4.1) g/dL Albumin/Globulin Ratio 1.0 (1.0-2.8) Lipase (23-300) U/L Urine Color Urine Appearance Urine pH (4.5-8.0) Ur Specific [place] (1.000-1.035) Urine Protein (Negative) Urine Glucose (UA) (Negative) g/dL Urine Ketones (NEGATIVE) Urine Occult Blood (Negative) Urine Nitrate (Negative) Urine Bilirubin (NEGATIVE) Urine Urobilinogen (0.2) E.U./dL Ur Leukocyte Esterase (NEGATIVE) Urine RBC (0-5/HPF) Urine WBC (0-5/HPF) Ur Squamous Epith Cells (0-5/HPF) Urine Bacteria (None) Ur Culture Indicated? A. baumannii (PCR) (Not Detect) Natali albicans (PCR) (Not Detect) C. glabrata (PCR) (Not Detect) C. krusei (PCR) (Not Detect) C. parapsilosis (PCR) (Not Detect) C. tropicalis (PCR) (Not Detect) SARS-CoV-2 (PCR) (Negative) Enterobacteriac sp PCR (Not Detect) E. cloacae complex PCR (Not Detect) Enterococcus sp PCR (Not Detect) E. coli (PCR) (Not Detect) H. influenzae (PCR) (Not Detect) Influenza A (RT-PCR) (NEGATIVE) Influenza B (RT-PCR) (NEGATIVE) Klebsiella oxytoca PCR (Not Detect) Klebsiella pneumoniae (Not Detect) List. monocytogenes PCR (Not Detect) N. meningitidis (PCR) (Not Detect) Proteus species (PCR) (Not Detect) RSV (PCR) (Negative) Serratia marcescens PCR (Not Detect) Staphylococcus sp PCR (Not Detect) Staph aureus (PCR) (Not Detect) mecA-Methicil Res Gene (Not Detect) Streptococcus sp PCR (Not Detect) Group A Strep (PCR) (Not Detect) Strep agalactiae (PCR) (Not Detect) Strep pneumoniae (PCR) (Not Detect) P. aeruginosa (PCR) (Not Detect) Saritha/B-Vanco Res Genes KPC-Carbap Res Gene PCR Urine Dip Bedside Urine Glucose Negative Bedside Urine Bilirubin - Negative Bedside Urine Ketone - Negative Urine Specific [place] 1.025 Bedside Urine Occult Blood +/- Bedside Urine pH 6 Bedside Urine Protein +++ 300 Bedside Urine Urobilinogen - Negative Bedside Urine Nitrite - Negative Bedside Urine Leukocytes ++ 125 Esterase MDM Narrative Medical decision making narrative: 82-year-old male with history of prostate CA and kidney stones presents with about a week of increasing suprapubic discomfort and classic urinary symptoms including dysuria, frequency and urgency. He is had fever and shaking chills and meets septic criteria. He has been hemodynamically stable but urine is very convincing in the setting of a CT KUB demonstrating stone with hydronephrosis. I have discussed with on-call Urology at the [facility] who sure the opinion that in addition to fluid resuscitation antibiotics patient will need to be transferred to a facility with Urology and likely Interventional Radiology. Patient and family are aware of the diagnosis and plan, patient will be signed out to Dr. Solorio for final disposition. We are currently waiting call back from [facility] Dr Solorio: overnight 10/12-10/13 received turned over. Review patient's history and physical exam and workup up to this point. Reviewed his radiologic studies. Patient is stable. Received antibiotics. [facility] states that they can not take the patient's secondary to crowding. Attempted to contact multiple other places with urologic capability however there still is no bed availability. Morning labs ordered. Antibiotics scheduled. Will continue to monitor. Care turned over to Dr. Phoenix at change of shift to continue to observe until disposition can be made. 10/13/22 [place]-patient signed out to me by Dr. Solorio. I have seen evaluated patient myself. He has been up to the restroom multiple times. Awaiting placement for presumed sepsis obstructing kidney stone. Patient remains afebrile here in the emergency department. Urinalysis does show Gram-negative bacilli. He is no leukocytosis he is hemodynamically stable. 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 Patient is on multiple wait lists. Urology is not available here at this hospital of [facility] neurology has already been consulted. Patient overall appears well. Blood work this morning is stable. At this time due to critical bed shortage the stability of the patient we will go ahead and order him diet Lovenox for DVT prophylaxis. He is getting Rocephin daily for infection. Awaiting for culture and sensitivity. Dr solorio 10/13-10/14: Assumed care of patient. Reviewed patient's [address] scan this evening is the same as prior. He continues to be stable. Continues to be on antibiotics. Is on DVT prophylaxis. Continues to need transfer for urologic intervention that we do not have available here at this facility. There was no bed availability. We will continue to keep an emergency department. Care turned over to Dr. Phoenix to disposition. 10/14/2022 Alban-patient signed out to me by Dr. Solorio is seen evaluated patient myself. Awake alert oriented today appears well continues to have pain in his groin area. He remains afebrile hemodynamically stable blood work is overall very stable without leukocytosis. He continues to be on daily Rocephin. He is put on Lovenox daily for DVT prophylaxis. Pain control with morphine continues to be on normal saline but is eating and drinking. Would like a shower later. Patient has a 4 mm obstructing stone but no evidence of renal failure. Unable to get Urology and unable to transfer. Questionable if patient could possibly go home and have outpatient stent. There is also this soft tissue mass which may also be causing obstruction of the ureter. Urology will not be available here until Saturday. signed out to Dr. Moscoso. <Sherlyn Moscoso, DO - Last Filed: 10/22/22 07:58> Lab Data Labs: Lab Results 10/12/22 10/12/22 10/12/22 Range/Units 12:49 14:35 14:35 WBC (4.5-11.0) X10^3/uL RBC (4.5-5.9) X10^6/uL Hgb (13.5-17.5) g/dL Hct (41-53) % MCV (80-100) fL MCH (26-34) PG MCHC (30-36) % RDW (11.6-14.8) % Plt Count (150-400) X10^3/uL Neut % (Auto) (50-75) % Lymph % (Auto) (25-40) % Luna % (Auto) (3-14) % Eos % (Auto) (2-4) % Baso % (Auto) (0-2) % Neut # (Auto) (8148-9744) /uL Lymph # (Auto) (3192-7426) /uL Luna # (Auto) (0-900) /uL Eos # (Auto) (0-450) /uL Baso # (Auto) (0-100) /uL Total Counted Seg Neutrophils % (38-70) % Band Neutrophils % (3-7) % Lymphocytes % (Manual) (25-45) % Atypical Lymphs % ( - 0) % Monocytes % (Manual) (2-11) % Eosinophils % (Manual) (2-4) % Neutrophils # (Manual) (7182-1957) /uL WBC Morphology Comment Platelet Estimate RBC Morphology Hypochromasia Anisocytosis Microcytosis Sodium (137-145) mmol/L Potassium (3.4-5.1) mmol/L Chloride (98-107) mmol/L Carbon Dioxide (22-32) mmol/L BUN (9-20) mg/dL Creatinine (0.66-1.25) mg/dL Estimated GFR (>60) mL/min BUN/Creatinine Ratio (6-22) Glucose (80-110) mg/dL Lactate (0.7-2.1) mmol/L Calcium (8.4-10.2) mg/dL Magnesium (1.6-2.3) mg/dL Total Bilirubin (0.2-1.3) mg/dL AST (17-59) IU/L ALT (<50) IU/L Alkaline Phosphatase (38-126) U/L Total Creatine Kinase 99 (55-170) U/L CK-MB (CK-2) TNP CK-MB (CK-2) Rel Index TNP Troponin I < 0.012 (0.01-0.034) ng/mL C-Reactive Protein (<1.0) mg/dL Total Protein (6.3-8.2) g/dL Albumin (3.5-5.0) g/dL Globulin (1.7-4.1) g/dL Albumin/Globulin Ratio (1.0-2.8) Lipase (23-300) U/L Urine Color Yellow Urine Appearance Cloudy Urine pH 6.0 (4.5-8.0) Ur Specific [place] 1.025 (1.000-1.035) Urine Protein 2+ H (Negative) Urine Glucose (UA) Negative (Negative) g/dL Urine Ketones Trace H (NEGATIVE) Urine Occult Blood 2+ H (Negative) Urine Nitrate Negative (Negative) Urine Bilirubin Negative (NEGATIVE) Urine Urobilinogen 0.2 (0.2) E.U./dL Ur Leukocyte Esterase 2+ H (NEGATIVE) Urine RBC 1-5/hpf (0-5/HPF) Urine WBC >100/hpf H (0-5/HPF) Ur Squamous Epith Cells None seen (0-5/HPF) Urine Bacteria Many (>30) H (None) Ur Culture Indicated? Specimen cultured A. baumannii (PCR) Not detected (Not Detect) Natali albicans (PCR) Not detected (Not Detect) C. glabrata (PCR) Not detected (Not Detect) C. krusei (PCR) Not detected (Not Detect) C. parapsilosis (PCR) Not detected (Not Detect) C. tropicalis (PCR) Not detected (Not Detect) SARS-CoV-2 (PCR) (Negative) Enterobacteriac sp PCR Not detected (Not Detect) E. cloacae complex PCR Not detected (Not Detect) Enterococcus sp PCR Not detected (Not Detect) E. coli (PCR) Not detected (Not Detect) H. influenzae (PCR) Not detected (Not Detect) Influenza A (RT-PCR) (NEGATIVE) Influenza B (RT-PCR) (NEGATIVE) Klebsiella oxytoca PCR Not detected (Not Detect) Klebsiella pneumoniae Not detected (Not Detect) List. monocytogenes PCR Not detected (Not Detect) N. meningitidis (PCR) Not detected (Not Detect) Proteus species (PCR) Not detected (Not Detect) RSV (PCR) (Negative) Serratia marcescens PCR Not detected (Not Detect) Staphylococcus sp PCR Detected H (Not Detect) Staph aureus (PCR) Not detected (Not Detect) mecA-Methicil Res Gene Not detected (Not Detect) Streptococcus sp PCR Not detected (Not Detect) Group A Strep (PCR) Not detected (Not Detect) Strep agalactiae (PCR) Not detected (Not Detect) Strep pneumoniae (PCR) Not detected (Not Detect) P. aeruginosa (PCR) Not detected (Not Detect) Saritha/B-Vanco Res Genes Not Reportable KPC-Carbap Res Gene PCR Not Reportable 10/12/22 10/12/22 10/12/22 Range/Units 14:52 14:52 14:52 WBC 8.2 (4.5-11.0) X10^3/uL RBC 3.87 L (4.5-5.9) X10^6/uL Hgb 9.7 L (13.5-17.5) g/dL Hct 29.4 L (41-53) % MCV 76.0 L (80-100) fL MCH 25.0 L (26-34) PG MCHC 32.9 (30-36) % RDW 20.6 H (11.6-14.8) % Plt Count 290 (150-400) X10^3/uL Neut % (Auto) 82.1 H (50-75) % Lymph % (Auto) 6.8 L (25-40) % Luna % (Auto) 10.3 (3-14) % Eos % (Auto) 0.2 L (2-4) % Baso % (Auto) 0.6 (0-2) % Neut # (Auto) 6800 (4702-9493) /uL Lymph # (Auto) 600 L (4683-5336) /uL Luna # (Auto) 800 (0-900) /uL Eos # (Auto) 0 (0-450) /uL Baso # (Auto) 100 (0-100) /uL Total Counted Seg Neutrophils % (38-70) % Band Neutrophils % (3-7) % Lymphocytes % (Manual) (25-45) % Atypical Lymphs % ( - 0) % Monocytes % (Manual) (2-11) % Eosinophils % (Manual) (2-4) % Neutrophils # (Manual) (5912-0254) /uL WBC Morphology Comment Platelet Estimate Adequate on smear RBC Morphology See below Hypochromasia Anisocytosis 1+ H Microcytosis Sodium 136 L (137-145) mmol/L Potassium 3.9 (3.4-5.1) mmol/L Chloride 99 (98-107) mmol/L Carbon Dioxide 24 (22-32) mmol/L BUN 11 (9-20) mg/dL Creatinine 0.52 L (0.66-1.25) mg/dL Estimated GFR > 60 (>60) mL/min BUN/Creatinine Ratio 21.2 (6-22) Glucose 102 (80-110) mg/dL Lactate 2.4 H (0.7-2.1) mmol/L Calcium 7.7 L (8.4-10.2) mg/dL Magnesium 2.5 H (1.6-2.3) mg/dL Total Bilirubin 0.3 (0.2-1.3) mg/dL AST 34 (17-59) IU/L ALT 24 (<50) IU/L Alkaline Phosphatase 252 H (38-126) U/L Total Creatine Kinase (55-170) U/L CK-MB (CK-2) CK-MB (CK-2) Rel Index Troponin I (0.01-0.034) ng/mL C-Reactive Protein 5.1 H (<1.0) mg/dL Total Protein 6.7 (6.3-8.2) g/dL Albumin 3.5 (3.5-5.0) g/dL Globulin 3.2 (1.7-4.1) g/dL Albumin/Globulin Ratio 1.1 (1.0-2.8) Lipase 56 (23-300) U/L Urine Color Urine Appearance Urine pH (4.5-8.0) Ur Specific [place] (1.000-1.035) Urine Protein (Negative) Urine Glucose (UA) (Negative) g/dL Urine Ketones (NEGATIVE) Urine Occult Blood (Negative) Urine Nitrate (Negative) Urine Bilirubin (NEGATIVE) Urine Urobilinogen (0.2) E.U./dL Ur Leukocyte Esterase (NEGATIVE) Urine RBC (0-5/HPF) Urine WBC (0-5/HPF) Ur Squamous Epith Cells (0-5/HPF) Urine Bacteria (None) Ur Culture Indicated? A. baumannii (PCR) (Not Detect) Natali albicans (PCR) (Not Detect) C. glabrata (PCR) (Not Detect) C. krusei (PCR) (Not Detect) C. parapsilosis (PCR) (Not Detect) C. tropicalis (PCR) (Not Detect) SARS-CoV-2 (PCR) (Negative) Enterobacteriac sp PCR (Not Detect) E. cloacae complex PCR (Not Detect) Enterococcus sp PCR (Not Detect) E. coli (PCR) (Not Detect) H. influenzae (PCR) (Not Detect) Influenza A (RT-PCR) (NEGATIVE) Influenza B (RT-PCR) (NEGATIVE) Klebsiella oxytoca PCR (Not Detect) Klebsiella pneumoniae (Not Detect) List. monocytogenes PCR (Not Detect) N. meningitidis (PCR) (Not Detect) Proteus species (PCR) (Not Detect) RSV (PCR) (Negative) Serratia marcescens PCR (Not Detect) Staphylococcus sp PCR (Not Detect) Staph aureus (PCR) (Not Detect) mecA-Methicil Res Gene (Not Detect) Streptococcus sp PCR (Not Detect) Group A Strep (PCR) (Not Detect) Strep agalactiae (PCR) (Not Detect) Strep pneumoniae (PCR) (Not Detect) P. aeruginosa (PCR) (Not Detect) Saritha/B-Vanco Res Genes KPC-Carbap Res Gene PCR 10/12/22 10/12/22 10/13/22 Range/Units 14:52 17:45 09:20 WBC Cancelled (4.5-11.0) X10^3/uL RBC Cancelled (4.5-5.9) X10^6/uL Hgb Cancelled (13.5-17.5) g/dL Hct Cancelled (41-53) % MCV Cancelled (80-100) fL MCH Cancelled (26-34) PG MCHC Cancelled (30-36) % RDW Cancelled (11.6-14.8) % Plt Count Cancelled (150-400) X10^3/uL Neut % (Auto) Cancelled (50-75) % Lymph % (Auto) Cancelled (25-40) % Luna % (Auto) Cancelled (3-14) % Eos % (Auto) Cancelled (2-4) % Baso % (Auto) Cancelled (0-2) % Neut # (Auto) Cancelled (7747-0842) /uL Lymph # (Auto) Cancelled (9443-7806) /uL Luna # (Auto) Cancelled (0-900) /uL Eos # (Auto) Cancelled (0-450) /uL Baso # (Auto) Cancelled (0-100) /uL Total Counted Seg Neutrophils % (38-70) % Band Neutrophils % (3-7) % Lymphocytes % (Manual) (25-45) % Atypical Lymphs % ( - 0) % Monocytes % (Manual) (2-11) % Eosinophils % (Manual) (2-4) % Neutrophils # (Manual) (0166-0353) /uL WBC Morphology Comment Platelet Estimate RBC Morphology Hypochromasia Anisocytosis Microcytosis Sodium (137-145) mmol/L Potassium (3.4-5.1) mmol/L Chloride (98-107) mmol/L Carbon Dioxide (22-32) mmol/L BUN (9-20) mg/dL Creatinine (0.66-1.25) mg/dL Estimated GFR (>60) mL/min BUN/Creatinine Ratio (6-22) Glucose (80-110) mg/dL Lactate 2.2 H (0.7-2.1) mmol/L Calcium (8.4-10.2) mg/dL Magnesium (1.6-2.3) mg/dL Total Bilirubin (0.2-1.3) mg/dL AST (17-59) IU/L ALT (<50) IU/L Alkaline Phosphatase (38-126) U/L Total Creatine Kinase (55-170) U/L CK-MB (CK-2) CK-MB (CK-2) Rel Index Troponin I (0.01-0.034) ng/mL C-Reactive Protein (<1.0) mg/dL Total Protein (6.3-8.2) g/dL Albumin (3.5-5.0) g/dL Globulin (1.7-4.1) g/dL Albumin/Globulin Ratio (1.0-2.8) Lipase (23-300) U/L Urine Color Urine Appearance Urine pH (4.5-8.0) Ur Specific [place] (1.000-1.035) Urine Protein (Negative) Urine Glucose (UA) (Negative) g/dL Urine Ketones (NEGATIVE) Urine Occult Blood (Negative) Urine Nitrate (Negative) Urine Bilirubin (NEGATIVE) Urine Urobilinogen (0.2) E.U./dL Ur Leukocyte Esterase (NEGATIVE) Urine RBC (0-5/HPF) Urine WBC (0-5/HPF) Ur Squamous Epith Cells (0-5/HPF) Urine Bacteria (None) Ur Culture Indicated? A. baumannii (PCR) (Not Detect) Natali albicans (PCR) (Not Detect) C. glabrata (PCR) (Not Detect) C. krusei (PCR) (Not Detect) C. parapsilosis (PCR) (Not Detect) C. tropicalis (PCR) (Not Detect) SARS-CoV-2 (PCR) Negative (Negative) Enterobacteriac sp PCR (Not Detect) E. cloacae complex PCR (Not Detect) Enterococcus sp PCR (Not Detect) E. coli (PCR) (Not Detect) H. influenzae (PCR) (Not Detect) Influenza A (RT-PCR) Flu a negative (NEGATIVE) Influenza B (RT-PCR) Flu b negative (NEGATIVE) Klebsiella oxytoca PCR (Not Detect) Klebsiella pneumoniae (Not Detect) List. monocytogenes PCR (Not Detect) N. meningitidis (PCR) (Not Detect) Proteus species (PCR) (Not Detect) RSV (PCR) Negative (Negative) Serratia marcescens PCR (Not Detect) Staphylococcus sp PCR (Not Detect) Staph aureus (PCR) (Not Detect) mecA-Methicil Res Gene (Not Detect) Streptococcus sp PCR (Not Detect) Group A Strep (PCR) (Not Detect) Strep agalactiae (PCR) (Not Detect) Strep pneumoniae (PCR) (Not Detect) P. aeruginosa (PCR) (Not Detect) Saritha/B-Vanco Res Genes KPC-Carbap Res Gene PCR 10/13/22 10/13/22 10/13/22 Range/Units 09:20 09:20 14:30 WBC 9.5 (4.5-11.0) X10^3/uL RBC 3.49 L (4.5-5.9) X10^6/uL Hgb 8.5 L (13.5-17.5) g/dL Hct 26.4 L (41-53) % MCV 75.6 L (80-100) fL MCH 24.4 L (26-34) PG MCHC 32.3 (30-36) % RDW 20.5 H (11.6-14.8) % Plt Count 269 (150-400) X10^3/uL Neut % (Auto) 81.0 H (50-75) % Lymph % (Auto) 5.4 L (25-40) % Luna % (Auto) 13.1 (3-14) % Eos % (Auto) 0.1 L (2-4) % Baso % (Auto) 0.4 (0-2) % Neut # (Auto) 7700 H (6224-8560) /uL Lymph # (Auto) 500 L (9753-3932) /uL Luna # (Auto) 1200 H (0-900) /uL Eos # (Auto) 0 (0-450) /uL Baso # (Auto) 0 (0-100) /uL Total Counted Seg Neutrophils % (38-70) % Band Neutrophils % (3-7) % Lymphocytes % (Manual) (25-45) % Atypical Lymphs % ( - 0) % Monocytes % (Manual) (2-11) % Eosinophils % (Manual) (2-4) % Neutrophils # (Manual) (4582-5878) /uL WBC Morphology Comment Platelet Estimate RBC Morphology See below Hypochromasia Anisocytosis 2+ H Microcytosis 1+ H Sodium Cancelled (137-145) mmol/L Potassium Cancelled (3.4-5.1) mmol/L Chloride Cancelled (98-107) mmol/L Carbon Dioxide Cancelled (22-32) mmol/L BUN Cancelled (9-20) mg/dL Creatinine Cancelled (0.66-1.25) mg/dL Estimated GFR Cancelled (>60) mL/min BUN/Creatinine Ratio Cancelled (6-22) Glucose Cancelled (80-110) mg/dL Lactate Cancelled (0.7-2.1) mmol/L Calcium Cancelled (8.4-10.2) mg/dL Magnesium (1.6-2.3) mg/dL Total Bilirubin (0.2-1.3) mg/dL AST (17-59) IU/L ALT (<50) IU/L Alkaline Phosphatase (38-126) U/L Total Creatine Kinase (55-170) U/L CK-MB (CK-2) CK-MB (CK-2) Rel Index Troponin I (0.01-0.034) ng/mL C-Reactive Protein (<1.0) mg/dL Total Protein (6.3-8.2) g/dL Albumin (3.5-5.0) g/dL Globulin (1.7-4.1) g/dL Albumin/Globulin Ratio (1.0-2.8) Lipase (23-300) U/L Urine Color Urine Appearance Urine pH (4.5-8.0) Ur Specific [place] (1.000-1.035) Urine Protein (Negative) Urine Glucose (UA) (Negative) g/dL Urine Ketones (NEGATIVE) Urine Occult Blood (Negative) Urine Nitrate (Negative) Urine Bilirubin (NEGATIVE) Urine Urobilinogen (0.2) E.U./dL Ur Leukocyte Esterase (NEGATIVE) Urine RBC (0-5/HPF) Urine WBC (0-5/HPF) Ur Squamous Epith Cells (0-5/HPF) Urine Bacteria (None) Ur Culture Indicated? A. baumannii (PCR) (Not Detect) Natali albicans (PCR) (Not Detect) C. glabrata (PCR) (Not Detect) C. krusei (PCR) (Not Detect) C. parapsilosis (PCR) (Not Detect) C. tropicalis (PCR) (Not Detect) SARS-CoV-2 (PCR) (Negative) Enterobacteriac sp PCR (Not Detect) E. cloacae complex PCR (Not Detect) Enterococcus sp PCR (Not Detect) E. coli (PCR) (Not Detect) H. influenzae (PCR) (Not Detect) Influenza A (RT-PCR) (NEGATIVE) Influenza B (RT-PCR) (NEGATIVE) Klebsiella oxytoca PCR (Not Detect) Klebsiella pneumoniae (Not Detect) List. monocytogenes PCR (Not Detect) N. meningitidis (PCR) (Not Detect) Proteus species (PCR) (Not Detect) RSV (PCR) (Negative) Serratia marcescens PCR (Not Detect) Staphylococcus sp PCR (Not Detect) Staph aureus (PCR) (Not Detect) mecA-Methicil Res Gene (Not Detect) Streptococcus sp PCR (Not Detect) Group A Strep (PCR) (Not Detect) Strep agalactiae (PCR) (Not Detect) Strep pneumoniae (PCR) (Not Detect) P. aeruginosa (PCR) (Not Detect) Saritha/B-Vanco Res Genes KPC-Carbap Res Gene PCR 10/13/22 10/13/22 10/13/22 Range/Units 14:30 14:30 17:30 WBC (4.5-11.0) X10^3/uL RBC (4.5-5.9) X10^6/uL Hgb (13.5-17.5) g/dL Hct (41-53) % MCV (80-100) fL MCH (26-34) PG MCHC (30-36) % RDW (11.6-14.8) % Plt Count (150-400) X10^3/uL Neut % (Auto) (50-75) % Lymph % (Auto) (25-40) % Luna % (Auto) (3-14) % Eos % (Auto) (2-4) % Baso % (Auto) (0-2) % Neut # (Auto) (0433-0420) /uL Lymph # (Auto) (2617-5001) /uL Luna # (Auto) (0-900) /uL Eos # (Auto) (0-450) /uL Baso # (Auto) (0-100) /uL Total Counted Seg Neutrophils % (38-70) % Band Neutrophils % (3-7) % Lymphocytes % (Manual) (25-45) % Atypical Lymphs % ( - 0) % Monocytes % (Manual) (2-11) % Eosinophils % (Manual) (2-4) % Neutrophils # (Manual) (0467-9583) /uL WBC Morphology Comment Platelet Estimate RBC Morphology Hypochromasia Anisocytosis Microcytosis Sodium 130 L (137-145) mmol/L Potassium 4.0 (3.4-5.1) mmol/L Chloride 96 L (98-107) mmol/L Carbon Dioxide 22 (22-32) mmol/L BUN 10 (9-20) mg/dL Creatinine 0.53 L (0.66-1.25) mg/dL Estimated GFR > 60 (>60) mL/min BUN/Creatinine Ratio 18.9 (6-22) Glucose 104 (80-110) mg/dL Lactate 3.1 H 2.6 H (0.7-2.1) mmol/L Calcium 7.0 L (8.4-10.2) mg/dL Magnesium (1.6-2.3) mg/dL Total Bilirubin (0.2-1.3) mg/dL AST (17-59) IU/L ALT (<50) IU/L Alkaline Phosphatase (38-126) U/L Total Creatine Kinase (55-170) U/L CK-MB (CK-2) CK-MB (CK-2) Rel Index Troponin I (0.01-0.034) ng/mL C-Reactive Protein (<1.0) mg/dL Total Protein (6.3-8.2) g/dL Albumin (3.5-5.0) g/dL Globulin (1.7-4.1) g/dL Albumin/Globulin Ratio (1.0-2.8) Lipase (23-300) U/L Urine Color Urine Appearance Urine pH (4.5-8.0) Ur Specific [place] (1.000-1.035) Urine Protein (Negative) Urine Glucose (UA) (Negative) g/dL Urine Ketones (NEGATIVE) Urine Occult Blood (Negative) Urine Nitrate (Negative) Urine Bilirubin (NEGATIVE) Urine Urobilinogen (0.2) E.U./dL Ur Leukocyte Esterase (NEGATIVE) Urine RBC (0-5/HPF) Urine WBC (0-5/HPF) Ur Squamous Epith Cells (0-5/HPF) Urine Bacteria (None) Ur Culture Indicated? A. baumannii (PCR) (Not Detect) Natali albicans (PCR) (Not Detect) C. glabrata (PCR) (Not Detect) C. krusei (PCR) (Not Detect) C. parapsilosis (PCR) (Not Detect) C. tropicalis (PCR) (Not Detect) SARS-CoV-2 (PCR) (Negative) Enterobacteriac sp PCR (Not Detect) E. cloacae complex PCR (Not Detect) Enterococcus sp PCR (Not Detect) E. coli (PCR) (Not Detect) H. influenzae (PCR) (Not Detect) Influenza A (RT-PCR) (NEGATIVE) Influenza B (RT-PCR) (NEGATIVE) Klebsiella oxytoca PCR (Not Detect) Klebsiella pneumoniae (Not Detect) List. monocytogenes PCR (Not Detect) N. meningitidis (PCR) (Not Detect) Proteus species (PCR) (Not Detect) RSV (PCR) (Negative) Serratia marcescens PCR (Not Detect) Staphylococcus sp PCR (Not Detect) Staph aureus (PCR) (Not Detect) mecA-Methicil Res Gene (Not Detect) Streptococcus sp PCR (Not Detect) Group A Strep (PCR) (Not Detect) Strep agalactiae (PCR) (Not Detect) Strep pneumoniae (PCR) (Not Detect) P. aeruginosa (PCR) (Not Detect) Saritha/B-Vanco Res Genes KPC-Carbap Res Gene PCR 10/13/22 10/14/22 10/14/22 Range/Units 18:37 08:42 08:42 WBC 7.8 (4.5-11.0) X10^3/uL RBC 3.49 L (4.5-5.9) X10^6/uL Hgb 8.3 L 8.6 L (13.5-17.5) g/dL Hct 25.1 L 26.6 L (41-53) % MCV 76.1 L (80-100) fL MCH 24.5 L (26-34) PG MCHC 32.2 (30-36) % RDW 21.0 H (11.6-14.8) % Plt Count 274 (150-400) X10^3/uL Neut % (Auto) 79.9 H (50-75) % Lymph % (Auto) 7.0 L (25-40) % Luna % (Auto) 12.3 (3-14) % Eos % (Auto) 0.2 L (2-4) % Baso % (Auto) 0.6 (0-2) % Neut # (Auto) 6300 (5915-0142) /uL Lymph # (Auto) 500 L (9355-0179) /uL Luna # (Auto) 1000 H (0-900) /uL Eos # (Auto) 0 (0-450) /uL Baso # (Auto) 0 (0-100) /uL Total Counted Seg Neutrophils % (38-70) % Band Neutrophils % (3-7) % Lymphocytes % (Manual) (25-45) % Atypical Lymphs % ( - 0) % Monocytes % (Manual) (2-11) % Eosinophils % (Manual) (2-4) % Neutrophils # (Manual) (6743-2573) /uL WBC Morphology Comment Platelet Estimate RBC Morphology See below Hypochromasia Anisocytosis 2+ H Microcytosis 1+ H Sodium 134 L (137-145) mmol/L Potassium 3.6 (3.4-5.1) mmol/L Chloride 101 (98-107) mmol/L Carbon Dioxide 21 L (22-32) mmol/L BUN 8 L (9-20) mg/dL Creatinine 0.45 L (0.66-1.25) mg/dL Estimated GFR > 60 (>60) mL/min BUN/Creatinine Ratio 17.8 (6-22) Glucose 102 (80-110) mg/dL Lactate (0.7-2.1) mmol/L Calcium 6.7 L (8.4-10.2) mg/dL Magnesium (1.6-2.3) mg/dL Total Bilirubin (0.2-1.3) mg/dL AST (17-59) IU/L ALT (<50) IU/L Alkaline Phosphatase (38-126) U/L Total Creatine Kinase (55-170) U/L CK-MB (CK-2) CK-MB (CK-2) Rel Index Troponin I (0.01-0.034) ng/mL C-Reactive Protein (<1.0) mg/dL Total Protein (6.3-8.2) g/dL Albumin (3.5-5.0) g/dL Globulin (1.7-4.1) g/dL Albumin/Globulin Ratio (1.0-2.8) Lipase (23-300) U/L Urine Color Urine Appearance Urine pH (4.5-8.0) Ur Specific [place] (1.000-1.035) Urine Protein (Negative) Urine Glucose (UA) (Negative) g/dL Urine Ketones (NEGATIVE) Urine Occult Blood (Negative) Urine Nitrate (Negative) Urine Bilirubin (NEGATIVE) Urine Urobilinogen (0.2) E.U./dL Ur Leukocyte Esterase (NEGATIVE) Urine RBC (0-5/HPF) Urine WBC (0-5/HPF) Ur Squamous Epith Cells (0-5/HPF) Urine Bacteria (None) Ur Culture Indicated? A. baumannii (PCR) (Not Detect) Natali albicans (PCR) (Not Detect) C. glabrata (PCR) (Not Detect) C. krusei (PCR) (Not Detect) C. parapsilosis (PCR) (Not Detect) C. tropicalis (PCR) (Not Detect) SARS-CoV-2 (PCR) (Negative) Enterobacteriac sp PCR (Not Detect) E. cloacae complex PCR (Not Detect) Enterococcus sp PCR (Not Detect) E. coli (PCR) (Not Detect) H. influenzae (PCR) (Not Detect) Influenza A (RT-PCR) (NEGATIVE) Influenza B (RT-PCR) (NEGATIVE) Klebsiella oxytoca PCR (Not Detect) Klebsiella pneumoniae (Not Detect) List. monocytogenes PCR (Not Detect) N. meningitidis (PCR) (Not Detect) Proteus species (PCR) (Not Detect) RSV (PCR) (Negative) Serratia marcescens PCR (Not Detect) Staphylococcus sp PCR (Not Detect) Staph aureus (PCR) (Not Detect) mecA-Methicil Res Gene (Not Detect) Streptococcus sp PCR (Not Detect) Group A Strep (PCR) (Not Detect) Strep agalactiae (PCR) (Not Detect) Strep pneumoniae (PCR) (Not Detect) P. aeruginosa (PCR) (Not Detect) Saritha/B-Vanco Res Genes KPC-Carbap Res Gene PCR 10/14/22 10/14/22 10/14/22 Range/Units 08:42 18:30 18:30 WBC 7.9 (4.5-11.0) X10^3/uL RBC 3.53 L (4.5-5.9) X10^6/uL Hgb 8.7 L (13.5-17.5) g/dL Hct 26.9 L (41-53) % MCV 76.1 L (80-100) fL MCH 24.7 L (26-34) PG MCHC 32.4 (30-36) % RDW 20.7 H (11.6-14.8) % Plt Count 279 (150-400) X10^3/uL Neut % (Auto) 78.7 H (50-75) % Lymph % (Auto) 8.8 L (25-40) % Luna % (Auto) 11.7 (3-14) % Eos % (Auto) 0.3 L (2-4) % Baso % (Auto) 0.5 (0-2) % Neut # (Auto) 6200 (8344-4217) /uL Lymph # (Auto) 700 L (5854-0906) /uL Luna # (Auto) 900 (0-900) /uL Eos # (Auto) 0 (0-450) /uL Baso # (Auto) 0 (0-100) /uL Total Counted Seg Neutrophils % (38-70) % Band Neutrophils % (3-7) % Lymphocytes % (Manual) (25-45) % Atypical Lymphs % ( - 0) % Monocytes % (Manual) (2-11) % Eosinophils % (Manual) (2-4) % Neutrophils # (Manual) (7683-7750) /uL WBC Morphology Comment Not Reportable Platelet Estimate RBC Morphology See below Hypochromasia 1+ H Anisocytosis 1+ H Microcytosis Sodium 133 L (137-145) mmol/L Potassium 4.4 (3.4-5.1) mmol/L Chloride 99 (98-107) mmol/L Carbon Dioxide 22 (22-32) mmol/L BUN 13 (9-20) mg/dL Creatinine 0.49 L (0.66-1.25) mg/dL Estimated GFR > 60 (>60) mL/min BUN/Creatinine Ratio 26.5 H (6-22) Glucose 109 (80-110) mg/dL Lactate 1.9 (0.7-2.1) mmol/L Calcium 7.9 L (8.4-10.2) mg/dL Magnesium (1.6-2.3) mg/dL Total Bilirubin 0.2 (0.2-1.3) mg/dL AST 44 (17-59) IU/L ALT 23 (<50) IU/L Alkaline Phosphatase 240 H (38-126) U/L Total Creatine Kinase (55-170) U/L CK-MB (CK-2) CK-MB (CK-2) Rel Index Troponin I (0.01-0.034) ng/mL C-Reactive Protein (<1.0) mg/dL Total Protein 6.2 L (6.3-8.2) g/dL Albumin 3.1 L (3.5-5.0) g/dL Globulin 3.1 (1.7-4.1) g/dL Albumin/Globulin Ratio 1.0 (1.0-2.8) Lipase (23-300) U/L Urine Color Urine Appearance Urine pH (4.5-8.0) Ur Specific [place] (1.000-1.035) Urine Protein (Negative) Urine Glucose (UA) (Negative) g/dL Urine Ketones (NEGATIVE) Urine Occult Blood (Negative) Urine Nitrate (Negative) Urine Bilirubin (NEGATIVE) Urine Urobilinogen (0.2) E.U./dL Ur Leukocyte Esterase (NEGATIVE) Urine RBC (0-5/HPF) Urine WBC (0-5/HPF) Ur Squamous Epith Cells (0-5/HPF) Urine Bacteria (None) Ur Culture Indicated? A. baumannii (PCR) (Not Detect) Natali albicans (PCR) (Not Detect) C. glabrata (PCR) (Not Detect) C. krusei (PCR) (Not Detect) C. parapsilosis (PCR) (Not Detect) C. tropicalis (PCR) (Not Detect) SARS-CoV-2 (PCR) (Negative) Enterobacteriac sp PCR (Not Detect) E. cloacae complex PCR (Not Detect) Enterococcus sp PCR (Not Detect) E. coli (PCR) (Not Detect) H. influenzae (PCR) (Not Detect) Influenza A (RT-PCR) (NEGATIVE) Influenza B (RT-PCR) (NEGATIVE) Klebsiella oxytoca PCR (Not Detect) Klebsiella pneumoniae (Not Detect) List. monocytogenes PCR (Not Detect) N. meningitidis (PCR) (Not Detect) Proteus species (PCR) (Not Detect) RSV (PCR) (Negative) Serratia marcescens PCR (Not Detect) Staphylococcus sp PCR (Not Detect) Staph aureus (PCR) (Not Detect) mecA-Methicil Res Gene (Not Detect) Streptococcus sp PCR (Not Detect) Group A Strep (PCR) (Not Detect) Strep agalactiae (PCR) (Not Detect) Strep pneumoniae (PCR) (Not Detect) P. aeruginosa (PCR) (Not Detect) Saritha/B-Vanco Res Genes KPC-Carbap Res Gene PCR 10/15/22 10/15/22 Range/Units 08:10 08:10 WBC 8.9 (4.5-11.0) X10^3/uL RBC 3.49 L (4.5-5.9) X10^6/uL Hgb 8.5 L (13.5-17.5) g/dL Hct 26.7 L (41-53) % MCV 76.6 L (80-100) fL MCH 24.4 L (26-34) PG MCHC 31.8 (30-36) % RDW 21.3 H (11.6-14.8) % Plt Count 310 (150-400) X10^3/uL Neut % (Auto) Not Reportable (50-75) % Lymph % (Auto) Not Reportable (25-40) % Luna % (Auto) Not Reportable (3-14) % Eos % (Auto) Not Reportable (2-4) % Baso % (Auto) Not Reportable (0-2) % Neut # (Auto) (9369-2179) /uL Lymph # (Auto) Not Reportable (7749-4419) /uL Luna # (Auto) Not Reportable (0-900) /uL Eos # (Auto) (0-450) /uL Baso # (Auto) Not Reportable (0-100) /uL Total Counted 100 Seg Neutrophils % 66.0 (38-70) % Band Neutrophils % 9.0 H (3-7) % Lymphocytes % (Manual) 16.0 L (25-45) % Atypical Lymphs % 2.0 H ( - 0) % Monocytes % (Manual) 6.0 (2-11) % Eosinophils % (Manual) 1.0 L (2-4) % Neutrophils # (Manual) 6675 H (4683-6782) /uL WBC Morphology Comment Platelet Estimate RBC Morphology Not Reportable Hypochromasia Anisocytosis 2+ H Microcytosis Sodium 133 L (137-145) mmol/L Potassium 4.0 (3.4-5.1) mmol/L Chloride 99 (98-107) mmol/L Carbon Dioxide 22 (22-32) mmol/L BUN 9 (9-20) mg/dL Creatinine 0.44 L (0.66-1.25) mg/dL Estimated GFR > 60 (>60) mL/min BUN/Creatinine Ratio 20.5 (6-22) Glucose 93 (80-110) mg/dL Lactate (0.7-2.1) mmol/L Calcium 7.6 L (8.4-10.2) mg/dL Magnesium (1.6-2.3) mg/dL Total Bilirubin 0.3 (0.2-1.3) mg/dL AST 39 (17-59) IU/L ALT 22 (<50) IU/L Alkaline Phosphatase 223 H (38-126) U/L Total Creatine Kinase (55-170) U/L CK-MB (CK-2) CK-MB (CK-2) Rel Index Troponin I (0.01-0.034) ng/mL C-Reactive Protein (<1.0) mg/dL Total Protein 6.1 L (6.3-8.2) g/dL Albumin 3.1 L (3.5-5.0) g/dL Globulin 3.0 (1.7-4.1) g/dL Albumin/Globulin Ratio 1.0 (1.0-2.8) Lipase (23-300) U/L Urine Color Urine Appearance Urine pH (4.5-8.0) Ur Specific [place] (1.000-1.035) Urine Protein (Negative) Urine Glucose (UA) (Negative) g/dL Urine Ketones (NEGATIVE) Urine Occult Blood (Negative) Urine Nitrate (Negative) Urine Bilirubin (NEGATIVE) Urine Urobilinogen (0.2) E.U./dL Ur Leukocyte Esterase (NEGATIVE) Urine RBC (0-5/HPF) Urine WBC (0-5/HPF) Ur Squamous Epith Cells (0-5/HPF) Urine Bacteria (None) Ur Culture Indicated? A. baumannii (PCR) (Not Detect) Natali albicans (PCR) (Not Detect) C. glabrata (PCR) (Not Detect) C. krusei (PCR) (Not Detect) C. parapsilosis (PCR) (Not Detect) C. tropicalis (PCR) (Not Detect) SARS-CoV-2 (PCR) (Negative) Enterobacteriac sp PCR (Not Detect) E. cloacae complex PCR (Not Detect) Enterococcus sp PCR (Not Detect) E. coli (PCR) (Not Detect) H. influenzae (PCR) (Not Detect) Influenza A (RT-PCR) (NEGATIVE) Influenza B (RT-PCR) (NEGATIVE) Klebsiella oxytoca PCR (Not Detect) Klebsiella pneumoniae (Not Detect) List. monocytogenes PCR (Not Detect) N. meningitidis (PCR) (Not Detect) Proteus species (PCR) (Not Detect) RSV (PCR) (Negative) Serratia marcescens PCR (Not Detect) Staphylococcus sp PCR (Not Detect) Staph aureus (PCR) (Not Detect) mecA-Methicil Res Gene (Not Detect) Streptococcus sp PCR (Not Detect) Group A Strep (PCR) (Not Detect) Strep agalactiae (PCR) (Not Detect) Strep pneumoniae (PCR) (Not Detect) P. aeruginosa (PCR) (Not Detect) Saritha/B-Vanco Res Genes KPC-Carbap Res Gene PCR Urine Dip Bedside Urine Glucose Negative Bedside Urine Bilirubin - Negative Bedside Urine Ketone - Negative Urine Specific [place] 1.025 Bedside Urine Occult Blood +/- Bedside Urine pH 6 Bedside Urine Protein +++ 300 Bedside Urine Urobilinogen - Negative Bedside Urine Nitrite - Negative Bedside Urine Leukocytes ++ 125 Esterase MDM Narrative Medical decision making narrative: 82-year-old male with history of prostate CA and kidney stones presents with about a week of increasing suprapubic discomfort and classic urinary symptoms including dysuria, frequency and urgency. He is had fever and shaking chills and meets septic criteria. He has been hemodynamically stable but urine is very convincing in the setting of a CT KUB demonstrating stone with hydronephrosis. I have discussed with on-call Urology at the [facility] who sure the opinion that in addition to fluid resuscitation antibiotics patient will need to be transferred to a facility with Urology and likely Interventional Radiology. Patient and family are aware of the diagnosis and plan, patient will be signed out to Dr. Solorio for final disposition. We are currently waiting call back from [facility] Dr Solorio: overnight 10/12-10/13 received turned over. Review patient's history and physical exam and workup up to this point. Reviewed his radiologic studies. Patient is stable. Received antibiotics. [facility] states that they can not take the patient's secondary to crowding. Attempted to contact multiple other places with urologic capability however there still is no bed availability. Morning labs ordered. Antibiotics scheduled. Will continue to monitor. Care turned over to Dr. Phoenix at change of shift to continue to observe until disposition can be made. 10/13/22 [place]-patient signed out to me by Dr. Solorio. I have seen evaluated patient myself. He has been up to the restroom multiple times. Awaiting placement for presumed sepsis obstructing kidney stone. Patient remains afebrile here in the emergency department. Urinalysis does show Gram-negative bacilli. He is no leukocytosis he is hemodynamically stable. 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 Patient is on multiple wait lists. Urology is not available here at this hospital of [facility] neurology has already been consulted. Patient overall appears well. Blood work this morning is stable. At this time due to critical bed shortage the stability of the patient we will go ahead and order him diet Lovenox for DVT prophylaxis. He is getting Rocephin daily for infection. Awaiting for culture and sensitivity. Dr solorio 10/13-10/14: Assumed care of patient. Reviewed patient's [address] scan this evening is the same as prior. He continues to be stable. Continues to be on antibiotics. Is on DVT prophylaxis. Continues to need transfer for urologic intervention that we do not have available here at this facility. There was no bed availability. We will continue to keep an emergency department. Care turned over to Dr. Phoenix to disposition. 10/14/2022 Alban-patient signed out to me by Dr. Solorio is seen evaluated patient myself. Awake alert oriented today appears well continues to have pain in his groin area. He remains afebrile hemodynamically stable blood work is overall very stable without leukocytosis. He continues to be on daily Rocephin. He is put on Lovenox daily for DVT prophylaxis. Pain control with morphine continues to be on normal saline but is eating and drinking. Would like a shower later. Patient has a 4 mm obstructing stone but no evidence of renal failure. Unable to get Urology and unable to transfer. Questionable if patient could possibly go home and have outpatient stent. There is also this soft tissue mass which may also be causing obstruction of the ureter. Urology will not be available here until Saturday. signed out to Dr. Moscoso. 10/14/22 Blanka: patient signed out to me by Dr. Phoenix, patient case reviewed. 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 Patient had repeat CT imaging to see if there was any improvement as he had been stable during his stay on 10/13/2022 with no acute change in hydronephrosis. Patient's hemoglobin has been consistently 8 range throughout his stay no major changes, no developing leukocytosis, sodium from this evening was 133, renal function has been stable without any acute kidney injury. Blood culture is positive 1-4 coag-negative Staphylococcus, there is no growth in the 2nd so far. Patient so far has been hemodynamically stable, he is on Lovenox for DVT. Patient signed out to Dr. Turpin, patient has had received 2 doses of IV antibiotics, 10/15/2022 will be his 3rd dose that will occur later. Discussed we have been trying to transfer for renal stent if patient is appropriate to be discharged home for outpatient follow-up with oral antibiotics or if does need to continue with IV antibiotics until transfer is available as we do not have Urology available until the 17 of October. <Frankie Turpin MD - Last Filed: 10/24/22 22:11> Differential Diagnosis Possible source sepsis: genitourinary Differential diagnosis: hypovolemia and SIRS Lab Data Labs: Lab Results 10/12/22 10/12/22 10/12/22 Range/Units 12:49 14:35 14:35 WBC (4.5-11.0) X10^3/uL RBC (4.5-5.9) X10^6/uL Hgb (13.5-17.5) g/dL Hct (41-53) % MCV (80-100) fL MCH (26-34) PG MCHC (30-36) % RDW (11.6-14.8) % Plt Count (150-400) X10^3/uL Neut % (Auto) (50-75) % Lymph % (Auto) (25-40) % Luna % (Auto) (3-14) % Eos % (Auto) (2-4) % Baso % (Auto) (0-2) % Neut # (Auto) (4448-7716) /uL Lymph # (Auto) (6851-6082) /uL Luna # (Auto) (0-900) /uL Eos # (Auto) (0-450) /uL Baso # (Auto) (0-100) /uL Total Counted Seg Neutrophils % (38-70) % Band Neutrophils % (3-7) % Lymphocytes % (Manual) (25-45) % Atypical Lymphs % ( - 0) % Monocytes % (Manual) (2-11) % Eosinophils % (Manual) (2-4) % Neutrophils # (Manual) (9100-1316) /uL WBC Morphology Comment Platelet Estimate RBC Morphology Hypochromasia Anisocytosis Microcytosis Sodium (137-145) mmol/L Potassium (3.4-5.1) mmol/L Chloride (98-107) mmol/L Carbon Dioxide (22-32) mmol/L BUN (9-20) mg/dL Creatinine (0.66-1.25) mg/dL Estimated GFR (>60) mL/min BUN/Creatinine Ratio (6-22) Glucose (80-110) mg/dL Lactate (0.7-2.1) mmol/L Calcium (8.4-10.2) mg/dL Magnesium (1.6-2.3) mg/dL Total Bilirubin (0.2-1.3) mg/dL AST (17-59) IU/L ALT (<50) IU/L Alkaline Phosphatase (38-126) U/L Total Creatine Kinase 99 (55-170) U/L CK-MB (CK-2) TNP CK-MB (CK-2) Rel Index TNP Troponin I < 0.012 (0.01-0.034) ng/mL C-Reactive Protein (<1.0) mg/dL Total Protein (6.3-8.2) g/dL Albumin (3.5-5.0) g/dL Globulin (1.7-4.1) g/dL Albumin/Globulin Ratio (1.0-2.8) Lipase (23-300) U/L Urine Color Yellow Urine Appearance Cloudy Urine pH 6.0 (4.5-8.0) Ur Specific [place] 1.025 (1.000-1.035) Urine Protein 2+ H (Negative) Urine Glucose (UA) Negative (Negative) g/dL Urine Ketones Trace H (NEGATIVE) Urine Occult Blood 2+ H (Negative) Urine Nitrate Negative (Negative) Urine Bilirubin Negative (NEGATIVE) Urine Urobilinogen 0.2 (0.2) E.U./dL Ur Leukocyte Esterase 2+ H (NEGATIVE) Urine RBC 1-5/hpf (0-5/HPF) Urine WBC >100/hpf H (0-5/HPF) Ur Squamous Epith Cells None seen (0-5/HPF) Urine Bacteria Many (>30) H (None) Ur Culture Indicated? Specimen cultured A. baumannii (PCR) Not detected (Not Detect) Natali albicans (PCR) Not detected (Not Detect) C. glabrata (PCR) Not detected (Not Detect) C. krusei (PCR) Not detected (Not Detect) C. parapsilosis (PCR) Not detected (Not Detect) C. tropicalis (PCR) Not detected (Not Detect) SARS-CoV-2 (PCR) (Negative) Enterobacteriac sp PCR Not detected (Not Detect) E. cloacae complex PCR Not detected (Not Detect) Enterococcus sp PCR Not detected (Not Detect) E. coli (PCR) Not detected (Not Detect) H. influenzae (PCR) Not detected (Not Detect) Influenza A (RT-PCR) (NEGATIVE) Influenza B (RT-PCR) (NEGATIVE) Klebsiella oxytoca PCR Not detected (Not Detect) Klebsiella pneumoniae Not detected (Not Detect) List. monocytogenes PCR Not detected (Not Detect) N. meningitidis (PCR) Not detected (Not Detect) Proteus species (PCR) Not detected (Not Detect) RSV (PCR) (Negative) Serratia marcescens PCR Not detected (Not Detect) Staphylococcus sp PCR Detected H (Not Detect) Staph aureus (PCR) Not detected (Not Detect) mecA-Methicil Res Gene Not detected (Not Detect) Streptococcus sp PCR Not detected (Not Detect) Group A Strep (PCR) Not detected (Not Detect) Strep agalactiae (PCR) Not detected (Not Detect) Strep pneumoniae (PCR) Not detected (Not Detect) P. aeruginosa (PCR) Not detected (Not Detect) Saritha/B-Vanco Res Genes Not Reportable KPC-Carbap Res Gene PCR Not Reportable 10/12/22 10/12/22 10/12/22 Range/Units 14:52 14:52 14:52 WBC 8.2 (4.5-11.0) X10^3/uL RBC 3.87 L (4.5-5.9) X10^6/uL Hgb 9.7 L (13.5-17.5) g/dL Hct 29.4 L (41-53) % MCV 76.0 L (80-100) fL MCH 25.0 L (26-34) PG MCHC 32.9 (30-36) % RDW 20.6 H (11.6-14.8) % Plt Count 290 (150-400) X10^3/uL Neut % (Auto) 82.1 H (50-75) % Lymph % (Auto) 6.8 L (25-40) % Luna % (Auto) 10.3 (3-14) % Eos % (Auto) 0.2 L (2-4) % Baso % (Auto) 0.6 (0-2) % Neut # (Auto) 6800 (1479-0346) /uL Lymph # (Auto) 600 L (2168-1078) /uL Luna # (Auto) 800 (0-900) /uL Eos # (Auto) 0 (0-450) /uL Baso # (Auto) 100 (0-100) /uL Total Counted Seg Neutrophils % (38-70) % Band Neutrophils % (3-7) % Lymphocytes % (Manual) (25-45) % Atypical Lymphs % ( - 0) % Monocytes % (Manual) (2-11) % Eosinophils % (Manual) (2-4) % Neutrophils # (Manual) (0119-7519) /uL WBC Morphology Comment Platelet Estimate Adequate on smear RBC Morphology See below Hypochromasia Anisocytosis 1+ H Microcytosis Sodium 136 L (137-145) mmol/L Potassium 3.9 (3.4-5.1) mmol/L Chloride 99 (98-107) mmol/L Carbon Dioxide 24 (22-32) mmol/L BUN 11 (9-20) mg/dL Creatinine 0.52 L (0.66-1.25) mg/dL Estimated GFR > 60 (>60) mL/min BUN/Creatinine Ratio 21.2 (6-22) Glucose 102 (80-110) mg/dL Lactate 2.4 H (0.7-2.1) mmol/L Calcium 7.7 L (8.4-10.2) mg/dL Magnesium 2.5 H (1.6-2.3) mg/dL Total Bilirubin 0.3 (0.2-1.3) mg/dL AST 34 (17-59) IU/L ALT 24 (<50) IU/L Alkaline Phosphatase 252 H (38-126) U/L Total Creatine Kinase (55-170) U/L CK-MB (CK-2) CK-MB (CK-2) Rel Index Troponin I (0.01-0.034) ng/mL C-Reactive Protein 5.1 H (<1.0) mg/dL Total Protein 6.7 (6.3-8.2) g/dL Albumin 3.5 (3.5-5.0) g/dL Globulin 3.2 (1.7-4.1) g/dL Albumin/Globulin Ratio 1.1 (1.0-2.8) Lipase 56 (23-300) U/L Urine Color Urine Appearance Urine pH (4.5-8.0) Ur Specific [place] (1.000-1.035) Urine Protein (Negative) Urine Glucose (UA) (Negative) g/dL Urine Ketones (NEGATIVE) Urine Occult Blood (Negative) Urine Nitrate (Negative) Urine Bilirubin (NEGATIVE) Urine Urobilinogen (0.2) E.U./dL Ur Leukocyte Esterase (NEGATIVE) Urine RBC (0-5/HPF) Urine WBC (0-5/HPF) Ur Squamous Epith Cells (0-5/HPF) Urine Bacteria (None) Ur Culture Indicated? A. baumannii (PCR) (Not Detect) Natali albicans (PCR) (Not Detect) C. glabrata (PCR) (Not Detect) C. krusei (PCR) (Not Detect) C. parapsilosis (PCR) (Not Detect) C. tropicalis (PCR) (Not Detect) SARS-CoV-2 (PCR) (Negative) Enterobacteriac sp PCR (Not Detect) E. cloacae complex PCR (Not Detect) Enterococcus sp PCR (Not Detect) E. coli (PCR) (Not Detect) H. influenzae (PCR) (Not Detect) Influenza A (RT-PCR) (NEGATIVE) Influenza B (RT-PCR) (NEGATIVE) Klebsiella oxytoca PCR (Not Detect) Klebsiella pneumoniae (Not Detect) List. monocytogenes PCR (Not Detect) N. meningitidis (PCR) (Not Detect) Proteus species (PCR) (Not Detect) RSV (PCR) (Negative) Serratia marcescens PCR (Not Detect) Staphylococcus sp PCR (Not Detect) Staph aureus (PCR) (Not Detect) mecA-Methicil Res Gene (Not Detect) Streptococcus sp PCR (Not Detect) Group A Strep (PCR) (Not Detect) Strep agalactiae (PCR) (Not Detect) Strep pneumoniae (PCR) (Not Detect) P. aeruginosa (PCR) (Not Detect) Saritha/B-Vanco Res Genes KPC-Carbap Res Gene PCR 10/12/22 10/12/22 10/13/22 Range/Units 14:52 17:45 09:20 WBC Cancelled (4.5-11.0) X10^3/uL RBC Cancelled (4.5-5.9) X10^6/uL Hgb Cancelled (13.5-17.5) g/dL Hct Cancelled (41-53) % MCV Cancelled (80-100) fL MCH Cancelled (26-34) PG MCHC Cancelled (30-36) % RDW Cancelled (11.6-14.8) % Plt Count Cancelled (150-400) X10^3/uL Neut % (Auto) Cancelled (50-75) % Lymph % (Auto) Cancelled (25-40) % Luna % (Auto) Cancelled (3-14) % Eos % (Auto) Cancelled (2-4) % Baso % (Auto) Cancelled (0-2) % Neut # (Auto) Cancelled (4314-5832) /uL Lymph # (Auto) Cancelled (8950-5868) /uL Luna # (Auto) Cancelled (0-900) /uL Eos # (Auto) Cancelled (0-450) /uL Baso # (Auto) Cancelled (0-100) /uL Total Counted Seg Neutrophils % (38-70) % Band Neutrophils % (3-7) % Lymphocytes % (Manual) (25-45) % Atypical Lymphs % ( - 0) % Monocytes % (Manual) (2-11) % Eosinophils % (Manual) (2-4) % Neutrophils # (Manual) (8225-9247) /uL WBC Morphology Comment Platelet Estimate RBC Morphology Hypochromasia Anisocytosis Microcytosis Sodium (137-145) mmol/L Potassium (3.4-5.1) mmol/L Chloride (98-107) mmol/L Carbon Dioxide (22-32) mmol/L BUN (9-20) mg/dL Creatinine (0.66-1.25) mg/dL Estimated GFR (>60) mL/min BUN/Creatinine Ratio (6-22) Glucose (80-110) mg/dL Lactate 2.2 H (0.7-2.1) mmol/L Calcium (8.4-10.2) mg/dL Magnesium (1.6-2.3) mg/dL Total Bilirubin (0.2-1.3) mg/dL AST (17-59) IU/L ALT (<50) IU/L Alkaline Phosphatase (38-126) U/L Total Creatine Kinase (55-170) U/L CK-MB (CK-2) CK-MB (CK-2) Rel Index Troponin I (0.01-0.034) ng/mL C-Reactive Protein (<1.0) mg/dL Total Protein (6.3-8.2) g/dL Albumin (3.5-5.0) g/dL Globulin (1.7-4.1) g/dL Albumin/Globulin Ratio (1.0-2.8) Lipase (23-300) U/L Urine Color Urine Appearance Urine pH (4.5-8.0) Ur Specific [place] (1.000-1.035) Urine Protein (Negative) Urine Glucose (UA) (Negative) g/dL Urine Ketones (NEGATIVE) Urine Occult Blood (Negative) Urine Nitrate (Negative) Urine Bilirubin (NEGATIVE) Urine Urobilinogen (0.2) E.U./dL Ur Leukocyte Esterase (NEGATIVE) Urine RBC (0-5/HPF) Urine WBC (0-5/HPF) Ur Squamous Epith Cells (0-5/HPF) Urine Bacteria (None) Ur Culture Indicated? A. baumannii (PCR) (Not Detect) Natali albicans (PCR) (Not Detect) C. glabrata (PCR) (Not Detect) C. krusei (PCR) (Not Detect) C. parapsilosis (PCR) (Not Detect) C. tropicalis (PCR) (Not Detect) SARS-CoV-2 (PCR) Negative (Negative) Enterobacteriac sp PCR (Not Detect) E. cloacae complex PCR (Not Detect) Enterococcus sp PCR (Not Detect) E. coli (PCR) (Not Detect) H. influenzae (PCR) (Not Detect) Influenza A (RT-PCR) Flu a negative (NEGATIVE) Influenza B (RT-PCR) Flu b negative (NEGATIVE) Klebsiella oxytoca PCR (Not Detect) Klebsiella pneumoniae (Not Detect) List. monocytogenes PCR (Not Detect) N. meningitidis (PCR) (Not Detect) Proteus species (PCR) (Not Detect) RSV (PCR) Negative (Negative) Serratia marcescens PCR (Not Detect) Staphylococcus sp PCR (Not Detect) Staph aureus (PCR) (Not Detect) mecA-Methicil Res Gene (Not Detect) Streptococcus sp PCR (Not Detect) Group A Strep (PCR) (Not Detect) Strep agalactiae (PCR) (Not Detect) Strep pneumoniae (PCR) (Not Detect) P. aeruginosa (PCR) (Not Detect) Saritha/B-Vanco Res Genes KPC-Carbap Res Gene PCR 10/13/22 10/13/22 10/13/22 Range/Units 09:20 09:20 14:30 WBC 9.5 (4.5-11.0) X10^3/uL RBC 3.49 L (4.5-5.9) X10^6/uL Hgb 8.5 L (13.5-17.5) g/dL Hct 26.4 L (41-53) % MCV 75.6 L (80-100) fL MCH 24.4 L (26-34) PG MCHC 32.3 (30-36) % RDW 20.5 H (11.6-14.8) % Plt Count 269 (150-400) X10^3/uL Neut % (Auto) 81.0 H (50-75) % Lymph % (Auto) 5.4 L (25-40) % Luna % (Auto) 13.1 (3-14) % Eos % (Auto) 0.1 L (2-4) % Baso % (Auto) 0.4 (0-2) % Neut # (Auto) 7700 H (8063-5211) /uL Lymph # (Auto) 500 L (0506-9197) /uL Luna # (Auto) 1200 H (0-900) /uL Eos # (Auto) 0 (0-450) /uL Baso # (Auto) 0 (0-100) /uL Total Counted Seg Neutrophils % (38-70) % Band Neutrophils % (3-7) % Lymphocytes % (Manual) (25-45) % Atypical Lymphs % ( - 0) % Monocytes % (Manual) (2-11) % Eosinophils % (Manual) (2-4) % Neutrophils # (Manual) (0532-6430) /uL WBC Morphology Comment Platelet Estimate RBC Morphology See below Hypochromasia Anisocytosis 2+ H Microcytosis 1+ H Sodium Cancelled (137-145) mmol/L Potassium Cancelled (3.4-5.1) mmol/L Chloride Cancelled (98-107) mmol/L Carbon Dioxide Cancelled (22-32) mmol/L BUN Cancelled (9-20) mg/dL Creatinine Cancelled (0.66-1.25) mg/dL Estimated GFR Cancelled (>60) mL/min BUN/Creatinine Ratio Cancelled (6-22) Glucose Cancelled (80-110) mg/dL Lactate Cancelled (0.7-2.1) mmol/L Calcium Cancelled (8.4-10.2) mg/dL Magnesium (1.6-2.3) mg/dL Total Bilirubin (0.2-1.3) mg/dL AST (17-59) IU/L ALT (<50) IU/L Alkaline Phosphatase (38-126) U/L Total Creatine Kinase (55-170) U/L CK-MB (CK-2) CK-MB (CK-2) Rel Index Troponin I (0.01-0.034) ng/mL C-Reactive Protein (<1.0) mg/dL Total Protein (6.3-8.2) g/dL Albumin (3.5-5.0) g/dL Globulin (1.7-4.1) g/dL Albumin/Globulin Ratio (1.0-2.8) Lipase (23-300) U/L Urine Color Urine Appearance Urine pH (4.5-8.0) Ur Specific [place] (1.000-1.035) Urine Protein (Negative) Urine Glucose (UA) (Negative) g/dL Urine Ketones (NEGATIVE) Urine Occult Blood (Negative) Urine Nitrate (Negative) Urine Bilirubin (NEGATIVE) Urine Urobilinogen (0.2) E.U./dL Ur Leukocyte Esterase (NEGATIVE) Urine RBC (0-5/HPF) Urine WBC (0-5/HPF) Ur Squamous Epith Cells (0-5/HPF) Urine Bacteria (None) Ur Culture Indicated? A. baumannii (PCR) (Not Detect) Natali albicans (PCR) (Not Detect) C. glabrata (PCR) (Not Detect) C. krusei (PCR) (Not Detect) C. parapsilosis (PCR) (Not Detect) C. tropicalis (PCR) (Not Detect) SARS-CoV-2 (PCR) (Negative) Enterobacteriac sp PCR (Not Detect) E. cloacae complex PCR (Not Detect) Enterococcus sp PCR (Not Detect) E. coli (PCR) (Not Detect) H. influenzae (PCR) (Not Detect) Influenza A (RT-PCR) (NEGATIVE) Influenza B (RT-PCR) (NEGATIVE) Klebsiella oxytoca PCR (Not Detect) Klebsiella pneumoniae (Not Detect) List. monocytogenes PCR (Not Detect) N. meningitidis (PCR) (Not Detect) Proteus species (PCR) (Not Detect) RSV (PCR) (Negative) Serratia marcescens PCR (Not Detect) Staphylococcus sp PCR (Not Detect) Staph aureus (PCR) (Not Detect) mecA-Methicil Res Gene (Not Detect) Streptococcus sp PCR (Not Detect) Group A Strep (PCR) (Not Detect) Strep agalactiae (PCR) (Not Detect) Strep pneumoniae (PCR) (Not Detect) P. aeruginosa (PCR) (Not Detect) Saritha/B-Vanco Res Genes KPC-Carbap Res Gene PCR 10/13/22 10/13/22 10/13/22 Range/Units 14:30 14:30 17:30 WBC (4.5-11.0) X10^3/uL RBC (4.5-5.9) X10^6/uL Hgb (13.5-17.5) g/dL Hct (41-53) % MCV (80-100) fL MCH (26-34) PG MCHC (30-36) % RDW (11.6-14.8) % Plt Count (150-400) X10^3/uL Neut % (Auto) (50-75) % Lymph % (Auto) (25-40) % Luna % (Auto) (3-14) % Eos % (Auto) (2-4) % Baso % (Auto) (0-2) % Neut # (Auto) (2001-0001) /uL Lymph # (Auto) (3579-9910) /uL Luna # (Auto) (0-900) /uL Eos # (Auto) (0-450) /uL Baso # (Auto) (0-100) /uL Total Counted Seg Neutrophils % (38-70) % Band Neutrophils % (3-7) % Lymphocytes % (Manual) (25-45) % Atypical Lymphs % ( - 0) % Monocytes % (Manual) (2-11) % Eosinophils % (Manual) (2-4) % Neutrophils # (Manual) (8958-5701) /uL WBC Morphology Comment Platelet Estimate RBC Morphology Hypochromasia Anisocytosis Microcytosis Sodium 130 L (137-145) mmol/L Potassium 4.0 (3.4-5.1) mmol/L Chloride 96 L (98-107) mmol/L Carbon Dioxide 22 (22-32) mmol/L BUN 10 (9-20) mg/dL Creatinine 0.53 L (0.66-1.25) mg/dL Estimated GFR > 60 (>60) mL/min BUN/Creatinine Ratio 18.9 (6-22) Glucose 104 (80-110) mg/dL Lactate 3.1 H 2.6 H (0.7-2.1) mmol/L Calcium 7.0 L (8.4-10.2) mg/dL Magnesium (1.6-2.3) mg/dL Total Bilirubin (0.2-1.3) mg/dL AST (17-59) IU/L ALT (<50) IU/L Alkaline Phosphatase (38-126) U/L Total Creatine Kinase (55-170) U/L CK-MB (CK-2) CK-MB (CK-2) Rel Index Troponin I (0.01-0.034) ng/mL C-Reactive Protein (<1.0) mg/dL Total Protein (6.3-8.2) g/dL Albumin (3.5-5.0) g/dL Globulin (1.7-4.1) g/dL Albumin/Globulin Ratio (1.0-2.8) Lipase (23-300) U/L Urine Color Urine Appearance Urine pH (4.5-8.0) Ur Specific [place] (1.000-1.035) Urine Protein (Negative) Urine Glucose (UA) (Negative) g/dL Urine Ketones (NEGATIVE) Urine Occult Blood (Negative) Urine Nitrate (Negative) Urine Bilirubin (NEGATIVE) Urine Urobilinogen (0.2) E.U./dL Ur Leukocyte Esterase (NEGATIVE) Urine RBC (0-5/HPF) Urine WBC (0-5/HPF) Ur Squamous Epith Cells (0-5/HPF) Urine Bacteria (None) Ur Culture Indicated? A. baumannii (PCR) (Not Detect) Natali albicans (PCR) (Not Detect) C. glabrata (PCR) (Not Detect) C. krusei (PCR) (Not Detect) C. parapsilosis (PCR) (Not Detect) C. tropicalis (PCR) (Not Detect) SARS-CoV-2 (PCR) (Negative) Enterobacteriac sp PCR (Not Detect) E. cloacae complex PCR (Not Detect) Enterococcus sp PCR (Not Detect) E. coli (PCR) (Not Detect) H. influenzae (PCR) (Not Detect) Influenza A (RT-PCR) (NEGATIVE) Influenza B (RT-PCR) (NEGATIVE) Klebsiella oxytoca PCR (Not Detect) Klebsiella pneumoniae (Not Detect) List. monocytogenes PCR (Not Detect) N. meningitidis (PCR) (Not Detect) Proteus species (PCR) (Not Detect) RSV (PCR) (Negative) Serratia marcescens PCR (Not Detect) Staphylococcus sp PCR (Not Detect) Staph aureus (PCR) (Not Detect) mecA-Methicil Res Gene (Not Detect) Streptococcus sp PCR (Not Detect) Group A Strep (PCR) (Not Detect) Strep agalactiae (PCR) (Not Detect) Strep pneumoniae (PCR) (Not Detect) P. aeruginosa (PCR) (Not Detect) Saritha/B-Vanco Res Genes KPC-Carbap Res Gene PCR 10/13/22 10/14/22 10/14/22 Range/Units 18:37 08:42 08:42 WBC 7.8 (4.5-11.0) X10^3/uL RBC 3.49 L (4.5-5.9) X10^6/uL Hgb 8.3 L 8.6 L (13.5-17.5) g/dL Hct 25.1 L 26.6 L (41-53) % MCV 76.1 L (80-100) fL MCH 24.5 L (26-34) PG MCHC 32.2 (30-36) % RDW 21.0 H (11.6-14.8) % Plt Count 274 (150-400) X10^3/uL Neut % (Auto) 79.9 H (50-75) % Lymph % (Auto) 7.0 L (25-40) % Luna % (Auto) 12.3 (3-14) % Eos % (Auto) 0.2 L (2-4) % Baso % (Auto) 0.6 (0-2) % Neut # (Auto) 6300 (9164-0034) /uL Lymph # (Auto) 500 L (3438-4737) /uL Luna # (Auto) 1000 H (0-900) /uL Eos # (Auto) 0 (0-450) /uL Baso # (Auto) 0 (0-100) /uL Total Counted Seg Neutrophils % (38-70) % Band Neutrophils % (3-7) % Lymphocytes % (Manual) (25-45) % Atypical Lymphs % ( - 0) % Monocytes % (Manual) (2-11) % Eosinophils % (Manual) (2-4) % Neutrophils # (Manual) (5970-2468) /uL WBC Morphology Comment Platelet Estimate RBC Morphology See below Hypochromasia Anisocytosis 2+ H Microcytosis 1+ H Sodium 134 L (137-145) mmol/L Potassium 3.6 (3.4-5.1) mmol/L Chloride 101 (98-107) mmol/L Carbon Dioxide 21 L (22-32) mmol/L BUN 8 L (9-20) mg/dL Creatinine 0.45 L (0.66-1.25) mg/dL Estimated GFR > 60 (>60) mL/min BUN/Creatinine Ratio 17.8 (6-22) Glucose 102 (80-110) mg/dL Lactate (0.7-2.1) mmol/L Calcium 6.7 L (8.4-10.2) mg/dL Magnesium (1.6-2.3) mg/dL Total Bilirubin (0.2-1.3) mg/dL AST (17-59) IU/L ALT (<50) IU/L Alkaline Phosphatase (38-126) U/L Total Creatine Kinase (55-170) U/L CK-MB (CK-2) CK-MB (CK-2) Rel Index Troponin I (0.01-0.034) ng/mL C-Reactive Protein (<1.0) mg/dL Total Protein (6.3-8.2) g/dL Albumin (3.5-5.0) g/dL Globulin (1.7-4.1) g/dL Albumin/Globulin Ratio (1.0-2.8) Lipase (23-300) U/L Urine Color Urine Appearance Urine pH (4.5-8.0) Ur Specific [place] (1.000-1.035) Urine Protein (Negative) Urine Glucose (UA) (Negative) g/dL Urine Ketones (NEGATIVE) Urine Occult Blood (Negative) Urine Nitrate (Negative) Urine Bilirubin (NEGATIVE) Urine Urobilinogen (0.2) E.U./dL Ur Leukocyte Esterase (NEGATIVE) Urine RBC (0-5/HPF) Urine WBC (0-5/HPF) Ur Squamous Epith Cells (0-5/HPF) Urine Bacteria (None) Ur Culture Indicated? A. baumannii (PCR) (Not Detect) Natali albicans (PCR) (Not Detect) C. glabrata (PCR) (Not Detect) C. krusei (PCR) (Not Detect) C. parapsilosis (PCR) (Not Detect) C. tropicalis (PCR) (Not Detect) SARS-CoV-2 (PCR) (Negative) Enterobacteriac sp PCR (Not Detect) E. cloacae complex PCR (Not Detect) Enterococcus sp PCR (Not Detect) E. coli (PCR) (Not Detect) H. influenzae (PCR) (Not Detect) Influenza A (RT-PCR) (NEGATIVE) Influenza B (RT-PCR) (NEGATIVE) Klebsiella oxytoca PCR (Not Detect) Klebsiella pneumoniae (Not Detect) List. monocytogenes PCR (Not Detect) N. meningitidis (PCR) (Not Detect) Proteus species (PCR) (Not Detect) RSV (PCR) (Negative) Serratia marcescens PCR (Not Detect) Staphylococcus sp PCR (Not Detect) Staph aureus (PCR) (Not Detect) mecA-Methicil Res Gene (Not Detect) Streptococcus sp PCR (Not Detect) Group A Strep (PCR) (Not Detect) Strep agalactiae (PCR) (Not Detect) Strep pneumoniae (PCR) (Not Detect) P. aeruginosa (PCR) (Not Detect) Saritha/B-Vanco Res Genes KPC-Carbap Res Gene PCR 10/14/22 10/14/22 10/14/22 Range/Units 08:42 18:30 18:30 WBC 7.9 (4.5-11.0) X10^3/uL RBC 3.53 L (4.5-5.9) X10^6/uL Hgb 8.7 L (13.5-17.5) g/dL Hct 26.9 L (41-53) % MCV 76.1 L (80-100) fL MCH 24.7 L (26-34) PG MCHC 32.4 (30-36) % RDW 20.7 H (11.6-14.8) % Plt Count 279 (150-400) X10^3/uL Neut % (Auto) 78.7 H (50-75) % Lymph % (Auto) 8.8 L (25-40) % Luna % (Auto) 11.7 (3-14) % Eos % (Auto) 0.3 L (2-4) % Baso % (Auto) 0.5 (0-2) % Neut # (Auto) 6200 (7138-7888) /uL Lymph # (Auto) 700 L (9881-0025) /uL Luna # (Auto) 900 (0-900) /uL Eos # (Auto) 0 (0-450) /uL Baso # (Auto) 0 (0-100) /uL Total Counted Seg Neutrophils % (38-70) % Band Neutrophils % (3-7) % Lymphocytes % (Manual) (25-45) % Atypical Lymphs % ( - 0) % Monocytes % (Manual) (2-11) % Eosinophils % (Manual) (2-4) % Neutrophils # (Manual) (7813-4549) /uL WBC Morphology Comment Not Reportable Platelet Estimate RBC Morphology See below Hypochromasia 1+ H Anisocytosis 1+ H Microcytosis Sodium 133 L (137-145) mmol/L Potassium 4.4 (3.4-5.1) mmol/L Chloride 99 (98-107) mmol/L Carbon Dioxide 22 (22-32) mmol/L BUN 13 (9-20) mg/dL Creatinine 0.49 L (0.66-1.25) mg/dL Estimated GFR > 60 (>60) mL/min BUN/Creatinine Ratio 26.5 H (6-22) Glucose 109 (80-110) mg/dL Lactate 1.9 (0.7-2.1) mmol/L Calcium 7.9 L (8.4-10.2) mg/dL Magnesium (1.6-2.3) mg/dL Total Bilirubin 0.2 (0.2-1.3) mg/dL AST 44 (17-59) IU/L ALT 23 (<50) IU/L Alkaline Phosphatase 240 H (38-126) U/L Total Creatine Kinase (55-170) U/L CK-MB (CK-2) CK-MB (CK-2) Rel Index Troponin I (0.01-0.034) ng/mL C-Reactive Protein (<1.0) mg/dL Total Protein 6.2 L (6.3-8.2) g/dL Albumin 3.1 L (3.5-5.0) g/dL Globulin 3.1 (1.7-4.1) g/dL Albumin/Globulin Ratio 1.0 (1.0-2.8) Lipase (23-300) U/L Urine Color Urine Appearance Urine pH (4.5-8.0) Ur Specific [place] (1.000-1.035) Urine Protein (Negative) Urine Glucose (UA) (Negative) g/dL Urine Ketones (NEGATIVE) Urine Occult Blood (Negative) Urine Nitrate (Negative) Urine Bilirubin (NEGATIVE) Urine Urobilinogen (0.2) E.U./dL Ur Leukocyte Esterase (NEGATIVE) Urine RBC (0-5/HPF) Urine WBC (0-5/HPF) Ur Squamous Epith Cells (0-5/HPF) Urine Bacteria (None) Ur Culture Indicated? A. baumannii (PCR) (Not Detect) Natali albicans (PCR) (Not Detect) C. glabrata (PCR) (Not Detect) C. krusei (PCR) (Not Detect) C. parapsilosis (PCR) (Not Detect) C. tropicalis (PCR) (Not Detect) SARS-CoV-2 (PCR) (Negative) Enterobacteriac sp PCR (Not Detect) E. cloacae complex PCR (Not Detect) Enterococcus sp PCR (Not Detect) E. coli (PCR) (Not Detect) H. influenzae (PCR) (Not Detect) Influenza A (RT-PCR) (NEGATIVE) Influenza B (RT-PCR) (NEGATIVE) Klebsiella oxytoca PCR (Not Detect) Klebsiella pneumoniae (Not Detect) List. monocytogenes PCR (Not Detect) N. meningitidis (PCR) (Not Detect) Proteus species (PCR) (Not Detect) RSV (PCR) (Negative) Serratia marcescens PCR (Not Detect) Staphylococcus sp PCR (Not Detect) Staph aureus (PCR) (Not Detect) mecA-Methicil Res Gene (Not Detect) Streptococcus sp PCR (Not Detect) Group A Strep (PCR) (Not Detect) Strep agalactiae (PCR) (Not Detect) Strep pneumoniae (PCR) (Not Detect) P. aeruginosa (PCR) (Not Detect) Saritha/B-Vanco Res Genes KPC-Carbap Res Gene PCR 10/15/22 10/15/22 Range/Units 08:10 08:10 WBC 8.9 (4.5-11.0) X10^3/uL RBC 3.49 L (4.5-5.9) X10^6/uL Hgb 8.5 L (13.5-17.5) g/dL Hct 26.7 L (41-53) % MCV 76.6 L (80-100) fL MCH 24.4 L (26-34) PG MCHC 31.8 (30-36) % RDW 21.3 H (11.6-14.8) % Plt Count 310 (150-400) X10^3/uL Neut % (Auto) Not Reportable (50-75) % Lymph % (Auto) Not Reportable (25-40) % Luna % (Auto) Not Reportable (3-14) % Eos % (Auto) Not Reportable (2-4) % Baso % (Auto) Not Reportable (0-2) % Neut # (Auto) (3289-2322) /uL Lymph # (Auto) Not Reportable (8809-8782) /uL Luna # (Auto) Not Reportable (0-900) /uL Eos # (Auto) (0-450) /uL Baso # (Auto) Not Reportable (0-100) /uL Total Counted 100 Seg Neutrophils % 66.0 (38-70) % Band Neutrophils % 9.0 H (3-7) % Lymphocytes % (Manual) 16.0 L (25-45) % Atypical Lymphs % 2.0 H ( - 0) % Monocytes % (Manual) 6.0 (2-11) % Eosinophils % (Manual) 1.0 L (2-4) % Neutrophils # (Manual) 6675 H (0615-7677) /uL WBC Morphology Comment Platelet Estimate RBC Morphology Not Reportable Hypochromasia Anisocytosis 2+ H Microcytosis Sodium 133 L (137-145) mmol/L Potassium 4.0 (3.4-5.1) mmol/L Chloride 99 (98-107) mmol/L Carbon Dioxide 22 (22-32) mmol/L BUN 9 (9-20) mg/dL Creatinine 0.44 L (0.66-1.25) mg/dL Estimated GFR > 60 (>60) mL/min BUN/Creatinine Ratio 20.5 (6-22) Glucose 93 (80-110) mg/dL Lactate (0.7-2.1) mmol/L Calcium 7.6 L (8.4-10.2) mg/dL Magnesium (1.6-2.3) mg/dL Total Bilirubin 0.3 (0.2-1.3) mg/dL AST 39 (17-59) IU/L ALT 22 (<50) IU/L Alkaline Phosphatase 223 H (38-126) U/L Total Creatine Kinase (55-170) U/L CK-MB (CK-2) CK-MB (CK-2) Rel Index Troponin I (0.01-0.034) ng/mL C-Reactive Protein (<1.0) mg/dL Total Protein 6.1 L (6.3-8.2) g/dL Albumin 3.1 L (3.5-5.0) g/dL Globulin 3.0 (1.7-4.1) g/dL Albumin/Globulin Ratio 1.0 (1.0-2.8) Lipase (23-300) U/L Urine Color Urine Appearance Urine pH (4.5-8.0) Ur Specific [place] (1.000-1.035) Urine Protein (Negative) Urine Glucose (UA) (Negative) g/dL Urine Ketones (NEGATIVE) Urine Occult Blood (Negative) Urine Nitrate (Negative) Urine Bilirubin (NEGATIVE) Urine Urobilinogen (0.2) E.U./dL Ur Leukocyte Esterase (NEGATIVE) Urine RBC (0-5/HPF) Urine WBC (0-5/HPF) Ur Squamous Epith Cells (0-5/HPF) Urine Bacteria (None) Ur Culture Indicated? A. baumannii (PCR) (Not Detect) Natali albicans (PCR) (Not Detect) C. glabrata (PCR) (Not Detect) C. krusei (PCR) (Not Detect) C. parapsilosis (PCR) (Not Detect) C. tropicalis (PCR) (Not Detect) SARS-CoV-2 (PCR) (Negative) Enterobacteriac sp PCR (Not Detect) E. cloacae complex PCR (Not Detect) Enterococcus sp PCR (Not Detect) E. coli (PCR) (Not Detect) H. influenzae (PCR) (Not Detect) Influenza A (RT-PCR) (NEGATIVE) Influenza B (RT-PCR) (NEGATIVE) Klebsiella oxytoca PCR (Not Detect) Klebsiella pneumoniae (Not Detect) List. monocytogenes PCR (Not Detect) N. meningitidis (PCR) (Not Detect) Proteus species (PCR) (Not Detect) RSV (PCR) (Negative) Serratia marcescens PCR (Not Detect) Staphylococcus sp PCR (Not Detect) Staph aureus (PCR) (Not Detect) mecA-Methicil Res Gene (Not Detect) Streptococcus sp PCR (Not Detect) Group A Strep (PCR) (Not Detect) Strep agalactiae (PCR) (Not Detect) Strep pneumoniae (PCR) (Not Detect) P. aeruginosa (PCR) (Not Detect) Saritha/B-Vanco Res Genes KPC-Carbap Res Gene PCR Urine Dip Bedside Urine Glucose Negative Bedside Urine Bilirubin - Negative Bedside Urine Ketone - Negative Urine Specific [place] 1.025 Bedside Urine Occult Blood +/- Bedside Urine pH 6 Bedside Urine Protein +++ 300 Bedside Urine Urobilinogen - Negative Bedside Urine Nitrite - Negative Bedside Urine Leukocytes ++ 125 E[address] Imaging Data Third CT abdomen pelvis KUB: Radiologist's Impression: [address] [address] [address] Scan Report Signed Patient: Harley Beard MR#: [id number] : 1940 Acct:[id number] Age/Sex: 82 / M Date of Service: 10/15/22 Loc: ED Accession Number: [id number] ?? Procedure: CT kidney ureter bladder (KUB) Ordering Provider: Frankie Turpin MD PROCEDURE:? CT KIDNEY URETER BLADDER (KUB) ? INDICATIONS:? Renal stone/hydronephrosis/KNOWN ISSUE ? TECHNIQUE:? Axial sections were acquired from the lung bases to the pubic symphysis.? Coronal and sagittal reformats were performed.? For radiation dose reduction, the following was used: ?automated exposure control, adjustment of mA and/or kV according to patient size.? ? COMPARISON:? [facility], CT, CT ABDOMEN PELVIS W CON, 10/13/2022, 18:08.? [facility], CT, CT KIDNEY URETER BLADDER (KUB), 10/12/2022, 13:14. ? FINDINGS:? Small left pleural effusion and trace right pleural effusion.? Minimal bibasilar atelectasis. Unchanged moderate right hydronephrosis and proximal right hydroureter secondary to distal ureteral calculus measuring 4 mm.? 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 Nonobstructing lower pole calculi in the right kidney are unchanged.? No urinary tract calculus on the left.? Urinary bladder normal. Remaining findings not significantly changed.? Sigmoid diverticulosis again noted with no findings of diverticulitis.? Grossly unremarkable unenhanced CT appearance of the liver, spleen, pancreas, gallbladder, and adrenal glands. ? IMPRESSION:? ? 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 ? ? Dictated by: Herberth Bowers M.D. on 10/15/2022 at 10:29 ? ? Approved by: Herberth Bowers M.D. on 10/15/2022 at 10:33 ? MDM Narrative Medical decision making narrative: 82-year-old male with history of prostate CA and kidney stones presents with about a week of increasing suprapubic discomfort and classic urinary symptoms including dysuria, frequency and urgency. He is had fever and shaking chills and meets septic criteria. He has been hemodynamically stable but urine is very convincing in the setting of a CT KUB demonstrating stone with hydronephrosis. I have discussed with on-call Urology at the [facility] who sure the opinion that in addition to fluid resuscitation antibiotics patient will need to be transferred to a facility with Urology and likely Interventional Radiology. Patient and family are aware of the diagnosis and plan, patient will be signed out to Dr. Solorio for final disposition. We are currently waiting call back from [facility] Dr Solorio: overnight 10/12-10/13 received turned over. Review patient's history and physical exam and workup up to this point. Reviewed his radiologic studies. Patient is stable. Received antibiotics. [facility] states that they can not take the patient's secondary to crowding. Attempted to contact multiple other places with urologic capability however there still is no bed availability. Morning labs ordered. Antibiotics scheduled. Will continue to monitor. Care turned over to Dr. Phoenix at change of shift to continue to observe until disposition can be made. 10/13/22 Alban-patient signed out to me by Dr. Solorio. I have seen evaluated patient myself. He has been up to the restroom multiple times. Awaiting placement for presumed sepsis obstructing kidney stone. Patient remains afebrile here in the emergency department. Urinalysis does show Gram-negative bacilli. He is no leukocytosis he is hemodynamically stable. 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 Patient is on multiple wait lists. Urology is not available here at this hospital of [facility] neurology has already been consulted. Patient overall appears well. Blood work this morning is stable. At this time due to critical bed shortage the stability of the patient we will go ahead and order him diet Lovenox for DVT prophylaxis. He is getting Rocephin daily for infection. Awaiting for culture and sensitivity. Dr solorio 10/13-10/14: Assumed care of patient. Reviewed patient's [address] scan this evening is the same as prior. He continues to be stable. Continues to be on antibiotics. Is on DVT prophylaxis. Continues to need transfer for urologic intervention that we do not have available here at this facility. There was no bed availability. We will continue to keep an emergency department. Care turned over to Dr. Phoenix to disposition. 10/14/2022 Alban-patient signed out to me by Dr. Solorio is seen evaluated patient myself. Awake alert oriented today appears well continues to have pain in his groin area. He remains afebrile hemodynamically stable blood work is overall very stable without leukocytosis. He continues to be on daily Rocephin. He is put on Lovenox daily for DVT prophylaxis. Pain control with morphine continues to be on normal saline but is eating and drinking. Would like a shower later. Patient has a 4 mm obstructing stone but no evidence of renal failure. Unable to get Urology and unable to transfer. Questionable if patient could possibly go home and have outpatient stent. There is also this soft tissue mass which may also be causing obstruction of the ureter. Urology will not be available here until Saturday. signed out to Dr. Moscoso. 10/14/22 Blanka: patient signed out to me by Dr. Phoenix, patient case reviewed. 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 Patient had repeat CT imaging to see if there was any improvement as he had been stable during his stay on 10/13/2022 with no acute change in hydronephrosis. Patient's hemoglobin has been consistently 8 range throughout his stay no major changes, no developing leukocytosis, sodium from this evening was 133, renal function has been stable without any acute kidney injury. Blood culture is positive 1-4 coag-negative Staphylococcus, there is no growth in the 2nd so far. Patient so far has been hemodynamically stable, he is on Lovenox for DVT. Patient signed out to Dr. Turpin, patient has had received 2 doses of IV antibiotics, 10/15/2022 will be his 3rd dose that will occur later. Discussed we have been trying to transfer for renal stent if patient is appropriate to be discharged home for outpatient follow-up with oral antibiotics or if does need to continue with IV antibiotics until transfer is available as we do not have Urology available until the 17 of October. September 14, 2023 at 9:56 a.m.. I did speak with patient to update need for urology/possible nephrostomy tube/interventional radiology. Patient is awake alert oriented x4. No pain at this time. Does agree for repeat imaging to see any progression worsening or improvement mass found on CT scan as well as kidney stone. Patient did have CT scan imaging chest abdomen pelvis September 24, 2022 a few weeks ago and did not show these abnormal findings. He does see Oncology with [facility] Dr. Azevedo, however he did see [facility] up to 1 year ago when his urologist retired/moved, Dr. Kerr 10:24 a.m.. I did speak with [facility], laboratory studies look reassuring but I did speak with executive director contract shop Dr. Arana, he agrees patient would benefit for nephrostomy tube. We will try to coordinate with [facility] powerhouse electrician apprentice to help coordinate with their Interventional Radiology. We do not have those services here. Dr. Arana called back, nephrology, there is no Interventional Radiology available. Unable to do interventional radiology/nephrostomy today. However laboratory studies are reassuring at this time. From Nephrology standpoint does not need urgent nephrostomy. Recommends consult/speak again with Urology 2:00 p.m.. Spoke with [facility] urology, dr hauser, he has reviewed patient's care and records and laboratory studies and imaging. At this time he is recommends patient being discharged home. He is taken patient's demographic information correctly and his office will call patient tomorrow for office time to do outpatient ureteral stenting. Does agree with [facility] for antibiotics to go home with. 2:10 p.m.. Spoke with patient and family at bedside they do agree with treatment plan. Not toxic discharge with return precautions reviewed with him. They desire discharge home. They are aware antibiotics have been sent to his pharmacy to continue tomorrow, he has been given today's dose of antibiotics. Appropriate for discharge home. Review exam and laboratory studies and imaging and several consults, at this time appropriate for discharge home outpatient antibiotics and follow up with Urology care for stenting. Nephrology was contacted and no urgent nephrostomy or decompression indicated as patient laboratory studies are reassuring and patient pain is controlled and is producing urine. Return precautions reviewed with patient he and family desire discharge home. Keflex was sent to his pharmacy to continue tomorrow. Urine culture is sensitive to cephalosporins. Blood cultures her possibly contaminant Critical Care Time <Jay Garcia, DO - Last Filed: 10/16/22 10:33> Critical Care Time Critical Care Time: Yes Total Critical Care Time: 35 Attestation: The high probability of a clinically significant, sudden or life threatening deterioration of the [] system(s) required my full and direct attention, intervention and personal management. The aggregate critical care time was [] minutes. This time is in addition to time spent performing reported procedures but includes the following: [] Data Review and interpretation [] Patient assessment and monitoring of vital signs [] Documentation [] Medication orders and management Discharge Plan Departure Patient Disposition: Home Clinical Impression: Sepsis, Acute UTI, Kidney calculi, Hydronephrosis, Mass of soft tissue Activity Restrictions/Additional Instructions: [facility] urology services will be calling you this week for follow up in their office for possible stenting of your ureter to relieve obstruction in your left kidney. Please continue provided prescription antibiotic to treat your urinary tract infection. Return if worse or any questions or concerns. [facility] urology services, Dr Hauser has been help being review your care here. Be sure to inform your oncology services of your visit here and treatment. Prescriptions: No Action allopurinol 300 MG tablet See Rx Instructions .ROUTE .COMPLEX Qty: 30 Label Comments: PT TAKES M,W,F Rx Instructions: 300 mg orally cholecalciferol (vitamin D3) [Vitamin D3] 2,000 UNIT capsule 2,000 iu PO BID Qty: 0 PreserVision AREDS-2 1 EACH capsule 1 ea PO BID Qty: 0 Artificial Tears(pvalch-povid) 15 ML drops 1 drp OPHTH PRN PRN (Reason: DRY EYE) Qty: 30 hydrocortisone [Hydrocream] 1 % Cream 1 appful Topical QDAY PRN (Reason: Rash) Qty: 0 atorvastatin 10 mg Tablet 10 mg PO DAILY Lupron Depot (6 Month) 30 mg 30 mg [id number] acetaminophen 325 MG tablet 325 - 650 mg PO Q6HP PRN (Reason: Pain (Scale Score 1-3)) omega-3 fatty acids Capsule 1,000 mg PO BID Tums 500 500 PO BID Rx Instructions: Take at least 1-2 Tums daily. Continue Vit D ibuprofen 300 mg Tablet 600 mg PO Q6H PRN (Reason: Pain (Scale Score 4-6)) tamsulosin 0.4 mg Capsule 0.4 mg PO BEDTIME Qty: 30 1RF oxycodone 5 mg tablet 5 mg PO Q4H PRN (Reason: pain) Qty: 14 0RF Xgeva 120 mg/1.7 mL (70 mg/mL) Solution 120 mg SUBCUT Q4W Referrals: Davon Oquendo MD [Primary Care Provider] -
[2022-10-12 15:15] LABS: Add Manual Diff / Slide Review NO; Basophils Absolute Auto 100 /uL (0-100); Basophils Percent Auto 0.6 % (0-2); Eosinophils Absolute Auto 0 /uL (0-450); Eosinophils Percent Auto 0.2 % (2-4); Hematocrit 29.4 % (41-53); Hemoglobin 9.7 g/dL (13.5-17.5); Lymphocytes Absolute Auto 600 /uL (1100-4500); Lymphocytes Percent Auto 6.8 % (25-40); Mean Corpuscular HGB Conc 32.9 % (30-36); Monocytes Absolute Auto 800 /uL (0-900); Monocytes Percent Auto 10.3 % (3-14); Neutrophils Absolute Auto 6800 /uL (1500-7000); Neutrophils Percent Auto 82.1 % (50-75); Platelet Count 290 X10^3/uL (150-400); Red Blood Cell Count 3.87 X10^6/uL (4.5-5.9); Red Cell Distribution Width 20.6 % (11.6-14.8); White Blood Cell Count 8.2 X10^3/uL (4.5-11.0)
[2022-10-12 15:23] LABS: Lactate (Lactic Acid) 2.4 mmol/L (0.7-2.1)
[2022-10-12 15:24] LABS: Creatine Kinase 99 U/L (55-170)
[2022-10-12 15:26] LABS: Alanine Aminotransferase 24 IU/L (<50); Albumin 3.5 g/dL (3.5-5.0); Albumin Globulin Ratio 1.1 (1.0-2.8); Alkaline Phosphatase 252 U/L (38-126); Aspartate Aminotransferase 34 IU/L (17-59); BUN Creatinine Ratio 21.2 (6-22); Bilirubin Total 0.3 mg/dL (0.2-1.3); Blood Urea Nitrogen 11 mg/dL (9-20); C-Reactive Protein Quant 5.1 mg/dL (<1.0); Calcium 7.7 mg/dL (8.4-10.2); Carbon Dioxide 24 mmol/L (22-32); Chloride 99 mmol/L (98-107); Estimated Glomerular Filt Rate > 60 mL/min (>60); Globulin 3.2 g/dL (1.7-4.1); Glucose 102 mg/dL (80-110); HEMOLYSIS 17 (0-50); Lipase 56 U/L (23-300); Magnesium 2.5 mg/dL (1.6-2.3); Potassium 3.9 mmol/L (3.4-5.1); Sodium 136 mmol/L (137-145); Total Protein 6.7 g/dL (6.3-8.2)
[2022-10-12] MEDS: TAMSULOSIN 0.4 MG CAPSULE PO (15:27)
[2022-10-12] MEDS: cefTRIAXone 2,000 MG in SODIUM CHLORIDE 0.9% 100 ML 200 MG IV (15:27)
[2022-10-12] MEDS: KETOROLAC 30 MG/ML VIAL 15 MG IV (15:27)
[2022-10-12 15:35] LABS: Troponin I < 0.012 ng/mL (0.01-0.034)
[2022-10-12 16:07] LABS: Influenza A - CEPHEID Flu A NEGATIVE (NEGATIVE); Influenza B - CEPHEID Flu B NEGATIVE (NEGATIVE); Respiratory Syncytial Virus Negative (Negative)
[2022-10-12 16:12] LABS: Anisocytosis 1+; Platelet Estimate Adequate on smear
[2022-10-12 16:48] LABS: COVID-19 CEPHEID 4-PLEX PCR Negative (Negative)
[2022-10-12 17:00] LABS: Reflexed Lactate in 2 Hours Y
[2022-10-12 18:06] LABS: Lactate 2HR (Lactic Acid Rflx) 2.2 mmol/L (0.7-2.1)
[2022-10-12] MEDS: MORPHINE 4 MG/ML INJ IV (18:22)
--- NOTE | 2022-10-12 22:42 | PC.NURSE ---
Addendum entered by Michaela Reed CNA 10/13/22 06:33: Spoke to [facility], Jeri, and got Mr. Beard on their list. Addendum entered by Michaela Reed CNA 10/12/22 23:38: [place]: 2324- spoke to a male boiler room operator- he sent a message to their housekeeper manager. Agnieszka called back 10 minutes later. They're boarding 18 in their ER and can't take any patients. [place]- 2329- Lidia- per nursing supervisor process testing- they are over full. But wished us luck. Original Note: TOBACCO WAREHOUSE MANAGER note: Attempting to find placement for patient. Here's the following responses and times: [place]: 2053- Linda- No beds. Completely slammed- maybe later this week? Faxed over facesheet, to put on waitlist. [facility]/ [facility]: 2099- Monica- She called us! Patient still on waitlist. [place]: 2102- Veronique- still on waitlist. No beds. Sorry /[facility]: Rukhsana/Ally can't take. [place]: 2133- David and then Kost[place]- no space [place]: 2148- Left message- Randa called back. Currently at capacity. Call back in AM. [facility]: 2238- Rang 10 times. No picking supervisor. Will call back
[2022-10-13] VITALS (90 sets, daily range): BP systolic 114–150; BP diastolic 58–67; PULSE 83–107; RESP 13–30; O2SAT 95–100
--- NOTE | 2022-10-13 05:48 | PC.NURSE ---
FLOOR INSPECTOR note: Family friend, Linus, left his number: [phone] , Maria Ines's home phone number is [phone]. Linus explained to leave a message on the answering machine to keep talking on the answering machine because they're screening phone calls. They will flower picker.
[2022-10-13] MEDS: ENOXAPARIN 40 MG/0.4 ML SYRINGE SUBCUT (12:21)
[2022-10-13 14:24] LABS: Enterococcus species Not Detected (Not Detect); Listeria monocytogenes Not Detected (Not Detect); Staphylococcus species Detected (Not Detect)
[2022-10-13 14:25] LABS: Acinetobacter baumannii Not Detected (Not Detect); Candida albicans Not Detected (Not Detect); Candida glabrata Not Detected (Not Detect); Candida krusei Not Detected (Not Detect); Candida parapsilosis Not Detected (Not Detect); Candida tropicalis Not Detected (Not Detect); E. coli Not Detected (Not Detect); Enterobacter cloacae complex Not Detected (Not Detect); Enterobacteriaceae species Not Detected (Not Detect); Haemophilus influenzae Not Detected (Not Detect); Methicillin-resistant gene Not Detected (Not Detect); Neisseria meningitidis Not Detected (Not Detect); Proteus species Not Detected (Not Detect); Pseudomonas aeruginosa Not Detected (Not Detect); Serratia marcescens Not Detected (Not Detect); Streptococcus agalactiae (Gr B Not Detected (Not Detect); Streptococcus pneumonia Not Detected (Not Detect); Streptococcus pyogenes (Gr A) Not Detected (Not Detect); Streptococcus species Not Detected (Not Detect)
[2022-10-13 15:08] LABS: Add Manual Diff / Slide Review NO; Basophils Absolute Auto 0 /uL (0-100); Basophils Percent Auto 0.4 % (0-2); Eosinophils Absolute Auto 0 /uL (0-450); Eosinophils Percent Auto 0.1 % (2-4); Hematocrit 26.4 % (41-53); Hemoglobin 8.5 g/dL (13.5-17.5); Lymphocytes Absolute Auto 500 /uL (1100-4500); Lymphocytes Percent Auto 5.4 % (25-40); Mean Corpuscular HGB Conc 32.3 % (30-36); Mean Corpuscular Hemoglobin 24.4 PG (26-34); Mean Corpuscular Volume 75.6 fL (80-100); Monocytes Absolute Auto 1200 /uL (0-900); Monocytes Percent Auto 13.1 % (3-14); Neutrophils Absolute Auto 7700 /uL (1500-7000); Platelet Count 269 X10^3/uL (150-400); Red Blood Cell Count 3.49 X10^6/uL (4.5-5.9); Red Cell Distribution Width 20.5 % (11.6-14.8); White Blood Cell Count 9.5 X10^3/uL (4.5-11.0)
[2022-10-13 15:09] LABS: BUN Creatinine Ratio 18.9 (6-22); Blood Urea Nitrogen 10 mg/dL (9-20); Carbon Dioxide 22 mmol/L (22-32); Chloride 96 mmol/L (98-107); Estimated Glomerular Filt Rate > 60 mL/min (>60); Glucose 104 mg/dL (80-110); HEMOLYSIS < 15 (0-50); Sodium 130 mmol/L (137-145)
[2022-10-13 15:20] LABS: Lactate (Lactic Acid) 3.1 mmol/L (0.7-2.1)
[2022-10-13 16:03] LABS: Anisocytosis 2+; Microcytosis 1+
[2022-10-13] MEDS: cefTRIAXone 1,000 MG in SODIUM CHLORIDE 0.9% 100 ML 200 MG IV (16:14)
[2022-10-13 16:50] LABS: Reflexed Lactate in 2 Hours Y
[2022-10-13 17:58] LABS: Lactate 2HR (Lactic Acid Rflx) 2.6 mmol/L (0.7-2.1)
--- NOTE | 2022-10-13 18:01 | DI.CT.S_ITS ---
PROCEDURE: CT ABDOMEN PELVIS W CON INDICATIONS: h/h drop right kidney stone TECHNIQUE: After the administration of intravenous contrast, axial sections acquired from the lung bases to the pubic symphysis. Coronal and sagittal reformats were performed. For radiation dose reduction, the following was used: automated exposure control, adjustment of mA and/or kV according to patient size. COMPARISON: [facility], CT, CT KIDNEY URETER BLADDER (KUB), 10/12/2022, 13:14. FINDINGS: Right ureteral calculus is unchanged in size and position. Right hydroureteronephrosis is also unchanged. No new abnormality in the remainder of the exam. IMPRESSION: No significant change from previous exam. Mid right ureteral calculus and right hydroureteronephrosis are similar. Dictated by: Herberth Bowers M.D. on 10/13/2022 at 18:40 Approved by: Herberth Bowers M.D. on 10/13/2022 at 18:42
[2022-10-13] MEDS: SODIUM CHLORIDE 0.9% 1,000 ML 1000 ML IV (18:03)
[2022-10-13] MEDS: ACETAMINOPHEN 325 MG TABLET 650 MG PO (18:09)
[2022-10-13] MEDS: MORPHINE 2 MG/ML INJ IV (18:11)
--- NOTE | 2022-10-13 18:17 | PC.NURSE ---
Pt updated on transfer attempts. No availability. [facility] aware and also looking. Pt verbalized understanding.
[2022-10-13 18:49] LABS: Hematocrit 25.1 % (41-53); Hemoglobin 8.3 g/dL (13.5-17.5)
[2022-10-13] MEDS: SODIUM CHLORIDE 0.9% 1,000 ML 150 ML IV (19:46)
--- NOTE | 2022-10-13 21:57 | PC.NURSE ---
STROBOROMA OPERATOR note: Attempting to find placement. Jeri from [facility] called. She said to call on my end ([place], [place], and [facility] and she would call her end. [facility]: 1957- Noy- still on waitlist. [facility]: 2021- Monica- Still on waitlist. Lots of boarding. [place]: 2045- Jorge- 0 beds. 0 movement. But still on waitlist.
[2022-10-14] VITALS (79 sets, daily range): BP systolic 112–164; BP diastolic 56–89; PULSE 84–111; RESP 13–46; O2SAT 91–100
[2022-10-14] MEDS: cefTRIAXone 1,000 MG in SODIUM CHLORIDE 0.9% 100 ML 200 MG IV (08:47)
[2022-10-14] MEDS: ENOXAPARIN 40 MG/0.4 ML SYRINGE SUBCUT (08:47)
[2022-10-14 09:41] LABS: BUN Creatinine Ratio 17.8 (6-22); Blood Urea Nitrogen 8 mg/dL (9-20); Calcium 6.7 mg/dL (8.4-10.2); Carbon Dioxide 21 mmol/L (22-32); Chloride 101 mmol/L (98-107); Estimated Glomerular Filt Rate > 60 mL/min (>60); Glucose 102 mg/dL (80-110); HEMOLYSIS < 15 (0-50); Potassium 3.6 mmol/L (3.4-5.1); Sodium 134 mmol/L (137-145)
[2022-10-14 10:23] LABS: Add Manual Diff / Slide Review NO; Basophils Absolute Auto 0 /uL (0-100); Basophils Percent Auto 0.6 % (0-2); Eosinophils Absolute Auto 0 /uL (0-450); Eosinophils Percent Auto 0.2 % (2-4); Hematocrit 26.6 % (41-53); Hemoglobin 8.6 g/dL (13.5-17.5); Lymphocytes Absolute Auto 500 /uL (1100-4500); Mean Corpuscular HGB Conc 32.2 % (30-36); Mean Corpuscular Hemoglobin 24.5 PG (26-34); Mean Corpuscular Volume 76.1 fL (80-100); Monocytes Absolute Auto 1000 /uL (0-900); Monocytes Percent Auto 12.3 % (3-14); Neutrophils Absolute Auto 6300 /uL (1500-7000); Neutrophils Percent Auto 79.9 % (50-75); Platelet Count 274 X10^3/uL (150-400); Red Blood Cell Count 3.49 X10^6/uL (4.5-5.9); White Blood Cell Count 7.8 X10^3/uL (4.5-11.0)
[2022-10-14 10:32] LABS: Lactate (Lactic Acid) 1.9 mmol/L (0.7-2.1)
[2022-10-14 10:39] LABS: Anisocytosis 2+
[2022-10-14 10:40] LABS: Microcytosis 1+
[2022-10-14 18:49] LABS: Add Manual Diff / Slide Review NO; Basophils Absolute Auto 0 /uL (0-100); Basophils Percent Auto 0.5 % (0-2); Eosinophils Absolute Auto 0 /uL (0-450); Eosinophils Percent Auto 0.3 % (2-4); Hematocrit 26.9 % (41-53); Hemoglobin 8.7 g/dL (13.5-17.5); Lymphocytes Absolute Auto 700 /uL (1100-4500); Lymphocytes Percent Auto 8.8 % (25-40); Mean Corpuscular HGB Conc 32.4 % (30-36); Mean Corpuscular Hemoglobin 24.7 PG (26-34); Mean Corpuscular Volume 76.1 fL (80-100); Monocytes Absolute Auto 900 /uL (0-900); Monocytes Percent Auto 11.7 % (3-14); Neutrophils Absolute Auto 6200 /uL (1500-7000); Neutrophils Percent Auto 78.7 % (50-75); Platelet Count 279 X10^3/uL (150-400); Red Blood Cell Count 3.53 X10^6/uL (4.5-5.9); Red Cell Distribution Width 20.7 % (11.6-14.8); White Blood Cell Count 7.9 X10^3/uL (4.5-11.0)
[2022-10-14 18:58] LABS: Alanine Aminotransferase 23 IU/L (<50); Albumin 3.1 g/dL (3.5-5.0); Alkaline Phosphatase 240 U/L (38-126); Aspartate Aminotransferase 44 IU/L (17-59); BUN Creatinine Ratio 26.5 (6-22); Bilirubin Total 0.2 mg/dL (0.2-1.3); Blood Urea Nitrogen 13 mg/dL (9-20); Calcium 7.9 mg/dL (8.4-10.2); Carbon Dioxide 22 mmol/L (22-32); Chloride 99 mmol/L (98-107); Estimated Glomerular Filt Rate > 60 mL/min (>60); Globulin 3.1 g/dL (1.7-4.1); Glucose 109 mg/dL (80-110); HEMOLYSIS < 15 (0-50); Potassium 4.4 mmol/L (3.4-5.1); Sodium 133 mmol/L (137-145); Total Protein 6.2 g/dL (6.3-8.2)
[2022-10-14 19:22] LABS: Anisocytosis 1+; Hypochromasia 1+
[2022-10-15] VITALS (58 sets, daily range): BP systolic 136–162; BP diastolic 64–74; PULSE 84–104; RESP 13–39; O2SAT 93–99
[2022-10-15 08:25] LABS: Hematocrit 26.7 % (41-53); Hemoglobin 8.5 g/dL (13.5-17.5); Mean Corpuscular HGB Conc 31.8 % (30-36); Mean Corpuscular Hemoglobin 24.4 PG (26-34); Mean Corpuscular Volume 76.6 fL (80-100); Platelet Count 310 X10^3/uL (150-400); Red Blood Cell Count 3.49 X10^6/uL (4.5-5.9); Red Cell Distribution Width 21.3 % (11.6-14.8); White Blood Cell Count 8.9 X10^3/uL (4.5-11.0)
[2022-10-15 08:27] LABS: Add Manual Diff / Slide Review YES
[2022-10-15 08:29] LABS: Alanine Aminotransferase 22 IU/L (<50); Albumin 3.1 g/dL (3.5-5.0); Alkaline Phosphatase 223 U/L (38-126); Aspartate Aminotransferase 39 IU/L (17-59); BUN Creatinine Ratio 20.5 (6-22); Bilirubin Total 0.3 mg/dL (0.2-1.3); Blood Urea Nitrogen 9 mg/dL (9-20); Calcium 7.6 mg/dL (8.4-10.2); Carbon Dioxide 22 mmol/L (22-32); Chloride 99 mmol/L (98-107); Estimated Glomerular Filt Rate > 60 mL/min (>60); Glucose 93 mg/dL (80-110); HEMOLYSIS < 15 (0-50); Sodium 133 mmol/L (137-145); Total Protein 6.1 g/dL (6.3-8.2)
[2022-10-15] MEDS: cefTRIAXone 1,000 MG in SODIUM CHLORIDE 0.9% 100 ML 200 MG IV (08:45)
[2022-10-15 08:46] LABS: Neutrophils Absolute Manual 6675 /uL (3000-5900); Total Cells Counted 100
[2022-10-15] MEDS: ENOXAPARIN 40 MG/0.4 ML SYRINGE SUBCUT (08:46)
[2022-10-15 08:47] LABS: Anisocytosis 2+
--- NOTE | 2022-10-15 09:49 | DI.CT.S_ITS ---
PROCEDURE: CT KIDNEY URETER BLADDER (KUB) INDICATIONS: Renal stone/hydronephrosis/KNOWN ISSUE TECHNIQUE: Axial sections were acquired from the lung bases to the pubic symphysis. Coronal and sagittal reformats were performed. For radiation dose reduction, the following was used: automated exposure control, adjustment of mA and/or kV according to patient size. COMPARISON: [facility], CT, CT ABDOMEN PELVIS W CON, 10/13/2022, 18:08. [facility], CT, CT KIDNEY URETER BLADDER (KUB), 10/12/2022, 13:14. FINDINGS: Small left pleural effusion and trace right pleural effusion. Minimal bibasilar atelectasis. Unchanged moderate right hydronephrosis and proximal right hydroureter secondary to distal ureteral calculus measuring 4 mm. 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 Nonobstructing lower pole calculi in the right kidney are unchanged. No urinary tract calculus on the left. Urinary bladder normal. Remaining findings not significantly changed. Sigmoid diverticulosis again noted with no findings of diverticulitis. Grossly unremarkable unenhanced CT appearance of the liver, spleen, pancreas, gallbladder, and adrenal glands. IMPRESSION: No significant change from prior study, again with moderate left hydroureteronephrosis due to bone obstructing 4 mm distal right ureteral calculus with possible contribution from malignant soft tissue mass abutting the right distal ureter at the level of the obstruction and calculus. Dictated by: Herberth Bowers M.D. on 10/15/2022 at 10:29 Approved by: Herberth Bowers M.D. on 10/15/2022 at 10:33
--- NOTE | 2022-10-15 09:51 | PC.NURSE ---
AM ED rounds with Dr Turpin. Pt has been pain controlled, receiving ABX, and has no significant changes in lab results. Pt boarding in ED for a bed in OSH for interventional radiology. Pt has been boarding for 72 hours without available facility for procedure. Plan to repeat KUB and potentially DC with outpatient Uro follow up.
--- NOTE | 2022-10-15 09:58 | PC.NURSE ---
Addendum entered by Angelica Schmidt R.N. 10/15/22 11:15: Dr. Turpin spoke who spoke with Dr. Arana (nephrology) at [facility] who is open to utilizing IR to place nephrostomy. Called Nsg pond supervisor at [facility] who will look into it. Original Note: Called [facility] to discuss possibility of pt going to [facility] where his nephrology and oncology is. At direction of Dr. Turpin asked if they could accommodate an IR / nephrostomy tube and return pt to the ED. Will call back.
== END 2022-10-15 14:23 | disposition home or self-care (01) ==
PROVIDERS: Emergency Medicine; Nurse Practitioner Critical Care Medicine; Emergency Provider Emergency Medicine; PCP Family Medicine; Referring Provider Family Medicine
DX: A41.9 Sepsis, unspecified organism (principal); N39.0 Urinary tract infection, site not specified; N20.0 Calculus of kidney; N13.30 Unspecified hydronephrosis; M79.89 Other specified soft tissue disorders; R10.30 Lower abdominal pain, unspecified; Z20.822 Contact with and (suspected) exposure to COVID-19
CPT/HCPCS: 0241U; 36415; 74176; 74177; 80048; 80053; 81001; 81003; 82550; 83605; 83690; 83735; 84484; 85007; 85014; 85018; 85025; 86140; 87040; 87077; 87086; 87150; 87186; 87205; 96361; 96365; 96366; 96372; 96375; 96376; 99284; 99285; 99291; J0696; J1650; J1885; J2270; Q9967

== ENCOUNTER → 2022-10-17 14:21 | Outpatient (CLI) | payer MEDICARE, OTHER, SELFPAY ==
[2022-10-16 14:24] VITALS: BMI 29.7
--- NOTE | 2022-10-17 14:22 | DI.RAD.S_ITS ---
PROCEDURE: XR KUB INDICATIONS: renal stones TECHNIQUE: One view of the abdomen acquired. COMPARISON: None. FINDINGS: Surgical changes and devices: None. Bowel: Bowel gas pattern is normal. Soft tissues: Multiple bilateral small calcifications are seen projecting in the region of bilateral kidneys measures up to 7 x 2 mm in size on the right side and up to 6 mm in size on the left side Visualized solid organ contours appear normal in size. Bones: No suspicious bony lesions. IMPRESSION: Suggestion of small bilateral renal calcifications. No bowel obstruction or gross free air. Dictated by: Romel Leal M.D. on 10/17/2022 at 15:17 Approved by: Romel Leal M.D. on 10/17/2022 at 15:19
== END ==
PROVIDERS: PCP Family Medicine; Referring Provider Specialist; Visit Provider Specialist
DX: N20.0 Calculus of kidney (principal); Z90.79 Acquired absence of other genital organ(s); Z98.890 Other specified postprocedural states
CPT/HCPCS: 74018

== ENCOUNTER → 2022-10-18 10:12 | Outpatient (CLI) | payer MEDICARE, OTHER, SELFPAY ==
[2022-10-16 14:24] VITALS: BMI 29.7
[2022-10-18 11:14] LABS: COVID19 -Nasal RAPID Negative (Negative)
--- NOTE | 2022-10-18 17:05 | DI.RAD.S_ITS ---
PROCEDURE: XR ABDOMEN 3V INDICATIONS: INNER OP CYSTOGRAM RIGHT SIDE TECHNIQUE: 2 intraoperative fluoroscopic spot films and the cine run was obtained during a retrograde pyelogram COMPARISON: None. FINDINGS: Low resolution intraoperative fluoroscopic images shows right-sided hydronephrosis sequential placement of a right ureteral stent IMPRESSION: Fluoroscopic guidance Approved by: Robert Gill M.D. on 10/19/2022 at 13:06
== END ==
PROVIDERS: PCP Family Medicine; Visit Provider Specialist
DX: Z20.822 Contact with and (suspected) exposure to COVID-19 (principal)
CPT/HCPCS: 74021; 76000; 87635

== ENCOUNTER 2022-10-18 12:59 | Day surgery (SDC) | payer MEDICARE, OTHER, SELFPAY ==
[2022-10-16 14:24] VITALS: BMI 29.7
[2022-10-18 13:26] VITALS: BP 156/79; PULSE 98; RESP 16; TEMP 36.4; O2SAT 100; BMI 25.8
[2022-10-18] MEDS: LACTATED RINGERS 1,000 ML 42 ML IV (13:46)
--- NOTE | 2022-10-18 15:27 | PM.PREOP ---
Pre-operative Note COVID-19 Criteria for continued procedure: Expected advancement of disease process, Possibility delay results in more complex future surgery or treatment, Continuing or worsening of significant or severe pain, Deterioration of the patient's condition or overall health, Delay expected to result in less-positive ultimate med/surg outcome and Non-surgical alternatives not available or appropriate per current SOC Interval Note History & Physical reviewed/Exam performed by Physician: Yes Changes to H&P: No
[2022-10-18] MEDS: CIPROFLOXACIN 400 MG/200 ML PIGGYBACK 200 MG IV (16:10)
[2022-10-18] MEDS: IOPAMIDOL 50 ML VIAL INJ (16:38)
--- NOTE | 2022-10-18 16:41 | SUR.OPER ---
Lithotomy on padded OR bed, head on pillow, arms secured on padded arm boards at <90 degrees abduction. Legs secured in padded yellow fins stirrups.
--- NOTE | 2022-10-18 16:49 | P.OP_ITS ---
Operative Date/Time/Diagnoses Date of procedure: 10/18/22 Time of procedure: 16:35 Pre-op diagnosis: 1. Obstructing 5 mm right distal ureteral calculus. 2. Right hydronephrosis. 3. UTI/urosepsis. Post-op diagnosis: same Procedure & Clinicians Procedure: 1. Cystoscopy/right ureteral stone manipulation without removal. 2. Cystoscopy/right retrograde pyelogram. 3. Cystoscopy/placement right ureteral stent (7 [place] by 22-32 cm multi- length). Same procedure as scheduled: Yes Indications: 1. Obstructing 5 mm right distal ureteral calculus. 2. Right hydronephrosis. 3. UTI/urosepsis. Surgeon: Bharathi Arango Click Yes if Unassisted: Yes Anesthesia Type: General Operative Notes Findings: 1. Urethra-narrow caliber distal segment requiring dilation distally with the Tricia sounds before insertion advancement of the 22 [place] panendoscope. No other evidence of annular stricture or lesion. 2. External sphincter-coapted with normal overlying urothelium. 3. Prostate-status post TUR nonobstructing. 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 It was somewhat disrupted upon careful insinuation advancement of the 22 [place] panendoscope. Some active mucosal bleeding was initiated. 4. Bladder-the area the trigone appeared to have some postoperative changes and with careful and fairly length the examination it was evident the ureteral orifices were repositioned following history of TURP more distally and closer to the bladder neck. 5. Right collecting system-moderate hydronephrosis was visualized with retrograde pyelogram imaging. Intraoperative images were saved. Closure Type: not applicable Specimen(s): none sent Applied: other (Seven [place] by 22-32 cm multi-length stent) Estimated Blood Loss (mL): 3 Blood products transfused: none Procedure in detail: The patient was positioned in supine was administered general anesthesia. He was then repositioned in semi lithotomy lower abdomen, genitalia, and groin were prepped and draped in sterile fashion. Attempt to pass the 22 [place] panendoscope was unsuccessful. The Tricia sounds were then used to carefully dilate the distal segment of the urethra to 24 [place]. Next, the gomez endoscope was then advanced into the urethral meatus and proximally with the findings as described above. A 0.35 hybrid guidewire was then selected and advanced through the working channel of the panendoscope into the right ureteral orifice which was finally identified, and then advanced proximally under fluoroscopic guidance. Obstruction was met and there was no definite radiopaque density at this location. A 5 [place] pollock catheter was then advanced over the 0.35 hybrid guidewire under direct and fluoroscopic guidance to the point of obstruction and deflection of the [place] tip of the hybrid wire. Further careful manipulation resulted in successful proximal passage of the hybrid guidewire into the intrarenal collecting system. Dexter catheter was then advanced proximally under fluoroscopic guidance with the tip in the upper pole segment. The hybrid wire was backloaded temporarily out of the Dexter catheter and a retrograde pyelogram was performed with the findings as described above and as depicted in intraoperative images that were saved. Now the 0.35 hybrid guidewire was again advanced into the lumen of the 5 [place] pollock catheter and advanced proximally under direct and fluoroscopic guidance. Now with a coil positioned in the dilated upper pole collecting system the Dexter catheter was backloaded off the wire. Now a 7 [place] by 22-32 cm multi-length stent was selected and advanced over the hybrid guidewire under direct and fluoroscopic guidance. NO RETRIEVAL LINE WAS LEFT ATTACHED. The bladder was then drained completely and all instrumentation was removed. The patient was repositioned in supine, awakened, transferred to [facility], and transported recovery in stable condition. Complications: none Post-operative Condition: stable Disposition: PACU Plan for aftercare: Discharge home.
[2022-10-18 16:53] VITALS: BP 151/86; PULSE 98; RESP 16; TEMP 36.8; O2SAT 97
[2022-10-18 16:58] VITALS: BP 154/84; PULSE 97; RESP 15; O2SAT 100
[2022-10-18 17:03] VITALS: BP 165/90; PULSE 94; RESP 18; O2SAT 100
[2022-10-18 17:09] VITALS: BP 172/83; PULSE 90; RESP 15; TEMP 36.4; O2SAT 100
== END 2022-10-18 17:40 | disposition home or self-care (01) ==
PROVIDERS: PCP Family Medicine; Referring Provider Specialist; Visit Provider Specialist
PROC: (CPT 52330; principal; 2022-10-18 14:45)
DX: N20.1 Calculus of ureter (principal); N13.30 Unspecified hydronephrosis; N39.0 Urinary tract infection, site not specified; I10 Essential (primary) hypertension; I12.9 Hypertensive chronic kidney disease with stage 1 through stage 4 chronic kidney disease, or unspecified chronic kidney disease; N18.9 Chronic kidney disease, unspecified; Z85.528 Personal history of other malignant neoplasm of kidney; Z85.46 Personal history of malignant neoplasm of prostate; Z20.822 Contact with and (suspected) exposure to COVID-19; C61 Malignant neoplasm of prostate
CPT/HCPCS: 52330; 52332; 51798; 74021; 76000; 81002; 87635; 99215; J0744; J1100; J2405; J2704; J3010

== ENCOUNTER → 2022-11-01 13:18 | Outpatient (CLI) | payer MEDICARE, OTHER, SELFPAY ==
[2022-10-16 14:24] VITALS: BMI 29.7
[2022-11-01 14:29] LABS: COVID19 -Nasal RAPID Negative (Negative)
== END ==
PROVIDERS: PCP Family Medicine; Visit Provider Specialist
DX: Z20.822 Contact with and (suspected) exposure to COVID-19 (principal)
CPT/HCPCS: 87635; C9803

== ENCOUNTER 2022-11-02 07:40 | Day surgery (SDC) | payer MEDICARE, OTHER, SELFPAY ==
[2022-10-16 14:24] VITALS: BMI 29.7
[2022-10-30 14:33] VITALS: BMI 26.5
[2022-11-02 08:29] VITALS: BP 163/74; PULSE 102; RESP 16; TEMP 36.9; O2SAT 99; BMI 26.5
[2022-11-02] MEDS: LACTATED RINGERS 1,000 ML 21 ML IV (08:57)
--- NOTE | 2022-11-02 09:22 | PM.PREOP ---
Pre-operative Note COVID-19 Criteria for continued procedure: Expected advancement of disease process, Possibility delay results in more complex future surgery or treatment, Increased loss of function, Continuing or worsening of significant or severe pain, Delay expected to result in less-positive ultimate med/surg outcome and Non-surgical alternatives not available or appropriate per current SOC Interval Note History & Physical reviewed/Exam performed by Physician: Yes Changes to H&P: Yes H&P completed within 30 days and has changed as indicated here:: In the interval the patient underwent cystoscopy and placement right ureteral stent on 10/18/2022.
[2022-11-02] MEDS: CIPROFLOXACIN 400 MG/200 ML PIGGYBACK 200 MG IV (09:54)
--- NOTE | 2022-11-02 10:09 | SUR.OPER ---
Lithotomy on padded OR bed, head on pillow, arms secured on padded arm boards at <90 degrees abduction. Legs secured in padded yellow fins stirrups. Pt positioned per direction and supervision of Dr Arango.
[2022-11-02 10:26] VITALS: BP 152/77; PULSE 91; RESP 16; TEMP 36.9; O2SAT 100
[2022-11-02 10:34] VITALS: BP 149/75; PULSE 91; RESP 16; O2SAT 100
--- NOTE | 2022-11-02 10:34 | PM.OP.1 ---
Operative Date/Time/Diagnoses Date of procedure: 11/02/22 Time of procedure: 10:20 Pre-op diagnosis: 1. Obstructing 6 mm right distal ureteral calculus. 2. History of UTI. 3. History of right renal colic. Four retained right ureteral stent. Post-op diagnosis: same Procedure & Clinicians Procedure: 1. Cystoscopy/removal right ureteral stent. 2. Cystoscopy/right ureteroscopic laser lithotripsy. Same procedure as scheduled: Yes Indications: 1. Obstructing 6 mm right distal ureteral calculus. 2. History of UTI. 3. Retained right ureteral stent. Surgeon: Bharathi Arango Click Yes if Unassisted: Yes Anesthesia Type: General Operative Notes Findings: 1. Unchanged were urinary tract verses finding is 10/18/2022. Bladder neck urothelium with erosions status post instrumentation dilation 10/18/2022. 2. Index calculus identified at approximately the juncture of the mid and distal 1/3 segments of right ureter. Closure Type: not applicable Specimen(s): none sent Estimated Blood Loss (mL): 0 Blood products transfused: none Procedure in detail: The patient was positioned in supine and was administered general anesthesia. He was then repositioned in semi-lithotomy and the lower abdomen, genitalia, and groin were then prepped and draped in sterile fashion. The 22 [place] panendoscope then the urinary tract with the findings as described above. A foreign body grasper was then used to engage the distal end of the retained right ureteral stent and the scope, foreign body grasper, and stent were then withdrawn so that the distal end of the ureteral stent and coil were just beyond the urethral meatus. A 0.35 hybrid guidewire was then advanced through the lumen of the retained right ureteral stent and advanced proximally under fluoroscopic guidance so that the proximal tip of the hybrid wire was within the right intrarenal collecting system. The stent was then backloaded off the hybrid guidewire and discarded. The hybrid guidewire was then secured to the surgical drape. The semi rigid scope was then and lower urinary tract into ureteral orifice. Was then advanced proximally were upon index calculus was encountered essentially unchanged position to preoperative. Two hundred micron laser fiber was requested and the patient all operating room personnel were fitted with laser safety eyewear. Laser lithotripsy was then commenced with excellent resultant stone fragmentation. The stone fragments and stone sand were cleared from the ureter using hydrostatic and mechanical forces. The semi rigid scope was then removed in its entirety. The panendoscope was then passed once again and lower urinary track and bladder contents drained before removing the panendoscope a final time. The patient was then repositioned supine, was awakened, and [place] awakened in stable condition. Complications: none Post-operative Condition: stable Disposition: PACU Plan for aftercare: Discharge home.
[2022-11-02 10:46] VITALS: BP 144/75; PULSE 55; RESP 16; TEMP 36.3; O2SAT 98
[2022-11-02] MEDS: ACETAMINOPHEN 325 MG TABLET 650 MG PO (10:50)
== END 2022-11-02 11:10 | disposition home or self-care (01) ==
PROVIDERS: PCP Family Medicine; Referring Provider Specialist; Visit Provider Specialist
PROC: 0TF68ZZ Fragmentation in Right Ureter, Via Natural or Artificial Opening Endoscopic (ICD-10-PCS; CPT 52353; principal; 2022-11-02 09:15)
DX: N20.1 Calculus of ureter (principal); Z46.6 Encounter for fitting and adjustment of urinary device; C61 Malignant neoplasm of prostate; N13.30 Unspecified hydronephrosis; N39.0 Urinary tract infection, site not specified; Z87.440 Personal history of urinary (tract) infections
CPT/HCPCS: 52353; 76000; C1771; J0744; J1100; J2405; J2704; J3010

== ENCOUNTER → 2023-02-14 08:59 | Outpatient (CLI) | payer MEDICARE, OTHER, SELFPAY ==
[2022-10-16 14:24] VITALS: BMI 29.7
== END ==
PROVIDERS: PCP Family Medicine; Visit Provider Specialist
DX: C61 Malignant neoplasm of prostate (principal); R31.0 Gross hematuria; Z87.440 Personal history of urinary (tract) infections; Z87.442 Personal history of urinary calculi
CPT/HCPCS: 51798; 87077; 87086; 87186; 99215

== ENCOUNTER → 2023-03-04 10:15 | Outpatient (CLI) | payer MEDICARE, OTHER, SELFPAY ==
[2022-10-16 14:24] VITALS: BMI 29.7
== END ==
PROVIDERS: PCP Family Medicine; Referring Provider Specialist; Visit Provider Surgery
DX: R31.0 Gross hematuria (principal); L59.8 Other specified disorders of the skin and subcutaneous tissue related to radiation
CPT/HCPCS: 99204; 99212

== ENCOUNTER → 2023-04-17 08:55 | Outpatient (CLI) | payer MEDICARE, OTHER, SELFPAY ==
[2022-10-16 14:24] VITALS: BMI 29.7
== END ==
PROVIDERS: PCP Family Medicine; Referring Provider Specialist; Visit Provider Surgery
DX: R31.0 Gross hematuria (principal); N30.41 Irradiation cystitis with hematuria; Z01.812 Encounter for preprocedural laboratory examination
CPT/HCPCS: 71046; 93005; 93010; 99212; 99214

== ENCOUNTER → 2023-04-17 10:00 | Outpatient (CLI) | payer MEDICARE, OTHER, SELFPAY ==
[2022-10-16 14:24] VITALS: BMI 29.7
--- NOTE | 2023-04-17 10:01 | DI.RAD.S_ITS ---
PROCEDURE: XR CHEST 2V INDICATIONS: Eval for HBO Tx TECHNIQUE: 2 views of the chest were acquired. COMPARISON: [facility], CT, CT CHEST ABD PEL W CON, 09/24/2022, 9:16. [facility], CR, XR CHEST 1V, 11/28/2021, 16:40. [facility], CR, XR CHEST 1V, 01/04/2021, 10:28. FINDINGS: Surgical changes and devices: Left-sided port with the catheter tip projecting near superior 3rd of the SVC, unchanged. Lungs and pleura: Lungs are clear. No pleural effusions or pneumothorax. Mediastinum: Mediastinal contours are normal. Heart size is normal. Bones and chest wall: Multiple sclerotic ribs better seen on prior CT. Soft tissues appear unremarkable. IMPRESSION: No acute abnormality identified. Multiple sclerotic rib lesions. Dictated by: Shade Fenton M.D. on 04/17/2023 at 11:13 Approved by: Shade Fenton M.D. on 04/17/2023 at 11:16
== END ==
PROVIDERS: PCP Family Medicine; Referring Provider Surgery; Visit Provider Surgery
DX: Z01.818 Encounter for other preprocedural examination (principal); L59.8 Other specified disorders of the skin and subcutaneous tissue related to radiation; M89.9 Disorder of bone, unspecified
CPT/HCPCS: 71046; 93005

== ENCOUNTER → 2023-04-22 13:10 | Outpatient (CLI) | payer MEDICARE, OTHER, SELFPAY ==
[2022-10-16 14:24] VITALS: BMI 29.7
== END ==
PROVIDERS: PCP Family Medicine; Referring Provider Specialist; Visit Provider Surgery
DX: N30.41 Irradiation cystitis with hematuria (principal); R31.0 Gross hematuria; L59.8 Other specified disorders of the skin and subcutaneous tissue related to radiation; Z01.812 Encounter for preprocedural laboratory examination
CPT/HCPCS: 99183; G0277

== ENCOUNTER → 2023-04-24 12:37 | Outpatient (CLI) | payer MEDICARE, OTHER, SELFPAY ==
[2022-10-16 14:24] VITALS: BMI 29.7
== END ==
PROVIDERS: PCP Family Medicine; Referring Provider Specialist; Visit Provider Surgery
DX: N30.41 Irradiation cystitis with hematuria (principal); R31.0 Gross hematuria; L59.8 Other specified disorders of the skin and subcutaneous tissue related to radiation; Z01.812 Encounter for preprocedural laboratory examination
CPT/HCPCS: 99183; G0277

== ENCOUNTER 2023-04-25 12:11 | Emergency (ER) | payer MEDICARE, OTHER, SELFPAY ==
[2022-10-16 14:24] VITALS: BMI 29.7
[2023-04-25] VITALS (21 sets, daily range): BP systolic 113–148; BP diastolic 53–66; PULSE 83–98; RESP 11–31; TEMP 37.2; O2SAT 97–99; BMI 23.2
--- NOTE | 2023-04-25 12:18 | DI.RAD.S_ITS ---
PROCEDURE: XR CHEST 1V INDICATIONS: chest pain TECHNIQUE: One view of the chest was acquired. COMPARISON: [facility], CR, XR CHEST 2V, 04/17/2023, 10:48. FINDINGS: Surgical changes and devices: Left Port-A-Cath is unchanged. Lungs and pleura: Lungs are clear. No pleural effusions or pneumothorax. Mediastinum: Mediastinal contours appear normal. Heart size is normal. Bones and chest wall: Sclerotic rib lesions are again noted. Overlying soft tissues appear unremarkable. IMPRESSION: Stable interval exam without acute pulmonary process. Dictated by: Tanya Wheatley M.D. on 04/25/2023 at 13:01 Approved by: Tanya Wheatley M.D. on 04/25/2023 at 13:03
[2023-04-25 12:34] LABS: Add Manual Diff / Slide Review NO; Basophils Absolute Auto 0 /uL (0-100); Basophils Percent Auto 0.5 % (0-2); Eosinophils Absolute Auto 0 /uL (0-450); Hematocrit 25.1 % (41-53); Hemoglobin 8.5 g/dL (13.5-17.5); Lymphocytes Absolute Auto 800 /uL (1100-4500); Lymphocytes Percent Auto 10.3 % (25-40); Mean Corpuscular HGB Conc 33.9 % (30-36); Mean Corpuscular Hemoglobin 29.1 PG (26-34); Monocytes Absolute Auto 600 /uL (0-900); Monocytes Percent Auto 7.2 % (3-14); Neutrophils Absolute Auto 6300 /uL (1500-7000); Platelet Count 230 X10^3/uL (150-400); Red Blood Cell Count 2.92 X10^6/uL (4.5-5.9); Red Cell Distribution Width 19.4 % (11.6-14.8); White Blood Cell Count 7.7 X10^3/uL (4.5-11.0)
[2023-04-25 12:46] LABS: INR 1.3 (0.9-1.3); Prothrombin Time 14.9 SECONDS (10.1-12.7)
[2023-04-25] MEDS: ASPIRIN 81 MG CHEW TAB 324 MG PO (12:47)
[2023-04-25 12:48] LABS: PTT Partial Thromboplastin Tim 23 SECONDS (26-36)
[2023-04-25 12:51] LABS: Alanine Aminotransferase 20 IU/L (<50); Albumin 3.6 g/dL (3.5-5.0); Albumin Globulin Ratio 1.1 (1.0-2.8); Alkaline Phosphatase 175 U/L (38-126); Aspartate Aminotransferase 50 IU/L (17-59); BUN Creatinine Ratio 32.9 (6-22); Bilirubin Total 0.5 mg/dL (0.2-1.3); Blood Urea Nitrogen 23 mg/dL (9-20); Calcium 8.2 mg/dL (8.4-10.2); Carbon Dioxide 22 mmol/L (22-32); Chloride 95 mmol/L (98-107); Creatine Kinase 79 U/L (55-170); Estimated Glomerular Filt Rate > 60 mL/min (>60); Globulin 3.2 g/dL (1.7-4.1); Glucose 105 mg/dL (80-110); Lipase 27 U/L (23-300); Magnesium 2.6 mg/dL (1.6-2.3); Potassium 5.1 mmol/L (3.4-5.1); Sodium 129 mmol/L (137-145); Total Protein 6.8 g/dL (6.3-8.2)
[2023-04-25 13:00] LABS: HEMOLYSIS 61 (0-50)
[2023-04-25 13:02] LABS: Troponin I 0.045 ng/mL (0.01-0.034)
--- NOTE | 2023-04-25 13:08 | ED_ITS ---
HPI - Chest Pain General Chief Complaint: Chest Pain Stated Complaint: Chest pain Time Seen by Provider: 04/25/23 12:31 Source: patient and family Mode of arrival: Wheelchair Limitations: no limitations Limitations: no limitations History of Present Illness HPI narrative: This 82-year-old gentleman has a history of prostate cancer, with bony Mets. He is currently under treatment for the cancer. [facility]is. He is receiving bear therapy. Patient had a developed mild left anterior chest pain about 1:00 p.m. this morning. The pain persist, it does not change was inhalation and exhalation. He is not coughing. He is no hemoptysis. He is no fever chills. He denies recent illness. He is not feeling palpitations, he has no dyspnea. He was sent here from wound care for evaluation of the left-sided chest discomfort. Bone scan from 6 months ago revealed multiple bony lesions, including the right 3rd anterior rib in the left 5th anterior rib. Related Data Home Medications Medication Instructions Recorded Confirmed cholecalciferol (vitamin D3) 50 2,000 iu PO BID ##0 07/23/16 04/02/23 mcg (2,000 unit) capsule (Vitamin D3) polyvinyl alcohol-povidone 0.5 1 drp OPHTH PRN PRN DRY EYE #30 mL 07/23/16 04/02/23 %-0.6 % eye drops (Artificial Tears (polyvinyl alcohol/povidone)) hydrocortisone 1 % topical cream 1 appful topical QDAY PRN Rash ##0 12/30/17 04/02/23 (Hydrocream) atorvastatin 10 mg tablet 10 mg PO DAILY 10/28/18 04/02/23 Lupron Depot (6 Month) 30 mg [id number] 04/22/19 04/02/23 acetaminophen 325 mg tablet 325 - 650 mg PO Q6HP PRN Pain 12/29/19 04/02/23 (Scale Score 1-3) denosumab 120 mg/1.7 mL (70 mg/mL) 120 mg SUBCUT Q4W 11/28/21 04/02/23 subcutaneous solution (Xgeva) ibuprofen 300 mg tablet 600 mg PO Q6H PRN Pain (Scale 04/04/22 04/02/23 Score 4-6) ondansetron 4 mg disintegrating 4 mg PO Q6H PRN Nausea 11/06/22 04/02/23 tablet ferrous sulfate 325 mg (65 mg mg PO 02/05/23 02/14/23 iron) capsule,extended release Previous Rx's Medication Instructions Recorded prednisone 5 mg tablet 5 mg PO DAILY #30 tabs 11/06/22 prednisone 10 mg tablet 10 mg PO DAILY #30 tabs 01/08/23 hydrocodone 10 mg-acetaminophen 1 tab PO Q6H PRN Pain (Scale Score 01/22/23 325 mg tablet 1-3) #30 tabs levofloxacin 500 mg tablet 500 mg PO DAILY urinary tract 04/23/23 infection #10 tabs Allergies Allergy/AdvReac Type Severity Reaction Status Date / Time oxycodone Allergy Mild Rash Verified 04/25/23 12:18 Review of Systems Review of Systems ROS Unobtainable: All systems reviewed & are unremarkable except as noted in HPI and below Patient History Medical History Acute renal failure 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 Gross hematuria History of kidney cancer History of nephrolithiasis History of UTI Hydronephrosis, right Hypertension Prostate 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 sites Recurrent prostate cancer Right ureteral calculus Vomiting Surgical History History of transurethral resection of prostate (2008) Hx of cystoscopy (10/18/22) Family History Father Myocardial infarction Mother Small cell lung cancer in adult Sister Cancer of kidney Social History marital status: number of children: 0 household members: spouse Smoking Status: Former smoker alcohol intake: current Smoking Status: Former smoker alcohol intake frequency: holidays/special occasions only Substance Use Type: does not use Exam Initial Vital Signs Initial Vital Signs: Vital Signs Temperature 98.9 F 04/25/23 12:14 Pulse Rate 98 H 04/25/23 12:14 Respiratory Rate 18 04/25/23 12:14 Blood Pressure 142/65 H 04/25/23 12:14 Pulse Oximetry 98 04/25/23 12:14 Oxygen Delivery Method Room Air 04/25/23 12:14 Const General: cooperative, comfortable, well developed and well groomed [facility] Head: normal to inspection, normocephalic and atraumatic Neck Neck: supple, No lymphadenopathy and No JVD Chest Chest: normal inspection of the chest and other (No reproducible tenderness with palpation.) Resp Effort & Inspection: normal respiratory effort Auscultation: clear to auscultation bilaterally Cardio Palpation: normal PMI Rate: regular rate Rhythm: regular rhythm Heart Sounds: S1 normal, S2 normal and no murmurs GI Inspection: normal to inspection Palpation: soft and No tender Auscultation: normal bowel sounds Back/Spine/Pelvis Back: normal to inspection and No back tenderness Skin General: no rashes or lesions noted Neuro General: patient alert, patient awake, patient oriented x3 and no focal motor deficits Extrem General: normal to inspection, full ROM, no pedal edema and no calf tenderness Psych Appearance: grossly normal Course Course Course Narrative: CTA confirmed metastatic disease in his chest [facility] for [facility] chest discomfort. The position of the lesions is consistent with the patient's area of discomfort. There is no evidence of acute coronary syndrome, acute pulmonary disease, or PE. There was no concern for infection. Orders Ordered: ED Orders 04/25/23 12:18 XR chest 1V Stat EKG-12 Lead Stat 04/25/23 12:25 Complete Blood Count AUTO DIFF Stat Comprehensive Metabolic Panel Stat D Dimer Stat Lipase Stat Magnesium Stat PTT Partial Thromboplastin Edward Stat Prothrombin Time INR Stat Troponin & CK Cardiac Panel Stat 04/25/23 14:00 CT angio chest PE protocol Stat Discontinued Medications Aspirin (Aspirin 81 Mg Chew Tab) 324 mg PO NOW ONE Stop: 04/25/23 12:19 Last Admin: 04/25/23 12:47 Dose: 324 mg Documented By: RB Vital Signs Vital signs: Vital Signs - 8 hr 04/25/23 13:15 04/25/23 13:30 04/25/23 13:30 Pulse Rate 94 H 88 Respiratory Rate 31 H 11 L Blood Pressure 128/62 Pulse Oximetry 99 98 04/25/23 13:45 04/25/23 14:00 04/25/23 14:00 Pulse Rate 87 87 Respiratory Rate 13 16 Blood Pressure 126/60 Pulse Oximetry 98 98 04/25/23 14:36 04/25/23 14:45 04/25/23 15:00 Pulse Rate 94 H 86 85 Respiratory Rate 21 14 13 Blood Pressure Pulse Oximetry 99 99 99 04/25/23 15:15 04/25/23 15:30 04/25/23 15:45 Pulse Rate 85 85 86 Respiratory Rate 14 13 16 Blood Pressure Pulse Oximetry 99 99 99 04/25/23 15:50 04/25/23 15:50 04/25/23 16:00 Pulse Rate 86 Respiratory Rate 16 Blood Pressure 114/56 L 119/59 L Pulse Oximetry 99 04/25/23 16:00 04/25/23 16:15 04/25/23 16:15 Pulse Rate 83 84 Respiratory Rate 15 16 Blood Pressure 121/56 L Pulse Oximetry 99 99 04/25/23 16:30 04/25/23 16:30 04/25/23 16:45 Pulse Rate 87 Respiratory Rate 14 Blood Pressure 133/60 113/53 L Pulse Oximetry 99 04/25/23 16:45 04/25/23 17:00 04/25/23 17:00 Pulse Rate 84 83 Respiratory Rate 12 13 Blood Pressure 117/56 L Pulse Oximetry 99 99 MDM - Chest Pain Lab Data 04/25/23 12:25 04/25/23 12:25 Labs: Lab Results 04/25/23 04/25/23 04/25/23 Range/Units 12:25 12:25 12:25 WBC 7.7 (4.5-11.0) X10^3/uL RBC 2.92 L (4.5-5.9) X10^6/uL Hgb 8.5 L (13.5-17.5) g/dL Hct 25.1 L (41-53) % MCV 86.0 (80-100) fL MCH 29.1 (26-34) PG MCHC 33.9 (30-36) % RDW 19.4 H (11.6-14.8) % Plt Count 230 (150-400) X10^3/uL Neut % (Auto) 82.0 H (50-75) % Lymph % (Auto) 10.3 L (25-40) % Bradley % (Auto) 7.2 (3-14) % Eos % (Auto) 0.0 L (2-4) % Baso % (Auto) 0.5 (0-2) % Neut # (Auto) 6300 (5945-0288) /uL Lymph # (Auto) 800 L (3300-6887) /uL Bradley # (Auto) 600 (0-900) /uL Eos # (Auto) 0 (0-450) /uL Baso # (Auto) 0 (0-100) /uL PT 14.9 H (10.1-12.7) SECONDS INR 1.3 (0.9-1.3) APTT 23 L (26-36) SECONDS D-Dimer (<500) ng/ml Sodium 129 L (137-145) mmol/L Potassium 5.1 (3.4-5.1) mmol/L Chloride 95 L (98-107) mmol/L Carbon Dioxide 22 (22-32) mmol/L BUN 23 H (9-20) mg/dL Creatinine 0.70 (0.66-1.25) mg/dL Estimated GFR > 60 (>60) mL/min BUN/Creatinine Ratio 32.9 H (6-22) Glucose 105 (80-110) mg/dL Calcium 8.2 L (8.4-10.2) mg/dL Magnesium 2.6 H (1.6-2.3) mg/dL Total Bilirubin 0.5 (0.2-1.3) mg/dL AST 50 (17-59) IU/L ALT 20 (<50) IU/L Alkaline Phosphatase 175 H (38-126) U/L Total Creatine Kinase 79 (55-170) U/L Troponin I 0.045 H (0.01-0.034) ng/mL Total Protein 6.8 (6.3-8.2) g/dL Albumin 3.6 (3.5-5.0) g/dL Globulin 3.2 (1.7-4.1) g/dL Albumin/Globulin Ratio 1.1 (1.0-2.8) Lipase 27 (23-300) U/L 04/25/23 Range/Units 12:25 WBC (4.5-11.0) X10^3/uL RBC (4.5-5.9) X10^6/uL Hgb (13.5-17.5) g/dL Hct (41-53) % MCV (80-100) fL MCH (26-34) PG MCHC (30-36) % RDW (11.6-14.8) % Plt Count (150-400) X10^3/uL Neut % (Auto) (50-75) % Lymph % (Auto) (25-40) % Bradley % (Auto) (3-14) % Eos % (Auto) (2-4) % Baso % (Auto) (0-2) % Neut # (Auto) (5742-2667) /uL Lymph # (Auto) (8213-4075) /uL Bradley # (Auto) (0-900) /uL Eos # (Auto) (0-450) /uL Baso # (Auto) (0-100) /uL PT (10.1-12.7) SECONDS INR (0.9-1.3) APTT (26-36) SECONDS D-Dimer 4901 H (<500) ng/ml Sodium (137-145) mmol/L Potassium (3.4-5.1) mmol/L Chloride (98-107) mmol/L Carbon Dioxide (22-32) mmol/L BUN (9-20) mg/dL Creatinine (0.66-1.25) mg/dL Estimated GFR (>60) mL/min BUN/Creatinine Ratio (6-22) Glucose (80-110) mg/dL Calcium (8.4-10.2) mg/dL Magnesium (1.6-2.3) mg/dL Total Bilirubin (0.2-1.3) mg/dL AST (17-59) IU/L ALT (<50) IU/L Alkaline Phosphatase (38-126) U/L Total Creatine Kinase (55-170) U/L Troponin I (0.01-0.034) ng/mL Total Protein (6.3-8.2) g/dL Albumin (3.5-5.0) g/dL Globulin (1.7-4.1) g/dL Albumin/Globulin Ratio (1.0-2.8) Lipase (23-300) U/L Imaging Data Chest x-ray: Radiologist's Impression: PROCEDURE:? XR CHEST 1V ? INDICATIONS:? chest pain ? TECHNIQUE:? One view of the chest was acquired.? ? COMPARISON:? [facility], CR, XR CHEST 2V, 04/17/2023, 10:48. ? FINDINGS:? ? Surgical changes and devices:? Left Port-A-Cath is unchanged. ? Lungs and pleura:? Lungs are clear.? No pleural effusions or pneumothorax.? ? Mediastinum:? Mediastinal contours appear normal.? Heart size is normal.? ? Bones and chest wall:? Sclerotic rib lesions are again noted.? Overlying soft tissues appear unremarkable.? ? IMPRESSION:? Stable interval exam without acute pulmonary process.? ? Dictated by: Tanya Wheatley M.D. on 04/25/2023 at 13:01 ? ? Approved by: Tanya Wheatley M.D. on 04/25/2023 at 13:03 ? Chest CTA: Radiologist's Impression: PROCEDURE:? CT ANGIO CHEST PE PROTOCOL ? INDICATIONS:? Known metastatic prostate disease.? Rule out PE. ? TECHNIQUE:? After the administration of intravenous contrast, 2 mm thick sections acquired from the pulmonary apices to the posterior costophrenic angles.? 3-dimensional maximum intensity projection (MIP) coronal and sagittal reformats were then acquired through the thorax.? For radiation dose reduction, the following was used:? automated exposure control, adjustment of mA and/or kV according to patient size.? ? COMPARISON:? [facility], CT, CT KIDNEY URETER BLADDER (KUB), 10/15/2022, 10:14.? [facility], CT, CT ANGIO CHEST PE PROTOCOL, 11/28/2021, 19:17. ? FINDINGS:? Image quality:? Excellent.? ? Pulmonary arteries:? Pulmonary arteries are normal in size, and demonstrate no intraluminal filling defects to suggest central pulmonary embolism.? ? Lungs and pleura:? Chronic interstitial changes and bronchiectasis are present.? Scattered subpleural nodules are stable.? Minimal left effusion/dependent change.? No pneumothorax.? Central and peripheral airways are patent.? ? Mediastinum:? Heart size is normal, without pericardial effusion.? There has been interval mediastinal adenopathy with the largest node being and anterior right paratracheal lymph node measuring 1.2 cm on series 4, image 29. In addition, bilateral axillary/supraclavicular adenopathy is present with the largest on the right measuring 1.6 cm on series 4, image 27 and 1.4 cm on the left series 4, image 17. Thoracic aorta is normal in caliber and enhancement.? Esophagus is normal in caliber, without hiatal hernia.? ? Bones and chest wall:? Diffuse appearance of sclerosis within the axial and appendicular skeleton appearing more prominent when compared to 10/15/2022.? Ribs and thoracic spine appear intact throughout.? Thyroid gland is un remark.? ? Abdomen:? Persistent right renal atrophy and hydronephrosis.? Nonobstructing lower pole right renal calcification.? Visualized upper abdominal solid organs appear normal in the early arterial phase of enhancement.? ? IMPRESSION:? ? Interval development of mediastinal and hilar/supraclavicular adenopathy concerning for metastatic disease. ? Minimal left effusion/dependent change. ? Progressive axial and appendicular skeletal metastatic osseous disease.? ? Dictated by: Tanya Wheatley M.D. on 04/25/2023 at 15:42 ? ? Approved by: Tanya Wheatley M.D. on 04/25/2023 at 15:48 ? ECG Data Attestation: I personally reviewed and interpreted this ECG as follows: (Normal sinus rhythm rate 96 beats per minute. Normal intervals. No ectopy. LVH. No acute ST T wave elevation.) Discharge Plan Departure Patient Disposition: Home Clinical Impression: Malignant neoplasm of prostate metastatic to bone Activity Restrictions/Additional Instructions: You have no acute cardiac or pulmonary problems. There is no evidence of pulmonary embolism. CT reveals lesions consistent with metastatic disease in your chest, in a position that would correspond with your site of pain. Follow-up with oncology, and wound care as scheduled. Return here as needed. Prescriptions: No Action cholecalciferol (vitamin D3) [Vitamin D3] 2,000 UNIT capsule 2,000 iu PO BID Qty: 0 Artificial Tears(pvalch-povid) 15 ML drops 1 drp OPHTH PRN PRN (Reason: DRY EYE) Qty: 30 hydrocortisone [Hydrocream] 1 % Cream 1 appful Topical QDAY PRN (Reason: Rash) Qty: 0 atorvastatin 10 mg Tablet 10 mg PO DAILY Lupron Depot (6 Month) 30 mg 30 mg [id number] acetaminophen 325 MG tablet 325 - 650 mg PO Q6HP PRN (Reason: Pain (Scale Score 1-3)) ibuprofen 300 mg Tablet 600 mg PO Q6H PRN (Reason: Pain (Scale Score 4-6)) ondansetron 4 mg Tablet,Disintegrating 4 mg PO Q6H PRN (Reason: Nausea) prednisone 5 mg Tablet 5 mg PO DAILY Qty: 30 3RF prednisone 10 mg Tablet 10 mg PO DAILY Qty: 30 0RF Rx Instructions: administer with food or milk hydrocodone-acetaminophen 10-325 mg Tablet 1 tab PO Q6H PRN (Reason: Pain (Scale Score 1-3)) Qty: 30 0RF ferrous sulfate 325 mg (65 mg iron) Capsule, Extended Release PO levofloxacin 500 mg Tablet 500 mg PO DAILY Qty: 10 0RF Xgeva 120 mg/1.7 mL (70 mg/mL) Solution 120 mg SUBCUT Q4W Referrals: Davon Oquendo MD [Primary Care Provider] - Stand Alone Forms: Patient Portal/API
[2023-04-25 13:32] LABS: D Dimer 4901 ng/ml (<500)
--- NOTE | 2023-04-25 14:00 | DI.CT.S_ITS ---
PROCEDURE: CT ANGIO CHEST PE PROTOCOL INDICATIONS: Known metastatic prostate disease. Rule out PE. TECHNIQUE: After the administration of intravenous contrast, 2 mm thick sections acquired from the pulmonary apices to the posterior costophrenic angles. 3-dimensional maximum intensity projection (MIP) coronal and sagittal reformats were then acquired through the thorax. For radiation dose reduction, the following was used: automated exposure control, adjustment of mA and/or kV according to patient size. COMPARISON: [facility], CT, CT KIDNEY URETER BLADDER (KUB), 10/15/2022, 10:14. [facility], CT, CT ANGIO CHEST PE PROTOCOL, 11/28/2021, 19:17. FINDINGS: Image quality: Excellent. Pulmonary arteries: Pulmonary arteries are normal in size, and demonstrate no intraluminal filling defects to suggest central pulmonary embolism. Lungs and pleura: Chronic interstitial changes and bronchiectasis are present. Scattered subpleural nodules are stable. Minimal left effusion/dependent change. No pneumothorax. Central and peripheral airways are patent. Mediastinum: Heart size is normal, without pericardial effusion. There has been interval mediastinal adenopathy with the largest node being and anterior right paratracheal lymph node measuring 1.2 cm on series 4, image 29. In addition, bilateral axillary/supraclavicular adenopathy is present with the largest on the right measuring 1.6 cm on series 4, image 27 and 1.4 cm on the left series 4, image 17. Thoracic aorta is normal in caliber and enhancement. Esophagus is normal in caliber, without hiatal hernia. Bones and chest wall: Diffuse appearance of sclerosis within the axial and appendicular skeleton appearing more prominent when compared to 10/15/2022. Ribs and thoracic spine appear intact throughout. Thyroid gland is un remark. Abdomen: Persistent right renal atrophy and hydronephrosis. Nonobstructing lower pole right renal calcification. Visualized upper abdominal solid organs appear normal in the early arterial phase of enhancement. IMPRESSION: Interval development of mediastinal and hilar/supraclavicular adenopathy concerning for metastatic disease. Minimal left effusion/dependent change. Progressive axial and appendicular skeletal metastatic osseous disease. Dictated by: Tanya Wheatley M.D. on 04/25/2023 at 15:42 Approved by: Tanya Wheatley M.D. on 04/25/2023 at 15:48
== END 2023-04-25 17:29 | disposition home or self-care (01) ==
PROVIDERS: Emergency Provider Emergency Medicine; PCP Family Medicine
DX: C79.51 Secondary malignant neoplasm of bone (principal); C61 Malignant neoplasm of prostate; R07.9 Chest pain, unspecified
CPT/HCPCS: 36415; 71045; 71275; 80053; 82550; 83690; 83735; 84484; 85025; 85379; 85610; 85730; 93005; 99211; 99284; Q9967

== ENCOUNTER → 2023-04-25 13:23 | Outpatient (CLI) | payer MEDICARE, OTHER, SELFPAY ==
[2022-10-16 14:24] VITALS: BMI 29.7
== END ==
PROVIDERS: PCP Family Medicine; Referring Provider Specialist; Visit Provider Surgery
DX: R07.9 Chest pain, unspecified (principal)
CPT/HCPCS: 99211; 99212

== ENCOUNTER → 2023-04-26 08:37 | Outpatient (CLI) | payer MEDICARE, OTHER, SELFPAY ==
[2022-10-16 14:24] VITALS: BMI 29.7
--- NOTE | 2023-04-26 08:38 | DI.NM.S_ITS ---
PROCEDURE: [place] BONE SCAN WHOLE BODY RADIOPHARMACEUTICAL: 19 point mCi Tc-99m MDP IV. INDICATIONS: metastatic prostate cancer TECHNIQUE: Delayed whole-body scintigrams were obtained approximately 3-4 hours after intravenous injection of radiotracer. Anterior and posterior views were acquired from vertex to feet. COMPARISON: [place], [place], [place] BONE SCAN WHOLE BODY, 03/16/2022, 12:13. [place], [place] BONE SCAN WHOLE BODY, 09/24/2022, 11:06. [facility], CT, CT CHEST ABD PEL W CON, 04/26/2023, 10:13. FINDINGS: There are innumerable foci of abnormal uptake involving calvarium, the cervical, thoracic and lumbar spine, sacrum, sternum, distal left clavicle, scapulae, every ribs bilaterally, bony pelvis, humeri bilaterally and femurs bilaterally, consistent with extensive osseous metastatic disease. Compared to the last exam, there is no significant change. IMPRESSION: Extensive osseous metastatic disease, not significantly changed. Dictated by: Heidi Latif M.D. on 04/26/2023 at 14:22 Approved by: Heidi Latif M.D. on 04/26/2023 at 14:29
--- NOTE | 2023-04-26 08:38 | DI.CT.S_ITS ---
PROCEDURE: CT CHEST ABD PEL W CON INDICATIONS: metastatic prostate cancer TECHNIQUE: After the administration of oral and intravenous contrast, axial sections acquired from the supraclavicular neck to the pubic symphysis. Coronal and sagittal reformats were performed. For radiation dose reduction, the following was used: automated exposure control, adjustment of mA and/or kV according to patient size. COMPARISON: [facility], CT, CT ANGIO CHEST PE PROTOCOL, 04/25/2023, 14:18. [facility], CT, CT ABDOMEN PELVIS W CON, 10/13/2022, 18:08. [facility], CT, CT CHEST ABD PEL W CON, 09/24/2022, 9:16. FINDINGS: Image quality: Excellent. CHEST: Lower Neck: No enlarged lymph nodes. Thyroid: Within normal limits. Axillae: -Right axillary node measuring 1.5 cm, (2/20), previously 1.1 cm on 09/24/2022. -Left axillary node measuring 1.3 cm, (2/18), previously 1.4 cm. Chest Wall: Left-sided port with the catheter tip at the upper 3rd of the SVC. Lungs and Airways: Moderate reticular thickening, unchanged. Mild lower lobe bronchiectasis. Overall these findings are unchanged. No consolidation. No significant pulmonary nodules. Pleura: No pneumothorax or pleural effusions. Heart: Heart size is normal. Three-vessel coronary artery calcifications. No pericardial effusion. Thoracic Vessels: The aorta and pulmonary arteries demonstrate normal size. Mediastinum and Ada: -Right paratracheal lymph node measuring 1.3 cm, (2/25), previously 1.1 cm. Esophagus: No wall thickening. No hiatal hernia. ABDOMEN: Liver: No focal lesion. Gallbladder: Not distended. Biliary ducts: Unremarkable. Pancreas: Atrophic. Spleen: Unremarkable. Adrenal Glands: No nodule. Kidneys and Ureters: Severe right hydronephrosis, increased compared to 123/2021. Marked hydroureter. The right kidney is atrophic. Right cortical calcification. No left hydronephrosis. Small renal cysts are unchanged. Stomach and Bowel: Stomach, small bowel loops, and colon are unremarkable. Diverticulosis. Normal appendix. Peritoneum: No abnormal intraperitoneal fluid. No free air. Ventral Wall: No hernia. Abdominal Nodes: Enlarged retroperitoneal lymph nodes. -Left periaortic node measuring 1.3 cm, (2/71), previously 1.4 cm. -Left external iliac node measuring 1.3 cm, (), previously 1.1 cm. Vessels: Aorta and inferior vena cava are normal in size. Circumferential calcified atherosclerotic plaque. PELVIS: Pelvic Organs: Prostate fiducial markers. Bladder: Decompressed. Pelvic Nodes: -Right pelvic sidewall emil conglomerate measuring approximately 3.6 cm, (), previously 3.4 cm. Miscellaneous: No inguinal hernias are seen. Bones: Right 3rd rib expansile lesion, not significantly changed. Extensive sclerotic osseous lesions throughout the bones. Overall similar to 09/24/2022. IMPRESSION: 1. Slight increase in size of the axillary and mediastinal lymph nodes. 2. Fibrotic changes in the lungs. 3. Right pelvic sidewall emil conglomerate is slightly increased in size. Obstruction of the right ureter at this site. Severe right hydronephrosis, worsened. Atrophic right kidney. 4. Left external iliac node is slightly increased. 5. Diffuse sclerotic osseous lesions throughout the bones. Right 3rd rib expansile lesion. Overall osseous disease is not significantly changed. Dictated by: Shade Fenton M.D. on 04/26/2023 at 10:49 Approved by: Shade Fenton M.D. on 04/26/2023 at 11:28
== END ==
PROVIDERS: PCP Family Medicine; Referring Provider Internal Medicine Hematology & Oncology; Visit Provider Internal Medicine Hematology & Oncology
DX: C61 Malignant neoplasm of prostate (principal); R59.0 Localized enlarged lymph nodes; C79.51 Secondary malignant neoplasm of bone; N13.30 Unspecified hydronephrosis; N28.1 Cyst of kidney, acquired; I25.10 Atherosclerotic heart disease of native coronary artery without angina pectoris; J47.9 Bronchiectasis, uncomplicated
CPT/HCPCS: 71260; 74177; 78306; A9503; Q9967

== ENCOUNTER → 2023-05-01 12:48 | Outpatient (CLI) | payer MEDICARE, OTHER, SELFPAY ==
[2022-10-16 14:24] VITALS: BMI 29.7
== END ==
PROVIDERS: PCP Family Medicine; Referring Provider Specialist; Visit Provider Surgery
DX: N30.41 Irradiation cystitis with hematuria (principal); R31.0 Gross hematuria; L59.8 Other specified disorders of the skin and subcutaneous tissue related to radiation; Z01.812 Encounter for preprocedural laboratory examination
CPT/HCPCS: 99183; G0277

== ENCOUNTER → 2023-07-17 09:49 | Outpatient (CLI) | payer MEDICARE, OTHER, SELFPAY ==
[2022-10-16 14:24] VITALS: BMI 29.7
== END ==
PROVIDERS: PCP Family Medicine; Referring Provider Specialist; Visit Provider Surgery
DX: N30.41 Irradiation cystitis with hematuria (principal); L59.8 Other specified disorders of the skin and subcutaneous tissue related to radiation; R31.0 Gross hematuria; C61 Malignant neoplasm of prostate
CPT/HCPCS: 99212; 99213

== ENCOUNTER → 2023-07-23 11:55 | Outpatient (CLI) | payer MEDICARE, OTHER, SELFPAY ==
[2022-10-16 14:24] VITALS: BMI 29.7
== END ==
PROVIDERS: PCP Family Medicine; Referring Provider Specialist; Visit Provider Surgery
DX: R31.0 Gross hematuria (principal); L59.8 Other specified disorders of the skin and subcutaneous tissue related to radiation; C61 Malignant neoplasm of prostate; N30.41 Irradiation cystitis with hematuria
CPT/HCPCS: 99183; G0277

== ENCOUNTER → 2023-07-25 11:34 | Outpatient (CLI) | payer MEDICARE, OTHER, SELFPAY ==
[2022-10-16 14:24] VITALS: BMI 29.7
== END ==
PROVIDERS: PCP Family Medicine; Referring Provider Specialist; Visit Provider Surgery
DX: R31.0 Gross hematuria (principal); L59.8 Other specified disorders of the skin and subcutaneous tissue related to radiation; C61 Malignant neoplasm of prostate; N30.41 Irradiation cystitis with hematuria
CPT/HCPCS: 99183; G0277

== ENCOUNTER → 2023-07-26 11:29 | Outpatient (CLI) | payer MEDICARE, OTHER, SELFPAY ==
[2022-10-16 14:24] VITALS: BMI 29.7
== END ==
PROVIDERS: PCP Family Medicine; Referring Provider Specialist; Visit Provider Surgery
DX: R31.0 Gross hematuria (principal); L59.8 Other specified disorders of the skin and subcutaneous tissue related to radiation; C61 Malignant neoplasm of prostate; N30.41 Irradiation cystitis with hematuria
CPT/HCPCS: 99183; G0277

== ENCOUNTER → 2023-07-30 11:25 | Outpatient (CLI) | payer MEDICARE, OTHER, SELFPAY ==
[2022-10-16 14:24] VITALS: BMI 29.7
== END ==
PROVIDERS: PCP Family Medicine; Referring Provider Specialist; Visit Provider Surgery
DX: R31.0 Gross hematuria (principal); L59.8 Other specified disorders of the skin and subcutaneous tissue related to radiation; C61 Malignant neoplasm of prostate; N30.41 Irradiation cystitis with hematuria
CPT/HCPCS: 99183; G0277

== ENCOUNTER → 2023-07-31 12:12 | Outpatient (CLI) | payer MEDICARE, OTHER, SELFPAY ==
[2022-10-16 14:24] VITALS: BMI 29.7
== END ==
PROVIDERS: PCP Family Medicine; Referring Provider Specialist; Visit Provider Surgery
DX: R31.0 Gross hematuria (principal); L59.8 Other specified disorders of the skin and subcutaneous tissue related to radiation; C61 Malignant neoplasm of prostate; N30.41 Irradiation cystitis with hematuria
CPT/HCPCS: 99183; G0277

== ENCOUNTER → 2023-08-01 11:27 | Outpatient (CLI) | payer MEDICARE, OTHER, SELFPAY ==
[2022-10-16 14:24] VITALS: BMI 29.7
== END ==
PROVIDERS: PCP Family Medicine; Referring Provider Specialist; Visit Provider Surgery
DX: R31.0 Gross hematuria (principal); L59.8 Other specified disorders of the skin and subcutaneous tissue related to radiation; C61 Malignant neoplasm of prostate; N30.41 Irradiation cystitis with hematuria
CPT/HCPCS: 99183; G0277

== ENCOUNTER → 2023-08-06 | Outpatient (CLI) | payer MEDICARE, OTHER, SELFPAY ==
[2022-10-16 14:24] VITALS: BMI 29.7
--- NOTE | 2023-08-06 | DI.CT.S_ITS ---
PROCEDURE: CT CHEST ABD PEL W CON INDICATIONS: prostate cancer TECHNIQUE: After the administration of oral and intravenous contrast, axial sections acquired from the supraclavicular neck to the pubic symphysis. Coronal and sagittal reformats were performed. For radiation dose reduction, the following was used: automated exposure control, adjustment of mA and/or kV according to patient size. COMPARISON: [facility], NM, NM BONE SCAN WHOLE BODY, 08/06/2023, 14:13. [facility], CT, CT CHEST ABD PEL W CON, 04/26/2023, 10:13. FINDINGS: CHEST: Lower Neck: No enlarged lymph nodes. Axillae: Axillary adenopathy present as before examples include: -right axillary lymph node 1.5 cm (2/) not significantly changed -left axillary lymph node 1.3 cm (2/) not significantly changed. Chest Wall: Left chest port present with tip of the catheter terminating at the upper SVC. Lungs: No pleural effusion. Patchy multifocal ground-glass opacities redemonstrated, mild interval worsening for example the superior segment of the left lower lobe. Areas of bronchiectasis present as before. Heart: No pericardial effusion. Multivessel coronary artery calcifications and/or stents. Thoracic Vessels: The aorta and pulmonary arteries demonstrate normal size. Mediastinum and Ada: Previously indexed right lower paratracheal lymph node measures 1.3 cm (220) unchanged. Esophagus: No wall thickening. ABDOMEN: Liver: Unremarkable. Gallbladder: Unremarkable. Biliary ducts: Unremarkable. Pancreas: Unremarkable. Spleen: Unremarkable. Adrenal Glands: Unremarkable. Kidneys and Ureters: Severe right hydroureteronephrosis to the level of the distal ureter redemonstrated. Right renal atrophy present as before. No left hydronephrosis. Stomach and Bowel: No bowel obstruction. Mild predominantly sigmoid colonic diverticulosis without evidence of acute diverticulitis. Peritoneum: No substantial intraperitoneal fluid. No free air. Abdominal Nodes: Retroperitoneal adenopathy present as before for example a left periaortic lymph node at the level of the mid kidneys, 1.3 cm (), unchanged. Vessels: Aorta and inferior vena cava are normal in size. PELVIS: Pelvic Organs: Prostate gland not well visualized. Fiducial markers present in the expected region of the prostate gland. Bladder: Unremarkable. Pelvic Nodes: Right pelvic normal conglomerate 4.3 x 3.6 cm (2/101) previously 4.4 x 3.6 cm remeasured not significantly changed. Bones: Multilevel degenerative change of the visualized spine. Diffuse osseous metastatic disease present as before, not substantially changed in appearance by CT. IMPRESSION: 1. Adenopathy within the chest, abdomen, and pelvis appears similar to before. 2. Diffuse osseous metastatic disease, similar CT appearance to the prior exam. Same day nuclear medicine bone scan is dictated separately. 3. Nonspecific ground-glass opacities redemonstrated in both lungs, mild interval worsening for example at the superior segment of the left lower lobe. Dictated by: Oscar Lopez M.D. on 08/07/2023 at 10:55 Approved by: Oscar Lopez M.D. on 08/07/2023 at 11:23
--- NOTE | 2023-08-06 | DI.NM.S_ITS ---
PROCEDURE: ID BONE SCAN WHOLE BODY RADIOPHARMACEUTICAL: 22 mCi Tc-99m MDP IV. INDICATIONS: prostate cancer TECHNIQUE: Delayed whole-body scintigrams were obtained approximately 3-4 hours after intravenous injection of radiotracer. Anterior and posterior views were acquired from vertex to feet. COMPARISON: [facility], CT, CT CHEST ABD PEL W CON, 08/06/2023, 10:27. [place], [place] BONE SCAN WHOLE BODY, 09/24/2022, 11:06. [facility], [place] BONE SCAN WHOLE BODY, 04/26/2023, 11:46. FINDINGS: Extensive foci of abnormal bony uptake can be seen, with foci of clear interval worsening compared to the 04/26/2023 examination. No abnormal soft tissue uptake can be seen. The kidneys demonstrate normal positions. IMPRESSION: Interval worsening of bony metastatic disease. Dictated by: Parker Mercedes M.D. on 08/06/2023 at 16:00 Approved by: Parker Mercedes M.D. on 08/06/2023 at 16:02
== END ==
LOC: NUCM 09:16
PROVIDERS: PCP Family Medicine; Referring Provider Internal Medicine Hematology & Oncology; Visit Provider Internal Medicine Hematology & Oncology
DX: C61 Malignant neoplasm of prostate (principal); C79.51 Secondary malignant neoplasm of bone; R59.1 Generalized enlarged lymph nodes
CPT/HCPCS: 71260; 74177; 78306; A9503; Q9967

== ENCOUNTER → 2023-08-07 13:38 | Outpatient (CLI) | payer MEDICARE, OTHER, SELFPAY ==
[2022-10-16 14:24] VITALS: BMI 29.7
== END ==
PROVIDERS: PCP Family Medicine; Referring Provider Specialist; Visit Provider Surgery
DX: R31.0 Gross hematuria (principal); L59.8 Other specified disorders of the skin and subcutaneous tissue related to radiation; C61 Malignant neoplasm of prostate; N30.41 Irradiation cystitis with hematuria
CPT/HCPCS: 99183; G0277

== ENCOUNTER → 2023-08-09 11:48 | Outpatient (CLI) | payer MEDICARE, OTHER, SELFPAY ==
[2022-10-16 14:24] VITALS: BMI 29.7
== END ==
PROVIDERS: PCP Family Medicine; Referring Provider Specialist; Visit Provider Surgery
DX: R31.0 Gross hematuria (principal); L59.8 Other specified disorders of the skin and subcutaneous tissue related to radiation; C61 Malignant neoplasm of prostate; N30.41 Irradiation cystitis with hematuria
CPT/HCPCS: 99183; G0277

== ENCOUNTER → 2023-08-12 11:27 | Outpatient (CLI) | payer MEDICARE, OTHER, SELFPAY ==
[2022-10-16 14:24] VITALS: BMI 29.7
== END ==
PROVIDERS: PCP Family Medicine; Referring Provider Specialist; Visit Provider Surgery
DX: R31.0 Gross hematuria (principal); L59.8 Other specified disorders of the skin and subcutaneous tissue related to radiation; C61 Malignant neoplasm of prostate; N30.41 Irradiation cystitis with hematuria
CPT/HCPCS: 99183; G0277

== ENCOUNTER → 2023-08-13 13:05 | Outpatient (CLI) | payer MEDICARE, OTHER, SELFPAY ==
[2022-10-16 14:24] VITALS: BMI 29.7
== END ==
PROVIDERS: PCP Family Medicine; Referring Provider Specialist; Visit Provider Surgery
DX: R31.0 Gross hematuria (principal); L59.8 Other specified disorders of the skin and subcutaneous tissue related to radiation; C61 Malignant neoplasm of prostate; N30.41 Irradiation cystitis with hematuria
CPT/HCPCS: 99183; G0277

== ENCOUNTER → 2023-08-14 13:03 | Outpatient (CLI) | payer MEDICARE, OTHER, SELFPAY ==
[2022-10-16 14:24] VITALS: BMI 29.7
== END ==
PROVIDERS: PCP Family Medicine; Referring Provider Specialist; Visit Provider Surgery
DX: R31.0 Gross hematuria (principal); L59.8 Other specified disorders of the skin and subcutaneous tissue related to radiation; C61 Malignant neoplasm of prostate; N30.41 Irradiation cystitis with hematuria
CPT/HCPCS: 99183; G0277

== ENCOUNTER → 2023-08-15 11:58 | Outpatient (CLI) | payer MEDICARE, OTHER, SELFPAY ==
[2022-10-16 14:24] VITALS: BMI 29.7
== END ==
PROVIDERS: PCP Family Medicine; Referring Provider Specialist; Visit Provider Surgery
DX: R31.0 Gross hematuria (principal); L59.8 Other specified disorders of the skin and subcutaneous tissue related to radiation; C61 Malignant neoplasm of prostate; N30.41 Irradiation cystitis with hematuria
CPT/HCPCS: 99183; G0277

== ENCOUNTER 2023-08-16 11:17 | Emergency (ER) | payer MEDICARE, OTHER, SELFPAY ==
[2022-10-16 14:24] VITALS: BMI 29.7
[2023-08-16] VITALS (11 sets, daily range): BP systolic 123–158; BP diastolic 61–70; PULSE 78–85; RESP 12–17; TEMP 36.6; O2SAT 97–99; BMI 22.9
--- NOTE | 2023-08-16 11:28 | DI.RAD.S_ITS ---
PROCEDURE: XR CHEST 1V INDICATIONS: chest pain TECHNIQUE: One view of the chest was acquired. COMPARISON: [facility], CT, CT CHEST ABD PEL W CON, 08/06/2023, 10:27. [facility], CR, XR CHEST 1V, 04/25/2023, 12:24. FINDINGS: Surgical changes and devices: Left Port-A-Cath is unchanged. Lungs and pleura: Lung volumes are low. No acute airspace opacities. Mediastinum: Mediastinal contours appear normal. Heart size is normal. Bones and chest wall: Diffuse bony sclerotic lesions are redemonstrated. Findings are similar in extent to the study dated April 25, 2023. IMPRESSION: No acute cardiopulmonary findings. Diffuse sclerotic metastases redemonstrated. Dictated by: Sarah Goetz M.D. on 08/16/2023 at 12:10 Approved by: Sarah Goetz M.D. on 08/16/2023 at 12:11
[2023-08-16 11:37] LABS: Add Manual Diff / Slide Review NO; Basophils Absolute Auto 0 /uL (0-100); Basophils Percent Auto 0.8 % (0-2); Eosinophils Absolute Auto 0 /uL (0-450); Eosinophils Percent Auto 0.2 % (2-4); Hematocrit 25.4 % (41-53); Hemoglobin 8.4 g/dL (13.5-17.5); Lymphocytes Absolute Auto 900 /uL (1100-4500); Lymphocytes Percent Auto 15.4 % (25-40); Mean Corpuscular Hemoglobin 28.3 PG (26-34); Mean Corpuscular Volume 85.6 fL (80-100); Monocytes Absolute Auto 700 /uL (0-900); Monocytes Percent Auto 12.1 % (3-14); Neutrophils Absolute Auto 4200 /uL (1500-7000); Neutrophils Percent Auto 71.5 % (50-75); Platelet Count 269 X10^3/uL (150-400); Red Blood Cell Count 2.97 X10^6/uL (4.5-5.9); Red Cell Distribution Width 22.9 % (11.6-14.8); White Blood Cell Count 5.9 X10^3/uL (4.5-11.0)
[2023-08-16 11:40] LABS: INR 1.1 (0.9-1.3); Prothrombin Time 12.3 SECONDS (10.1-12.7)
[2023-08-16 11:43] LABS: PTT Partial Thromboplastin Tim 29 SECONDS (26-36)
[2023-08-16 11:44] LABS: Alanine Aminotransferase 15 IU/L (<50); Albumin Globulin Ratio 1.5 (1.0-2.8); Alkaline Phosphatase 73 U/L (38-126); Aspartate Aminotransferase 38 IU/L (17-59); BUN Creatinine Ratio 27.4 (6-22); Bilirubin Total 0.2 mg/dL (0.2-1.3); Blood Urea Nitrogen 23 mg/dL (9-20); Calcium 9.2 mg/dL (8.4-10.2); Carbon Dioxide 25 mmol/L (22-32); Chloride 101 mmol/L (98-107); Creatine Kinase 83 U/L (55-170); Estimated Glomerular Filt Rate > 60 mL/min (>60); Globulin 2.6 g/dL (1.7-4.1); Glucose 97 mg/dL (80-110); HEMOLYSIS < 15 (0-50); Lipase 50 U/L (23-300); Magnesium 2.4 mg/dL (1.6-2.3); Potassium 4.4 mmol/L (3.4-5.1); Sodium 136 mmol/L (137-145); Total Protein 6.6 g/dL (6.3-8.2)
[2023-08-16 11:53] LABS: Anisocytosis 2+; Schistocytes 1+
[2023-08-16 11:55] LABS: Ovalocytes 1+; Troponin I < 0.012 ng/mL (0.01-0.034)
--- NOTE | 2023-08-16 12:14 | ED_ITS ---
HPI - Chest Pain General Chief Complaint: Chest Pain Stated Complaint: chest pain Time Seen by Provider: 08/16/23 11:26 History of Present Illness HPI narrative: Patient is an 83-year-old male history of metastatic prostate cancer, drug resistant UTI getting hyperbaric therapy, hyperlipidemia presenting today with left-sided chest pain. Started today after waking reports that it goes down his left arm. He denies any shortness of breath it does feel like it hurts when he takes a deep breath. He denies any cough or fever. No prior history of coronary artery disease Related Data Home Medications Medication Instructions Recorded Confirmed cholecalciferol (vitamin D3) 50 2,000 iu PO BID ##0 07/23/16 04/02/23 mcg (2,000 unit) capsule (Vitamin D3) polyvinyl alcohol-povidone 0.5 1 drp OPHTH PRN PRN DRY EYE #30 mL 07/23/16 04/02/23 %-0.6 % eye drops (Artificial Tears (polyvinyl alcohol/povidone)) hydrocortisone 1 % topical cream 1 appful topical QDAY PRN Rash ##0 12/30/17 04/30/23 (Hydrocream) atorvastatin 10 mg tablet 10 mg PO DAILY 10/28/18 04/02/23 Lupron Depot (6 Month) 30 mg [id number] 04/22/19 04/30/23 acetaminophen 325 mg tablet 325 - 650 mg PO Q6HP PRN Pain 12/29/19 04/02/23 (Scale Score 1-3) denosumab 120 mg/1.7 mL (70 mg/mL) 120 mg SUBCUT Q4W 11/28/21 04/30/23 subcutaneous solution (Xgeva) ibuprofen 300 mg tablet 600 mg PO Q6H PRN Pain (Scale 04/04/22 04/30/23 Score 4-6) ondansetron 4 mg disintegrating 4 mg PO Q6H PRN Nausea 11/06/22 04/30/23 tablet ferrous sulfate 325 mg (65 mg mg PO 02/05/23 02/14/23 iron) capsule,extended release Previous Rx's Medication Instructions Recorded prednisone 5 mg tablet 5 mg PO DAILY #30 tabs 11/06/22 prednisone 10 mg tablet 10 mg PO DAILY #30 tabs 01/08/23 hydrocodone 10 mg-acetaminophen 1 tab PO Q12H PRN Pain (Scale 04/30/23 325 mg tablet Score 1-3) #60 tabs Allergies Allergy/AdvReac Type Severity Reaction Status Date / Time oxycodone Allergy Mild Rash Verified 04/25/23 12:18 Patient History Medical History Acute renal failure 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 Gross hematuria History of kidney cancer History of nephrolithiasis History of UTI Hydronephrosis, right Hypertension Prostate 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 sites Recurrent prostate cancer Right ureteral calculus Vomiting Surgical History History of transurethral resection of prostate (2008) Hx of cystoscopy (10/18/22) Family History Father Myocardial infarction Mother Small cell lung cancer in adult Sister Cancer of kidney Social History marital status: number of children: 0 household members: spouse Smoking Status: Former smoker alcohol intake: current Smoking Status: Former smoker alcohol intake frequency: holidays/special occasions only Substance Use Type: does not use Exam Initial Vital Signs Initial Vital Signs: Vital Signs Temperature 97.8 F 08/16/23 11:22 Pulse Rate 85 08/16/23 11:22 Respiratory Rate 16 08/16/23 11:22 Blood Pressure 158/66 H 08/16/23 11:22 Pulse Oximetry 99 08/16/23 11:22 Oxygen Delivery Method Room Air 08/16/23 11:22 GENERAL: Alert pale 83-year-old male HEENT: Head atraumatic,EOMI, pupils reactive, face symmetric, moist mucous membranes CARDIOVASCULAR: Regular rate and rhythm without murmurs, rubs or gallops. Not reproducible with palpation RESPIRATORY: Breath sounds equal bilaterally, no wheezes rales or rhonchi. ABDOMEN: Soft, nontender. Normoactive bowel sounds all 4 quadrants. No guarding or rebound. EXTREMITIES: Normal range of motion, no clubbing or edema. Neurovascularly intact NEUROLOGICAL: Alert and oriented x4.Normal gait and speech. SKIN: Warm, dry, no laceration, no petechiae, no rashes or lesions. Course Orders Ordered: ED Orders 08/16/23 11:25 Complete Blood Count AUTO DIFF Stat Comprehensive Metabolic Panel Stat Lipase Stat Magnesium Stat PTT Partial Thromboplastin Edward Stat Prothrombin Time INR Stat Troponin & CK Cardiac Panel Stat 08/16/23 11:27 EKG-12 Lead Stat 08/16/23 11:28 XR chest 1V Stat 08/16/23 12:39 CT angio chest PE protocol Stat 08/16/23 13:45 Trop I [Troponin I] Stat 08/16/23 14:08 EKG-12 Lead Stat Vital Signs Vital signs: Vital Signs - 8 hr 08/16/23 11:45 08/16/23 12:00 08/16/23 12:30 Pulse Rate 82 81 78 Respiratory Rate 14 14 12 Blood Pressure 133/62 Pulse Oximetry 99 99 98 Oxygen Delivery Method Room Air 08/16/23 13:00 08/16/23 13:30 08/16/23 13:59 Pulse Rate 79 80 79 Respiratory Rate 14 17 15 Blood Pressure 155/70 H Pulse Oximetry 98 99 97 Oxygen Delivery Method Room Air 08/16/23 14:00 08/16/23 14:00 08/16/23 14:52 Pulse Rate 78 80 Respiratory Rate 12 Blood Pressure 128/62 Pulse Oximetry 97 98 Oxygen Delivery Method 08/16/23 14:53 08/16/23 14:53 08/16/23 15:00 Pulse Rate 79 79 Respiratory Rate 12 Blood Pressure 133/61 Pulse Oximetry 98 98 Oxygen Delivery Method 08/16/23 15:00 Pulse Rate Respiratory Rate Blood Pressure 123/61 Pulse Oximetry Oxygen Delivery Method MDM - Chest Pain Lab Data 08/16/23 11:25 08/16/23 11:25 Labs: Lab Results 08/16/23 08/16/23 Range/Units 11:25 13:45 WBC 5.9 (4.5-11.0) X10^3/uL RBC 2.97 L (4.5-5.9) X10^6/uL Hgb 8.4 L (13.5-17.5) g/dL Hct 25.4 L (41-53) % MCV 85.6 (80-100) fL MCH 28.3 (26-34) PG MCHC 33.0 (30-36) % RDW 22.9 H (11.6-14.8) % Plt Count 269 (150-400) X10^3/uL Neut % (Auto) 71.5 (50-75) % Lymph % (Auto) 15.4 L (25-40) % Callahan % (Auto) 12.1 (3-14) % Eos % (Auto) 0.2 L (2-4) % Baso % (Auto) 0.8 (0-2) % Neut # (Auto) 4200 (8359-3734) /uL Lymph # (Auto) 900 L (1157-3745) /uL Callahan # (Auto) 700 (0-900) /uL Eos # (Auto) 0 (0-450) /uL Baso # (Auto) 0 (0-100) /uL RBC Morphology See below Anisocytosis 2+ H Ovalocytes 1+ H Schistocytes 1+ H PT 12.3 (10.1-12.7) SECONDS INR 1.1 (0.9-1.3) APTT 29 (26-36) SECONDS Sodium 136 L (137-145) mmol/L Potassium 4.4 (3.4-5.1) mmol/L Chloride 101 (98-107) mmol/L Carbon Dioxide 25 (22-32) mmol/L BUN 23 H (9-20) mg/dL Creatinine 0.84 (0.66-1.25) mg/dL Estimated GFR > 60 (>60) mL/min BUN/Creatinine Ratio 27.4 H (6-22) Glucose 97 (80-110) mg/dL Calcium 9.2 (8.4-10.2) mg/dL Magnesium 2.4 H (1.6-2.3) mg/dL Total Bilirubin 0.2 (0.2-1.3) mg/dL AST 38 (17-59) IU/L ALT 15 (<50) IU/L Alkaline Phosphatase 73 (38-126) U/L Total Creatine Kinase 83 (55-170) U/L Troponin I < 0.012 < 0.012 (0.01-0.034) ng/mL Total Protein 6.6 (6.3-8.2) g/dL Albumin 4.0 (3.5-5.0) g/dL Globulin 2.6 (1.7-4.1) g/dL Albumin/Globulin Ratio 1.5 (1.0-2.8) Lipase 50 (23-300) U/L Imaging Data Chest x-ray: Radiologist's Impression: PROCEDURE: XR CHEST 1V INDICATIONS: chest pain TECHNIQUE: One view of the chest was acquired. COMPARISON: [facility], CT, CT CHEST ABD PEL W CON, 08/06/2023, 10:27. [facility], CR, XR CHEST 1V, 04/25/2023, 12:24. FINDINGS: Surgical changes and devices: Left Port-A-Cath is unchanged. Lungs and pleura: Lung volumes are low. No acute airspace opacities. Mediastinum: Mediastinal contours appear normal. Heart size is normal. Bones and chest wall: Diffuse bony sclerotic lesions are redemonstrated. Findings are similar in extent to the study dated April 25, 2023. IMPRESSION: No acute cardiopulmonary findings. Diffuse sclerotic metastases redemonstrated. Dictated by: Sarah Goetz M.D. on 08/16/2023 at 12:10 Approved by: Sarah Goetz M.D. on 08/16/2023 at 12:11 CT scan - chest: Radiologist's Impression: PROCEDURE: CT ANGIO CHEST PE PROTOCOL INDICATIONS: chest pain metastatic CA TECHNIQUE: After the administration of intravenous contrast, 2 mm thick sections acquired from the pulmonary apices to the posterior costophrenic angles. 3-dimensional maximum intensity projection (MIP) coronal and sagittal reformats were then acquired through the thorax. For radiation dose reduction, the following was used: automated exposure control, adjustment of mA and/or kV according to patient size. COMPARISON: [facility], CT, CT ANGIO CHEST PE PROTOCOL, 04/25/2023, 14:18. [facility], CT, CT ANGIO CHEST PE PROTOCOL, 11/28/2021, 19:17. FINDINGS: Image quality: Excellent. Pulmonary arteries: Pulmonary arteries are normal in size, and demonstrate no intraluminal filling defects to suggest central pulmonary embolism. Lungs and pleura: Lungs are unchanged with a mild interstitial prominence again noted. No pleural effusions or pneumothorax. Central and peripheral airways are patent. Mediastinum: Heart size is normal, without pericardial effusion. No new mediastinal or hilar adenopathy. Thoracic aorta is normal in caliber and enhancement. Esophagus is normal in caliber, without hiatal hernia. Bones and chest wall: Extensive metastatic bony lesions, previously documented. No pathologic fracture found. Ribs and thoracic spine appear intact throughout. Thyroid gland appears normal where well seen. No axillary or supraclavicular adenopathy. Port-A-Cath again noted on the left extending into the superior vena cava. [id number] axillary adenopathy again noted. Abdomen: Visualized upper abdominal solid organs appear normal in the early arterial phase of enhancement. IMPRESSION: No pulmonary embolus found. Extensive osseous metastatic disease, previously documented, without definite interval change. No pathologic fracture found. Previously present scattered mild adenopathy is again noted. Dictated by: Domingo Esquivel M.D. on 08/16/2023 at 13:35 Approved by: Domingo Esquivel M.D. on 08/16/2023 at 13:43 ECG Data Interpretation: EKG 1. Sinus rhythm rate 84 OK interval 160 QRS [address] changes Q- waves noted in lead 3 and AVF EKG 2. Sinus rhythm rate 79 OK interval 174 QRS [address] changes MDM Narrative Medical decision making narrative: Patient 83-year-old male metastatic prostate cancer presenting today with left- sided chest pain. May seem pain with inspiration and reproducible which would be atypical for acute coronary syndrome. Labs have been reviewed chronically anemic but stable negative troponin x2, normal electrolyte abnormality Chest x-ray CT angio has been reviewed metastatic disease present but no pulmonary embolism. Unclear cause of patient's chest pain at this time. Pulmonary embolism has been ruled out STEMI and and semi also ruled out this to be atypical for acute coronary syndrome. Pain maybe related to metastatic prostate cancer. He is not hypoxic vitals are stable has good outpatient follow-up. At this time requires no admission criteria or further workup. Discharge Plan Departure Patient Disposition: Home Clinical Impression: Atypical chest pain Instructions: DI for Atypical Chest Pain Activity Restrictions/Additional Instructions: *You have been diagnosed with atypical chest pain *What to do: At this time blood work and CT scanner overall reassuring chest pain is not likely related to your heart although still possible. Please *Continue to take medications as directed *Follow up with your primary care provider in 2-3 days or call [phone] *Return to ER if you should have increasing chest pain shortness of breath fever or any new, worsening or concerning symptoms Prescriptions: No Action cholecalciferol (vitamin D3) [Vitamin D3] 2,000 UNIT capsule 2,000 iu PO BID Qty: 0 Artificial Tears(pvalch-povid) 15 ML drops 1 drp OPHTH PRN PRN (Reason: DRY EYE) Qty: 30 hydrocortisone [Hydrocream] 1 % Cream 1 appful Topical QDAY PRN (Reason: Rash) Qty: 0 atorvastatin 10 mg Tablet 10 mg PO DAILY Lupron Depot (6 Month) 30 mg 30 mg [id number] acetaminophen 325 MG tablet 325 - 650 mg PO Q6HP PRN (Reason: Pain (Scale Score 1-3)) ibuprofen 300 mg Tablet 600 mg PO Q6H PRN (Reason: Pain (Scale Score 4-6)) ondansetron 4 mg Tablet,Disintegrating 4 mg PO Q6H PRN (Reason: Nausea) prednisone 5 mg Tablet 5 mg PO DAILY Qty: 30 3RF prednisone 10 mg Tablet 10 mg PO DAILY Qty: 30 0RF Rx Instructions: administer with food or milk ferrous sulfate 325 mg (65 mg iron) Capsule, Extended Release PO hydrocodone-acetaminophen 10-325 mg Tablet 1 tab PO Q12H PRN (Reason: Pain (Scale Score 1-3)) Qty: 60 0RF Xgeva 120 mg/1.7 mL (70 mg/mL) Solution 120 mg SUBCUT Q4W Referrals: Davon Oquendo MD [Primary Care Provider] - Stand Alone Forms: Patient Portal/API
--- NOTE | 2023-08-16 12:32 | PC.NURSE ---
pt states that he felt cp this morning that was different than anything he has felt before. pt describes pain as a dull ache and as a 3/10 pain at this time. pt has hx of metastatic prostate ca of 13 years and has been under going hyperbaric medicine for a persistent uti that is resistant to abx. pt denies sob, n/v/d, or fevers at this time. pt a&o x 4. at bedside.
--- NOTE | 2023-08-16 12:39 | DI.CT.S_ITS ---
PROCEDURE: CT ANGIO CHEST PE PROTOCOL INDICATIONS: chest pain metastatic CA TECHNIQUE: After the administration of intravenous contrast, 2 mm thick sections acquired from the pulmonary apices to the posterior costophrenic angles. 3-dimensional maximum intensity projection (MIP) coronal and sagittal reformats were then acquired through the thorax. For radiation dose reduction, the following was used: automated exposure control, adjustment of mA and/or kV according to patient size. COMPARISON: [facility], CT, CT ANGIO CHEST PE PROTOCOL, 04/25/2023, 14:18. [facility], CT, CT ANGIO CHEST PE PROTOCOL, 11/28/2021, 19:17. FINDINGS: Image quality: Excellent. Pulmonary arteries: Pulmonary arteries are normal in size, and demonstrate no intraluminal filling defects to suggest central pulmonary embolism. Lungs and pleura: Lungs are unchanged with a mild interstitial prominence again noted. No pleural effusions or pneumothorax. Central and peripheral airways are patent. Mediastinum: Heart size is normal, without pericardial effusion. No new mediastinal or hilar adenopathy. Thoracic aorta is normal in caliber and enhancement. Esophagus is normal in caliber, without hiatal hernia. Bones and chest wall: Extensive metastatic bony lesions, previously documented. No pathologic fracture found. Ribs and thoracic spine appear intact throughout. Thyroid gland appears normal where well seen. No axillary or supraclavicular adenopathy. Port-A-Cath again noted on the left extending into the superior vena cava. [id number] axillary adenopathy again noted. Abdomen: Visualized upper abdominal solid organs appear normal in the early arterial phase of enhancement. IMPRESSION: No pulmonary embolus found. Extensive osseous metastatic disease, previously documented, without definite interval change. No pathologic fracture found. Previously present scattered mild adenopathy is again noted. Dictated by: Domingo Esquivel M.D. on 08/16/2023 at 13:35 Approved by: Domingo Esquivel M.D. on 08/16/2023 at 13:43
[2023-08-16 14:21] LABS: Troponin I < 0.012 ng/mL (0.01-0.034)
== END 2023-08-16 15:33 | disposition home or self-care (01) ==
PROVIDERS: Emergency Provider Emergency Medicine; PCP Family Medicine
DX: R07.89 Other chest pain (principal); Z79.899 Other long term (current) drug therapy
CPT/HCPCS: 36415; 71045; 71275; 80053; 82550; 83690; 83735; 84484; 85025; 85610; 85730; 93005; 99284; Q9967

== ENCOUNTER → 2023-08-20 13:39 | Outpatient (CLI) | payer MEDICARE, OTHER, SELFPAY ==
[2022-10-16 14:24] VITALS: BMI 29.7
== END ==
PROVIDERS: PCP Family Medicine; Referring Provider Specialist; Visit Provider Surgery
DX: R31.0 Gross hematuria (principal); L59.8 Other specified disorders of the skin and subcutaneous tissue related to radiation; C61 Malignant neoplasm of prostate; N30.41 Irradiation cystitis with hematuria
CPT/HCPCS: 99183; G0277

== ENCOUNTER → 2023-08-21 14:57 | Outpatient (CLI) | payer MEDICARE, OTHER, SELFPAY ==
[2022-10-16 14:24] VITALS: BMI 29.7
== END ==
PROVIDERS: PCP Family Medicine; Referring Provider Specialist; Visit Provider Surgery
DX: L59.8 Other specified disorders of the skin and subcutaneous tissue related to radiation (principal); R31.0 Gross hematuria; C61 Malignant neoplasm of prostate; N30.41 Irradiation cystitis with hematuria
CPT/HCPCS: 99183; G0277

== ENCOUNTER → 2023-08-22 11:18 | Outpatient (CLI) | payer MEDICARE, OTHER, SELFPAY ==
[2022-10-16 14:24] VITALS: BMI 29.7
== END ==
PROVIDERS: PCP Family Medicine; Referring Provider Specialist; Visit Provider Surgery
DX: R31.0 Gross hematuria (principal); L59.8 Other specified disorders of the skin and subcutaneous tissue related to radiation; C61 Malignant neoplasm of prostate; N30.41 Irradiation cystitis with hematuria
CPT/HCPCS: 99183; G0277

== ENCOUNTER → 2023-08-27 15:25 | Outpatient (CLI) | payer MEDICARE, OTHER, SELFPAY ==
[2022-10-16 14:24] VITALS: BMI 29.7
== END ==
PROVIDERS: PCP Family Medicine; Referring Provider Specialist; Visit Provider Surgery
DX: R31.0 Gross hematuria (principal); L59.8 Other specified disorders of the skin and subcutaneous tissue related to radiation; C61 Malignant neoplasm of prostate; N30.41 Irradiation cystitis with hematuria
CPT/HCPCS: 99183; G0277

== ENCOUNTER → 2023-08-28 11:00 | Outpatient (CLI) | payer MEDICARE, OTHER, SELFPAY ==
[2022-10-16 14:24] VITALS: BMI 29.7
== END ==
PROVIDERS: PCP Family Medicine; Referring Provider Specialist; Visit Provider Surgery
DX: R31.0 Gross hematuria (principal); L59.8 Other specified disorders of the skin and subcutaneous tissue related to radiation; C61 Malignant neoplasm of prostate; N30.41 Irradiation cystitis with hematuria
CPT/HCPCS: 99183; G0277

== ENCOUNTER → 2023-08-29 11:20 | Outpatient (CLI) | payer MEDICARE, OTHER, SELFPAY ==
[2022-10-16 14:24] VITALS: BMI 29.7
== END ==
PROVIDERS: PCP Family Medicine; Visit Provider Specialist
DX: C61 Malignant neoplasm of prostate (principal); N30.41 Irradiation cystitis with hematuria; A49.9 Bacterial infection, unspecified
CPT/HCPCS: 52000; 87086; 99215

== ENCOUNTER → 2023-08-30 13:04 | Outpatient (CLI) | payer MEDICARE, OTHER, SELFPAY ==
[2022-10-16 14:24] VITALS: BMI 29.7
== END ==
PROVIDERS: PCP Family Medicine; Referring Provider Specialist; Visit Provider Surgery
DX: L59.8 Other specified disorders of the skin and subcutaneous tissue related to radiation (principal); C61 Malignant neoplasm of prostate; N30.41 Irradiation cystitis with hematuria
CPT/HCPCS: 99183; G0277

== ENCOUNTER → 2023-09-02 11:55 | Outpatient (CLI) | payer MEDICARE, OTHER, SELFPAY ==
[2022-10-16 14:24] VITALS: BMI 29.7
== END ==
PROVIDERS: PCP Family Medicine; Referring Provider Specialist; Visit Provider Surgery
DX: R31.0 Gross hematuria (principal); L59.8 Other specified disorders of the skin and subcutaneous tissue related to radiation; C61 Malignant neoplasm of prostate; N30.41 Irradiation cystitis with hematuria
CPT/HCPCS: 99183; 99212; 99214; G0277

== ENCOUNTER → 2023-09-04 11:26 | Outpatient (CLI) | payer MEDICARE, OTHER, SELFPAY ==
[2022-10-16 14:24] VITALS: BMI 29.7
== END ==
PROVIDERS: PCP Family Medicine; Referring Provider Specialist; Visit Provider Surgery
DX: R31.0 Gross hematuria (principal); L59.8 Other specified disorders of the skin and subcutaneous tissue related to radiation; C61 Malignant neoplasm of prostate; N30.41 Irradiation cystitis with hematuria
CPT/HCPCS: 99183; G0277

== ENCOUNTER → 2023-09-10 11:17 | Outpatient (CLI) | payer MEDICARE, OTHER, SELFPAY ==
[2022-10-16 14:24] VITALS: BMI 29.7
== END ==
PROVIDERS: PCP Family Medicine; Referring Provider Specialist; Visit Provider Surgery
DX: R31.0 Gross hematuria (principal); L59.8 Other specified disorders of the skin and subcutaneous tissue related to radiation; C61 Malignant neoplasm of prostate; N30.41 Irradiation cystitis with hematuria
CPT/HCPCS: 99183; G0277

== ENCOUNTER → 2023-09-11 11:19 | Outpatient (CLI) | payer MEDICARE, OTHER, SELFPAY ==
[2022-10-16 14:24] VITALS: BMI 29.7
== END ==
PROVIDERS: PCP Family Medicine; Referring Provider Specialist; Visit Provider Surgery
DX: R31.0 Gross hematuria (principal); L59.8 Other specified disorders of the skin and subcutaneous tissue related to radiation; C61 Malignant neoplasm of prostate; N30.41 Irradiation cystitis with hematuria
CPT/HCPCS: 99183; G0277

== ENCOUNTER → 2023-09-12 11:45 | Outpatient (CLI) | payer MEDICARE, OTHER, SELFPAY ==
[2022-10-16 14:24] VITALS: BMI 29.7
--- NOTE | 2023-09-12 | OV.WND_ITS ---
Harley Beard [id number] 1940 Progress Note Details Patient Name: Mykel Beard Patient Number: [id number] Patient Date of : 1940 Patient Subjective Allergies oxycodone (Severity: Mild) t R. 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 Pre- Treatment Vital Signs were: Time Vitals Taken: 11:40, Blood Pressure: 125/65 mmHg, Pulse: 93 bpm, Respiratory Rate: 14 breaths/min, Temperature: 98.2 ?F, Pulse Oximetry: 97 %. The treatment protocol provided was 2.5 JENNIFER x 90 minutes w/ 100% oxygen and 2-10 minute air breaks. The dive rate down was 1.5 psi / minute. The dive rate up was 1.5 psi / minute. The total treatment length was 140 minutes. Post- Treatment Vital Signs were: Time Vitals Taken: 14:10, Blood Pressure: 117/64 mmHg, Pulse: 90 bpm, Respiratory Rate: 14 breaths/min, Temperature: 98.2 ?F, Pulse Oximetry: 100 %. No adverse events were encountered. Physician/Bridge Painter Helper Notes: The patient tolerated treatment without difficulty. I was present and immediately available throughout. Plan to continue hyperbaric oxygen therapy and pre-medicate with 1 mg p.o. 1 hour prior to procedure. General Notes PT arrived in stable condition; pre-treatment checklist completed without complications. PT completed treatment without complications, pt left in stable condition. Electronic Signature(s) Signed By: Adrian Mancuso MD Date: 09/12/2023 15:29:06 (PT) Entered By: Adrian Mancuso MD on 09/12/2023 15:28:50 (PT) Harley Beard [facility] [id number] 1940
== END ==
PROVIDERS: PCP Family Medicine; Referring Provider Specialist; Visit Provider Surgery
DX: L59.8 Other specified disorders of the skin and subcutaneous tissue related to radiation (principal); R31.0 Gross hematuria; C61 Malignant neoplasm of prostate; N30.41 Irradiation cystitis with hematuria
CPT/HCPCS: 99183; G0277

== ENCOUNTER → 2023-09-18 11:10 | Outpatient (CLI) | payer MEDICARE, OTHER, SELFPAY ==
[2022-10-16 14:24] VITALS: BMI 29.7
== END ==
PROVIDERS: PCP Family Medicine; Referring Provider Specialist; Visit Provider Surgery
DX: R31.0 Gross hematuria (principal); L59.8 Other specified disorders of the skin and subcutaneous tissue related to radiation; C61 Malignant neoplasm of prostate; N30.41 Irradiation cystitis with hematuria
CPT/HCPCS: 99183; G0277

== ENCOUNTER → 2023-09-19 13:09 | Outpatient (CLI) | payer MEDICARE, OTHER, SELFPAY ==
[2022-10-16 14:24] VITALS: BMI 29.7
== END ==
PROVIDERS: PCP Family Medicine; Referring Provider Specialist; Visit Provider Surgery
DX: R31.0 Gross hematuria (principal); L59.8 Other specified disorders of the skin and subcutaneous tissue related to radiation; C61 Malignant neoplasm of prostate; N30.41 Irradiation cystitis with hematuria
CPT/HCPCS: 99183; G0277

== ENCOUNTER → 2023-09-20 11:41 | Outpatient (CLI) | payer MEDICARE, OTHER, SELFPAY ==
[2022-10-16 14:24] VITALS: BMI 29.7
== END ==
PROVIDERS: PCP Family Medicine; Referring Provider Specialist; Visit Provider Surgery
DX: L59.8 Other specified disorders of the skin and subcutaneous tissue related to radiation (principal); R31.0 Gross hematuria; C61 Malignant neoplasm of prostate; N30.41 Irradiation cystitis with hematuria
CPT/HCPCS: 99183; G0277

== ENCOUNTER → 2023-09-24 11:09 | Outpatient (CLI) | payer MEDICARE, OTHER, SELFPAY ==
[2022-10-16 14:24] VITALS: BMI 29.7
== END ==
PROVIDERS: PCP Family Medicine; Referring Provider Specialist; Visit Provider Surgery
DX: L59.8 Other specified disorders of the skin and subcutaneous tissue related to radiation (principal); R31.0 Gross hematuria; C61 Malignant neoplasm of prostate; N30.41 Irradiation cystitis with hematuria
CPT/HCPCS: 99183; G0277

== ENCOUNTER → 2023-09-25 10:25 | Outpatient (CLI) | payer MEDICARE, OTHER, SELFPAY ==
[2022-10-16 14:24] VITALS: BMI 29.7
== END ==
PROVIDERS: PCP Family Medicine; Referring Provider Specialist; Visit Provider Surgery
DX: L59.8 Other specified disorders of the skin and subcutaneous tissue related to radiation (principal); R31.0 Gross hematuria; C61 Malignant neoplasm of prostate; N30.41 Irradiation cystitis with hematuria
CPT/HCPCS: 99183; 99213; G0277

== ENCOUNTER → 2023-09-26 11:08 | Outpatient (CLI) | payer MEDICARE, OTHER, SELFPAY ==
[2022-10-16 14:24] VITALS: BMI 29.7
== END ==
PROVIDERS: PCP Family Medicine; Referring Provider Specialist; Visit Provider Surgery
DX: R31.0 Gross hematuria (principal); L59.8 Other specified disorders of the skin and subcutaneous tissue related to radiation; C61 Malignant neoplasm of prostate; N30.41 Irradiation cystitis with hematuria
CPT/HCPCS: 99183; G0277

== ENCOUNTER → 2023-09-27 11:33 | Outpatient (CLI) | payer MEDICARE, OTHER, SELFPAY ==
[2022-10-16 14:24] VITALS: BMI 29.7
== END ==
PROVIDERS: PCP Family Medicine; Referring Provider Specialist; Visit Provider Physician Assistant
DX: R31.0 Gross hematuria (principal); L59.8 Other specified disorders of the skin and subcutaneous tissue related to radiation; C61 Malignant neoplasm of prostate; N30.41 Irradiation cystitis with hematuria
CPT/HCPCS: 99183; G0277

== ENCOUNTER → 2023-10-01 15:54 | Outpatient (CLI) | payer MEDICARE, OTHER, SELFPAY ==
[2022-10-16 14:24] VITALS: BMI 29.7
--- NOTE | 2023-10-01 | DI.US.S_ITS ---
PROCEDURE: US PERIPH VENOUS LOW EXTREM LT INDICATIONS: Edema TECHNIQUE: Real-time imaging, as well as color and pulse Doppler interrogation, were performed of the lower extremity deep veins from the inguinal ligament to the popliteal fossa, with documentation of the visualized calf veins. COMPARISON: None. FINDINGS: The common femoral, femoral, popliteal, and the visualized calf veins are normally compressible, and free of intraluminal thrombus. Color and pulse Doppler demonstrate normal phasic intraluminal flow. There is normal augmentation response to distal compression maneuver. IMPRESSION: No findings of lower extremity deep venous thrombosis. Dictated by: Sarah Goetz M.D. on 10/01/2023 at 17:06 Approved by: Sarah Goetz M.D. on 10/01/2023 at 17:06
--- NOTE | 2023-10-01 | DI.US.S_ITS ---
PROCEDURE: US ABD AORTA ANEURYSM SCREEN INDICATIONS: Atherosclerosis TECHNIQUE: Real time scanning was performed of the aorta and iliac arteries, with image documentation. COMPARISON: None. FINDINGS: Aorta: Proximal aortic diameter measures 2.8 cm. Mid-aorta measures 1.6 cm. Distal aortic diameter is 1.7 cm. Iliac arteries: Right common iliac artery measures 1.1 cm. Left common iliac artery measures 1.1 cm. IMPRESSION: Abdominal aortic ectasia. 5 year sonographic follow-up recommended. Dictated by: Sarah Goetz M.D. on 10/01/2023 at 17:05 Approved by: Sarah Goetz M.D. on 10/01/2023 at 17:06
== END ==
PROVIDERS: PCP Family Medicine; Referring Provider Family Medicine; Visit Provider Family Medicine
DX: I77.811 Abdominal aortic ectasia (principal); M79.662 Pain in left lower leg; I10 Essential (primary) hypertension
CPT/HCPCS: 76706; 93971

== ENCOUNTER → 2023-10-09 11:25 | Outpatient (CLI) | payer MEDICARE, OTHER, SELFPAY ==
[2022-10-16 14:24] VITALS: BMI 29.7
== END ==
PROVIDERS: PCP Family Medicine; Referring Provider Specialist; Visit Provider Surgery
DX: R31.0 Gross hematuria (principal); L59.8 Other specified disorders of the skin and subcutaneous tissue related to radiation; C61 Malignant neoplasm of prostate; N30.41 Irradiation cystitis with hematuria
CPT/HCPCS: 99183; G0277

== ENCOUNTER → 2023-10-10 11:02 | Outpatient (CLI) | payer MEDICARE, OTHER, SELFPAY ==
[2022-10-16 14:24] VITALS: BMI 29.7
== END ==
LOC: WC 11:03
PROVIDERS: PCP Family Medicine; Referring Provider Specialist; Visit Provider Surgery
DX: R31.0 Gross hematuria (principal); L59.8 Other specified disorders of the skin and subcutaneous tissue related to radiation; C61 Malignant neoplasm of prostate; N30.41 Irradiation cystitis with hematuria
CPT/HCPCS: 99183; G0277

== ENCOUNTER → 2023-10-11 11:47 | Outpatient (CLI) | payer MEDICARE, OTHER, SELFPAY ==
[2022-10-16 14:24] VITALS: BMI 29.7
== END ==
LOC: WC 11:48
PROVIDERS: PCP Family Medicine; Referring Provider Specialist; Visit Provider Physician Assistant
DX: R31.0 Gross hematuria (principal); L59.8 Other specified disorders of the skin and subcutaneous tissue related to radiation; C61 Malignant neoplasm of prostate; N30.41 Irradiation cystitis with hematuria
CPT/HCPCS: 99183; G0277

== ENCOUNTER → 2023-10-15 11:13 | Outpatient (CLI) | payer MEDICARE, OTHER, SELFPAY ==
[2022-10-16 14:24] VITALS: BMI 29.7
== END ==
LOC: WC 11:14
PROVIDERS: PCP Family Medicine; Referring Provider Specialist; Visit Provider Surgery
DX: L59.8 Other specified disorders of the skin and subcutaneous tissue related to radiation (principal); N30.41 Irradiation cystitis with hematuria
CPT/HCPCS: 99211; 99212

== ENCOUNTER → 2023-10-15 11:49 | Outpatient (CLI) | payer MEDICARE, OTHER, SELFPAY ==
[2022-10-16 14:24] VITALS: BMI 29.7
== END ==
PROVIDERS: PCP Family Medicine; Referring Provider Specialist; Visit Provider Specialist
DX: N30.41 Irradiation cystitis with hematuria (principal); L59.8 Other specified disorders of the skin and subcutaneous tissue related to radiation; A49.9 Bacterial infection, unspecified; Z87.440 Personal history of urinary (tract) infections
CPT/HCPCS: 87086; 99211

== ENCOUNTER → 2023-10-17 11:08 | Outpatient (CLI) | payer MEDICARE, OTHER, SELFPAY ==
[2022-10-16 14:24] VITALS: BMI 29.7
== END ==
LOC: WC 11:10
PROVIDERS: PCP Family Medicine; Referring Provider Specialist; Visit Provider Surgery
DX: R31.0 Gross hematuria (principal); L59.8 Other specified disorders of the skin and subcutaneous tissue related to radiation; C61 Malignant neoplasm of prostate; N30.41 Irradiation cystitis with hematuria
CPT/HCPCS: 99183; G0277

== ENCOUNTER → 2023-10-22 11:16 | Outpatient (CLI) | payer MEDICARE, OTHER, SELFPAY ==
[2022-10-16 14:24] VITALS: BMI 29.7
== END ==
LOC: WC 11:17
PROVIDERS: PCP Family Medicine; Referring Provider Specialist; Visit Provider Surgery
DX: R31.0 Gross hematuria (principal); L59.8 Other specified disorders of the skin and subcutaneous tissue related to radiation; C61 Malignant neoplasm of prostate; N30.41 Irradiation cystitis with hematuria
CPT/HCPCS: 99183; G0277

== ENCOUNTER → 2023-10-23 11:30 | Outpatient (CLI) | payer MEDICARE, OTHER, SELFPAY ==
[2022-10-16 14:24] VITALS: BMI 29.7
== END ==
LOC: WC 11:31
PROVIDERS: PCP Family Medicine; Referring Provider Specialist; Visit Provider Surgery
DX: R31.0 Gross hematuria (principal); L59.8 Other specified disorders of the skin and subcutaneous tissue related to radiation; C61 Malignant neoplasm of prostate; N30.41 Irradiation cystitis with hematuria
CPT/HCPCS: 99183; G0277

== ENCOUNTER → 2023-10-24 11:28 | Outpatient (CLI) | payer MEDICARE, OTHER, SELFPAY ==
[2022-10-16 14:24] VITALS: BMI 29.7
== END ==
LOC: WC 11:29
PROVIDERS: PCP Family Medicine; Referring Provider Specialist; Visit Provider Surgery
DX: R31.0 Gross hematuria (principal); L59.8 Other specified disorders of the skin and subcutaneous tissue related to radiation; C61 Malignant neoplasm of prostate; N30.41 Irradiation cystitis with hematuria
CPT/HCPCS: 99183; G0277

== ENCOUNTER → 2023-10-28 11:32 | Outpatient (CLI) | payer MEDICARE, OTHER, SELFPAY ==
[2022-10-16 14:24] VITALS: BMI 29.7
== END ==
LOC: WC 11:38
PROVIDERS: PCP Family Medicine; Referring Provider Specialist; Visit Provider Surgery
DX: R31.0 Gross hematuria (principal); L59.8 Other specified disorders of the skin and subcutaneous tissue related to radiation; C61 Malignant neoplasm of prostate; N30.41 Irradiation cystitis with hematuria
CPT/HCPCS: 99183; G0277

== ENCOUNTER → 2023-11-04 15:03 | Outpatient (CLI) | payer MEDICARE, OTHER, SELFPAY ==
[2022-10-16 14:24] VITALS: BMI 29.7
== END ==
LOC: WC 15:05
PROVIDERS: PCP Family Medicine; Referring Provider Specialist; Visit Provider Surgery
DX: R31.0 Gross hematuria (principal); L59.8 Other specified disorders of the skin and subcutaneous tissue related to radiation; C61 Malignant neoplasm of prostate; N30.41 Irradiation cystitis with hematuria
CPT/HCPCS: 99183; G0277

== ENCOUNTER → 2023-11-07 11:22 | Outpatient (CLI) | payer MEDICARE, OTHER, SELFPAY ==
[2022-10-16 14:24] VITALS: BMI 29.7
== END ==
LOC: WC 11:23
PROVIDERS: PCP Family Medicine; Referring Provider Specialist; Visit Provider Surgery
DX: L59.8 Other specified disorders of the skin and subcutaneous tissue related to radiation (principal); N30.41 Irradiation cystitis with hematuria; C61 Malignant neoplasm of prostate
CPT/HCPCS: 99183; 99211; 99213; G0277

== ENCOUNTER → 2023-12-05 14:50 | Outpatient (CLI) | payer MEDICARE, OTHER, SELFPAY ==
[2022-10-16 14:24] VITALS: BMI 29.7
== END ==
LOC: WC 14:50
PROVIDERS: PCP Family Medicine; Referring Provider Specialist; Visit Provider Surgery
DX: R31.0 Gross hematuria (principal); L59.8 Other specified disorders of the skin and subcutaneous tissue related to radiation; C61 Malignant neoplasm of prostate
CPT/HCPCS: 99211; 99213

== ENCOUNTER → 2024-02-10 08:26 | Outpatient (CLI) | payer MEDICARE, OTHER, SELFPAY ==
[2022-10-16 14:24] VITALS: BMI 29.7
--- NOTE | 2024-02-10 | DI.NM.S_ITS ---
PROCEDURE: [place] BONE SCAN WHOLE BODY RADIOPHARMACEUTICAL: 20.1 mCi Tc-99m MDP IV. INDICATIONS: PROSTATE CANCER METATSTATIC TO BONE TECHNIQUE: Delayed whole-body scintigrams were obtained approximately 3-4 hours after intravenous injection of radiotracer. Anterior and posterior views were acquired from vertex to feet. COMPARISON: [facility], [place], CT ANGIO CHEST PE PROTOCOL, 08/16/2023, 13:22. [place], [place] BONE SCAN WHOLE BODY, 08/06/2023, 14:13. [place], [place] BONE SCAN WHOLE BODY, 04/26/2023, 11:46. [place], [place] BONE SCAN WHOLE BODY, 09/24/2022, 11:06. FINDINGS: Again noted are foci of abnormal osseous uptake involving skull, cervical, thoracic and lumbar spine, sacrum, sternum, scapulae, multiple ribs bilaterally, bony pelvis, and visualized long bones bilaterally, consistent with extensive osseous metastases. Photopenia is noted in the lower thoracic spine and inferior aspect of sternum, likely secondary to post radiation change. Compared with the last exam dated 08/06/2023, there is slight improvement. IMPRESSION: Slightly improved bone scan. Dictated by: Heidi Latif M.D. on 02/10/2024 at 14:36 Approved by: Heidi Latif M.D. on 02/10/2024 at 14:42
== END ==
PROVIDERS: PCP Family Medicine; Referring Provider Nurse Practitioner Gerontology; Visit Provider Nurse Practitioner Gerontology
DX: C61 Malignant neoplasm of prostate (principal); C79.51 Secondary malignant neoplasm of bone
CPT/HCPCS: 78306; A9503